=== PATIENT | female | born 1980 | race African-American/Black ===

== ENCOUNTER 2016-12-04 15:10 | Outpatient (CLI) | payer BC ==
[2016-12-04 15:55] LABS: ABSOLUTE BASOPHILS # (AUTO) 0.1 10^3/uL (0.0-0.2); ABSOLUTE LYMPHOCYTES (AUTO) 1.9 10^3/uL (0.5-4.7); ABSOLUTE MONOCYTES (AUTO) 0.8 10^3/uL (0.1-1.4); ABSOLUTE NEUT (AUTO) 5.8 10^3/uL (1.7-8.2); BASOPHILS % (AUTO) 0.7 % (0-2); EOSINOPHILS % (AUTO) 0.6 % (0-6); HEMATOCRIT 34.7 % (36.0-47.0); HEMOGLOBIN 10.9 g/dL (12.0-15.5); LYMPHOCYTES % (AUTO) 22.1 % (13-45); MEAN CORPUSCULAR HGB CONC 31.5 g/dL (32.0-36.0); MEAN CORPUSCULAR VOLUME 70 fl (80-97); MONOCYTES % (AUTO) 9.3 % (3-13); RED BLOOD COUNT 4.98 10^6/uL (3.72-5.28); SEGMENTED NEUTROPHILS % (AUTO) 67.3 % (42-78); WHITE BLOOD COUNT 8.7 10^3/uL (4.0-10.5)
--- NOTE | 2016-12-04 16:01 | L&D Flow Sheet ---
LD Flowsheet Datetime Report Generated by CPN: 12/04/2016 16:00 Datetime: 12/04/2016 15:57 Vital Signs NBP Sys/Karley/Mean (mmHg): 133 (QS system process) : 72 (QS system process) : 96 (QS system process) Pulse: 77 (QS system process) Datetime: 12/04/2016 15:55 Pain Pain Scale: 0 (Amelia Vitrano, RN) Pain Presence: None/Denies (Amelia Vitrano, RN) Pain Type: N/A (Amelia Vitrano, RN) Vaginal Exam Membrane Status: Intact (Amelia Vitrano, RN) Vaginal Bleeding: None (Amelia Vitrano, RN) Maternal Assessment Level of Consciousness: Fully Conscious (Amelia Vitrano, RN) DTR's/Clonus: DTRs 2+; 1 Beat Clonus (Amelia Vitrano, RN) Headache: Denies (Amelia Vitrano, RN) Datetime: 12/04/2016 15:51 Patient Care Patient Position/Activity: Left Lateral; Semi-Fowlers (Amelia Vitrano, RN) I/O Interventions: Clear Liquids Given (Amelia Vitrano, RN) Teaching Instructional Method: Verbal; Patient Instructed; Verbalized Understanding (Amelia Morales RN) Plan of Care: Plan of Care Discussed (Amelia Morales RN) Unit Routine: [place] to Room; Call French; Bed; Unit Personnel; Monitoring; Safety/Fall Risk Prevention; Bathroom Privileges (Amelia Morales, RN) Datetime: 12/04/2016 15:40 Patient Care Comments: Labs drawn, urine collected (Amelia Morales RN) Datetime: 12/04/2016 15:35 Patient Care Comments: Pt making call to workplace, changing (Amelia Morales RN)
[2016-12-04 16:10] LABS: APPEARANCE,URINE SLIGHTLY-CLOUDY; BILIRUBIN,URINE NEGATIVE (NEGATIVE); GLUCOSE, URINE NEGATIVE (NEGATIVE); KETONES,URINE 80 mg/dL (NEGATIVE); LEUKOCYTE ESTERASE,URINE NEGATIVE (NEGATIVE); NITRITE,URINE NEGATIVE (NEGATIVE); PROTEIN,URINE 100 mg/dL (NEGATIVE); URINE SPECIFIC GRAVITY 1.018; UROBILINOGEN,URINE NEGATIVE mg/dL (<2.0)
[2016-12-04 16:21] LABS: URINE BARBITURATES SCREEN NEGATIVE; URINE METHADONE SCREEN NEGATIVE; URINE PHENCYCLIDINE SCREEN NEGATIVE
[2016-12-04 16:22] LABS: ALANINE AMINOTRANSFERASE 45 U/L (9-52); ALBUMIN 3.2 g/dL (3.5-5.0); ALKALINE PHOSPHATASE 113 U/L (38-126); ANION GAP 9 (5-19); ASPARTATE AMINO TRANSFERASE 35 U/L (14-36); BILIRUBIN,TOTAL 0.3 mg/dL (0.2-1.3); BLOOD UREA NITROGEN 7 mg/dL (7-20); CALCIUM 9.2 mg/dL (8.4-10.2); CARBON DIOXIDE 25 mmol/L (22-30); CHLORIDE 103 mmol/L (98-107); CREATININE RESULT 0.72 mg/dL (0.52-1.25); GLUCOSE 65 mg/dL (75-110); LDH 646 U/L (313-618); POTASSIUM 4.2 mmol/L (3.6-5.0); SODIUM 136.7 mmol/L (137-145); TOTAL PROTEIN 6.3 g/dL (6.3-8.2); URIC ACID 5.4 mg/dL (2.5-7.0)
--- NOTE | 2016-12-04 16:54 | Non Stress Test Report ---
Non Stress Test Datetime Report Generated by CPN: 12/04/2016 16:54 DEMOGRAPHIC Test Number: 1 EGA NST: 35.0 INDICATION Indication for Study: Chronic Hypertension; Ordered by Provider MONITORING Monitor Explained: Monitor Explained; Test Explained; Patient Verbalized Understanding Time on Monitor: 12/04/2016 16:26 Time off Monitor: 12/04/2016 16:46 NST Duration: 20 NST INTERVENTIONS Physician Notified NST: H. Cullen, CNM BABY A: [id number] BABY A Movement : Present Contraction Frequency : None FHR Baseline : 130 Accelerations : 15X15 Decelerations : None Variability : Moderate 6-25bpm NST Review: Meets Criteria for Reactive NST NST Review and Verified By : Massimo Gregory RN NST Results: Reactive NST REPORT Report Trigger: Send Report
--- NOTE | 2016-12-06 12:10 | Antepartum Discharge Summary ---
Antepartum DC Datetime Report Generated by CPN: 12/06/2016 12:10 Diet: Regular (12/04/2016 17:13:Amelia Morales RN) Activity: Normal Activity (12/04/2016 17:13:Amelia Morales RN) Instructions Given To: Patient (12/04/2016 17:13:Amelia Morales RN) Instructions Understood: Patient Verbalized Understanding (12/04/2016 17:13:Amelia Morales RN) Referrals: None (12/04/2016 17:13:Amelia Morales RN) Educational Materials- Other: Kick Counts, Pre-E Care Notes (12/04/2016 17:13:Amelia Morales RN) Discharged AMA: No (12/04/2016 17:13:Amelia Morales RN) Discharge Date/Time: 12/04/2016 17:17 (12/04/2016 17:13:Amelia Morales RN) Discharged To: Home (12/04/2016 17:13:Amelia Morales RN) Discharge Provider Name: Jose Berman CNM (12/04/2016 17:13:Amelia Morales RN) Discharge Method: Ambulatory (12/04/2016 17:13:Amelia Morales RN) Condition: Stable (12/04/2016 17:13:Amelia Morales RN) Follow Up With: [facility] (12/04/2016 17:13:Amelia Morales RN) Follow Up On: 1-2 Days (12/04/2016 17:13:Amelia Morales RN) [facility] (12/04/2016 17:13:Amelia Morales RN)
--- NOTE | 2016-12-06 12:11 | L&D Flow Sheet ---
LD Flowsheet Datetime Report Generated by CPN: 12/06/2016 12:11 Datetime: 12/04/2016 17:17 Patient Care Comments: Pt ambulating off unit in stable condition (Amelia Morales, RN) Datetime: 12/04/2016 17:05 Instructional Method: Verbal; Written; Patient Instructed; Verbalized Understanding (Amelia Morales RN) Teaching Comments: Reviewed provider orders. Reviewed and signed Pre-E care notes and kick counts. Reviewed collection of 24 hour urine and provided supplies. Pt encouraged to return for f/u at [facility] and take prescriptions. Encouraged to return for pre-e signs/symptoms, leaking of fluid, decreased FM, regular contractions, bleeding like a period. Pt verbalized understanding and denies needs. (Amelia Morales RN) Datetime: 12/04/2016 17:03 Communication Comments: Jose Berman CNM on unit. Reviewed VS. Orders remain to d/c pt home, pt to collect 24 hour urine and take new prescription for Labetalol as prescribed, f/u in office . (Amelia Morales RN) Datetime: 12/04/2016 17:01 NBP Sys/Karley/Mean (mmHg): 161 (QS system process) : 74 (QS system process) : 107 (QS system process) Pulse: 72 (QS system process) Respirations: 16 (Amelia Morales RN) LaborFlag: Antepartum (QS system process) Datetime: 12/04/2016 17:00 NBP Sys/Karley/Mean (mmHg): 173 (QS system process) : 91 (QS system process) : 125 (QS system process) Pulse: 74 (QS system process) Respirations: 16 (Amelia Andrew, RN) LaborFlag: Antepartum (QS system process) Datetime: 12/04/2016 16:56 Communication Comments: HChapis Berman CNM on unit. Report given to include EGA 35.0, , pt to unit from [facility], reviewed records and history, nursing assessment, NST, VS and lab results. Orders to d/c pt home, no pre-e, pt to f/u in office as scheduled. (Amelia Liviaano, RN) Datetime: 12/04/2016 16:54 NBP Sys/Karley/Mean (mmHg): 159 (QS system process) : 98 (QS system process) : 120 (QS system process) Pulse: 74 (QS system process) Respirations: 16 (Amelia Vitrano, RN) LaborFlag: Antepartum (QS system process) Datetime: 12/04/2016 16:47 Communication Comments: Jose Berman CNM on unit, reviewed strip. May d/c monitors, reactive NST. (Amelia Vitrano, RN) Datetime: 12/04/2016 16:45 Monitor Mode: External; Palpation (Amelia Vitrano, RN) Frequency (min): None (Amelia Vitrano, RN) Resting Tone (Palpate): Relaxed (Amelia Vitrano, RN) Monitor Mode: External US (Amelia Vitrano, RN) FHR Baseline Rate : 130 (Amelia Vitrano, RN) Variability: Moderate 6-25 bpm (Amelia Vitrano, RN) Accelerations: 15X15 (Amelia Vitrano, RN) Decelerations: None (Amelia Vitrano, RN) Datetime: 12/04/2016 16:41 Monitor Interventions for FHR: Ultrasound Adjusted (Amelia Vitrano, RN) Datetime: 12/04/2016 16:39 NBP Sys/Karley/Mean (mmHg): 156 (QS system process) : 87 (QS system process) : 115 (QS system process) Pulse: 77 (QS system process) Respirations: 16 (Amelia Vitrano, RN) LaborFlag: Antepartum (QS system process) Datetime: 12/04/2016 16:26 Monitor Interventions for FHR: Ultrasound Adjusted (Amelia Vitrano, RN) Datetime: 12/04/2016 16:25 Monitor Interventions for FHR: Ultrasound Adjusted (Amelia Vitrano, RN) Datetime: 12/04/2016 16:24 NBP Sys/Karley/Mean (mmHg): 151 (QS system process) : 81 (QS system process) : 108 (QS system process) Pulse: 75 (QS system process) Respirations: 16 (Amelia Vitrano, RN) LaborFlag: Antepartum (QS system process) Datetime: 12/04/2016 16:18 Monitor Interventions for FHR: Ultrasound Adjusted (Amelia Vitrano, RN) Datetime: 12/04/2016 16:17 I/O Interventions: Popsicle (Amelia Vitrano, RN) Datetime: 12/04/2016 16:16 Monitor Interventions for FHR: Ultrasound Adjusted (Amelia Vitrano, RN) Datetime: 12/04/2016 16:15 Monitor Mode: External; Palpation (Amelia Vitrano, RN) Frequency (min): None (Amelia Vitrano, RN) Resting Tone (Palpate): Relaxed (Amelia Vitrano, RN) Monitor Mode: External US (Amelia Vitrano, RN) FHR Baseline Rate : 130 (Amelia Vitrano, RN) Variability: Moderate 6-25 bpm (Amelia Vitrano, RN) Accelerations: 15X15 (Amelia Vitrano, RN) Decelerations: None (Amelia Vitrano, RN) Datetime: 12/04/2016 16:12 Monitor Interventions for FHR: Ultrasound Adjusted (Amelia Vitrano, RN) Datetime: 12/04/2016 16:10 NBP Sys/Karley/Mean (mmHg): 153 (QS system process) : 76 (QS system process) : 107 (QS system process) Pulse: 76 (QS system process) Respirations: 16 (Amelia Vitrano, RN) LaborFlag: Antepartum (QS system process) Datetime: 12/04/2016 16:05 Monitor Interventions for FHR: Ultrasound Adjusted (Amelia Vitrano, RN) Patient Position/Activity: Right Lateral (Amelia Vitrano, RN) Datetime: 12/04/2016 16:04 Comments: Palpable movement, RN at bedside adjusting US (Amelia Vitrano, RN) Datetime: 12/04/2016 15:57 NBP Sys/Karley/Mean (mmHg): 133 (QS system process) : 72 (QS system process) : 96 (QS system process) Pulse: 77 (QS system process) Respirations: 16 (Amelia Vitrano, RN) LaborFlag: Antepartum (QS system process) Datetime: 12/04/2016 15:55 Stage of : Antepartum (Amelia Vitrano, RN) Pain Scale: 0 (Amelia Vitrano, RN) Pain Presence: None/Denies (Amelia Vitrano, RN) Pain Type: N/A (Amelia Vitrano, RN) Membrane Status: Intact (Amelia Vitrano, RN) Vaginal Bleeding: None (Amelia Vitrano, RN) Level of Consciousness: Fully Conscious (Amelia Vitrano, RN) DTR's/Clonus: DTRs 2+; 1 Beat Clonus (Amelia Vitrano, RN) Headache: Denies (Amelia Vitrano, RN) Breath Sounds, Left: Clear and Equal (Amelia Vitrano, RN) Breath Sounds, Right: Clear and Equal (Amelia Vitrano, RN) Nausea/Vomiting: Denies (Amelia Vitrano, RN) RUQ Epigastric Pain: Denies (Amelia Vitrano, RN) LaborFlag: Antepartum (QS system process) Datetime: 12/04/2016 15:51 Patient Position/Activity: Left Lateral; Semi-Fowlers (Amelia Morales RN) I/O Interventions: Clear Liquids Given (Amelia Morales RN) Instructional Method: Verbal; Patient Instructed; Verbalized Understanding (Amelia Morales RN) Plan of Care: Plan of Care Discussed (Amelia Morales RN) Unit Routine: [place] to Room; Call French; Bed; Unit Personnel; Monitoring; Safety/Fall Risk Prevention; Bathroom Privileges (Amelia Morales RN) Datetime: 12/04/2016 15:40 Patient Care Comments: Labs drawn, urine collected (Amelia Moraels RN) Datetime: 12/04/2016 15:35 Patient Care Comments: Pt making call to workplace, changing (Amelia Morales RN)
--- NOTE | 2016-12-06 12:11 | L&D General Admission ---
General Admit Datetime Report Generated by CPN: 12/06/2016 12:11 INFORMATION Patient Age: 36 (10/30/2016 09:21:QS system process) EDC: 01/08/2017 00:00 (12/04/2016 15:37:Amelia Morales RN) : 7 (12/04/2016 15:37:Amelia Morales RN) Para: 2 (12/04/2016 15:37:Amelia Morales RN) Term: 2 (12/04/2016 15:37:Amelia Morales RN) : 0 (12/04/2016 15:37:Amelia Morales RN) Spontaneous Abortions: 1 (12/04/2016 15:37:Amelia Morales RN) Induced Abortions: 3 (12/04/2016 15:37:Amelia Morales RN) Livin (12/04/2016 15:37:Amelia Morales RN) Cesareans: 0 (12/04/2016 15:37:Amelia Morales RN) VBACs: 0 (12/04/2016 15:37:Amelia Morales RN) Ectopic: 0 (12/04/2016 15:37:Ameliaraymundo Morales RN) Multiple Births: 0 (12/04/2016 15:37:Amelia Morales RN) Baby, Number in Womb: 1 (12/04/2016 15:37:Amelia Morales RN) CARE Primary Director Sales Training: [facility] (12/04/2016 15:37:Amelia Morales RN) Month of 1st Visit: 06/16 (12/04/2016 15:37:Amelia Morales RN) Adequate Care: Yes (12/04/2016 15:37:Amelia Morales RN) Prepregnancy Weight (lb): 272 (12/04/2016 15:37:Amelia Morales RN) Prepregnancy Weight (kg): 123.6 (12/04/2016 15:37:QS system process) Height (in): 61 (12/04/2016 16:00:QS system process) Height (in): 61 (12/04/2016 15:25:QS system process) ALLERGIES Medication Allergy: No (12/04/2016 15:37:Ameliaraymundo Morales RN) Medication Allergies: No Known Allergies (07/09/2013) (10/30/2016 09:21:QS system process) Latex Allergy: No Latex Allergies (12/04/2016 15:37:Amelia Vitrano, RN) Food Allergies: N/A (12/04/2016 15:37:Amelia Vitrano, RN) Environmental Allergies: N/A (12/04/2016 15:37:Amelia Vitrano, RN) COMMUNICATION Primary Language: Mongolian (12/04/2016 15:37:Amelia Morales RN) Medical Tx Preferred Language: Mongolian (12/04/2016 15:37:Amelia Andrew RN) Communication Barrier(s): None (12/04/2016 15:37:Amelia Vitrano, RN) DEMOGRAPHICS Address: [address] [place] [phone] (10/30/2016 09:21:QS system process) Zipcode: [id number] (10/30/2016 09:21:QS system process) Home (10/30/2016 09:21:QS system process) SSN: [id number] (10/30/2016 09:21:QS system process) Next of Kin Name: ISABEL WARNER II (10/30/2016 09:21:QS system process) Next of Kin (10/30/2016 09:21:QS system process) Next of Kin Relationship: SPO (10/30/2016 09:21:QS system process) Date of : 1980 (10/30/2016 09:21:QS system process) Marital Status: (10/30/2016 09:21:QS system process) Sex: Female (10/30/2016 09:21:QS system process) Race: (10/30/2016 09:21:QS system process) Ethnicity: Non- or (10/30/2016 09:21:QS system process) Shinto: Anabaptist (10/30/2016 09:21:QS system process) DRUG AND ALCOHOL USE Alcohol: No (12/04/2016 15:37:Amelia Morales RN) Cigarettes: Never Smoker. [id number] (12/04/2016 15:37:Amelia Morales RN) Marijuana: No (12/04/2016 15:37:Amelia Morales RN) Cocaine: No (12/04/2016 15:37:Amelia Morales RN) Other Illicit Drugs: No (12/04/2016 15:37:Amelia Morales RN) VACCINE HISTORY Influenza Vaccine: Yes (12/04/2016 15:37:Amelia Morales RN) Pneumococcal Vaccine: No (12/04/2016 15:37:Amelia Morales RN) Tetanus Vaccine: Yes (12/04/2016 15:37:Amelia Morales RN) Tdap Vaccine: Yes (12/04/2016 15:37:Amelia Morales RN) Hepatitis B Vaccine: Yes (12/04/2016 15:37:Amelia Morales RN) Benefit of Breast Feed Discussed: Yes (12/04/2016 15:37:Amelia Morales RN) Circumcision: Yes (12/04/2016 15:37:Amelia Morales RN) Classes Attended: Yes (12/04/2016 15:37:Amelia Morales RN) Tubal Ligation: Yes (12/04/2016 15:37:Amelia Morales RN) Tubal Authorization Signed: N/A (12/04/2016 15:37:Amelia Morales RN) Consent: N/A (12/04/2016 15:37:Amelia Morales RN) Consent Signed: N/A (12/04/2016 15:37:Amelia Morales RN) Pain Management Plans: Natural (12/04/2016 15:37:Amelia Morales RN) Plans for Labor and Delivery: None (12/04/2016 15:37:Amelia Morales RN) Support Person: Marco Warner II (12/04/2016 15:37:Amelia Morales RN) Support Person Relationship: (12/04/2016 15:37:Amelia Morales RN) Cultural/Spritual Practice: No (12/04/2016 15:37:Amelia Morales RN) Spir/Cult Dietary Needs: No (12/04/2016 15:37:Amelia Morales RN) LIVING SITUATION/DISCHARGE PLAN Living Arrangements: House (12/04/2016 15:37:Amelia Morales RN) Adequate Access to:: Electric; Heat; Refrigeration; Plumbing/Running water; Phone; Transportation (12/04/2016 15:37:Amelia Morales RN) WIC Program: No (12/04/2016 15:37:Amelia Morales RN) Discharge Primary Care Pediatrician Person: (12/04/2016 15:37:Amelia Morales RN) Person to Help after Discharge: (12/04/2016 15:37:Amelia Morales RN) Currently Using Commun Resources: No (12/04/2016 15:37:Amelia Morales RN) Outside Agency/Dredge Engineer: No (12/04/2016 15:37:Amelia Morales RN) Car Seat for Discharge: Yes (12/04/2016 15:37:Amelia Morales RN) Adoption Requested: No (12/04/2016 15:37:Amelia Morales RN) Pt Contact w/ Post : N/A (12/04/2016 15:37:Amelia Morales RN) LABS Hemoglobin: 10.9 L (12/04/2016 15:41:QS system process) Hematocrit: 34.7 L (12/04/2016 15:41:QS system process) MCV: 70 L (12/04/2016 15:41:QS system process) OB/PREVIOUS HISTORY History of Previous : No (12/04/2016 15:37:Amelia Morales RN) History of Gestational Diabetes: No (12/04/2016 15:37:Amelia Morales RN) History of PIH: No (12/04/2016 15:37:Amelia Morales RN) History of Incompetent Cervix: No (12/04/2016 15:37:Amelia Morales RN) History of Placenta Previa/Abrup: No (12/04/2016 15:37:Amelia Morales RN) History of Macrosomia: No (12/04/2016 15:37:Amelia Morales RN) History of IUGR: No (12/04/2016 15:37:Amelia Morales RN) History of Hemorrhage: No (12/04/2016 15:37:Amelia Morales RN) History of Loss/Stillborn: No (12/04/2016 15:37:Amelia Morales RN) History of : No (12/04/2016 15:37:Amelia Morales RN) History of D (Rh) Sensitization: No (12/04/2016 15:37:Amelia Morales RN) History Recurrent Loss/Stillborn: No (12/04/2016 15:37:Amelia Morales RN) History Depression/PP Depression: No (12/04/2016 15:37:Amelia Morales RN) History of Uterine Anomaly/YAZMIN: No (12/04/2016 15:37:Amelia Morales RN) History of Infertility: No (12/04/2016 15:37:Amelia Morales RN) History of ART Treatment: No (12/04/2016 15:37:Amelia Morales RN) History of YAZMIN: No (12/04/2016 15:37:Amelia Morales RN) Comments Obstetrical History: G1: 2000 EAB G2: 2001 baby boy, 37-39 weeks, 24+ hours labor, 7 lb, IOL oligo G3: 2001 EAB G4: 2003 baby girl, 37-39 weeks G5: 2007 EAB G6: 2013 SAB, 13 weeks G7: Current (12/04/2016 15:37:Amelia Morales RN) MEDICAL HISTORY Med Hx Diabetes: No (12/04/2016 15:37:Amelia Morales RN) Med Hx Hypertension: Yes (12/04/2016 15:37:Amelia Morales RN) Med Hx Heart Disease: No (12/04/2016 15:37:Amelia Morales RN) Med Hx Autoimmune Disorder: No (12/04/2016 15:37:Amelia Morales RN) Med Hx Kidney Disease/UTI: No (12/04/2016 15:37:Amelia Morales RN) Med Hx Neurologic/Epilepsy: No (12/04/2016 15:37:Amelia Morales RN) Med Hx Psychiatric Disorders: No (12/04/2016 15:37:Amelia Morales RN) Med Hx Hepatitis/Liver Disease: No (12/04/2016 15:37:Amelia Morales RN) Med Hx Varicosities/Phlebitis: No (12/04/2016 15:37:Amelia Morales RN) Med Hx Thyroid Dysfunction: No (12/04/2016 15:37:Amelia Morales RN) Med Hx Trauma/Violence: No (12/04/2016 15:37:Amelia Morales RN) Med Hx Blood Transfusion: No (12/04/2016 15:37:Amelia Morales RN) Med Hx Pulmonary (Asthma,TB): Yes (12/04/2016 15:37:Amelia Morales RN) Med Hx Breast: No (12/04/2016 15:37:Amelia Morales RN) Med Hx ORACLE SOA ARCHITECT Surgery: No (12/04/2016 15:37:Amelia Morales RN) Med Hx Hospitalization/Surgery: Yes (12/04/2016 15:37:Amelia Morales RN) Med Hx Anesthetic Complications: No (12/04/2016 15:37:Amelia Morales RN) Med Hx Abnormal Pap Smear: Yes (12/04/2016 15:37:Amelia Morales RN) Other Medical Diseases: Yes (12/04/2016 15:37:Amelia Morales RN) Med Hx Significant Family Hx: No (12/04/2016 15:37:Amelia Morales RN) Details of Med/Surg Hx: HTN: Chronic HTN, Labetalol 100 mg BID Pulmonary: Bronchitis 11/30/16 Surgery: Colonoscopy 2012, polyps noted Abnormal Pap: Hx ASCUS Pap, negative HPV Other: Morbid obesity (12/04/2016 15:37:Amelia Morales RN) INFECTIOUS HISTORY Inf Hx Gonorrhea: No (12/04/2016 15:37:Amelia Morales RN) Inf Hx Chlamydia: Yes (12/04/2016 15:37:Amelia Morales RN) Inf Hx Syphilis: No (12/04/2016 15:37:Amelia Morales RN) Inf Hx HIV/AIDS: No (12/04/2016 15:37:Amelia Morales RN) Inf Hx Human Papilloma Virus: No (12/04/2016 15:37:Amelia Morales RN) Inf Hx Pt/Partner Genital Herpes: No (12/04/2016 15:37:Amelia Morales RN) Inf Hx Tuberculosis/Exposure: No (12/04/2016 15:37:Amelia Morales RN) Inf Hx Hepatitis B,C: No (12/04/2016 15:37:Amelia Morales RN) Inf Hx Rash or Viral Illness: No (12/04/2016 15:37:Amelia Morales RN) Details of Infectious Hx: Chlamydia (12/04/2016 15:37:Amelia Morales RN) GENETIC HISTORY Gen Hx Age >=35 at XANDER: No (12/04/2016 15:37:Amelia Morales RN) Gen Hx Thalassemia: No (12/04/2016 15:37:Amelia Morales RN) Gen Hx Congenital Heart Defect: No (12/04/2016 15:37:Amelia Morales RN) Gen Hx Neural Tube Defect: No (12/04/2016 15:37:Amelia Morales RN) Gen Hx Down's Syndrome: No (12/04/2016 15:37:Amelia Morales RN) Gen Hx Ken-Sachs: No (12/04/2016 15:37:Amelia Morales RN) Gen Hx Alexia: No (12/04/2016 15:37:Amelia Morales RN) Gen Hx Familial Dysautonomia: No (12/04/2016 15:37:Amelia Morales RN) Gen Hx Sickle Cell Disease/Trait: No (12/04/2016 15:37:Amelia Morales RN) Gen Hx Hemophilia/Blood Disorder: No (12/04/2016 15:37:Amelia Morales RN) Gen Hx Muscular Dystrophy: No (12/04/2016 15:37:Amelia Morales RN) Gen Hx Cystic Fibrosis: No (12/04/2016 15:37:Amelia Morales RN) Gen Hx Huntingtons Chorea: No (12/04/2016 15:37:Amelia Morales RN) Gen Hx Mental Retardation/Autism: No (12/04/2016 15:37:Amelia Morales RN) Gen Hx Tested for Fragile X: No (12/04/2016 15:37:Amelia Morales RN) Gen Hx Other Inher/Chromosomal: No (12/04/2016 15:37:Amelia Morales RN) Gen Hx Maternal Metabolic DO: No (12/04/2016 15:37:Amelia Morales RN) Gen Hx Pt Father or FOB Defect: No (12/04/2016 15:37:Amelia Morales RN) Gen Hx Other Genetic History: No (12/04/2016 15:37:Amelia Morales RN) Gen Hx Drugs/Meds since LMP: No (12/04/2016 15:37:Amelia Morales RN)
--- NOTE | 2016-12-06 12:11 | L&D Current Admission ---
Current Admit Datetime Report Generated by [facility]: 12/06/2016 12:10 Chief Complaint: Other (Annotations: Denies complaints) (12/04/2016 15:55:Amelia Morales RN)
--- NOTE | 2016-12-06 12:12 | L&D Discharge Summary ---
OB Discharge Summary Datetime Report Generated by CPN: 12/06/2016 12:12 DISCHARGE DIAGNOSIS Diagnosis/Symptoms: Other Diagnoses/Symptoms Other: No pre-e Reviewed provider orders. Reviewed and signed Pre-E care notes and kick counts. Reviewed collection of 24 hour urine and provided supplies. Pt encouraged to return for f/u Thursday at [facility] and take prescriptions. Encouraged to return for pre-e signs/symptoms, leaking of fluid, decreased FM, regular contractions, bleeding like a period. Pt verbalized understanding and denies needs. Gestation: 35.0 Number of Babies in Womb: 1 Parity: 2 DIET/ACTIVITY/RESTRICTIONS Diet: Regular Activity: Normal Activity TEACHING/INSTRUCTIONS/REFERRALS Instructions Given To: Patient Instructions Understood: Patient Verbalized Understanding Referrals: None Educational Materials- Other: Kick Counts, Pre-E Care Notes DISCHARGE INFORMATION Discharged AMA: No Discharge Date/Time: 12/04/2016 17:17 Discharged To: Home Discharge Provider Name: H. Cullen, CNM Discharge Method: Ambulatory Condition: Stable FOLLOW UP INFORMATION Follow Up With: [facility] Follow Up On: 1-2 Days Follow Up Phone Number: [facility] -
== END 2016-12-04 17:17 | disposition home or self-care (01) ==
LOC: LC 15:10
PROVIDERS: ATTEND Obstetrics & Gynecology
PROC: 4A1HXCZ Monitoring of Products of Conception, Cardiac Rate, External Approach (ICD-10-PCS; principal; 2016-12-04)
DX: O10.913 Unspecified pre-existing hypertension complicating pregnancy, third trimester (principal); Z3A.35 35 weeks gestation of pregnancy
CPT/HCPCS: 59025; 36415; 83615; 84550; 85025; 80053; 81001; G0479; 80307

== ENCOUNTER 2016-12-10 15:59 | Outpatient (CLI) | payer BC ==
--- NOTE | 2016-12-10 16:51 | Non Stress Test Report ---
Non Stress Test Datetime Report Generated by CPN: 12/10/2016 16:51 DEMOGRAPHIC EGA NST: 35.6 INDICATION Indication for Study: Chronic Hypertension; Other Indication for Study (NST) Other: morbid obesity VITAL SIGNS Temperature - NST: 97.9 Pulse - NST: 77 RESP - NST: 22 NBPSYS NST: 136 NBPDIA NST: 68 MONITORING Monitor Explained: Monitor Explained; Test Explained; Patient Verbalized Understanding Time on Monitor: 12/10/2016 16:21 Time off Monitor: 12/10/2016 16:50 NST Duration: 29 NST INTERVENTIONS NST Interventions: PO Hydration; Reposition Patient Physician Notified NST: Lorena Alcaraz, CNM BABY A Movement : Present Contraction Frequency : deneis FHR Baseline : 135 Accelerations : 15X15 Decelerations : None Variability : Moderate 6-25bpm NST Review: Meets Criteria for Reactive NST NST Review and Verified By : Jose Boswell RN NST Results: Reactive NST Results: Reactive NST REPORT Report Trigger: Send Report
--- NOTE | 2016-12-11 10:30 | Antepartum Discharge Summary ---
Antepartum DC Datetime Report Generated by CPN: 12/11/2016 10:30 Diet: Regular (12/10/2016 17:06:KRISTEN Salazar) Activity: Normal Activity (12/10/2016 17:06:KRISTEN Salazar) Activity Restrictions: Nothing in Vagina - [place], Tampons, [place] (12/10/2016 17:06:KRISTEN Salazar) Instructions Given To: patient (12/10/2016 17:06:KRISTEN Salazar) Instructions Understood: Patient Verbalized Understanding; Support Person Verbalized Understanding (12/10/2016 17:06:KRISTEN Salazar) Referrals: None (12/10/2016 17:06:KRISTEN Salazar) Educational Materials- Other: reviewed previous care notes for Kick Count process, interventions to promote movement, warning signs to report and when notifiy provider and seek further evaluation (12/10/2016 17:06:KRISTEN Salazar) Discharged AMA: No (12/10/2016 17:06:KRISTEN Salazar) Discharge Date/Time: 12/10/2016 17:00 (12/10/2016 17:06:KRISTEN Salazar) Discharged To: Home (12/10/2016 17:06:KRISTEN Salazar) Discharge Provider Name: Maddi Alcaraz CNM (12/10/2016 17:06:KRISTEN Salazar) Accompanied By: self (12/10/2016 17:06:KRISTEN Salazar) Discharge Method: Ambulatory (12/10/2016 17:06:KRISTEN Salazar) Condition: Stable (12/10/2016 17:06:KRISTEN Salazar) Follow Up With: [facility] (12/10/2016 17:06:KRISTEN Salazar) Follow Up On: As Scheduled (12/10/2016 17:06:KRISTEN Salazar) Follow Up Phone Number: [facility] - (12/10/2016 17:06:KRISTEN Salazar)
--- NOTE | 2016-12-11 10:31 | L&D General Admission ---
General Admit Datetime Report Generated by CPN: 12/11/2016 10:31 INFORMATION Patient Age: 36 (10/30/2016 09:21:QS system process) EDC: 01/08/2017 00:00 (12/04/2016 15:37:Amelia Morales RN) : 7 (12/04/2016 15:37:Amelia Morales RN) Para: 4 (12/10/2016 17:06:KRISTEN Salazar) Para: 2 (12/04/2016 15:37:Amelia Morales RN) Term: 2 (12/04/2016 15:37:Amelia Morales RN) : 0 (12/04/2016 15:37:Amelia Morales RN) Spontaneous Abortions: 1 (12/04/2016 15:37:Amelia Morales RN) Induced Abortions: 3 (12/04/2016 15:37:Amelia Morales RN) Livin (12/04/2016 15:37:Amelia Morales RN) Cesareans: 0 (12/04/2016 15:37:Amelia Morales RN) VBACs: 0 (12/04/2016 15:37:Amelia Morales RN) Ectopic: 0 (12/04/2016 15:37:Amelia Morales RN) Multiple Births: 0 (12/04/2016 15:37:Amelia Morales RN) Baby, Number in Womb: 1 (12/10/2016 17:06:Emily Garcia [facility]) Baby, Number in Womb: 1 (12/04/2016 15:37:Amelia Morales RN) CARE Primary General Ii Farmworker: [facility] (12/04/2016 15:37:Amelia Morales RN) Month of 1st Visit: 06/16 (12/04/2016 15:37:Amelia Morales RN) Adequate Care: Yes (12/04/2016 15:37:Amelia Morales RN) Prepregnancy Weight (lb): 272 (12/04/2016 15:37:Amelia Morales RN) Prepregnancy Weight (kg): 123.6 (12/04/2016 15:37:QS system process) Height (in): 61 (12/10/2016 16:57:QS system process) Height (in): 61 (12/10/2016 16:46:QS system process) Height (in): 61 (12/04/2016 16:00:QS system process) Height (in): 61 (12/04/2016 15:25:QS system process) ALLERGIES Medication Allergy: No (12/04/2016 15:37:Amelia Moralse RN) Medication Allergies: No Known Allergies (12/10/2016) (12/10/2016 16:43:QS system process) Medication Allergies: No Known Allergies (07/09/2013) (10/30/2016 09:21:QS system process) Latex Allergy: No Latex Allergies (12/04/2016 15:37:Ameliaraymundo Morales RN) Food Allergies: N/A (12/04/2016 15:37:Amelia Morales RN) Environmental Allergies: N/A (12/04/2016 15:37:Amelia Andrew RN) COMMUNICATION Primary Language: Kyrgyz (12/04/2016 15:37:Amelia Morales RN) Medical Tx Preferred Language: Kyrgyz (12/04/2016 15:37:Ameliaraymundo Morales RN) Communication Barrier(s): None (12/04/2016 15:37:Amelia Andrew, RN) DEMOGRAPHICS Address: [address] [place] [phone] (10/30/2016 09:21:QS system process) Zipcode: [phone] (10/30/2016 09:21:QS system process) Home (10/30/2016 09:21:QS system process) SSN: [id number] (10/30/2016 09:21:QS system process) Next of Kin Name: ISABEL WARNER II (10/30/2016 09:21:QS system process) Next of Kin (10/30/2016 09:21:QS system process) Next of Kin Relationship: SPO (10/30/2016 09:21:QS system process) Date of : 1980 (10/30/2016 09:21:QS system process) Marital Status: (10/30/2016 09:21:QS system process) Sex: Female (10/30/2016 09:21:QS system process) Race: (10/30/2016 09:21:QS system process) Ethnicity: Non- or (10/30/2016 09:21:QS system process) Zoroastrianism: Lutheran (10/30/2016 09:21:QS system process) DRUG AND ALCOHOL USE Alcohol: No (12/04/2016 15:37:Amelia Vitrano, RN) Cigarettes: Never Smoker. [id number] (12/04/2016 15:37:Amelia Vitrano, RN) Marijuana: No (12/04/2016 15:37:Amelia Vitrano, RN) Cocaine: No (12/04/2016 15:37:Amelia Vitrano, RN) Other Illicit Drugs: No (12/04/2016 15:37:Amelia Vitrano, RN) VACCINE HISTORY Influenza Vaccine: Yes (12/04/2016 15:37:Amelia Vitrano, RN) Pneumococcal Vaccine: No (12/04/2016 15:37:Amelia Vitrano, RN) Tetanus Vaccine: Yes (12/04/2016 15:37:Amelia Vitrano, RN) Tdap Vaccine: Yes (12/04/2016 15:37:Amelia Vitrano, RN) Hepatitis B Vaccine: Yes (12/04/2016 15:37:Amelia Vitrano, RN) Benefit of Breast Feed Discussed: Yes (12/04/2016 15:37:Amelia Morales RN) Circumcision: Yes (12/04/2016 15:37:Amelia Morales RN) Classes Attended: Yes (12/04/2016 15:37:Amelia Morales RN) Tubal Ligation: Yes (12/04/2016 15:37:Amelia Morales RN) Tubal Authorization Signed: N/A (12/04/2016 15:37:Amelia Morales RN) Consent: N/A (12/04/2016 15:37:Amelia Morales RN) Consent Signed: N/A (12/04/2016 15:37:Amelia Morales RN) Pain Management Plans: Natural (12/04/2016 15:37:Amelia Morales RN) Plans for Labor and Delivery: None (12/04/2016 15:37:Amelia Morales RN) Support Person: Marco Warner II (12/04/2016 15:37:Amelia Morales RN) Support Person Relationship: (12/04/2016 15:37:Amelia Moarles RN) Cultural/Spritual Practice: No (12/04/2016 15:37:Amelia Morales RN) Spir/Cult Dietary Needs: No (12/04/2016 15:37:Amelia Morales RN) LIVING SITUATION/DISCHARGE PLAN Living Arrangements: House (12/04/2016 15:37:Amelia Morales RN) Adequate Access to:: Electric; Heat; Refrigeration; Plumbing/Running water; Phone; Transportation (12/04/2016 15:37:Amelia Morales RN) WIC Program: No (12/04/2016 15:37:Amelia Morales RN) Discharge Healthcare Analyst Person: (12/04/2016 15:37:Amelia Morales RN) Person to Help after Discharge: (12/04/2016 15:37:Amelia Morales RN) Currently Using Commun Resources: No (12/04/2016 15:37:Amelia Morales RN) Outside Agency/Fuel Efficient Aircraft Designer: No (12/04/2016 15:37:Amelia Morales RN) Car Seat for Discharge: Yes (12/04/2016 15:37:Amelia Morales RN) Adoption Requested: No (12/04/2016 15:37:Amelia Morales RN) Pt Contact w/infant Post : N/A (12/04/2016 15:37:Amelia Morales RN) LABS Hemoglobin: 10.9 L (12/04/2016 15:41:QS system process) Hematocrit: 34.7 L (12/04/2016 15:41:QS system process) MCV: 70 L (12/04/2016 15:41:QS system process) OB/PREVIOUS HISTORY History of Previous : No (12/04/2016 15:37:Amelia Morales RN) History of Gestational Diabetes: No (12/04/2016 15:37:Amelia Morales RN) History of PIH: No (12/04/2016 15:37:Amelia Morales RN) History of Incompetent Cervix: No (12/04/2016 15:37:Amelia Morales RN) History of Placenta Previa/Abrup: No (12/04/2016 15:37:Amelia Morales RN) History of Macrosomia: No (12/04/2016 15:37:Amelia Morales RN) History of IUGR: No (12/04/2016 15:37:Amelia Morales RN) History of Hemorrhage: No (12/04/2016 15:37:Amelia Morales RN) History of Loss/Stillborn: No (12/04/2016 15:37:Amelia Morales RN) History of : No (12/04/2016 15:37:Amelia Morales RN) History of D (Rh) Sensitization: No (12/04/2016 15:37:Amelia Morales RN) History Recurrent Loss/Stillborn: No (12/04/2016 15:37:Amelia Morales RN) History Depression/PP Depression: No (12/04/2016 15:37:Amelia Morales RN) History of Uterine Anomaly/YAZMIN: No (12/04/2016 15:37:Amelia Morales RN) History of Infertility: No (12/04/2016 15:37:Amelia Morales RN) History of ART Treatment: No (12/04/2016 15:37:Amelia Morales RN) History of YAZMIN: No (12/04/2016 15:37:Amelia Morales RN) Comments Obstetrical History: G1: 2000 EAB G2: 2001 baby boy, 37-39 weeks, 24+ hours labor, 7 lb, IOL oligo G3: 2001 EAB G4: 2003 baby girl, 37-39 weeks G5: 2007 EAB G6: 2014 SAB, 13 weeks G7: Current (12/04/2016 15:37:Amelia Morales RN) MEDICAL HISTORY Med Hx Diabetes: No (12/04/2016 15:37:Amelia Morales RN) Med Hx Hypertension: Yes (12/04/2016 15:37:Amelia Morales RN) Med Hx Heart Disease: No (12/04/2016 15:37:Amelia Morales RN) Med Hx Autoimmune Disorder: No (12/04/2016 15:37:Amelia Morales RN) Med Hx Kidney Disease/UTI: No (12/04/2016 15:37:Amelia Morales RN) Med Hx Neurologic/Epilepsy: No (12/04/2016 15:37:Amelia Morales RN) Med Hx Psychiatric Disorders: No (12/04/2016 15:37:Amelia Morales RN) Med Hx Hepatitis/Liver Disease: No (12/04/2016 15:37:Amelia Morales RN) Med Hx Varicosities/Phlebitis: No (12/04/2016 15:37:Amelia Morales RN) Med Hx Thyroid Dysfunction: No (12/04/2016 15:37:Amelia Morales RN) Med Hx Trauma/Violence: No (12/04/2016 15:37:Amelia Morales RN) Med Hx Blood Transfusion: No (12/04/2016 15:37:Amelia Morales RN) Med Hx Pulmonary (Asthma,TB): Yes (12/04/2016 15:37:Amelia Morales RN) Med Hx Breast: No (12/04/2016 15:37:Amelia Morales RN) Med Hx PRECISION HONER Surgery: No (12/04/2016 15:37:Amelia Morales RN) Med Hx Hospitalization/Surgery: Yes (12/04/2016 15:37:Amelia Morales RN) Med Hx Anesthetic Complications: No (12/04/2016 15:37:Amelia Morales RN) Med Hx Abnormal Pap Smear: Yes (12/04/2016 15:37:Amelia Morales RN) Other Medical Diseases: Yes (12/04/2016 15:37:Amelia Morales RN) Med Hx Significant Family Hx: No (12/04/2016 15:37:Amelia Morales RN) Details of Med/Surg Hx: HTN: Chronic HTN, Labetalol 100 mg BID Pulmonary: Bronchitis 11/30/16 Surgery: Colonoscopy 2012, polyps noted Abnormal Pap: Hx ASCUS Pap, negative HPV Other: Morbid obesity (12/04/2016 15:37:Amelia Morales RN) INFECTIOUS HISTORY Inf Hx Gonorrhea: No (12/04/2016 15:37:Amelia Morales RN) Inf Hx Chlamydia: Yes (12/04/2016 15:37:Amelia Morales RN) Inf Hx Syphilis: No (12/04/2016 15:37:Amelia Morales RN) Inf Hx HIV/AIDS: No (12/04/2016 15:37:Amelia Morales RN) Inf Hx Human Papilloma Virus: No (12/04/2016 15:37:Amelia Morales RN) Inf Hx Pt/Partner Genital Herpes: No (12/04/2016 15:37:Amelia Morales RN) Inf Hx Tuberculosis/Exposure: No (12/04/2016 15:37:Amelia Morales RN) Inf Hx Hepatitis B,C: No (12/04/2016 15:37:Amelia Morales RN) Inf Hx Rash or Viral Illness: No (12/04/2016 15:37:Amelia Morales RN) Details of Infectious Hx: Chlamydia (12/04/2016 15:37:Amelia Morales RN) GENETIC HISTORY Gen Hx Age >=35 at XANDER: No (12/04/2016 15:37:Amelia Morales RN) Gen Hx Thalassemia: No (12/04/2016 15:37:Amelia Morales RN) Gen Hx Congenital Heart Defect: No (12/04/2016 15:37:Amelia Morales RN) Gen Hx Neural Tube Defect: No (12/04/2016 15:37:Amelia Morales RN) Gen Hx Down's Syndrome: No (12/04/2016 15:37:Amelia Morales RN) Gen Hx Ken-Sachs: No (12/04/2016 15:37:Amelia Morales RN) Gen Hx Alexia: No (12/04/2016 15:37:Amelia Morales RN) Gen Hx Familial Dysautonomia: No (12/04/2016 15:37:Amelia Morales RN) Gen Hx Sickle Cell Disease/Trait: No (12/04/2016 15:37:Amelia Morales RN) Gen Hx Hemophilia/Blood Disorder: No (12/04/2016 15:37:Amelia Morales RN) Gen Hx Muscular Dystrophy: No (12/04/2016 15:37:Amelia Morales RN) Gen Hx Cystic Fibrosis: No (12/04/2016 15:37:Amelia Morales RN) Gen Hx Huntingtons Chorea: No (12/04/2016 15:37:Amelia Morales RN) Gen Hx Mental Retardation/Autism: No (12/04/2016 15:37:Amelia Morales RN) Gen Hx Tested for Fragile X: No (12/04/2016 15:37:Amelia Morales RN) Gen Hx Other Inher/Chromosomal: No (12/04/2016 15:37:Amelia Morales RN) Gen Hx Maternal Metabolic DO: No (12/04/2016 15:37:Amelia Morales RN) Gen Hx Pt Father or FOB Defect: No (12/04/2016 15:37:Amelia Morales RN) Gen Hx Other Genetic History: No (12/04/2016 15:37:Amelia Morales RN) Gen Hx Drugs/Meds since LMP: No (12/04/2016 15:37:Amelia Morales RN)
--- NOTE | 2016-12-11 10:31 | L&D Discharge Summary ---
OB Discharge Summary Datetime Report Generated by CPN: 12/11/2016 10:31 DISCHARGE DIAGNOSIS Diagnosis/Symptoms: Reassuring Surveillance - Annotate Details Diagnoses/Symptoms Other: iup 35+6 CHTN maternal obesity with reactive NST Gestation: 35.6 Number of Babies in Womb: 1 Parity: 4 DIET/ACTIVITY/RESTRICTIONS Diet: Regular Activity: Normal Activity Activity Restrictions: Nothing in Vagina - Nooksack, Tampons, Douche TEACHING/INSTRUCTIONS/REFERRALS Instructions Given To: patient Instructions Understood: Patient Verbalized Understanding; Support Person Verbalized Understanding Referrals: None Educational Materials- Other: reviewed previous care notes for Kick Count process, interventions to promote movement, warning signs to report and when notifiy provider and seek further evaluation DISCHARGE INFORMATION Discharged AMA: No Discharge Date/Time: 12/10/2016 17:00 Discharged To: Home Discharge Provider Name: J Alcaraz CNM Accompanied By: self Discharge Method: Ambulatory Condition: Stable FOLLOW UP INFORMATION Follow Up With: [facility] Follow Up On: As Scheduled Follow Up Phone Number: [facility] -
--- NOTE | 2016-12-11 10:35 | L&D Flow Sheet ---
LD Flowsheet Datetime Report Generated by CPN: 12/11/2016 10:35 Datetime: 12/10/2016 16:55 Comments: active movment verbalized and palpated. EFM off for discharge to home, see discharge summary (Emily Camp, RNC) Datetime: 12/10/2016 16:39 NBP Sys/Karley/Mean (mmHg): 136 (QS system process) : 68 (QS system process) : 96 (QS system process) Pulse: 77 (QS system process) LaborFlag: Antepartum (QS system process) Datetime: 12/10/2016 16:30 Actions for Decelerations: Side to Side (KRISTEN Salazar) Comments: RN remains at bedside attempting to continuously trace fhr, audible accels with stated movement felt per pt. Continuous tracing difficult secondary to habitus and transverse position (KRISTEN Salazar)
--- NOTE | 2016-12-12 06:13 | L&D Current Admission ---
Current Admit Datetime Report Generated by CPN: 12/12/2016 06:00 ADMISSION INFORMATION Chief Complaint: Other (Annotations: Denies complaints) (12/04/2016 15:55:Amelia Andrew, ABDULKADIR)
--- NOTE | 2016-12-12 06:13 | L&D General Admission ---
General Admit Datetime Report Generated by CPN: 12/12/2016 06:00 INFORMATION Patient Age: 36 (10/30/2016 09:21:QS system process) EDC: 01/08/2017 00:00 (12/04/2016 15:37:Amelia Morales RN) : 7 (12/04/2016 15:37:Amelia Morales RN) Para: 4 (12/10/2016 17:06:KRISTEN Salazar) Term: 2 (12/04/2016 15:37:Amelia Morales RN) : 0 (12/04/2016 15:37:Amelia Morales RN) Spontaneous Abortions: 1 (12/04/2016 15:37:Amelia Morales RN) Induced Abortions: 3 (12/04/2016 15:37:Amelia Morales RN) Livin (12/04/2016 15:37:Amelia Morales RN) Cesareans: 0 (12/04/2016 15:37:Amelia Morales RN) VBACs: 0 (12/04/2016 15:37:Amelia Morales RN) Ectopic: 0 (12/04/2016 15:37:Amelia Morales RN) Multiple Births: 0 (12/04/2016 15:37:Amelia Morales RN) Baby, Number in Womb: 1 (12/10/2016 17:06:Emily Jose, [facility]) CARE Primary Model Maker Fiberglass: [facility] (12/04/2016 15:37:Amelia Morales RN) Month of 1st Visit: 06/16 (12/04/2016 15:37:Amelia Morales RN) Adequate Care: Yes (12/04/2016 15:37:Amelia Morales RN) Prepregnancy Weight (lb): 272 (12/04/2016 15:37:Amelia Morales RN) Prepregnancy Weight (kg): 123.6 (12/04/2016 15:37:QS system process) Height (in): 61 (12/10/2016 16:57:QS system process) ALLERGIES Medication Allergy: No (12/04/2016 15:37:Amelia Morales RN) Medication Allergies: No Known Allergies (12/10/2016) (12/10/2016 16:43:QS system process) Latex Allergy: No Latex Allergies (12/04/2016 15:37:Amelia Morales RN) Food Allergies: N/A (12/04/2016 15:37:Amelia Morales RN) Environmental Allergies: N/A (12/04/2016 15:37:Amelia Morales RN) COMMUNICATION Primary Language: Armenian (12/04/2016 15:37:Amelia Morales RN) Medical Tx Preferred Language: Armenian (12/04/2016 15:37:Amelia Morales RN) Communication Barrier(s): None (12/04/2016 15:37:Amelia Morales RN) DEMOGRAPHICS Address: [address] [place] [phone] (10/30/2016 09:21:QS system process) Zipcode: [phone] (10/30/2016 09:21:QS system process) Home (10/30/2016 09:21:QS system process) SSN: [id number] (10/30/2016 09:21:QS system process) Next of Kin Name: ISABEL WARNER II (10/30/2016 09:21:QS system process) Next of Kin (10/30/2016 09:21:QS system process) Next of Kin Relationship: SPO (10/30/2016 09:21:QS system process) Date of : 1980 (10/30/2016 09:21:QS system process) Marital Status: (10/30/2016 09:21:QS system process) Sex: Female (10/30/2016 09:21:QS system process) Race: (10/30/2016 09:21:QS system process) Ethnicity: Non- or (10/30/2016 09:21:QS system process) Moravian: Amish (10/30/2016 09:21:QS system process) DRUG AND ALCOHOL USE Alcohol: No (12/04/2016 15:37:Amelia Morales RN) Cigarettes: Never Smoker. [id number] (12/04/2016 15:37:Amelia Morales RN) Marijuana: No (12/04/2016 15:37:Amelia Morales RN) Cocaine: No (12/04/2016 15:37:Amelia Morales RN) Other Illicit Drugs: No (12/04/2016 15:37:Amelia Morales RN) VACCINE HISTORY Influenza Vaccine: Yes (12/04/2016 15:37:Amelia Morales RN) Pneumococcal Vaccine: No (12/04/2016 15:37:Amelia Morales RN) Tetanus Vaccine: Yes (12/04/2016 15:37:Amelia Morales RN) Tdap Vaccine: Yes (12/04/2016 15:37:Amelia Morales RN) Hepatitis B Vaccine: Yes (12/04/2016 15:37:Amelia Morales RN) Benefit of Breast Feed Discussed: Yes (12/04/2016 15:37:Amelia Morales RN) Circumcision: Yes (12/04/2016 15:37:Amelia Morales RN) Classes Attended: Yes (12/04/2016 15:37:Amelia Morales RN) Tubal Ligation: Yes (12/04/2016 15:37:Amelia Morales RN) Tubal Authorization Signed: N/A (12/04/2016 15:37:Amelia Morales RN) Consent: N/A (12/04/2016 15:37:Amelia Morales RN) Consent Signed: N/A (12/04/2016 15:37:Amelia Morales RN) Pain Management Plans: Natural (12/04/2016 15:37:Amelia Morales RN) Plans for Labor and Delivery: None (12/04/2016 15:37:Amelia Morales RN) Support Person: Marco Warner II (12/04/2016 15:37:Amelia Morales RN) Support Person Relationship: (12/04/2016 15:37:Amelia Morales RN) Cultural/Spritual Practice: No (12/04/2016 15:37:Amelia Morales RN) Spir/Cult Dietary Needs: No (12/04/2016 15:37:Amelia Morales RN) LIVING SITUATION/DISCHARGE PLAN Living Arrangements: House (12/04/2016 15:37:Amelia Morales RN) Adequate Access to:: Electric; Heat; Refrigeration; Plumbing/Running water; Phone; Transportation (12/04/2016 15:37:Amelia Morales RN) WIC Program: No (12/04/2016 15:37:Amelia Morales RN) Discharge Price Changer Person: (12/04/2016 15:37:Amelia Morales RN) Person to Help after Discharge: (12/04/2016 15:37:Amelia Morales RN) Currently Using Commun Resources: No (12/04/2016 15:37:Amelia Morales RN) Outside Agency/Monkey Keeper: No (12/04/2016 15:37:Amelia Morales RN) Car Seat for Discharge: Yes (12/04/2016 15:37:Amelia Morales RN) Adoption Requested: No (12/04/2016 15:37:Amelia Morales RN) Pt Contact w/infant Post : N/A (12/04/2016 15:37:Amelia Morales RN) LABS Hemoglobin: 10.9 L (12/04/2016 15:41:QS system process) Hematocrit: 34.7 L (12/04/2016 15:41:QS system process) MCV: 70 L (12/04/2016 15:41:QS system process) OB/PREVIOUS HISTORY History of Previous : No (12/04/2016 15:37:Amelia Morales RN) History of Gestational Diabetes: No (12/04/2016 15:37:Amelia Morales RN) History of PIH: No (12/04/2016 15:37:Amelia Morales RN) History of Incompetent Cervix: No (12/04/2016 15:37:Amelia Morales RN) History of Placenta Previa/Abrup: No (12/04/2016 15:37:Amelia Morales RN) History of Macrosomia: No (12/04/2016 15:37:Amelia Morales RN) History of IUGR: No (12/04/2016 15:37:Amelia Morales RN) History of Hemorrhage: No (12/04/2016 15:37:Amelia Morales RN) History of Loss/Stillborn: No (12/04/2016 15:37:Amelia Morales RN) History of : No (12/04/2016 15:37:Amelia Morales RN) History of D (Rh) Sensitization: No (12/04/2016 15:37:Amelia Morales RN) History Recurrent Loss/Stillborn: No (12/04/2016 15:37:Amelia Morales RN) History Depression/PP Depression: No (12/04/2016 15:37:Amelia Morales RN) History of Uterine Anomaly/YAZMIN: No (12/04/2016 15:37:Amelia Morales RN) History of Infertility: No (12/04/2016 15:37:Amelia Morales RN) History of ART Treatment: No (12/04/2016 15:37:Amelia Morales RN) History of YAZMIN: No (12/04/2016 15:37:Amelia Morales RN) Comments Obstetrical History: G1: 2000 EAB G2: 2001 baby boy, 37-39 weeks, 24+ hours labor, 7 lb, IOL oligo G3: 2001 EAB G4: 2003 baby girl, 37-39 weeks G5: 2007 EAB G6: 2013 SAB, 13 weeks G7: Current (12/04/2016 15:37:Amelia Morales RN) MEDICAL HISTORY Med Hx Diabetes: No (12/04/2016 15:37:Amelia Morales RN) Med Hx Hypertension: Yes (12/04/2016 15:37:Amelia Morales RN) Med Hx Heart Disease: No (12/04/2016 15:37:Amelia Morales RN) Med Hx Autoimmune Disorder: No (12/04/2016 15:37:Amelia Morales RN) Med Hx Kidney Disease/UTI: No (12/04/2016 15:37:Amelia Morales RN) Med Hx Neurologic/Epilepsy: No (12/04/2016 15:37:Amelia Morales RN) Med Hx Psychiatric Disorders: No (12/04/2016 15:37:Amelia Morales RN) Med Hx Hepatitis/Liver Disease: No (12/04/2016 15:37:Amelia Morales RN) Med Hx Varicosities/Phlebitis: No (12/04/2016 15:37:Amelia Morales RN) Med Hx Thyroid Dysfunction: No (12/04/2016 15:37:Amelia Morales RN) Med Hx Trauma/Violence: No (12/04/2016 15:37:Amelia Morales RN) Med Hx Blood Transfusion: No (12/04/2016 15:37:Amelia Morales RN) Med Hx Pulmonary (Asthma,TB): Yes (12/04/2016 15:37:Amelia Morales RN) Med Hx Breast: No (12/04/2016 15:37:Amelia Morales RN) Med Hx DIGITAL COMPUTER OPERATOR Surgery: No (12/04/2016 15:37:Amelia Morales RN) Med Hx Hospitalization/Surgery: Yes (12/04/2016 15:37:Amelia Morales RN) Med Hx Anesthetic Complications: No (12/04/2016 15:37:Amelia Morales RN) Med Hx Abnormal Pap Smear: Yes (12/04/2016 15:37:Amelia Morales RN) Other Medical Diseases: Yes (12/04/2016 15:37:Amelia Morales RN) Med Hx Significant Family Hx: No (12/04/2016 15:37:Amelia Morales RN) Details of Med/Surg Hx: HTN: Chronic HTN, Labetalol 100 mg BID Pulmonary: Bronchitis 11/30/16 Surgery: Colonoscopy 2012, polyps noted Abnormal Pap: Hx ASCUS Pap, negative HPV Other: Morbid obesity (12/04/2016 15:37:Amelia Morales RN) INFECTIOUS HISTORY Inf Hx Gonorrhea: No (12/04/2016 15:37:Amelia Morales RN) Inf Hx Chlamydia: Yes (12/04/2016 15:37:Amelia Morales RN) Inf Hx Syphilis: No (12/04/2016 15:37:Amelia Morales RN) Inf Hx HIV/AIDS: No (12/04/2016 15:37:Amelia Morales RN) Inf Hx Human Papilloma Virus: No (12/04/2016 15:37:Amelia Morales RN) Inf Hx Pt/Partner Genital Herpes: No (12/04/2016 15:37:Amelia Morales RN) Inf Hx Tuberculosis/Exposure: No (12/04/2016 15:37:Amelia Morales RN) Inf Hx Hepatitis B,C: No (12/04/2016 15:37:Amelia Morales RN) Inf Hx Rash or Viral Illness: No (12/04/2016 15:37:Amelia Morales RN) Details of Infectious Hx: Chlamydia (12/04/2016 15:37:Amelia Morales RN) GENETIC HISTORY Gen Hx Age >=35 at XANDER: No (12/04/2016 15:37:Amelia Morales RN) Gen Hx Thalassemia: No (12/04/2016 15:37:Amelia Morales RN) Gen Hx Congenital Heart Defect: No (12/04/2016 15:37:Amelia Morales RN) Gen Hx Neural Tube Defect: No (12/04/2016 15:37:Amelia Morales RN) Gen Hx Down's Syndrome: No (12/04/2016 15:37:Amelia Morales RN) Gen Hx Ken-Sachs: No (12/04/2016 15:37:Amelia Morales RN) Gen Hx Alexia: No (12/04/2016 15:37:Amelia Morales RN) Gen Hx Familial Dysautonomia: No (12/04/2016 15:37:Amelia Morales RN) Gen Hx Sickle Cell Disease/Trait: No (12/04/2016 15:37:Amelia Morales RN) Gen Hx Hemophilia/Blood Disorder: No (12/04/2016 15:37:Amelia Morales RN) Gen Hx Muscular Dystrophy: No (12/04/2016 15:37:Amelia Morales RN) Gen Hx Cystic Fibrosis: No (12/04/2016 15:37:Amelia Morales RN) Gen Hx Huntingtons Chorea: No (12/04/2016 15:37:Amelia Morales RN) Gen Hx Mental Retardation/Autism: No (12/04/2016 15:37:Amelia Morales RN) Gen Hx Tested for Fragile X: No (12/04/2016 15:37:Amelia Morales RN) Gen Hx Other Inher/Chromosomal: No (12/04/2016 15:37:Amelia Morales RN) Gen Hx Maternal Metabolic DO: No (12/04/2016 15:37:Amelia Morales RN) Gen Hx Pt Father or FOB Defect: No (12/04/2016 15:37:Amelia Morales RN) Gen Hx Other Genetic History: No (12/04/2016 15:37:Amelia Morales RN) Gen Hx Drugs/Meds since LMP: No (12/04/2016 15:37:Amelia Morales RN)
--- NOTE | 2016-12-13 06:13 | L&D General Admission ---
General Admit Datetime Report Generated by CPN: 12/13/2016 06:00 INFORMATION Patient Age: 36 (10/30/2016 09:21:QS system process) EDC: 01/08/2017 00:00 (12/04/2016 15:37:Amelia Morales RN) : 7 (12/04/2016 15:37:Amelia Morales RN) Para: 4 (12/10/2016 17:06:KRISTEN Salazar) Term: 2 (12/04/2016 15:37:Amelia Morales RN) : 0 (12/04/2016 15:37:Amelia Morales RN) Spontaneous Abortions: 1 (12/04/2016 15:37:Amelia Morales RN) Induced Abortions: 3 (12/04/2016 15:37:Amelia Morales RN) Livin (12/04/2016 15:37:Amelia Morales RN) Cesareans: 0 (12/04/2016 15:37:Amelia Morales RN) VBACs: 0 (12/04/2016 15:37:Amelia Morales RN) Ectopic: 0 (12/04/2016 15:37:Amelia Morales RN) Multiple Births: 0 (12/04/2016 15:37:Amelia Morales RN) Baby, Number in Womb: 1 (12/10/2016 17:06:Emily Jose, [facility]) CARE Primary Waste/Materials Exchange Specialist: [facility] (12/04/2016 15:37:Amelia Morales RN) Month of 1st Visit: 06/16 (12/04/2016 15:37:Amelia Morales RN) Adequate Care: Yes (12/04/2016 15:37:Amelia Morales RN) Prepregnancy Weight (lb): 272 (12/04/2016 15:37:Amelia Morales RN) Prepregnancy Weight (kg): 123.6 (12/04/2016 15:37:QS system process) Height (in): 61 (12/10/2016 16:57:QS system process) ALLERGIES Medication Allergy: No (12/04/2016 15:37:Amelia Morales RN) Medication Allergies: No Known Allergies (12/10/2016) (12/10/2016 16:43:QS system process) Latex Allergy: No Latex Allergies (12/04/2016 15:37:Amelia Morales RN) Food Allergies: N/A (12/04/2016 15:37:Amelia Morales RN) Environmental Allergies: N/A (12/04/2016 15:37:Amelia Morales RN) COMMUNICATION Primary Language: Jordanian (12/04/2016 15:37:Amelia Morales RN) Medical Tx Preferred Language: Jordanian (12/04/2016 15:37:Amelia Morales RN) Communication Barrier(s): None (12/04/2016 15:37:Amelia Morales RN) DEMOGRAPHICS Address: [address] [place] [phone] (10/30/2016 09:21:QS system process) Zipcode: [phone] (10/30/2016 09:21:QS system process) Home (10/30/2016 09:21:QS system process) SSN: [id number] (10/30/2016 09:21:QS system process) Next of Kin Name: ISABEL WARNER II (10/30/2016 09:21:QS system process) Next of Kin (10/30/2016 09:21:QS system process) Next of Kin Relationship: SPO (10/30/2016 09:21:QS system process) Date of : 1980 (10/30/2016 09:21:QS system process) Marital Status: (10/30/2016 09:21:QS system process) Sex: Female (10/30/2016 09:21:QS system process) Race: (10/30/2016 09:21:QS system process) Ethnicity: Non- or (10/30/2016 09:21:QS system process) Mormon: Mandaen (10/30/2016 09:21:QS system process) DRUG AND ALCOHOL USE Alcohol: No (12/04/2016 15:37:Amelia Morales RN) Cigarettes: Never Smoker. [id number] (12/04/2016 15:37:Amelia Morales RN) Marijuana: No (12/04/2016 15:37:Amelia Morales RN) Cocaine: No (12/04/2016 15:37:Amelia Morales RN) Other Illicit Drugs: No (12/04/2016 15:37:Amelia Morales RN) VACCINE HISTORY Influenza Vaccine: Yes (12/04/2016 15:37:Amelia Morales RN) Pneumococcal Vaccine: No (12/04/2016 15:37:Amelia Morales RN) Tetanus Vaccine: Yes (12/04/2016 15:37:Amelia Morales RN) Tdap Vaccine: Yes (12/04/2016 15:37:Amelia Morales RN) Hepatitis B Vaccine: Yes (12/04/2016 15:37:Amelia Morales RN) Benefit of Breast Feed Discussed: Yes (12/04/2016 15:37:Amelia Morales RN) Circumcision: Yes (12/04/2016 15:37:Amelia Morales RN) Classes Attended: Yes (12/04/2016 15:37:Amelia Morales RN) Tubal Ligation: Yes (12/04/2016 15:37:Amelia Morales RN) Tubal Authorization Signed: N/A (12/04/2016 15:37:Amelia Morales RN) Consent: N/A (12/04/2016 15:37:Amelia Morales RN) Consent Signed: N/A (12/04/2016 15:37:Amelia Morales RN) Pain Management Plans: Natural (12/04/2016 15:37:Amelia Morales RN) Plans for Labor and Delivery: None (12/04/2016 15:37:Amelia Morales RN) Support Person: Marco Warner II (12/04/2016 15:37:Amelia Morales RN) Support Person Relationship: (12/04/2016 15:37:Amelia Morales RN) Cultural/Spritual Practice: No (12/04/2016 15:37:Amelia Morales RN) Spir/Cult Dietary Needs: No (12/04/2016 15:37:Amelia Morales RN) LIVING SITUATION/DISCHARGE PLAN Living Arrangements: House (12/04/2016 15:37:Amelia Morales RN) Adequate Access to:: Electric; Heat; Refrigeration; Plumbing/Running water; Phone; Transportation (12/04/2016 15:37:Amelia Morales RN) WIC Program: No (12/04/2016 15:37:Amelia Morales RN) 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 Milling Machine Operator Person: (12/04/2016 15:37:Amelia Morales RN) Person to Help after Discharge: (12/04/2016 15:37:Amelia Morales RN) Currently Using Commun Resources: No (12/04/2016 15:37:Amelia Morales RN) Outside Agency/Rock Wool Applicator: No (12/04/2016 15:37:Amelia Morales RN) Car Seat for Discharge: Yes (12/04/2016 15:37:Amelia Morales RN) Adoption Requested: No (12/04/2016 15:37:Amelia Morales RN) Pt Contact w/infant Post : N/A (12/04/2016 15:37:Amelia Morales RN) LABS Hemoglobin: 10.9 L (12/04/2016 15:41:QS system process) Hematocrit: 34.7 L (12/04/2016 15:41:QS system process) MCV: 70 L (12/04/2016 15:41:QS system process) OB/PREVIOUS HISTORY History of Previous : No (12/04/2016 15:37:Amelia Morales RN) History of Gestational Diabetes: No (12/04/2016 15:37:Amelia Morales RN) History of PIH: No (12/04/2016 15:37:Amelia Morales RN) History of Incompetent Cervix: No (12/04/2016 15:37:Amelia Morales RN) History of Placenta Previa/Abrup: No (12/04/2016 15:37:Amelia Morales RN) History of Macrosomia: No (12/04/2016 15:37:Amelia Morales RN) History of IUGR: No (12/04/2016 15:37:Amelia Morales RN) History of Hemorrhage: No (12/04/2016 15:37:Amelia Morales RN) History of Loss/Stillborn: No (12/04/2016 15:37:Amelia Morales RN) History of : No (12/04/2016 15:37:Amelia Morales RN) History of D (Rh) Sensitization: No (12/04/2016 15:37:Amelia Morales RN) History Recurrent Loss/Stillborn: No (12/04/2016 15:37:Amelia Morales RN) History Depression/PP Depression: No (12/04/2016 15:37:Amelia Morales RN) History of Uterine Anomaly/YAZMIN: No (12/04/2016 15:37:Amelia Morales RN) History of Infertility: No (12/04/2016 15:37:Amelia Morales RN) History of ART Treatment: No (12/04/2016 15:37:Amelia Morales RN) History of YAZMIN: No (12/04/2016 15:37:Amelia Morales RN) Comments Obstetrical History: G1: 2000 EAB G2: 2001 baby boy, 37-39 weeks, 24+ hours labor, 7 lb, IOL oligo G3: 2001 EAB G4: 2003 baby girl, 37-39 weeks G5: 2007 EAB G6: 2013 SAB, 13 weeks G7: Current (12/04/2016 15:37:Amelia Morales RN) MEDICAL HISTORY Med Hx Diabetes: No (12/04/2016 15:37:Amelia Morales RN) Med Hx Hypertension: Yes (12/04/2016 15:37:Amelia Morales RN) Med Hx Heart Disease: No (12/04/2016 15:37:Amelia Morales RN) Med Hx Autoimmune Disorder: No (12/04/2016 15:37:Amelia Morales RN) Med Hx Kidney Disease/UTI: No (12/04/2016 15:37:Amelia Morales RN) Med Hx Neurologic/Epilepsy: No (12/04/2016 15:37:Amelia Morales RN) Med Hx Psychiatric Disorders: No (12/04/2016 15:37:Amelia Morales RN) Med Hx Hepatitis/Liver Disease: No (12/04/2016 15:37:Amelia Morales RN) Med Hx Varicosities/Phlebitis: No (12/04/2016 15:37:Amelia Morales RN) Med Hx Thyroid Dysfunction: No (12/04/2016 15:37:Amelia Morales RN) Med Hx Trauma/Violence: No (12/04/2016 15:37:Amelia Morales RN) Med Hx Blood Transfusion: No (12/04/2016 15:37:Amelia Morales RN) Med Hx Pulmonary (Asthma,TB): Yes (12/04/2016 15:37:Amelia Morales RN) Med Hx Breast: No (12/04/2016 15:37:Amelia Morales RN) 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: No (12/04/2016 15:37:Amelia Morales RN) Med Hx Hospitalization/Surgery: Yes (12/04/2016 15:37:Amelia Morales RN) Med Hx Anesthetic Complications: No (12/04/2016 15:37:Amelia Morales RN) Med Hx Abnormal Pap Smear: Yes (12/04/2016 15:37:Amelia Morales RN) Other Medical Diseases: Yes (12/04/2016 15:37:Amelia Morales RN) Med Hx Significant Family Hx: No (12/04/2016 15:37:Amelia Morales RN) Details of Med/Surg Hx: HTN: Chronic HTN, Labetalol 100 mg BID Pulmonary: Bronchitis 11/30/16 Surgery: Colonoscopy 2012, polyps noted Abnormal Pap: Hx ASCUS Pap, negative HPV Other: Morbid obesity (12/04/2016 15:37:Amelia Morales RN) INFECTIOUS HISTORY Inf Hx Gonorrhea: No (12/04/2016 15:37:Amelia Morales RN) Inf Hx Chlamydia: Yes (12/04/2016 15:37:Amelia Morales RN) Inf Hx Syphilis: No (12/04/2016 15:37:Amelia Morales RN) Inf Hx HIV/AIDS: No (12/04/2016 15:37:Amelia Morales RN) Inf Hx Human Papilloma Virus: No (12/04/2016 15:37:Amelia Morales RN) Inf Hx Pt/Partner Genital Herpes: No (12/04/2016 15:37:Amelia Morales RN) Inf Hx Tuberculosis/Exposure: No (12/04/2016 15:37:Amelia Morales RN) Inf Hx Hepatitis B,C: No (12/04/2016 15:37:Amelia Morales RN) Inf Hx Rash or Viral Illness: No (12/04/2016 15:37:Amelia Morales RN) Details of Infectious Hx: Chlamydia (12/04/2016 15:37:Amelia Morales RN) GENETIC HISTORY Gen Hx Age >=35 at XANDER: No (12/04/2016 15:37:Amelia Morales RN) Gen Hx Thalassemia: No (12/04/2016 15:37:Amelia Morales RN) Gen Hx Congenital Heart Defect: No (12/04/2016 15:37:Amelia Morales RN) Gen Hx Neural Tube Defect: No (12/04/2016 15:37:Amelia Morales RN) Gen Hx Down's Syndrome: No (12/04/2016 15:37:Amelia Morales RN) Gen Hx Ken-Sachs: No (12/04/2016 15:37:Amelia Morales RN) Gen Hx Alexia: No (12/04/2016 15:37:Amelia Morales RN) Gen Hx Familial Dysautonomia: No (12/04/2016 15:37:Amelia Morales RN) Gen Hx Sickle Cell Disease/Trait: No (12/04/2016 15:37:Amelia Morales RN) Gen Hx Hemophilia/Blood Disorder: No (12/04/2016 15:37:Amelia Morales RN) Gen Hx Muscular Dystrophy: No (12/04/2016 15:37:Amelia Morales RN) Gen Hx Cystic Fibrosis: No (12/04/2016 15:37:Amelia Morales RN) Gen Hx Huntingtons Chorea: No (12/04/2016 15:37:Amelia Morales RN) Gen Hx Mental Retardation/Autism: No (12/04/2016 15:37:Amelia Morales RN) Gen Hx Tested for Fragile X: No (12/04/2016 15:37:Amelia Morales RN) Gen Hx Other Inher/Chromosomal: No (12/04/2016 15:37:Amelia Morales RN) Gen Hx Maternal Metabolic DO: No (12/04/2016 15:37:Amelia Morales RN) Gen Hx Pt Father or FOB Defect: No (12/04/2016 15:37:Amelia Morales RN) Gen Hx Other Genetic History: No (12/04/2016 15:37:Amelia Morales RN) Gen Hx Drugs/Meds since LMP: No (12/04/2016 15:37:Amelia Morales RN)
--- NOTE | 2016-12-13 06:13 | L&D Current Admission ---
Current Admit Datetime Report Generated by CPN: 12/13/2016 06:00 ADMISSION INFORMATION Chief Complaint: Other (Annotations: Denies complaints) (12/04/2016 15:55:Amelia Andrew, ABDULKADIR)
--- NOTE | 2016-12-14 06:13 | L&D Current Admission ---
Current Admit Datetime Report Generated by CPN: 12/14/2016 06:00 ADMISSION INFORMATION Chief Complaint: Other (Annotations: Denies complaints) (12/04/2016 15:55:Amelia Andrew, ABDULKADIR)
--- NOTE | 2016-12-14 06:13 | L&D General Admission ---
General Admit Datetime Report Generated by CPN: 12/14/2016 06:00 INFORMATION Patient Age: 36 (10/30/2016 09:21:QS system process) EDC: 01/08/2017 00:00 (12/04/2016 15:37:Amelia Morales RN) : 7 (12/04/2016 15:37:Amelia Morales RN) Para: 4 (12/10/2016 17:06:KRISTEN Salazar) Term: 2 (12/04/2016 15:37:Amelia Morales RN) : 0 (12/04/2016 15:37:Amelia Morales RN) Spontaneous Abortions: 1 (12/04/2016 15:37:Amelia Morales RN) Induced Abortions: 3 (12/04/2016 15:37:Amelia Morales RN) Livin (12/04/2016 15:37:Amelia oMrales RN) Cesareans: 0 (12/04/2016 15:37:Amelia Morales RN) VBACs: 0 (12/04/2016 15:37:Amelia Morales RN) Ectopic: 0 (12/04/2016 15:37:Amelia Morales RN) Multiple Births: 0 (12/04/2016 15:37:Amelia Morales RN) Baby, Number in Womb: 1 (12/10/2016 17:06:Emily Jose, [facility]) CARE Primary School Office Manager: [facility] (12/04/2016 15:37:Amelia Morales RN) Month of 1st Visit: 06/16 (12/04/2016 15:37:Amelia Morales RN) Adequate Care: Yes (12/04/2016 15:37:Amelia Morales RN) Prepregnancy Weight (lb): 272 (12/04/2016 15:37:Amelia Morales RN) Prepregnancy Weight (kg): 123.6 (12/04/2016 15:37:QS system process) Height (in): 61 (12/10/2016 16:57:QS system process) ALLERGIES Medication Allergy: No (12/04/2016 15:37:Amelia Morales RN) Medication Allergies: No Known Allergies (12/10/2016) (12/10/2016 16:43:QS system process) Latex Allergy: No Latex Allergies (12/04/2016 15:37:Amelia Morales RN) Food Allergies: N/A (12/04/2016 15:37:Amelia Moarles RN) Environmental Allergies: N/A (12/04/2016 15:37:Amelia Morales RN) COMMUNICATION Primary Language: Greek (12/04/2016 15:37:Amelia Morales RN) Medical Tx Preferred Language: Greek (12/04/2016 15:37:Amelia Morales RN) Communication Barrier(s): None (12/04/2016 15:37:Amelia Morales RN) DEMOGRAPHICS Address: [address] [place] [phone] (10/30/2016 09:21:QS system process) Zipcode: [phone] (10/30/2016 09:21:QS system process) Home (10/30/2016 09:21:QS system process) SSN: [id number] (10/30/2016 09:21:QS system process) Next of Kin Name: ISABEL WARNER II (10/30/2016 09:21:QS system process) Next of Kin (10/30/2016 09:21:QS system process) Next of Kin Relationship: SPO (10/30/2016 09:21:QS system process) Date of : 1980 (10/30/2016 09:21:QS system process) Marital Status: (10/30/2016 09:21:QS system process) Sex: Female (10/30/2016 09:21:QS system process) Race: (10/30/2016 09:21:QS system process) Ethnicity: Non- or (10/30/2016 09:21:QS system process) Worship: Tenriism (10/30/2016 09:21:QS system process) DRUG AND ALCOHOL USE Alcohol: No (12/04/2016 15:37:Amelia Morales RN) Cigarettes: Never Smoker. [id number] (12/04/2016 15:37:Amelia Morales RN) Marijuana: No (12/04/2016 15:37:Amleia Morales RN) Cocaine: No (12/04/2016 15:37:Amelia Morales RN) Other Illicit Drugs: No (12/04/2016 15:37:Amelia Morales RN) VACCINE HISTORY Influenza Vaccine: Yes (12/04/2016 15:37:Amelia Morales RN) Pneumococcal Vaccine: No (12/04/2016 15:37:Amelia Morales RN) Tetanus Vaccine: Yes (12/04/2016 15:37:Amelia Morales RN) Tdap Vaccine: Yes (12/04/2016 15:37:Amelia Morales RN) Hepatitis B Vaccine: Yes (12/04/2016 15:37:Amelia Morales RN) Benefit of Breast Feed Discussed: Yes (12/04/2016 15:37:Amelia Morales RN) Circumcision: Yes (12/04/2016 15:37:Amelia Morales RN) Classes Attended: Yes (12/04/2016 15:37:Amelia Morales RN) Tubal Ligation: Yes (12/04/2016 15:37:Amelia Morales RN) Tubal Authorization Signed: N/A (12/04/2016 15:37:Amelia Morales RN) Consent: N/A (12/04/2016 15:37:Amelia Morales RN) Consent Signed: N/A (12/04/2016 15:37:Amelia Morales RN) Pain Management Plans: Natural (12/04/2016 15:37:Amelia Morales RN) Plans for Labor and Delivery: None (12/04/2016 15:37:Amelia Morales RN) Support Person: Marco Warner II (12/04/2016 15:37:Amelia Morales RN) Support Person Relationship: (12/04/2016 15:37:Amelia Morales RN) Cultural/Spritual Practice: No (12/04/2016 15:37:Amelia Morales RN) Spir/Cult Dietary Needs: No (12/04/2016 15:37:Amelia Morales RN) LIVING SITUATION/DISCHARGE PLAN Living Arrangements: House (12/04/2016 15:37:Amelia Morales RN) Adequate Access to:: Electric; Heat; Refrigeration; Plumbing/Running water; Phone; Transportation (12/04/2016 15:37:Amelia Morales RN) WIC Program: No (12/04/2016 15:37:Amelia Morales RN) Discharge Insurance Job Titles Person: (12/04/2016 15:37:Amelia Morales RN) Person to Help after Discharge: (12/04/2016 15:37:Amelia Morales RN) Currently Using Commun Resources: No (12/04/2016 15:37:Amelia Morales RN) Outside Agency/Process Controller: No (12/04/2016 15:37:Amelia Morales RN) Car Seat for Discharge: Yes (12/04/2016 15:37:Amelia Morales RN) Adoption Requested: No (12/04/2016 15:37:Amelia Morales RN) Pt Contact w/infant Post : N/A (12/04/2016 15:37:Amelia Morales RN) LABS Hemoglobin: 10.9 L (12/04/2016 15:41:QS system process) Hematocrit: 34.7 L (12/04/2016 15:41:QS system process) MCV: 70 L (12/04/2016 15:41:QS system process) OB/PREVIOUS HISTORY History of Previous : No (12/04/2016 15:37:Amelia Morales RN) History of Gestational Diabetes: No (12/04/2016 15:37:Amelia Morales RN) History of PIH: No (12/04/2016 15:37:Amelia Morales RN) History of Incompetent Cervix: No (12/04/2016 15:37:Amelia Morales RN) History of Placenta Previa/Abrup: No (12/04/2016 15:37:Amelia Morales RN) History of Macrosomia: No (12/04/2016 15:37:Amelia Morales RN) History of IUGR: No (12/04/2016 15:37:Amelia Morales RN) History of Hemorrhage: No (12/04/2016 15:37:Amelia Morales RN) History of Loss/Stillborn: No (12/04/2016 15:37:Amelia Morales RN) History of : No (12/04/2016 15:37:Amelia Morales RN) History of D (Rh) Sensitization: No (12/04/2016 15:37:Amelia Morales RN) History Recurrent Loss/Stillborn: No (12/04/2016 15:37:Amelia Morales RN) History Depression/PP Depression: No (12/04/2016 15:37:Amelia Morales RN) History of Uterine Anomaly/YAZMIN: No (12/04/2016 15:37:Amelia Morales RN) History of Infertility: No (12/04/2016 15:37:Amelia Morales RN) History of ART Treatment: No (12/04/2016 15:37:Amelia Morales RN) History of YAZMIN: No (12/04/2016 15:37:Amelia Morales RN) Comments Obstetrical History: G1: 2000 EAB G2: 2001 baby boy, 37-39 weeks, 24+ hours labor, 7 lb, IOL oligo G3: 2001 EAB G4: 2003 baby girl, 37-39 weeks G5: 2007 EAB G6: 2013 SAB, 13 weeks G7: Current (12/04/2016 15:37:Amelia Morales RN) MEDICAL HISTORY Med Hx Diabetes: No (12/04/2016 15:37:Amelia Morales RN) Med Hx Hypertension: Yes (12/04/2016 15:37:Amelia Morales RN) Med Hx Heart Disease: No (12/04/2016 15:37:Amelia Morales RN) Med Hx Autoimmune Disorder: No (12/04/2016 15:37:Amelia Morales RN) Med Hx Kidney Disease/UTI: No (12/04/2016 15:37:Ameila Morales RN) Med Hx Neurologic/Epilepsy: No (12/04/2016 15:37:Amelia Morales RN) Med Hx Psychiatric Disorders: No (12/04/2016 15:37:Amelia Morales RN) Med Hx Hepatitis/Liver Disease: No (12/04/2016 15:37:Amelia Morales RN) Med Hx Varicosities/Phlebitis: No (12/04/2016 15:37:Amelia Morales RN) Med Hx Thyroid Dysfunction: No (12/04/2016 15:37:Amelia Morales RN) Med Hx Trauma/Violence: No (12/04/2016 15:37:Amelia Morales RN) Med Hx Blood Transfusion: No (12/04/2016 15:37:Amelia Morales RN) Med Hx Pulmonary (Asthma,TB): Yes (12/04/2016 15:37:Amelia Morales RN) Med Hx Breast: No (12/04/2016 15:37:Amelia Morales RN) 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 (12/04/2016 15:37:Amelia Morales RN) Med Hx Hospitalization/Surgery: Yes (12/04/2016 15:37:Amelia Morales RN) Med Hx Anesthetic Complications: No (12/04/2016 15:37:Amelia Morales RN) Med Hx Abnormal Pap Smear: Yes (12/04/2016 15:37:Amelia Morales RN) Other Medical Diseases: Yes (12/04/2016 15:37:Amelia Morales RN) Med Hx Significant Family Hx: No (12/04/2016 15:37:Amelia Morales RN) Details of Med/Surg Hx: HTN: Chronic HTN, Labetalol 100 mg BID Pulmonary: Bronchitis 11/30/16 Surgery: Colonoscopy 2012, polyps noted Abnormal Pap: Hx ASCUS Pap, negative HPV Other: Morbid obesity (12/04/2016 15:37:Amelia Morales RN) INFECTIOUS HISTORY Inf Hx Gonorrhea: No (12/04/2016 15:37:Amelia Morales RN) Inf Hx Chlamydia: Yes (12/04/2016 15:37:Amelia Morales RN) Inf Hx Syphilis: No (12/04/2016 15:37:Amelia Morales RN) Inf Hx HIV/AIDS: No (12/04/2016 15:37:Amelia Morales RN) Inf Hx Human Papilloma Virus: No (12/04/2016 15:37:Amelia Morales RN) Inf Hx Pt/Partner Genital Herpes: No (12/04/2016 15:37:Amelia Morales RN) Inf Hx Tuberculosis/Exposure: No (12/04/2016 15:37:Amelia Morales RN) Inf Hx Hepatitis B,C: No (12/04/2016 15:37:Amelia Morales RN) Inf Hx Rash or Viral Illness: No (12/04/2016 15:37:Amelia Morales RN) Details of Infectious Hx: Chlamydia (12/04/2016 15:37:Amelia Morales RN) GENETIC HISTORY Gen Hx Age >=35 at XANDER: No (12/04/2016 15:37:Amelia Morales RN) Gen Hx Thalassemia: No (12/04/2016 15:37:Amelia Morales RN) Gen Hx Congenital Heart Defect: No (12/04/2016 15:37:Amelia Morales RN) Gen Hx Neural Tube Defect: No (12/04/2016 15:37:Amelia Morales RN) Gen Hx Down's Syndrome: No (12/04/2016 15:37:Amelia Morales RN) Gen Hx Ken-Sachs: No (12/04/2016 15:37:Amelia Morales RN) Gen Hx Alexia: No (12/04/2016 15:37:Amelia Morales RN) Gen Hx Familial Dysautonomia: No (12/04/2016 15:37:Amelia Morales RN) Gen Hx Sickle Cell Disease/Trait: No (12/04/2016 15:37:Amelia Morales RN) Gen Hx Hemophilia/Blood Disorder: No (12/04/2016 15:37:Amelia Morales RN) Gen Hx Muscular Dystrophy: No (12/04/2016 15:37:Amelia Morales RN) Gen Hx Cystic Fibrosis: No (12/04/2016 15:37:Amelia Morales RN) Gen Hx Huntingtons Chorea: No (12/04/2016 15:37:Amelia Morales RN) Gen Hx Mental Retardation/Autism: No (12/04/2016 15:37:Amelia Morales RN) Gen Hx Tested for Fragile X: No (12/04/2016 15:37:Amelia Morales RN) Gen Hx Other Inher/Chromosomal: No (12/04/2016 15:37:Amelia Morales RN) Gen Hx Maternal Metabolic DO: No (12/04/2016 15:37:Amelia Morales RN) Gen Hx Pt Father or FOB Defect: No (12/04/2016 15:37:Amelia Morales RN) Gen Hx Other Genetic History: No (12/04/2016 15:37:Amelia Morales RN) Gen Hx Drugs/Meds since LMP: No (12/04/2016 15:37:Amelia Morales RN)
--- NOTE | 2016-12-15 06:15 | L&D General Admission ---
General Admit Datetime Report Generated by CPN: 12/15/2016 06:00 INFORMATION Patient Age: 36 (10/30/2016 09:21:QS system process) EDC: 01/08/2017 00:00 (12/04/2016 15:37:Amelia Morales RN) : 7 (12/04/2016 15:37:Amelia Morales RN) Para: 4 (12/10/2016 17:06:KRISTEN Salazar) Term: 2 (12/04/2016 15:37:Amelia Morales RN) : 0 (12/04/2016 15:37:Amelia Morales RN) Spontaneous Abortions: 1 (12/04/2016 15:37:Amelia Morales RN) Induced Abortions: 3 (12/04/2016 15:37:Amelia Morales RN) Livin (12/04/2016 15:37:Amelia Morales RN) Cesareans: 0 (12/04/2016 15:37:Amelia Morales RN) VBACs: 0 (12/04/2016 15:37:Amelia Morales RN) Ectopic: 0 (12/04/2016 15:37:Amelia Morales RN) Multiple Births: 0 (12/04/2016 15:37:Amelia Morales RN) Baby, Number in Womb: 1 (12/10/2016 17:06:Emily Jose, [facility]) CARE Primary Embroiderer: [facility] (12/04/2016 15:37:Amelia Morales RN) Month of 1st Visit: 06/16 (12/04/2016 15:37:Amelia Morales RN) Adequate Care: Yes (12/04/2016 15:37:Amelia Morales RN) Prepregnancy Weight (lb): 272 (12/04/2016 15:37:Amelia Morales RN) Prepregnancy Weight (kg): 123.6 (12/04/2016 15:37:QS system process) Height (in): 61 (12/10/2016 16:57:QS system process) ALLERGIES Medication Allergy: No (12/04/2016 15:37:Amelia Morales RN) Medication Allergies: No Known Allergies (12/10/2016) (12/10/2016 16:43:QS system process) Latex Allergy: No Latex Allergies (12/04/2016 15:37:Amelia Morales RN) Food Allergies: N/A (12/04/2016 15:37:Amelia Morales RN) Environmental Allergies: N/A (12/04/2016 15:37:Amelia Morales RN) COMMUNICATION Primary Language: Cambodian (12/04/2016 15:37:Amelia Morales RN) Medical Tx Preferred Language: Cambodian (12/04/2016 15:37:Amelia Morales RN) Communication Barrier(s): None (12/04/2016 15:37:Amelia Morales RN) DEMOGRAPHICS Address: [address] [place] [phone] (10/30/2016 09:21:QS system process) Zipcode: [phone] (10/30/2016 09:21:QS system process) Home (10/30/2016 09:21:QS system process) SSN: [id number] (10/30/2016 09:21:QS system process) Next of Kin Name: ISABEL WARNER II (10/30/2016 09:21:QS system process) Next of Kin (10/30/2016 09:21:QS system process) Next of Kin Relationship: SPO (10/30/2016 09:21:QS system process) Date of : 1980 (10/30/2016 09:21:QS system process) Marital Status: (10/30/2016 09:21:QS system process) Sex: Female (10/30/2016 09:21:QS system process) Race: (10/30/2016 09:21:QS system process) Ethnicity: Non- or (10/30/2016 09:21:QS system process) Cheondoism: Tenriism (10/30/2016 09:21:QS system process) DRUG AND ALCOHOL USE Alcohol: No (12/04/2016 15:37:Amelia Morales RN) Cigarettes: Never Smoker. [id number] (12/04/2016 15:37:Amelia Morales RN) Marijuana: No (12/04/2016 15:37:Amelia Morales RN) Cocaine: No (12/04/2016 15:37:Amelia Morales RN) Other Illicit Drugs: No (12/04/2016 15:37:Amelia Morales RN) VACCINE HISTORY Influenza Vaccine: Yes (12/04/2016 15:37:Amelia Morales RN) Pneumococcal Vaccine: No (12/04/2016 15:37:Amelia Morales RN) Tetanus Vaccine: Yes (12/04/2016 15:37:Amelia Morales RN) Tdap Vaccine: Yes (12/04/2016 15:37:Amelia Morales RN) Hepatitis B Vaccine: Yes (12/04/2016 15:37:Amelia Morales RN) Benefit of Breast Feed Discussed: Yes (12/04/2016 15:37:Amelia Morales RN) Circumcision: Yes (12/04/2016 15:37:Amelia Morales RN) Classes Attended: Yes (12/04/2016 15:37:Amelia Morales RN) Tubal Ligation: Yes (12/04/2016 15:37:Amelia Morales RN) Tubal Authorization Signed: N/A (12/04/2016 15:37:Amelia Morales RN) Consent: N/A (12/04/2016 15:37:Amelia Morales RN) Consent Signed: N/A (12/04/2016 15:37:Amelia Morales RN) Pain Management Plans: Natural (12/04/2016 15:37:Amelia Morales RN) Plans for Labor and Delivery: None (12/04/2016 15:37:Amelia Morales RN) Support Person: Marco Warner II (12/04/2016 15:37:Amelia Morales RN) Support Person Relationship: (12/04/2016 15:37:Amelia Morales RN) Cultural/Spritual Practice: No (12/04/2016 15:37:Amelia Morales RN) Spir/Cult Dietary Needs: No (12/04/2016 15:37:Amelia Morales RN) LIVING SITUATION/DISCHARGE PLAN Living Arrangements: House (12/04/2016 15:37:Amelia Morales RN) Adequate Access to:: Electric; Heat; Refrigeration; Plumbing/Running water; Phone; Transportation (12/04/2016 15:37:Amelia Morales RN) WIC Program: No (12/04/2016 15:37:Amelia Morales RN) Discharge Inside Contractor Sales Person: (12/04/2016 15:37:Amelia Morales RN) Person to Help after Discharge: (12/04/2016 15:37:Amelia Morales RN) Currently Using Commun Resources: No (12/04/2016 15:37:Amelia Morales RN) Outside Agency/Network Technical Analyst: No (12/04/2016 15:37:Amelia Morales RN) Car Seat for Discharge: Yes (12/04/2016 15:37:Amelia Morales RN) Adoption Requested: No (12/04/2016 15:37:Amelia Morales RN) Pt Contact w/infant Post : N/A (12/04/2016 15:37:Amelia Morales RN) LABS Hemoglobin: 10.9 L (12/04/2016 15:41:QS system process) Hematocrit: 34.7 L (12/04/2016 15:41:QS system process) MCV: 70 L (12/04/2016 15:41:QS system process) OB/PREVIOUS HISTORY History of Previous : No (12/04/2016 15:37:Amelia Morales RN) History of Gestational Diabetes: No (12/04/2016 15:37:Amelia Morales RN) History of PIH: No (12/04/2016 15:37:Amelia Morales RN) History of Incompetent Cervix: No (12/04/2016 15:37:Amelia Morales RN) History of Placenta Previa/Abrup: No (12/04/2016 15:37:Amelia Morales RN) History of Macrosomia: No (12/04/2016 15:37:Amelia Morales RN) History of IUGR: No (12/04/2016 15:37:Amelia Morales RN) History of Hemorrhage: No (12/04/2016 15:37:Amelia Morales RN) History of Loss/Stillborn: No (12/04/2016 15:37:Amelia Morales RN) History of : No (12/04/2016 15:37:Amelia Morales RN) History of D (Rh) Sensitization: No (12/04/2016 15:37:Amelia Morales RN) History Recurrent Loss/Stillborn: No (12/04/2016 15:37:Amelia Morales RN) History Depression/PP Depression: No (12/04/2016 15:37:Amelia Morales RN) History of Uterine Anomaly/YAZMIN: No (12/04/2016 15:37:Amelia Morales RN) History of Infertility: No (12/04/2016 15:37:Amelia Morales RN) History of ART Treatment: No (12/04/2016 15:37:Amelia Morales RN) History of YAZMIN: No (12/04/2016 15:37:Amelia Morales RN) Comments Obstetrical History: G1: 2000 EAB G2: 2001 baby boy, 37-39 weeks, 24+ hours labor, 7 lb, IOL oligo G3: 2001 EAB G4: 2003 baby girl, 37-39 weeks G5: 2007 EAB G6: 2013 SAB, 13 weeks G7: Current (12/04/2016 15:37:Amelia Morales RN) MEDICAL HISTORY Med Hx Diabetes: No (12/04/2016 15:37:Amelia Morales RN) Med Hx Hypertension: Yes (12/04/2016 15:37:Amelia Morales RN) Med Hx Heart Disease: No (12/04/2016 15:37:Amelia Morales RN) Med Hx Autoimmune Disorder: No (12/04/2016 15:37:Amelia Morales RN) Med Hx Kidney Disease/UTI: No (12/04/2016 15:37:Amelia Moarles RN) Med Hx Neurologic/Epilepsy: No (12/04/2016 15:37:Amelia Morales RN) Med Hx Psychiatric Disorders: No (12/04/2016 15:37:Amelia Morales RN) Med Hx Hepatitis/Liver Disease: No (12/04/2016 15:37:Amelia Morales RN) Med Hx Varicosities/Phlebitis: No (12/04/2016 15:37:Amelia Morales RN) Med Hx Thyroid Dysfunction: No (12/04/2016 15:37:Amelia Morales RN) Med Hx Trauma/Violence: No (12/04/2016 15:37:Amelia Morales RN) Med Hx Blood Transfusion: No (12/04/2016 15:37:Amelia Morales RN) Med Hx Pulmonary (Asthma,TB): Yes (12/04/2016 15:37:Amelia Morales RN) Med Hx Breast: No (12/04/2016 15:37:Amelia Morales RN) Med Hx RESIDENT MEDICAL OFFICER Surgery: No (12/04/2016 15:37:Amelia Morales RN) Med Hx Hospitalization/Surgery: Yes (12/04/2016 15:37:Amelia Morales RN) Med Hx Anesthetic Complications: No (12/04/2016 15:37:Amelia Morales RN) Med Hx Abnormal Pap Smear: Yes (12/04/2016 15:37:Amelia Morales RN) Other Medical Diseases: Yes (12/04/2016 15:37:Amelia Morales RN) Med Hx Significant Family Hx: No (12/04/2016 15:37:Amelia Morales RN) Details of Med/Surg Hx: HTN: Chronic HTN, Labetalol 100 mg BID Pulmonary: Bronchitis 11/30/16 Surgery: Colonoscopy 2012, polyps noted Abnormal Pap: Hx ASCUS Pap, negative HPV Other: Morbid obesity (12/04/2016 15:37:Amelia Morales RN) INFECTIOUS HISTORY Inf Hx Gonorrhea: No (12/04/2016 15:37:Amelia Morales RN) Inf Hx Chlamydia: Yes (12/04/2016 15:37:Amelia Morales RN) Inf Hx Syphilis: No (12/04/2016 15:37:Amelia Morales RN) Inf Hx HIV/AIDS: No (12/04/2016 15:37:Amelia Morales RN) Inf Hx Human Papilloma Virus: No (12/04/2016 15:37:Amelia Morales RN) Inf Hx Pt/Partner Genital Herpes: No (12/04/2016 15:37:Amelia Morales RN) Inf Hx Tuberculosis/Exposure: No (12/04/2016 15:37:Amelia Morales RN) Inf Hx Hepatitis B,C: No (12/04/2016 15:37:Amelia Morales RN) Inf Hx Rash or Viral Illness: No (12/04/2016 15:37:Amelia Morales RN) Details of Infectious Hx: Chlamydia (12/04/2016 15:37:Amelia Morales RN) GENETIC HISTORY Gen Hx Age >=35 at XANDER: No (12/04/2016 15:37:Amelia Morales RN) Gen Hx Thalassemia: No (12/04/2016 15:37:Amelia Morales RN) Gen Hx Congenital Heart Defect: No (12/04/2016 15:37:Amelia Morales RN) Gen Hx Neural Tube Defect: No (12/04/2016 15:37:Amelia Moralse RN) Gen Hx Down's Syndrome: No (12/04/2016 15:37:Amelia Morales RN) Gen Hx Ken-Sachs: No (12/04/2016 15:37:Amelia Morales RN) Gen Hx Alexia: No (12/04/2016 15:37:Amelia Morales RN) Gen Hx Familial Dysautonomia: No (12/04/2016 15:37:Amelia Morales RN) Gen Hx Sickle Cell Disease/Trait: No (12/04/2016 15:37:Amelia Morales RN) Gen Hx Hemophilia/Blood Disorder: No (12/04/2016 15:37:Amelia Morales RN) Gen Hx Muscular Dystrophy: No (12/04/2016 15:37:Amelia Morales RN) Gen Hx Cystic Fibrosis: No (12/04/2016 15:37:Amelia Morales RN) Gen Hx Huntingtons Chorea: No (12/04/2016 15:37:Amelia Morales RN) Gen Hx Mental Retardation/Autism: No (12/04/2016 15:37:Amelia Morales RN) Gen Hx Tested for Fragile X: No (12/04/2016 15:37:Amelia Morales RN) Gen Hx Other Inher/Chromosomal: No (12/04/2016 15:37:Amelia Morales RN) Gen Hx Maternal Metabolic DO: No (12/04/2016 15:37:Amelia Morales RN) Gen Hx Pt Father or FOB Defect: No (12/04/2016 15:37:Amelia Morales RN) Gen Hx Other Genetic History: No (12/04/2016 15:37:Amelia Morales RN) Gen Hx Drugs/Meds since LMP: No (12/04/2016 15:37:Amelia Morales RN)
--- NOTE | 2016-12-15 06:15 | L&D Current Admission ---
Current Admit Datetime Report Generated by CPN: 12/15/2016 06:00 ADMISSION INFORMATION Chief Complaint: Other (Annotations: Denies complaints) (12/04/2016 15:55:Amelia Andrew, ABDULKADIR)
--- NOTE | 2016-12-16 06:13 | L&D General Admission ---
General Admit Datetime Report Generated by CPN: 12/16/2016 06:00 INFORMATION Patient Age: 36 (10/30/2016 09:21:QS system process) EDC: 01/08/2017 00:00 (12/04/2016 15:37:Amelia Morales RN) : 7 (12/04/2016 15:37:Amelia Morales RN) Para: 4 (12/10/2016 17:06:KRISTEN Salazar) Term: 2 (12/04/2016 15:37:Amelia Morales RN) : 0 (12/04/2016 15:37:Amelia Morales RN) Spontaneous Abortions: 1 (12/04/2016 15:37:Amelia Morales RN) Induced Abortions: 3 (12/04/2016 15:37:Amelia Morales RN) Livin (12/04/2016 15:37:Amelia Morales RN) Cesareans: 0 (12/04/2016 15:37:Amelia Morales RN) VBACs: 0 (12/04/2016 15:37:Amelia Morales RN) Ectopic: 0 (12/04/2016 15:37:Amelia Morales RN) Multiple Births: 0 (12/04/2016 15:37:Amelia Morales RN) Baby, Number in Womb: 1 (12/10/2016 17:06:Emily Jose, [facility]) CARE Primary Lumber Tailer: [facility] (12/04/2016 15:37:Amelia Morales RN) Month of 1st Visit: 06/16 (12/04/2016 15:37:Amelia Morales RN) Adequate Care: Yes (12/04/2016 15:37:Amelia Morales RN) Prepregnancy Weight (lb): 272 (12/04/2016 15:37:Amelia Morales RN) Prepregnancy Weight (kg): 123.6 (12/04/2016 15:37:QS system process) Height (in): 61 (12/10/2016 16:57:QS system process) ALLERGIES Medication Allergy: No (12/04/2016 15:37:Amelia Morales RN) Medication Allergies: No Known Allergies (12/10/2016) (12/10/2016 16:43:QS system process) Latex Allergy: No Latex Allergies (12/04/2016 15:37:Amelia Morales RN) Food Allergies: N/A (12/04/2016 15:37:Amelia Morales RN) Environmental Allergies: N/A (12/04/2016 15:37:Amelia Morales RN) COMMUNICATION Primary Language: Citizen Of [place] (12/04/2016 15:37:Amelia Morales RN) Medical Tx Preferred Language: Citizen Of [place] (12/04/2016 15:37:Amelia Morales RN) Communication Barrier(s): None (12/04/2016 15:37:Amelia Morales RN) DEMOGRAPHICS Address: [address] [place] [phone] (10/30/2016 09:21:QS system process) Zipcode: [phone] (10/30/2016 09:21:QS system process) Home (10/30/2016 09:21:QS system process) SSN: [id number] (10/30/2016 09:21:QS system process) Next of Kin Name: ISABEL WARNER II (10/30/2016 09:21:QS system process) Next of Kin (10/30/2016 09:21:QS system process) Next of Kin Relationship: SPO (10/30/2016 09:21:QS system process) Date of : 1980 (10/30/2016 09:21:QS system process) Marital Status: (10/30/2016 09:21:QS system process) Sex: Female (10/30/2016 09:21:QS system process) Race: (10/30/2016 09:21:QS system process) Ethnicity: Non- or (10/30/2016 09:21:QS system process) Zoroastrian: Latter-Day (10/30/2016 09:21:QS system process) DRUG AND ALCOHOL USE Alcohol: No (12/04/2016 15:37:Amelia Morales RN) Cigarettes: Never Smoker. [id number] (12/04/2016 15:37:Amelia Morales RN) Marijuana: No (12/04/2016 15:37:Amelia Morales RN) Cocaine: No (12/04/2016 15:37:Amelia Morales RN) Other Illicit Drugs: No (12/04/2016 15:37:Amelia Morales RN) VACCINE HISTORY Influenza Vaccine: Yes (12/04/2016 15:37:Amelia Morales RN) Pneumococcal Vaccine: No (12/04/2016 15:37:Amelia Morales RN) Tetanus Vaccine: Yes (12/04/2016 15:37:Amelia Morales RN) Tdap Vaccine: Yes (12/04/2016 15:37:Amelia Morales RN) Hepatitis B Vaccine: Yes (12/04/2016 15:37:Amelia Morales RN) Benefit of Breast Feed Discussed: Yes (12/04/2016 15:37:Amelia Morales RN) Circumcision: Yes (12/04/2016 15:37:Amelia Morales RN) Classes Attended: Yes (12/04/2016 15:37:Amelia Morales RN) Tubal Ligation: Yes (12/04/2016 15:37:Amelia Morales RN) Tubal Authorization Signed: N/A (12/04/2016 15:37:Amelia Morales RN) Consent: N/A (12/04/2016 15:37:Amelia Morales RN) Consent Signed: N/A (12/04/2016 15:37:Amelia Morales RN) Pain Management Plans: Natural (12/04/2016 15:37:Amelia Morales RN) Plans for Labor and Delivery: None (12/04/2016 15:37:Amelia Morales RN) Support Person: Marco Warner II (12/04/2016 15:37:Amelia Morales RN) Support Person Relationship: (12/04/2016 15:37:Amelia Morales RN) Cultural/Spritual Practice: No (12/04/2016 15:37:Amelia Morales RN) Spir/Cult Dietary Needs: No (12/04/2016 15:37:Amelia Morales RN) LIVING SITUATION/DISCHARGE PLAN Living Arrangements: House (12/04/2016 15:37:Amelia Morales RN) Adequate Access to:: Electric; Heat; Refrigeration; Plumbing/Running water; Phone; Transportation (12/04/2016 15:37:Amelia Morales RN) WIC Program: No (12/04/2016 15:37:Amelia Morales RN) Discharge Broom Man Person: (12/04/2016 15:37:Amelia Morales RN) Person to Help after Discharge: (12/04/2016 15:37:Amelia Morales RN) Currently Using Commun Resources: No (12/04/2016 15:37:Amelia Morales RN) Outside Agency/Study Lead: No (12/04/2016 15:37:Amelia Morales RN) Car Seat for Discharge: Yes (12/04/2016 15:37:Amelia Morales RN) Adoption Requested: No (12/04/2016 15:37:Amelia Morales RN) Pt Contact w/infant Post : N/A (12/04/2016 15:37:Amelia Morales RN) LABS Hemoglobin: 10.9 L (12/04/2016 15:41:QS system process) Hematocrit: 34.7 L (12/04/2016 15:41:QS system process) MCV: 70 L (12/04/2016 15:41:QS system process) OB/PREVIOUS HISTORY History of Previous : No (12/04/2016 15:37:Amelia Morales RN) History of Gestational Diabetes: No (12/04/2016 15:37:Amelia Morales RN) History of PIH: No (12/04/2016 15:37:Amelia Morales RN) History of Incompetent Cervix: No (12/04/2016 15:37:Amelia Morales RN) History of Placenta Previa/Abrup: No (12/04/2016 15:37:Amelia Morales RN) History of Macrosomia: No (12/04/2016 15:37:Amelia Morales RN) History of IUGR: No (12/04/2016 15:37:Amelia Morales RN) History of Hemorrhage: No (12/04/2016 15:37:Amelia Moarles RN) History of Loss/Stillborn: No (12/04/2016 15:37:Amelia Morales RN) History of : No (12/04/2016 15:37:Amelia Morales RN) History of D (Rh) Sensitization: No (12/04/2016 15:37:Amelia Morales RN) History Recurrent Loss/Stillborn: No (12/04/2016 15:37:Amelia Morales RN) History Depression/PP Depression: No (12/04/2016 15:37:Amelia Morales RN) History of Uterine Anomaly/YAZMIN: No (12/04/2016 15:37:Amelia Morales RN) History of Infertility: No (12/04/2016 15:37:Amelia Morales RN) History of ART Treatment: No (12/04/2016 15:37:Amelia Morales RN) History of YAZMIN: No (12/04/2016 15:37:Amelia Morales RN) Comments Obstetrical History: G1: 2000 EAB G2: 2001 baby boy, 37-39 weeks, 24+ hours labor, 7 lb, IOL oligo G3: 2001 EAB G4: 2003 baby girl, 37-39 weeks G5: 2007 EAB G6: 2013 SAB, 13 weeks G7: Current (12/04/2016 15:37:Amelia Morales RN) MEDICAL HISTORY Med Hx Diabetes: No (12/04/2016 15:37:Amelia Morales RN) Med Hx Hypertension: Yes (12/04/2016 15:37:Amelia Morales RN) Med Hx Heart Disease: No (12/04/2016 15:37:Amelia Morales RN) Med Hx Autoimmune Disorder: No (12/04/2016 15:37:Amelia Morales RN) Med Hx Kidney Disease/UTI: No (12/04/2016 15:37:Amelia Morales RN) Med Hx Neurologic/Epilepsy: No (12/04/2016 15:37:Amelia Morales RN) Med Hx Psychiatric Disorders: No (12/04/2016 15:37:Amelia Morales RN) Med Hx Hepatitis/Liver Disease: No (12/04/2016 15:37:Amelia Morales RN) Med Hx Varicosities/Phlebitis: No (12/04/2016 15:37:Amelia Morales RN) Med Hx Thyroid Dysfunction: No (12/04/2016 15:37:Amelia Morales RN) Med Hx Trauma/Violence: No (12/04/2016 15:37:Amelia Morales RN) Med Hx Blood Transfusion: No (12/04/2016 15:37:Amelia Morales RN) Med Hx Pulmonary (Asthma,TB): Yes (12/04/2016 15:37:Amelia Morales RN) Med Hx Breast: No (12/04/2016 15:37:Amelia Morales RN) Med Hx ACUTE CARE CLINICAL NURSE SPECIALIST Surgery: No (12/04/2016 15:37:Amelia Morales RN) Med Hx Hospitalization/Surgery: Yes (12/04/2016 15:37:Amelia Morales RN) Med Hx Anesthetic Complications: No (12/04/2016 15:37:Amelia Morales RN) Med Hx Abnormal Pap Smear: Yes (12/04/2016 15:37:Amelia Morales RN) Other Medical Diseases: Yes (12/04/2016 15:37:Amelia Morales RN) Med Hx Significant Family Hx: No (12/04/2016 15:37:Amelia Morales RN) Details of Med/Surg Hx: HTN: Chronic HTN, Labetalol 100 mg BID Pulmonary: Bronchitis 11/30/16 Surgery: Colonoscopy 2012, polyps noted Abnormal Pap: Hx ASCUS Pap, negative HPV Other: Morbid obesity (12/04/2016 15:37:Amelia Morales RN) INFECTIOUS HISTORY Inf Hx Gonorrhea: No (12/04/2016 15:37:Amelia Morales RN) Inf Hx Chlamydia: Yes (12/04/2016 15:37:Amelia Morales RN) Inf Hx Syphilis: No (12/04/2016 15:37:Amelia Morales RN) Inf Hx HIV/AIDS: No (12/04/2016 15:37:Amelia Morales RN) Inf Hx Human Papilloma Virus: No (12/04/2016 15:37:Amelia Morales RN) Inf Hx Pt/Partner Genital Herpes: No (12/04/2016 15:37:Amelia Morales RN) Inf Hx Tuberculosis/Exposure: No (12/04/2016 15:37:Amelia Morales RN) Inf Hx Hepatitis B,C: No (12/04/2016 15:37:Amelia Morales RN) Inf Hx Rash or Viral Illness: No (12/04/2016 15:37:Amelia Morales RN) Details of Infectious Hx: Chlamydia (12/04/2016 15:37:Amelia Morales RN) GENETIC HISTORY Gen Hx Age >=35 at XANDER: No (12/04/2016 15:37:Amelia Morales RN) Gen Hx Thalassemia: No (12/04/2016 15:37:Amelia Morales RN) Gen Hx Congenital Heart Defect: No (12/04/2016 15:37:Amelia Morales RN) Gen Hx Neural Tube Defect: No (12/04/2016 15:37:Ameila Morales RN) Gen Hx Down's Syndrome: No (12/04/2016 15:37:Amelia Morales RN) Gen Hx Ken-Sachs: No (12/04/2016 15:37:Amelia Morales RN) Gen Hx Alexia: No (12/04/2016 15:37:Amelia Morales RN) Gen Hx Familial Dysautonomia: No (12/04/2016 15:37:Amelia Morales RN) Gen Hx Sickle Cell Disease/Trait: No (12/04/2016 15:37:Amelia Morales RN) Gen Hx Hemophilia/Blood Disorder: No (12/04/2016 15:37:Amelia Morales RN) Gen Hx Muscular Dystrophy: No (12/04/2016 15:37:Amelia Morales RN) Gen Hx Cystic Fibrosis: No (12/04/2016 15:37:Amelia Morales RN) Gen Hx Huntingtons Chorea: No (12/04/2016 15:37:Amelia Morales RN) Gen Hx Mental Retardation/Autism: No (12/04/2016 15:37:Amelia Morales RN) Gen Hx Tested for Fragile X: No (12/04/2016 15:37:Amelia Morales RN) Gen Hx Other Inher/Chromosomal: No (12/04/2016 15:37:Amelia Morales RN) Gen Hx Maternal Metabolic DO: No (12/04/2016 15:37:Amelia Morales RN) Gen Hx Pt Father or FOB Defect: No (12/04/2016 15:37:Amelia Morales RN) Gen Hx Other Genetic History: No (12/04/2016 15:37:Amelia Morales RN) Gen Hx Drugs/Meds since LMP: No (12/04/2016 15:37:Amelia Morales RN)
--- NOTE | 2016-12-16 06:13 | L&D Current Admission ---
Current Admit Datetime Report Generated by CPN: 12/16/2016 06:00 ADMISSION INFORMATION Chief Complaint: Other (Annotations: Denies complaints) (12/04/2016 15:55:Amelia Andrew, ABDULKADIR)
--- NOTE | 2016-12-17 06:13 | L&D Current Admission ---
Current Admit Datetime Report Generated by CPN: 12/17/2016 06:00 ADMISSION INFORMATION Chief Complaint: Other (Annotations: Denies complaints) (12/04/2016 15:55:Amelia Andrew, ABDULKADIR)
--- NOTE | 2016-12-17 06:13 | L&D General Admission ---
General Admit Datetime Report Generated by CPN: 12/17/2016 06:00 INFORMATION Patient Age: 36 (10/30/2016 09:21:QS system process) EDC: 01/08/2017 00:00 (12/04/2016 15:37:Amelia Morales RN) : 7 (12/04/2016 15:37:Amelia Morales RN) Para: 4 (12/10/2016 17:06:KRISTEN Salazar) Term: 2 (12/04/2016 15:37:Amelia Morales RN) : 0 (12/04/2016 15:37:Amelia Morales RN) Spontaneous Abortions: 1 (12/04/2016 15:37:Amelia Morales RN) Induced Abortions: 3 (12/04/2016 15:37:Amelia Morales RN) Livin (12/04/2016 15:37:Amelia Morales RN) Cesareans: 0 (12/04/2016 15:37:Amelia Morales RN) VBACs: 0 (12/04/2016 15:37:Amelia Morales RN) Ectopic: 0 (12/04/2016 15:37:Amelia Morales RN) Multiple Births: 0 (12/04/2016 15:37:Amelia Morales RN) Baby, Number in Womb: 1 (12/10/2016 17:06:Emily Jose, [facility]) CARE Primary Safety Specialist: [facility] (12/04/2016 15:37:Amelia Morales RN) Month of 1st Visit: 06/16 (12/04/2016 15:37:Amelia Morales RN) Adequate Care: Yes (12/04/2016 15:37:Amelia Morales RN) Prepregnancy Weight (lb): 272 (12/04/2016 15:37:Amelia Morales RN) Prepregnancy Weight (kg): 123.6 (12/04/2016 15:37:QS system process) Height (in): 61 (12/10/2016 16:57:QS system process) ALLERGIES Medication Allergy: No (12/04/2016 15:37:Amelia Morales RN) Medication Allergies: No Known Allergies (12/10/2016) (12/10/2016 16:43:QS system process) Latex Allergy: No Latex Allergies (12/04/2016 15:37:Amelia Morales RN) Food Allergies: N/A (12/04/2016 15:37:Amelia Morales RN) Environmental Allergies: N/A (12/04/2016 15:37:Amelia Morales RN) COMMUNICATION Primary Language: [place] (12/04/2016 15:37:Amelia Morales RN) Medical Tx Preferred Language: [place] (12/04/2016 15:37:Amelia Morales RN) Communication Barrier(s): None (12/04/2016 15:37:Amelia Morales RN) DEMOGRAPHICS Address: [address] [place] [id number] (10/30/2016 09:21:QS system process) Zipcode: [phone] (10/30/2016 09:21:QS system process) Home (10/30/2016 09:21:QS system process) SSN: [id number] (10/30/2016 09:21:QS system process) Next of Kin Name: ISABEL WARNER II (10/30/2016 09:21:QS system process) Next of Kin (10/30/2016 09:21:QS system process) Next of Kin Relationship: SPO (10/30/2016 09:21:QS system process) Date of : 1980 (10/30/2016 09:21:QS system process) Marital Status: (10/30/2016 09:21:QS system process) Sex: Female (10/30/2016 09:21:QS system process) Race: (10/30/2016 09:21:QS system process) Ethnicity: Non- or (10/30/2016 09:21:QS system process) 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 [id number] (12/04/2016 15:37:Amelia Morales RN) Marijuana: No (12/04/2016 15:37:Amelia Morales RN) Cocaine: No (12/04/2016 15:37:Amelia Morales RN) Other Illicit Drugs: No (12/04/2016 15:37:Amelia Morales RN) VACCINE HISTORY Influenza Vaccine: Yes (12/04/2016 15:37:Amelia Morales RN) Pneumococcal Vaccine: No (12/04/2016 15:37:Amelia Morales RN) Tetanus Vaccine: Yes (12/04/2016 15:37:Amelia Morales RN) Tdap Vaccine: Yes (12/04/2016 15:37:Amelia Morales RN) Hepatitis B Vaccine: Yes (12/04/2016 15:37:Amelia Morales RN) Benefit of Breast Feed Discussed: Yes (12/04/2016 15:37:Amelia Morales RN) Circumcision: Yes (12/04/2016 15:37:Amelia Morales RN) Classes Attended: Yes (12/04/2016 15:37:Amelia Morales RN) Tubal Ligation: Yes (12/04/2016 15:37:Amelia Morales RN) Tubal Authorization Signed: N/A (12/04/2016 15:37:Amelia Morales RN) Consent: N/A (12/04/2016 15:37:Amelia Morales RN) Consent Signed: N/A (12/04/2016 15:37:Amelia Morales RN) Pain Management Plans: Natural (12/04/2016 15:37:Amelia Morales RN) Plans for Labor and Delivery: None (12/04/2016 15:37:Amelia Morales RN) Support Person: Marco Warner II (12/04/2016 15:37:Amelia Morales RN) Support Person Relationship: (12/04/2016 15:37:Amelia Morales RN) Cultural/Spritual Practice: No (12/04/2016 15:37:Amelia Morales RN) Spir/Cult Dietary Needs: No (12/04/2016 15:37:Amelia Morales RN) LIVING SITUATION/DISCHARGE PLAN Living Arrangements: House (12/04/2016 15:37:Amelia Morales RN) Adequate Access to:: Electric; Heat; Refrigeration; Plumbing/Running water; Phone; Transportation (12/04/2016 15:37:Amelia Morales RN) WIC Program: No (12/04/2016 15:37:Amelia Morales RN) Discharge Cutlet Maker Pork Person: (12/04/2016 15:37:Amelia Morales RN) Person to Help after Discharge: (12/04/2016 15:37:Amelia Morales RN) Currently Using Commun Resources: No (12/04/2016 15:37:Amelia Morales RN) Outside Agency/[employer] Floorperson: No (12/04/2016 15:37:Amelia Morales RN) Car Seat for Discharge: Yes (12/04/2016 15:37:Amelia Morales RN) Adoption Requested: No (12/04/2016 15:37:Amelia Morales RN) Pt Contact w/infant Post : N/A (12/04/2016 15:37:Amelia Morales RN) LABS Hemoglobin: 10.9 L (12/04/2016 15:41:QS system process) Hematocrit: 34.7 L (12/04/2016 15:41:QS system process) MCV: 70 L (12/04/2016 15:41:QS system process) OB/PREVIOUS HISTORY History of Previous : No (12/04/2016 15:37:Amelia Morales RN) History of Gestational Diabetes: No (12/04/2016 15:37:Amelia Morlaes RN) History of PIH: No (12/04/2016 15:37:Amelia Morales RN) History of Incompetent Cervix: No (12/04/2016 15:37:Amelia Morales RN) History of Placenta Previa/Abrup: No (12/04/2016 15:37:Amelia Morales RN) History of Macrosomia: No (12/04/2016 15:37:Amelia Morales RN) History of IUGR: No (12/04/2016 15:37:Amelia Morales RN) History of Hemorrhage: No (12/04/2016 15:37:Amelia Morales RN) History of Loss/Stillborn: No (12/04/2016 15:37:Amelia Morales RN) History of : No (12/04/2016 15:37:Amelia Morales RN) History of D (Rh) Sensitization: No (12/04/2016 15:37:Amelia Morales RN) History Recurrent Loss/Stillborn: No (12/04/2016 15:37:Amelia Morales RN) History Depression/PP Depression: No (12/04/2016 15:37:Amelia Morales RN) History of Uterine Anomaly/YAZMIN: No (12/04/2016 15:37:Amelia Morales RN) History of Infertility: No (12/04/2016 15:37:Amelia Morales RN) History of ART Treatment: No (12/04/2016 15:37:Amelia Morales RN) History of YAZMIN: No (12/04/2016 15:37:Amelia Morales RN) Comments Obstetrical History: G1: 2000 EAB G2: 2001 baby boy, 37-39 weeks, 24+ hours labor, 7 lb, IOL oligo G3: 2001 EAB G4: 2003 baby girl, 37-39 weeks G5: 2007 EAB G6: 2013 SAB, 13 weeks G7: Current (12/04/2016 15:37:Amelia Morales RN) MEDICAL HISTORY Med Hx Diabetes: No (12/04/2016 15:37:Amelia Morales RN) Med Hx Hypertension: Yes (12/04/2016 15:37:Amelia Morales RN) Med Hx Heart Disease: No (12/04/2016 15:37:Amelia Morales RN) Med Hx Autoimmune Disorder: No (12/04/2016 15:37:Amelia Morales RN) Med Hx Kidney Disease/UTI: No (12/04/2016 15:37:Amelia Morales RN) Med Hx Neurologic/Epilepsy: No (12/04/2016 15:37:Amelia Morales RN) Med Hx Psychiatric Disorders: No (12/04/2016 15:37:Amelia Morales RN) Med Hx Hepatitis/Liver Disease: No (12/04/2016 15:37:Amelia Morales RN) Med Hx Varicosities/Phlebitis: No (12/04/2016 15:37:Amelia Morales RN) Med Hx Thyroid Dysfunction: No (12/04/2016 15:37:Amelia Morales RN) Med Hx Trauma/Violence: No (12/04/2016 15:37:Amelia Morales RN) Med Hx Blood Transfusion: No (12/04/2016 15:37:Amelia Morales RN) Med Hx Pulmonary (Asthma,TB): Yes (12/04/2016 15:37:Amelia Morales RN) Med Hx Breast: No (12/04/2016 15:37:Amelia Morales RN) Med Hx BUTCHER MEAT Surgery: No (12/04/2016 15:37:Amelia Morales RN) Med Hx Hospitalization/Surgery: Yes (12/04/2016 15:37:Amelia Morales RN) Med Hx Anesthetic Complications: No (12/04/2016 15:37:Amelia Morales RN) Med Hx Abnormal Pap Smear: Yes (12/04/2016 15:37:Amelia Morales RN) Other Medical Diseases: Yes (12/04/2016 15:37:Amelia Morales RN) Med Hx Significant Family Hx: No (12/04/2016 15:37:Amelia Morales RN) Details of Med/Surg Hx: HTN: Chronic HTN, Labetalol 100 mg BID Pulmonary: Bronchitis 11/30/16 Surgery: Colonoscopy 2012, polyps noted Abnormal Pap: Hx ASCUS Pap, negative HPV Other: Morbid obesity (12/04/2016 15:37:Amelia Morales RN) INFECTIOUS HISTORY Inf Hx Gonorrhea: No (12/04/2016 15:37:Amelia Morales RN) Inf Hx Chlamydia: Yes (12/04/2016 15:37:Amelia Morales RN) Inf Hx Syphilis: No (12/04/2016 15:37:Amelia Morales RN) Inf Hx HIV/AIDS: No (12/04/2016 15:37:Amelia Morales RN) Inf Hx Human Papilloma Virus: No (12/04/2016 15:37:Amelia Morales RN) Inf Hx Pt/Partner Genital Herpes: No (12/04/2016 15:37:Amelia Morales RN) Inf Hx Tuberculosis/Exposure: No (12/04/2016 15:37:Amelia Morales RN) Inf Hx Hepatitis B,C: No (12/04/2016 15:37:Amelia Morales RN) Inf Hx Rash or Viral Illness: No (12/04/2016 15:37:Amelia Morales RN) Details of Infectious Hx: Chlamydia (12/04/2016 15:37:Amelia Morales RN) GENETIC HISTORY Gen Hx Age >=35 at XANDER: No (12/04/2016 15:37:Amelia Morales RN) Gen Hx Thalassemia: No (12/04/2016 15:37:Amelia Morales RN) Gen Hx Congenital Heart Defect: No (12/04/2016 15:37:Amelia Morales RN) Gen Hx Neural Tube Defect: No (12/04/2016 15:37:Amelia Morales RN) Gen Hx Down's Syndrome: No (12/04/2016 15:37:Amelia Morales RN) Gen Hx Ken-Sachs: No (12/04/2016 15:37:Amelia Morales RN) Gen Hx Alexia: No (12/04/2016 15:37:Amelia Morales RN) Gen Hx Familial Dysautonomia: No (12/04/2016 15:37:Amelia Morales RN) Gen Hx Sickle Cell Disease/Trait: No (12/04/2016 15:37:Amelia Morales RN) Gen Hx Hemophilia/Blood Disorder: No (12/04/2016 15:37:Amelia Morales RN) Gen Hx Muscular Dystrophy: No (12/04/2016 15:37:Amelia Morales RN) Gen Hx Cystic Fibrosis: No (12/04/2016 15:37:Amelia Morales RN) Gen Hx Huntingtons Chorea: No (12/04/2016 15:37:Amelia Morales RN) Gen Hx Mental Retardation/Autism: No (12/04/2016 15:37:Amelia Morales RN) Gen Hx Tested for Fragile X: No (12/04/2016 15:37:Amelia Morales RN) Gen Hx Other Inher/Chromosomal: No (12/04/2016 15:37:Amelia Morales RN) Gen Hx Maternal Metabolic DO: No (12/04/2016 15:37:Amelia Morales RN) Gen Hx Pt Father or FOB Defect: No (12/04/2016 15:37:Amelia Morales RN) Gen Hx Other Genetic History: No (12/04/2016 15:37:Amelia Morales RN) Gen Hx Drugs/Meds since LMP: No (12/04/2016 15:37:Amelia Morales RN)
--- NOTE | 2016-12-18 06:14 | L&D General Admission ---
General Admit Datetime Report Generated by CPN: 12/18/2016 06:00 INFORMATION Patient Age: 36 (10/30/2016 09:21:QS system process) EDC: 01/08/2017 00:00 (12/04/2016 15:37:Amelia Morales RN) : 7 (12/04/2016 15:37:Amelia Morales RN) Para: 4 (12/10/2016 17:06:KRISTEN Salazar) Term: 2 (12/04/2016 15:37:Amelia Morales RN) : 0 (12/04/2016 15:37:Amelia Morales RN) Spontaneous Abortions: 1 (12/04/2016 15:37:Amelia Morales RN) Induced Abortions: 3 (12/04/2016 15:37:Amelia Morales RN) Livin (12/04/2016 15:37:Amelia Morales RN) Cesareans: 0 (12/04/2016 15:37:Amelia Morales RN) VBACs: 0 (12/04/2016 15:37:Amelia Morales RN) Ectopic: 0 (12/04/2016 15:37:Amelia Morales RN) Multiple Births: 0 (12/04/2016 15:37:Amelia Morales RN) Baby, Number in Womb: 1 (12/10/2016 17:06:Emily Jose, [facility]) CARE Primary Power Sweeper Operator: [facility] (12/04/2016 15:37:Amelia Morales RN) Month of 1st Visit: 06/16 (12/04/2016 15:37:Amelia Morales RN) Adequate Care: Yes (12/04/2016 15:37:Amelia Morales RN) Prepregnancy Weight (lb): 272 (12/04/2016 15:37:Amelia Morales RN) Prepregnancy Weight (kg): 123.6 (12/04/2016 15:37:QS system process) Height (in): 61 (12/10/2016 16:57:QS system process) ALLERGIES Medication Allergy: No (12/04/2016 15:37:Amelia Morales RN) Medication Allergies: No Known Allergies (12/10/2016) (12/10/2016 16:43:QS system process) Latex Allergy: No Latex Allergies (12/04/2016 15:37:Amelia Morales RN) Food Allergies: N/A (12/04/2016 15:37:Amelia Morales RN) Environmental Allergies: N/A (12/04/2016 15:37:Amelia Morales RN) COMMUNICATION Primary Language: Indonesian (12/04/2016 15:37:Amelia Morales RN) Medical Tx Preferred Language: Indonesian (12/04/2016 15:37:Amelia Morales RN) Communication Barrier(s): None (12/04/2016 15:37:Amelia Morales RN) DEMOGRAPHICS Address: [address] [place] [phone] (10/30/2016 09:21:QS system process) Zipcode: [phone] (10/30/2016 09:21:QS system process) Home (10/30/2016 09:21:QS system process) SSN: [id number] (10/30/2016 09:21:QS system process) Next of Kin Name: ISABEL WARNER II (10/30/2016 09:21:QS system process) Next of Kin (10/30/2016 09:21:QS system process) Next of Kin Relationship: SPO (10/30/2016 09:21:QS system process) Date of : 1980 (10/30/2016 09:21:QS system process) Marital Status: (10/30/2016 09:21:QS system process) Sex: Female (10/30/2016 09:21:QS system process) Race: (10/30/2016 09:21:QS system process) Ethnicity: Non- or (10/30/2016 09:21:QS system process) Roman Catholic: Mandaen (10/30/2016 09:21:QS system process) DRUG AND ALCOHOL USE Alcohol: No (12/04/2016 15:37:Amelia Morales RN) Cigarettes: Never Smoker. [id number] (12/04/2016 15:37:Amelia Morales RN) Marijuana: No (12/04/2016 15:37:Amelia Morales RN) Cocaine: No (12/04/2016 15:37:Amelia Morales RN) Other Illicit Drugs: No (12/04/2016 15:37:Amelia Morales RN) VACCINE HISTORY Influenza Vaccine: Yes (12/04/2016 15:37:Amelia Morales RN) Pneumococcal Vaccine: No (12/04/2016 15:37:Amelia Morales RN) Tetanus Vaccine: Yes (12/04/2016 15:37:Amelia Morales RN) Tdap Vaccine: Yes (12/04/2016 15:37:Amelia Morales RN) Hepatitis B Vaccine: Yes (12/04/2016 15:37:Amelia Morales RN) Benefit of Breast Feed Discussed: Yes (12/04/2016 15:37:Amelia Morales RN) Circumcision: Yes (12/04/2016 15:37:Amelia Morales RN) Classes Attended: Yes (12/04/2016 15:37:Amelia Morales RN) Tubal Ligation: Yes (12/04/2016 15:37:Amelia Morales RN) Tubal Authorization Signed: N/A (12/04/2016 15:37:Amelia Morales RN) Consent: N/A (12/04/2016 15:37:Amelia Morales RN) Consent Signed: N/A (12/04/2016 15:37:Amelia Morales RN) Pain Management Plans: Natural (12/04/2016 15:37:Amelia Morales RN) Plans for Labor and Delivery: None (12/04/2016 15:37:Amelia Morales RN) Support Person: Marco Warner II (12/04/2016 15:37:Amelia Morales RN) Support Person Relationship: (12/04/2016 15:37:Amelia Morales RN) Cultural/Spritual Practice: No (12/04/2016 15:37:Amelia Morales RN) Spir/Cult Dietary Needs: No (12/04/2016 15:37:Amelia Morales RN) LIVING SITUATION/DISCHARGE PLAN Living Arrangements: House (12/04/2016 15:37:Amelia Morales RN) Adequate Access to:: Electric; Heat; Refrigeration; Plumbing/Running water; Phone; Transportation (12/04/2016 15:37:Amelia Morales RN) WIC Program: No (12/04/2016 15:37:Amelia Morales RN) Discharge Latex Ribbon Machine Operator Person: (12/04/2016 15:37:Amelia Morales RN) Person to Help after Discharge: (12/04/2016 15:37:Amelia Morales RN) Currently Using Commun Resources: No (12/04/2016 15:37:Amelia Morales RN) Outside Agency/Certified Residential Medication Aide: No (12/04/2016 15:37:Amelia Morales RN) Car Seat for Discharge: Yes (12/04/2016 15:37:Amelia Morales RN) Adoption Requested: No (12/04/2016 15:37:Amelia Morales RN) Pt Contact w/infant Post : N/A (12/04/2016 15:37:Amelia Morales RN) LABS Hemoglobin: 10.9 L (12/04/2016 15:41:QS system process) Hematocrit: 34.7 L (12/04/2016 15:41:QS system process) MCV: 70 L (12/04/2016 15:41:QS system process) OB/PREVIOUS HISTORY History of Previous : No (12/04/2016 15:37:Amelia Morales RN) History of Gestational Diabetes: No (12/04/2016 15:37:Amelia Morales RN) History of PIH: No (12/04/2016 15:37:Amelia Morales RN) History of Incompetent Cervix: No (12/04/2016 15:37:Amelia Morales RN) History of Placenta Previa/Abrup: No (12/04/2016 15:37:Amelia Morales RN) History of Macrosomia: No (12/04/2016 15:37:Amelia Morales RN) History of IUGR: No (12/04/2016 15:37:Amelia Morales RN) History of Hemorrhage: No (12/04/2016 15:37:Amelia Morales RN) History of Loss/Stillborn: No (12/04/2016 15:37:Amelia Morales RN) History of : No (12/04/2016 15:37:Amelia Morales RN) History of D (Rh) Sensitization: No (12/04/2016 15:37:Amelia Morales RN) History Recurrent Loss/Stillborn: No (12/04/2016 15:37:Amelia Morales RN) History Depression/PP Depression: No (12/04/2016 15:37:Amelia Morales RN) History of Uterine Anomaly/YAZMIN: No (12/04/2016 15:37:Amelia Morales RN) History of Infertility: No (12/04/2016 15:37:Amelia Morales RN) History of ART Treatment: No (12/04/2016 15:37:Amelia Morales RN) History of YAZMIN: No (12/04/2016 15:37:Amelia Morales RN) Comments Obstetrical History: G1: 2000 EAB G2: 2001 baby boy, 37-39 weeks, 24+ hours labor, 7 lb, IOL oligo G3: 2001 EAB G4: 2003 baby girl, 37-39 weeks G5: 2007 EAB G6: 2013 SAB, 13 weeks G7: Current (12/04/2016 15:37:Amelia Morales RN) MEDICAL HISTORY Med Hx Diabetes: No (12/04/2016 15:37:Amelia Morales RN) Med Hx Hypertension: Yes (12/04/2016 15:37:Amelia Morales RN) Med Hx Heart Disease: No (12/04/2016 15:37:Amelia Morales RN) Med Hx Autoimmune Disorder: No (12/04/2016 15:37:Amelia Morales RN) Med Hx Kidney Disease/UTI: No (12/04/2016 15:37:Amelia Morales RN) Med Hx Neurologic/Epilepsy: No (12/04/2016 15:37:Amelia Morales RN) Med Hx Psychiatric Disorders: No (12/04/2016 15:37:Amelia Morales RN) Med Hx Hepatitis/Liver Disease: No (12/04/2016 15:37:Amelia Morales RN) Med Hx Varicosities/Phlebitis: No (12/04/2016 15:37:Amelia Morales RN) Med Hx Thyroid Dysfunction: No (12/04/2016 15:37:Amelia Morales RN) Med Hx Trauma/Violence: No (12/04/2016 15:37:Amelia Morales RN) Med Hx Blood Transfusion: No (12/04/2016 15:37:Amelia Morales RN) Med Hx Pulmonary (Asthma,TB): Yes (12/04/2016 15:37:Amelia Morales RN) Med Hx Breast: No (12/04/2016 15:37:Amelia Morales RN) Med Hx UNDER TRIMMER Surgery: No (12/04/2016 15:37:Amelia Morales RN) Med Hx Hospitalization/Surgery: Yes (12/04/2016 15:37:Amelia Morales RN) Med Hx Anesthetic Complications: No (12/04/2016 15:37:Amelia Morales RN) Med Hx Abnormal Pap Smear: Yes (12/04/2016 15:37:Amelia Morales RN) Other Medical Diseases: Yes (12/04/2016 15:37:Amelia Morales RN) Med Hx Significant Family Hx: No (12/04/2016 15:37:Amelia Morales RN) Details of Med/Surg Hx: HTN: Chronic HTN, Labetalol 100 mg BID Pulmonary: Bronchitis 11/30/16 Surgery: Colonoscopy 2012, polyps noted Abnormal Pap: Hx ASCUS Pap, negative HPV Other: Morbid obesity (12/04/2016 15:37:Amelia Morales RN) INFECTIOUS HISTORY Inf Hx Gonorrhea: No (12/04/2016 15:37:Amelia Morales RN) Inf Hx Chlamydia: Yes (12/04/2016 15:37:Amelia Morales RN) Inf Hx Syphilis: No (12/04/2016 15:37:Amelia Morales RN) Inf Hx HIV/AIDS: No (12/04/2016 15:37:Amelia Morales RN) Inf Hx Human Papilloma Virus: No (12/04/2016 15:37:Amelia Morales RN) Inf Hx Pt/Partner Genital Herpes: No (12/04/2016 15:37:Amelia Morales RN) Inf Hx Tuberculosis/Exposure: No (12/04/2016 15:37:Amelia Morales RN) Inf Hx Hepatitis B,C: No (12/04/2016 15:37:Amelia Morales RN) Inf Hx Rash or Viral Illness: No (12/04/2016 15:37:Amelia Morales RN) Details of Infectious Hx: Chlamydia (12/04/2016 15:37:Amelia Morales RN) GENETIC HISTORY Gen Hx Age >=35 at XANDER: No (12/04/2016 15:37:Amelia Morales RN) Gen Hx Thalassemia: No (12/04/2016 15:37:Amelia Morales RN) Gen Hx Congenital Heart Defect: No (12/04/2016 15:37:Amelia Morales RN) Gen Hx Neural Tube Defect: No (12/04/2016 15:37:Amelia Morales RN) Gen Hx Down's Syndrome: No (12/04/2016 15:37:Amelia Morales RN) Gen Hx Ken-Sachs: No (12/04/2016 15:37:Amelia Morales RN) Gen Hx Alexia: No (12/04/2016 15:37:Amelia Morales RN) Gen Hx Familial Dysautonomia: No (12/04/2016 15:37:Amelia Morales RN) Gen Hx Sickle Cell Disease/Trait: No (12/04/2016 15:37:Amelia Morales RN) Gen Hx Hemophilia/Blood Disorder: No (12/04/2016 15:37:Amelia Morales RN) Gen Hx Muscular Dystrophy: No (12/04/2016 15:37:Amelia Morales RN) Gen Hx Cystic Fibrosis: No (12/04/2016 15:37:Amelia Morales RN) Gen Hx Huntingtons Chorea: No (12/04/2016 15:37:Amelia Morales RN) Gen Hx Mental Retardation/Autism: No (12/04/2016 15:37:Amelia Morales RN) Gen Hx Tested for Fragile X: No (12/04/2016 15:37:Amelai Morales RN) Gen Hx Other Inher/Chromosomal: No (12/04/2016 15:37:Amelia Morales RN) Gen Hx Maternal Metabolic DO: No (12/04/2016 15:37:Amelia Morales RN) Gen Hx Pt Father or FOB Defect: No (12/04/2016 15:37:Amelia Morales RN) Gen Hx Other Genetic History: No (12/04/2016 15:37:Amelia Morales RN) Gen Hx Drugs/Meds since LMP: No (12/04/2016 15:37:Amelia Morales RN)
--- NOTE | 2016-12-18 06:14 | L&D Current Admission ---
Current Admit Datetime Report Generated by CPN: 12/18/2016 06:00 ADMISSION INFORMATION Chief Complaint: Other (Annotations: Denies complaints) (12/04/2016 15:55:Amelia Andrew, ABDULKADIR)
== END 2016-12-10 17:00 | disposition home or self-care (01) ==
LOC: LC 15:59
PROVIDERS: ATTEND Obstetrics & Gynecology
PROC: 4A1HXCZ Monitoring of Products of Conception, Cardiac Rate, External Approach (ICD-10-PCS; principal; 2016-12-10)
DX: O10.913 Unspecified pre-existing hypertension complicating pregnancy, third trimester (principal); O99.213 Obesity complicating pregnancy, third trimester; O09.523 Supervision of elderly multigravida, third trimester; Z3A.35 35 weeks gestation of pregnancy
CPT/HCPCS: 59025

== ENCOUNTER 2016-12-18 17:49 | Outpatient (CLI) | payer BC ==
[2016-12-18 18:45] LABS: APPEARANCE,URINE CLOUDY; BILIRUBIN,URINE NEGATIVE (NEGATIVE); GLUCOSE, URINE NEGATIVE (NEGATIVE); KETONES,URINE 20 mg/dL (NEGATIVE); LEUKOCYTE ESTERASE,URINE NEGATIVE (NEGATIVE); NITRITE,URINE NEGATIVE (NEGATIVE); PROTEIN,URINE 100 mg/dL (NEGATIVE); URINE SPECIFIC GRAVITY 1.026; UROBILINOGEN,URINE NEGATIVE mg/dL (<2.0)
[2016-12-18 18:55] LABS: ABSOLUTE BASOPHILS # (AUTO) 0.1 10^3/uL (0.0-0.2); ABSOLUTE EOSINOPHILS # (AUTO) 0.1 10^3/uL (0.0-0.6); ABSOLUTE LYMPHOCYTES (AUTO) 2.3 10^3/uL (0.5-4.7); ABSOLUTE MONOCYTES (AUTO) 0.8 10^3/uL (0.1-1.4); ABSOLUTE NEUT (AUTO) 6.3 10^3/uL (1.7-8.2); BASOPHILS % (AUTO) 0.6 % (0-2); HEMATOCRIT 34.2 % (36.0-47.0); HEMOGLOBIN 10.2 g/dL (12.0-15.5); HGB HCT DIFFERENCE -3.6; LYMPHOCYTES % (AUTO) 23.7 % (13-45); MEAN CORPUSCULAR HEMOGLOBIN 21.6 pg (27.0-33.4); MEAN CORPUSCULAR HGB CONC 29.9 g/dL (32.0-36.0); MEAN CORPUSCULAR VOLUME 72 fl (80-97); MONOCYTES % (AUTO) 8.4 % (3-13); RED BLOOD COUNT 4.72 10^6/uL (3.72-5.28); RED CELL DISTRIBUTION WIDTH 17.1 % (11.5-14.0); SEGMENTED NEUTROPHILS % (AUTO) 66.3 % (42-78); WHITE BLOOD COUNT 9.5 10^3/uL (4.0-10.5)
[2016-12-18 19:17] LABS: ALANINE AMINOTRANSFERASE 35 U/L (9-52); ALBUMIN 3.2 g/dL (3.5-5.0); ALKALINE PHOSPHATASE 114 U/L (38-126); ANION GAP 8 (5-19); ASPARTATE AMINO TRANSFERASE 32 U/L (14-36); BILIRUBIN,TOTAL 0.2 mg/dL (0.2-1.3); BLOOD UREA NITROGEN 10 mg/dL (7-20); CALCIUM 9.3 mg/dL (8.4-10.2); CARBON DIOXIDE 26 mmol/L (22-30); CHLORIDE 103 mmol/L (98-107); CREATININE RESULT 0.79 mg/dL (0.52-1.25); GLUCOSE 73 mg/dL (75-110); LDH 645 U/L (313-618); POTASSIUM 3.9 mmol/L (3.6-5.0); SODIUM 136.7 mmol/L (137-145); TOTAL PROTEIN 6.2 g/dL (6.3-8.2); URIC ACID 5.1 mg/dL (2.5-7.0)
--- NOTE | 2016-12-18 20:00 | L&D Flow Sheet ---
LD Flowsheet Datetime Report Generated by CPN: 12/18/2016 20:00 Datetime: 12/18/2016 19:57 NBP Sys/Karley/Mean (mmHg): 154 (QS system process) : 85 (QS system process) : 112 (QS system process) Pulse: 83 (QS system process) LaborFlag: Antepartum (QS system process) Datetime: 12/18/2016 19:27 NBP Sys/Karley/Mean (mmHg): 149 (QS system process) : 90 (QS system process) : 112 (QS system process) Pulse: 82 (QS system process) LaborFlag: Antepartum (QS system process) Datetime: 12/18/2016 19:26 Monitor Mode: External US (Crystal Matt, RN) Monitor Interventions for FHR: Ultrasound Adjusted (Crystal Matt, RN) FHR Baseline Rate : 130 (Crystal [place], RN) Datetime: 12/18/2016 19:17 Level of Consciousness: Fully Conscious (Crystal Matt, RN) DTR's/Clonus: DTRs 1+; No Clonus (Crystal Matt, RN) Headache: Denies (Crystal Matt, RN) Breath Sounds, Left: Clear and Equal (Crystal [place], RN) Nausea/Vomiting: Denies (Crystal Matt, RN) RUQ Epigastric Pain: Denies (Crystal [place], RN) Datetime: 12/18/2016 19:15 Monitor Mode: External; Palpation (Quirino Matamoros RN) Frequency (min): none (Quirino Matamoros RN) Resting Tone (Palpate): Relaxed (Quirino Matamoros RN) Monitor Mode: External US (Quirino Matamoros RN) FHR Baseline Rate : 155 (Quirino Matamoros RN) Variability: Moderate 6-25 bpm (Quirino Matamoros RN) Accelerations: 15X15 (Quirino Matamoros RN) Decelerations: None (Quirino Matamoros RN) Comments: Broken tracing, RN adjusting continuously, difficult d/t maternal habitus. (Quriino Matamoros RN) Communication: RN at Bedside; RN Reviewed Strip (Quirino Matamoros RN) Communication Comments: Report to Lakeisha Gutierrez RN (Quirino Matamoros RN) Datetime: 12/18/2016 19:12 NBP Sys/Karley/Mean (mmHg): 147 (QS system process) : 81 (QS system process) : 107 (QS system process) Pulse: 82 (QS system process) LaborFlag: Antepartum (QS system process) Datetime: 12/18/2016 18:57 NBP Sys/Karley/Mean (mmHg): 155 (QS system process) : 76 (QS system process) : 109 (QS system process) Pulse: 75 (QS system process) LaborFlag: Antepartum (QS system process) Datetime: 12/18/2016 18:45 Monitor Mode: External; Palpation (Quirino Matamoros RN) Frequency (min): none (Quirino Matamoros RN) Resting Tone (Palpate): Relaxed (Quirino Matamoros RN) Monitor Mode: External US (Quirino Matamoros RN) FHR Baseline Changes: Unable to Determine (Quirino Matamoros RN) Variability: Moderate 6-25 bpm (Quirino Matamoros RN) Accelerations: 15X15 (Quirino Matamoros RN) Decelerations: None (Quirino Matamoros RN) Comments: Broken tracing, RN continuously attempting to obtain fht, difficult d/t maternal habitus. (Quirino Matamoros RN) Communication: RN at Bedside; RN Reviewed Strip (Quirino Shiloh, RN) Datetime: 12/18/2016 18:42 NBP Sys/Karley/Mean (mmHg): 168 (QS system process) : 89 (QS system process) : 121 (QS system process) Pulse: 75 (QS system process) IV/Blood Work: Labs Drawn (Quirino Matamoros RN) LaborFlag: Antepartum (QS system process) Datetime: 12/18/2016 18:30 Pain Scale: 0 (Quirino Matamoros RN) Pain Presence: None/Denies (Quirino Matamoros, RN) Vaginal Bleeding: None (Quirino Matamoros RN) Level of Consciousness: Fully Conscious (Quirino Matamoros RN) DTR's/Clonus: DTRs 1+; No Clonus (Quirino Matamoros RN) Headache: Denies (Quirino Matamoros RN) Breath Sounds, Left: Clear and Equal (Quirino Matamoros RN) Breath Sounds, Right: Clear and Equal (Quirino Matamoros RN) Nausea/Vomiting: Denies (Quirino Matamoros RN) RUQ Epigastric Pain: Denies (Quirino Matamoros RN) Patient Position/Activity: Right Lateral (Quirino Matamoros RN) Comfort Measures: Breathing/Relaxation (Quirino Matamoros RN) I/O Interventions: Clear Liquids Given; Up to BR (Quirino Matamoros RN) Instructional Method: Demo; Verbal; Patient Instructed; Family/Support Person Instructed; Verbalized Understanding (Quirino Matamoros RN) Plan of Care: Plan of Care Discussed; Gestational Hypertension/Preeclampsia/Eclampsia (Quirino Matamoros RN) Unit Routine: [place] to Room; Call French; Bed; Visiting Policy; Waiting Areas; Phone/Cell Phone Use; Unit Personnel; Handwashing; Flu/Illness Precautions; Monitoring; Safety/Fall Risk Prevention; Bathroom Privileges (Quirino Matamoros RN) Pain Management: Pain Scale/Goals; Comfort Measures (Quirino Matamoros RN) Related: Common Discomforts of ; Maternal Physical Changes; Maternal Emotional Changes; Nutrition; Hydration; Activity and Rest (Quirino Matamoros RN) LaborFlag: Antepartum (QS system process) Datetime: 12/18/2016 18:26 NBP Sys/Karley/Mean (mmHg): 130 (QS system process) : 74 (QS system process) : 95 (QS system process) Pulse: 88 (QS system process) LaborFlag: Antepartum (QS system process) Datetime: 12/18/2016 18:23 Monitor Interventions for UA: [place] Adjusted (Quirino Matamoros, RN) Datetime: 12/18/2016 18:13 Monitor Interventions for FHR: Ultrasound Adjusted (Quirino Matamoros RN) Communication: RN at Bedside (Quirino Matamoros RN)
--- NOTE | 2016-12-19 04:48 | L&D Flow Sheet ---
LD Flowsheet Datetime Report Generated by CPN: 12/19/2016 04:45 Datetime: 12/18/2016 20:30 Stage of : OB Triage (Nolvia Crain RN) Communication Comments: Pt left unit ambulatory, pt care relinquished. (Nolvia Tomlinsonergrass, RN) Datetime: 12/18/2016 20:16 Stage of : OB Triage (Nolvia Crain RN) Provider Reviewed Strip: Yes (Nolvia Crain RN) Strip Reviewed by: Jose crain RN (Nolvia Crain RN) Communication: RN Reviewed Strip; Provider Orders Received (Nolvia Crain RN) Provider Notified (Name): Danilo (Nolvia Crain RN) Notification Reason: Status Update; Status; Labor Status; Membrane Status; Uterine Activity; Maternal Vital Sign Change; Lab/Diagnostic Study; Patient Request (Nolvia Crain RN) Communication Comments: Received orders to DC pt after reactive NST and have pt return saturday evening for scheduled induction. Pt instructed to call before coming in for induction. Instructions and labs explained, pt verbalized understanding. (Nolvia Crain RN) Datetime: 12/18/2016 20:12 NBP Sys/Karley/Mean (mmHg): 148 (QS system process) : 83 (QS system process) : 109 (QS system process) Pulse: 82 (QS system process) LaborFlag: Antepartum (QS system process) Datetime: 12/18/2016 19:59 Monitor Mode: External; Palpation (Nolvia Crain RN) Frequency (min): 0 (Crystal Matt, RN) Resting Tone (Palpate): Relaxed (Crystal Matt, RN) Monitor Mode: External US (Crystal Matt, RN) Monitor Interventions for FHR: Ultrasound Adjusted (Crystal Marlin, RN) FHR Baseline Rate : 130 (Crystal Marlin, RN) Variability: Moderate 6-25 bpm (Crystal Matt, RN) Accelerations: 15X15 (Crystal Marlin, RN) Decelerations: None (Crystal Marlin, RN) Patient Position/Activity: Left Extreme (Crystal Matt, RN) Datetime: 12/18/2016 19:57 NBP Sys/Karley/Mean (mmHg): 154 (QS system process) : 85 (QS system process) : 112 (QS system process) Pulse: 83 (QS system process) LaborFlag: Antepartum (QS system process) Datetime: 12/18/2016 19:27 NBP Sys/Karley/Mean (mmHg): 149 (QS system process) : 90 (QS system process) : 112 (QS system process) Pulse: 82 (QS system process) LaborFlag: Antepartum (QS system process) Datetime: 12/18/2016 19:26 Monitor Mode: External US (Crystal Matt, RN) Monitor Interventions for FHR: Ultrasound Adjusted (Crystal Matt, RN) FHR Baseline Rate : 130 (Crystal Matt, RN) Datetime: 12/18/2016 19:17 Level of Consciousness: Fully Conscious (Crystal Matt, RN) DTR's/Clonus: DTRs 1+; No Clonus (Crystal Matt, RN) Headache: Denies (Crystal Matt, RN) Breath Sounds, Left: Clear and Equal (Crystal Marlin, RN) Nausea/Vomiting: Denies (Crystal Matt, RN) RUQ Epigastric Pain: Denies (Crystal Matt, RN) Datetime: 12/18/2016 19:15 Monitor Mode: External; Palpation (Quirino Matamoros RN) Frequency (min): none (Quirino Matamoros RN) Resting Tone (Palpate): Relaxed (Quirino Matamoros RN) Monitor Mode: External US (Quirino Matamoros RN) FHR Baseline Rate : 155 (Quirino Matamoros RN) Variability: Moderate 6-25 bpm (Quirino Matamoros RN) Accelerations: 15X15 (Quirino Matamoros RN) Decelerations: None (Quirino Matamoros RN) Comments: Broken tracing, RN adjusting continuously, difficult d/t maternal habitus. (Quirino Matamoros RN) Communication: RN at Bedside; RN Reviewed Strip (Quirino Matamoros RN) Communication Comments: Report to Lakeisha Crain RN (Quirino Matamoros RN) Datetime: 12/18/2016 19:12 NBP Sys/Karley/Mean (mmHg): 147 (QS system process) : 81 (QS system process) : 107 (QS system process) Pulse: 82 (QS system process) LaborFlag: Antepartum (QS system process) Datetime: 12/18/2016 18:57 NBP Sys/Karley/Mean (mmHg): 155 (QS system process) : 76 (QS system process) : 109 (QS system process) Pulse: 75 (QS system process) LaborFlag: Antepartum (QS system process) Datetime: 12/18/2016 18:45 Monitor Mode: External; Palpation (Quirino Matamoros RN) Frequency (min): none (Quirino Matamoros RN) Resting Tone (Palpate): Relaxed (Quirino Matamoros RN) Monitor Mode: External US (Quirino Matamoros RN) FHR Baseline Changes: Unable to Determine (Quirino Matamoros RN) Variability: Moderate 6-25 bpm (Quirino Matamoros RN) Accelerations: 15X15 (Quirino Matamoros RN) Decelerations: None (Quirino Matamoros RN) Comments: Broken tracing, RN continuously attempting to obtain fht, difficult d/t maternal habitus. (Quirino Matamoros RN) Communication: RN at Bedside; RN Reviewed Strip (Quirino Matamoros RN) Datetime: 12/18/2016 18:42 NBP Sys/Karley/Mean (mmHg): 168 (QS system process) : 89 (QS system process) : 121 (QS system process) Pulse: 75 (QS system process) IV/Blood Work: Labs Drawn (Quirino Matamoros RN) LaborFlag: Antepartum (QS system process) Datetime: 12/18/2016 18:30 Pain Scale: 0 (Quirino Matamoros RN) Pain Presence: None/Denies (Quirino Matamoros RN) Vaginal Bleeding: None (Quirino Matamoros RN) Level of Consciousness: Fully Conscious (Quirino Matamoros RN) DTR's/Clonus: DTRs 1+; No Clonus (Quirino Matamoros RN) Headache: Denies (Quirino Matamoros RN) Breath Sounds, Left: Clear and Equal (Quirino Matamoros RN) Breath Sounds, Right: Clear and Equal (Quirino Matamoros RN) Nausea/Vomiting: Denies (Quirino Matamoros RN) RUQ Epigastric Pain: Denies (Quirino Matamoros RN) Patient Position/Activity: Right Lateral (Quirino Matamoros RN) Comfort Measures: Breathing/Relaxation (Quirino Matamoros RN) I/O Interventions: Clear Liquids Given; Up to BR (Quirino Matamoros RN) Instructional Method: Demo; Verbal; Patient Instructed; Family/Support Person Instructed; Verbalized Understanding (Quirino Matamoros RN) Plan of Care: Plan of Care Discussed; Gestational Hypertension/Preeclampsia/Eclampsia (Quirino Matamoros RN) Unit Routine: [place] to Room; Call French; Bed; Visiting Policy; Waiting Areas; Phone/Cell Phone Use; Unit Personnel; Handwashing; Flu/Illness Precautions; Monitoring; Safety/Fall Risk Prevention; Bathroom Privileges (Quirino Matamoros RN) Pain Management: Pain Scale/Goals; Comfort Measures (Quirino Matamoros RN) Related: Common Discomforts of ; Maternal Physical Changes; Maternal Emotional Changes; Nutrition; Hydration; Activity and Rest (Quirino Matamoros RN) LaborFlag: Antepartum (QS system process) Datetime: 12/18/2016 18:26 NBP Sys/Karley/Mean (mmHg): 130 (QS system process) : 74 (QS system process) : 95 (QS system process) Pulse: 88 (QS system process) LaborFlag: Antepartum (QS system process) Datetime: 12/18/2016 18:23 Monitor Interventions for UA: [place] Adjusted (Quirino Matamoros, RN) Datetime: 12/18/2016 18:13 Monitor Interventions for FHR: Ultrasound Adjusted (Quirino Matamoros RN) Communication: RN at Bedside (Quriino Matamoros RN)
--- NOTE | 2016-12-19 04:48 | L&D Current Admission ---
Current Admit Datetime Report Generated by CPN: 12/19/2016 04:45 ADMISSION INFORMATION Chief Complaint: Other (Annotations: Denies complaints) (12/04/2016 15:55:Amelia Andrew, ABDULKADIR)
--- NOTE | 2016-12-19 04:48 | L&D General Admission ---
General Admit Datetime Report Generated by CPN: 12/19/2016 04:45 INFORMATION Patient Age: 36 (10/30/2016 09:21:QS system process) EDC: 01/08/2017 00:00 (12/04/2016 15:37:Amelia Morales RN) : 7 (12/04/2016 15:37:Amelia Morales RN) Para: 2 (12/18/2016 20:27:Nolvia Gutierrez RN) Para: 4 (12/10/2016 17:06:KRISTEN Salazar) Para: 2 (12/04/2016 15:37:Amelia Morales RN) Term: 2 (12/04/2016 15:37:Amelia Morales RN) : 0 (12/04/2016 15:37:Amelia Morales RN) Spontaneous Abortions: 1 (12/04/2016 15:37:Amelia Morales RN) Induced Abortions: 3 (12/04/2016 15:37:Amelia Morales RN) Livin (12/04/2016 15:37:Amelia Morales RN) Cesareans: 0 (12/04/2016 15:37:Amelia Morales RN) VBACs: 0 (12/04/2016 15:37:Amelia Morales RN) Ectopic: 0 (12/04/2016 15:37:Amelia Morales RN) Multiple Births: 0 (12/04/2016 15:37:Amelia Morales RN) Baby, Number in Womb: 1 (12/18/2016 20:27:Nolvia Gutierrez RN) Baby, Number in Womb: 1 (12/10/2016 17:06:KRISTEN Salazar) Baby, Number in Womb: 1 (12/04/2016 15:37:Amelia Morales RN) CARE Primary Passenger Brakeman: [facility] (12/04/2016 15:37:Amelia Morales RN) Month of 1st Visit: 06/16 (12/04/2016 15:37:Amelia Morales RN) Adequate Care: Yes (12/04/2016 15:37:Amelia Morales RN) Prepregnancy Weight (lb): 272 (12/04/2016 15:37:Amelia Morales RN) Prepregnancy Weight (kg): 123.6 (12/04/2016 15:37:QS system process) Height (in): 61 (12/18/2016 18:08:QS system process) Height (in): 61 (12/10/2016 16:57:QS system process) Height (in): 61 (12/10/2016 16:46:QS system process) Height (in): 61 (12/04/2016 16:00:QS system process) Height (in): 61 (12/04/2016 15:25:QS system process) ALLERGIES Medication Allergy: No (12/04/2016 15:37:Amelia Morales RN) Medication Allergies: No Known Allergies (12/18/2016) (12/18/2016 18:07:QS system process) Medication Allergies: No Known Allergies (12/10/2016) (12/10/2016 16:43:QS system process) Medication Allergies: No Known Allergies (07/09/2013) (10/30/2016 09:21:QS system process) Latex Allergy: No Latex Allergies (12/04/2016 15:37:Amelia Morales RN) Food Allergies: N/A (12/04/2016 15:37:Amelia Morales RN) Environmental Allergies: N/A (12/04/2016 15:37:Amelia Morales RN) COMMUNICATION Primary Language: Burundian (12/04/2016 15:37:Amelia Morales RN) Medical Tx Preferred Language: Burundian (12/04/2016 15:37:Amelia Morales RN) Communication Barrier(s): None (12/04/2016 15:37:Amelia Morales RN) DEMOGRAPHICS Address: [address] [place] [id number] (10/30/2016 09:21:QS system process) Zipcode: [phone] (10/30/2016 09:21:QS system process) Home (10/30/2016 09:21:QS system process) SSN: [id number] (10/30/2016 09:21:QS system process) Next of Kin Name: ISABEL WARNER II (10/30/2016 09:21:QS system process) Next of Kin (12/18/2016 17:49:QS system process) Next of Kin (10/30/2016 09:21:QS system process) Next of Kin Relationship: SPO (10/30/2016 09:21:QS system process) Date of : 1980 (10/30/2016 09:21:QS system process) Marital Status: (10/30/2016 09:21:QS system process) Sex: Female (10/30/2016 09:21:QS system process) Race: (10/30/2016 09:21:QS system process) Ethnicity: Non- or (10/30/2016 09:21:QS system process) Zoroastrianism: Confucianism (10/30/2016 09:21:QS system process) DRUG AND ALCOHOL USE Alcohol: No (12/04/2016 15:37:Amelia Vitrano, RN) Cigarettes: Never Smoker. [id number] (12/04/2016 15:37:Amelia Vitrano, RN) Marijuana: No (12/04/2016 15:37:Amelia Vitrano, RN) Cocaine: No (12/04/2016 15:37:Amelia Vitrano, RN) Other Illicit Drugs: No (12/04/2016 15:37:Amelia Vitrano, RN) VACCINE HISTORY Influenza Vaccine: Yes (12/04/2016 15:37:Amelia Vitrano, RN) Pneumococcal Vaccine: No (12/04/2016 15:37:Amelia Vitrano, RN) Tetanus Vaccine: Yes (12/04/2016 15:37:Amelia Vitrano, RN) Tdap Vaccine: Yes (12/04/2016 15:37:Amelia Vitrano, RN) Hepatitis B Vaccine: Yes (12/04/2016 15:37:Amelia Vitrano, RN) Benefit of Breast Feed Discussed: Yes (12/04/2016 15:37:Amelia Morales RN) Circumcision: Yes (12/04/2016 15:37:Amelia Morales RN) Classes Attended: Yes (12/04/2016 15:37:Amelia Morales RN) Tubal Ligation: Yes (12/04/2016 15:37:Amelia Morales RN) Tubal Authorization Signed: N/A (12/04/2016 15:37:Amelia Morales RN) Consent: N/A (12/04/2016 15:37:Amelia Morales RN) Consent Signed: N/A (12/04/2016 15:37:Amelia Morales RN) Pain Management Plans: Natural (12/04/2016 15:37:Amelia Morales RN) Plans for Labor and Delivery: None (12/04/2016 15:37:Amelia Morales RN) Support Person: Marco Warner II (12/04/2016 15:37:Amelia Morales RN) Support Person Relationship: (12/04/2016 15:37:Amelia Morales RN) Cultural/Spritual Practice: No (12/04/2016 15:37:Amelia Morales RN) Spir/Cult Dietary Needs: No (12/04/2016 15:37:Amelia Morales RN) LIVING SITUATION/DISCHARGE PLAN Living Arrangements: House (12/04/2016 15:37:Amelia Morales RN) Adequate Access to:: Electric; Heat; Refrigeration; Plumbing/Running water; Phone; Transportation (12/04/2016 15:37:Amelia Morales RN) WIC Program: No (12/04/2016 15:37:Amelia Morales RN) Discharge Regional Account Executive Person: (12/04/2016 15:37:Amelia Morales RN) Person to Help after Discharge: (12/04/2016 15:37:Amelia Morales RN) Currently Using Commun Resources: No (12/04/2016 15:37:Amelia Morales RN) Outside Agency/Thermal Intelligence Analyst: No (12/04/2016 15:37:Amelia Morales RN) Car Seat for Discharge: Yes (12/04/2016 15:37:Amelia Morales RN) Adoption Requested: No (12/04/2016 15:37:Amelia Morales RN) Pt Contact w/ Post : N/A (12/04/2016 15:37:Amelia Morales RN) LABS Blood Type: O Positive (12/04/2016 15:37:Quirino Matamoros RN) Antibody Screen: Positive (12/04/2016 15:37:Quirino Matamoros RN) Hemoglobin: 10.2 L (12/18/2016 18:44:QS system process) Hemoglobin: 10.9 L (12/04/2016 15:41:QS system process) Hematocrit: 34.2 L (12/18/2016 18:44:QS system process) Hematocrit: 34.7 L (12/04/2016 15:41:QS system process) MCV: 72 L (12/18/2016 18:44:QS system process) MCV: 70 L (12/04/2016 15:41:QS system process) Group Beta Strep: Positive (12/04/2016 15:37:Quirino Matamoros RN) Gonorrhea: Negative (12/04/2016 15:37:Quirino Matamoros RN) Chlamydia: Negative (12/04/2016 15:37:Quirino Matamoros RN) RPR/VDRL: Nonreactive (12/04/2016 15:37:Quirino Matamoros RN) HIV Exposure Test: Negative (12/04/2016 15:37:Quirino Matamoros RN) Hepatitis B: Negative (12/04/2016 15:37:Quirino Matamoros RN) Rubella: Immune (12/04/2016 15:37:Quirino Matamoros RN) OB/PREVIOUS HISTORY History of Previous : No (12/04/2016 15:37:Amelia Morales RN) History of Gestational Diabetes: No (12/04/2016 15:37:Amelia Morales RN) History of PIH: No (12/04/2016 15:37:Amelia Morales RN) History of Incompetent Cervix: No (12/04/2016 15:37:Amelia Morales RN) History of Placenta Previa/Abrup: No (12/04/2016 15:37:Amelia Morales RN) History of Macrosomia: No (12/04/2016 15:37:Amelia Morales RN) History of IUGR: No (12/04/2016 15:37:Amelia Morales RN) History of Hemorrhage: No (12/04/2016 15:37:Amelia Morales RN) History of Loss/Stillborn: No (12/04/2016 15:37:Amelia Morales RN) History of : No (12/04/2016 15:37:Amelia Morales RN) History of D (Rh) Sensitization: No (12/04/2016 15:37:Amelia Morales RN) History Recurrent Loss/Stillborn: No (12/04/2016 15:37:Amelia Morales RN) History Depression/PP Depression: No (12/04/2016 15:37:Amelia Morales RN) History of Uterine Anomaly/YAZMIN: No (12/04/2016 15:37:Amelia Morales RN) History of Infertility: No (12/04/2016 15:37:Amelia Morales RN) History of ART Treatment: No (12/04/2016 15:37:Amelia Morales RN) History of YAZMIN: No (12/04/2016 15:37:Amelia Morales RN) Comments Obstetrical History: G1: 2000 EAB G2: 2001 baby boy, 37-39 weeks, 24+ hours labor, 7 lb, IOL oligo G3: 2001 EAB G4: 2003 baby girl, 37-39 weeks G5: 2007 EAB G6: 2013 SAB, 13 weeks G7: Current (12/04/2016 15:37:Amelia Morales RN) MEDICAL HISTORY Med Hx Diabetes: No (12/04/2016 15:37:Amelia Morales RN) Med Hx Hypertension: Yes (12/04/2016 15:37:Amelia Morales RN) Med Hx Heart Disease: No (12/04/2016 15:37:Amelia Morales RN) Med Hx Autoimmune Disorder: No (12/04/2016 15:37:Amelia Morales RN) Med Hx Kidney Disease/UTI: No (12/04/2016 15:37:Amelia Morales RN) Med Hx Neurologic/Epilepsy: No (12/04/2016 15:37:Amelia Morales RN) Med Hx Psychiatric Disorders: No (12/04/2016 15:37:Amelia Morales RN) Med Hx Hepatitis/Liver Disease: No (12/04/2016 15:37:Amelia Morales RN) Med Hx Varicosities/Phlebitis: No (12/04/2016 15:37:Amelia Morales RN) Med Hx Thyroid Dysfunction: No (12/04/2016 15:37:Amelia Morales RN) Med Hx Trauma/Violence: No (12/04/2016 15:37:Amelia Morales RN) Med Hx Blood Transfusion: No (12/04/2016 15:37:Amelia Morales RN) Med Hx Pulmonary (Asthma,TB): Yes (12/04/2016 15:37:Amelia Morales RN) Med Hx Breast: No (12/04/2016 15:37:Amelia Morales RN) Med Hx BANK RECONCILIATOR Surgery: No (12/04/2016 15:37:Amelia Morales RN) Med Hx Hospitalization/Surgery: Yes (12/04/2016 15:37:Amelia Morales RN) Med Hx Anesthetic Complications: No (12/04/2016 15:37:Amelai Morales RN) Med Hx Abnormal Pap Smear: Yes (12/04/2016 15:37:Amelia Morales RN) Other Medical Diseases: Yes (12/04/2016 15:37:Amelia Morales RN) Med Hx Significant Family Hx: No (12/04/2016 15:37:Amelia Morales RN) Details of Med/Surg Hx: HTN: Chronic HTN, Labetalol 100 mg BID Pulmonary: Bronchitis 11/30/16 Surgery: Colonoscopy 2012, polyps noted Abnormal Pap: Hx ASCUS Pap, negative HPV Other: Morbid obesity (12/04/2016 15:37:Amelia Morales RN) INFECTIOUS HISTORY Inf Hx Gonorrhea: No (12/04/2016 15:37:Amelia Morales RN) Inf Hx Chlamydia: Yes (12/04/2016 15:37:Amelia Morales RN) Inf Hx Syphilis: No (12/04/2016 15:37:Amelia Morales RN) Inf Hx HIV/AIDS: No (12/04/2016 15:37:Amelia Morales RN) Inf Hx Human Papilloma Virus: No (12/04/2016 15:37:Amelia Morales RN) Inf Hx Pt/Partner Genital Herpes: No (12/04/2016 15:37:Amelia Morales RN) Inf Hx Tuberculosis/Exposure: No (12/04/2016 15:37:Amelia Morales RN) Inf Hx Hepatitis B,C: No (12/04/2016 15:37:Amelia Morales RN) Inf Hx Rash or Viral Illness: No (12/04/2016 15:37:Amelia Morales RN) Details of Infectious Hx: Chlamydia (12/04/2016 15:37:Amelia Vitrano, RN) GENETIC HISTORY Gen Hx Age >=35 at XANDER: No (12/04/2016 15:37:Amleia Morales RN) Gen Hx Thalassemia: No (12/04/2016 15:37:Amelia Morales RN) Gen Hx Congenital Heart Defect: No (12/04/2016 15:37:Amelia Morales RN) Gen Hx Neural Tube Defect: No (12/04/2016 15:37:Amelia Morales RN) Gen Hx Down's Syndrome: No (12/04/2016 15:37:Amelia Morales RN) Gen Hx Ken-Sachs: No (12/04/2016 15:37:Amelia Morales RN) Gen Hx Alexia: No (12/04/2016 15:37:Amelia Morales RN) Gen Hx Familial Dysautonomia: No (12/04/2016 15:37:Amelia Morales RN) Gen Hx Sickle Cell Disease/Trait: No (12/04/2016 15:37:Amelia Morales RN) Gen Hx Hemophilia/Blood Disorder: No (12/04/2016 15:37:Amelia Morales RN) Gen Hx Muscular Dystrophy: No (12/04/2016 15:37:Amelia Morales RN) Gen Hx Cystic Fibrosis: No (12/04/2016 15:37:Amelia Morales RN) Gen Hx Huntingtons Chorea: No (12/04/2016 15:37:Amelia Morales RN) Gen Hx Mental Retardation/Autism: No (12/04/2016 15:37:Amelia Morales RN) Gen Hx Tested for Fragile X: No (12/04/2016 15:37:Amelia Morales RN) Gen Hx Other Inher/Chromosomal: No (12/04/2016 15:37:Amelia Morales RN) Gen Hx Maternal Metabolic DO: No (12/04/2016 15:37:Amelia Morales RN) Gen Hx Pt Father or FOB Defect: No (12/04/2016 15:37:Amelia Morales RN) Gen Hx Other Genetic History: No (12/04/2016 15:37:Amelia Morales RN) Gen Hx Drugs/Meds since LMP: No (12/04/2016 15:37:Amelia Morales RN)
--- NOTE | 2016-12-19 04:48 | L&D Discharge Summary ---
OB Discharge Summary Datetime Report Generated by CPN: 12/19/2016 04:45 DISCHARGE DIAGNOSIS Diagnosis/Symptoms: Pre-Eclampsia; Chronic Hypertension Diagnoses/Symptoms Other: Received orders to DC pt after reactive NST and have pt return wed evening for scheduled induction. Pt instructed to call before coming in for induction. Instructions and labs explained, pt verbalized understanding. Gestation: 37.0 Number of Babies in Womb: 1 Parity: 2 DIET/ACTIVITY/RESTRICTIONS Diet: Regular Activity: Normal Activity Activity Restrictions: Nothing in Vagina - [place], Tampons, [place]che TEACHING/INSTRUCTIONS/REFERRALS Instructions Given To: PT and family Instructions Understood: Patient Verbalized Understanding; Support Person Verbalized Understanding Referrals: None Educational Materials- Other: NST, Pre E, Induction DISCHARGE INFORMATION Discharged AMA: No Discharge Date/Time: 12/18/2016 20:27 Discharged To: Home Discharge Provider Name: Carrasco Accompanied By: Family Discharge Method: Ambulatory Condition: Stable FOLLOW UP INFORMATION Follow Up With: [facility] Follow Up On: Tomorrow Follow Up Phone Number: [facility] -
--- NOTE | 2016-12-19 04:48 | Antepartum Discharge Summary ---
Antepartum DC Datetime Report Generated by CPN: 12/19/2016 04:45 Diet: Regular (12/18/2016 20:27:Nolvia Gutierrez RN) Activity: Normal Activity (12/18/2016 20:27:Nolvia Gutierrez RN) Instructions Given To: PT and family (12/18/2016 20:27:Nolvai Gutierrez RN) Instructions Understood: Patient Verbalized Understanding; Support Person Verbalized Understanding (12/18/2016 20:27:Nolvia Gutierrez RN) Referrals: None (12/18/2016 20:27:Nolvia Gutierrez RN) Educational Materials- Other: NST, Pre E, Induction (12/18/2016 20:27:Nolvia Gutierrez RN) Discharged AMA: No (12/18/2016 20:27:Nolvia Gutierrez RN) Discharge Date/Time: 12/18/2016 20:27 (12/18/2016 20:27:Nolvia Gutierrez RN) Discharged To: Home (12/18/2016 20:27:Nolvia Gutierrez RN) Discharge Provider Name: Carrasco (12/18/2016 20:27:Nolvia Gutierrez RN) Accompanied By: Family (12/18/2016 20:27:Nolvia Gutierrez RN) Discharge Method: Ambulatory (12/18/2016 20:27:Nolvia Gutierrez RN) Follow Up With: [facility] (12/18/2016 20:27:Nolvia Gutierrez RN) Follow Up On: Tomorrow (12/18/2016 20:27:Nolvia Gutierrez RN) [facility] (12/18/2016 20:27:Nolvia Gutierrez RN)
--- NOTE | 2016-12-19 04:48 | L&D Admission Assessment ---
LD ADM ASMT Datetime Report Generated by CPN: 12/19/2016 04:45 Assessment Type: Triage (12/18/2016 19:17:Nolvia Gutierrez RN) Assessment Type: Admission Assessment (12/18/2016 18:30:Quirino Matamoros RN) Weight (lb): 288 (12/18/2016 18:08:QS system process) Weight (kg): 130.9 (12/18/2016 18:08:QS system process) Total Wt Gain (lb): 16 (12/18/2016 18:08:QS system process) Wt Gain (kg): 7.4 (12/18/2016 18:08:QS system process) BMI: 54.4 (12/18/2016 18:08:QS system process) Pain Scale: 0 (12/18/2016 18:30:Quirino Matamoros RN) Pain Presence: None/Denies (12/18/2016 18:30:Quirino Matamoros RN) Frequency (min): 0 (12/18/2016 19:59:Nolvia Gutierrez RN) Frequency (min): none (12/18/2016 19:15:Quirino Matamoros RN) Frequency (min): none (12/18/2016 18:45:Quirino Matamoros RN) Resting Tone [place]: Relaxed (12/18/2016 19:59:Nolvia Gutierrez RN) Resting Tone [place]: Relaxed (12/18/2016 19:15:Quirino Matamoros RN) Resting Tone [place]: Relaxed (12/18/2016 18:45:Quirino Matamoros RN) Level of Consciousness: Fully Conscious (12/18/2016 19:17:Nolvia Gutierrez RN) Level of Consciousness: Fully Conscious (12/18/2016 18:30:Quirino Matamoros RN) DTR's/Clonus: DTRs 1+; No Clonus (12/18/2016 19:17:Nolvia Gutierrez RN) DTR's/Clonus: DTRs 1+; No Clonus (12/18/2016 18:30:Quirino Matamoros RN) Headache: Denies (12/18/2016 19:17:Nolvia Gutierrez RN) Headache: Denies (12/18/2016 18:30:Quirino Matamoros RN) Dizziness: No (12/18/2016 19:17:Nolvia Gutierrez RN) Dizziness: No (12/18/2016 18:30:Quirino Matamoros RN) Blurred Vision: No (12/18/2016 19:17:Nolvia Gutierrez RN) Blurred Vision: No (12/18/2016 18:30:Quirino Matamoros RN) Extremity Numbness/Tingling : None (12/18/2016 18:30:Quirino Matamoros RN) Extremity Movement: Full Range of Motion (12/18/2016 19:17:Nolvia Gutierrez RN) Extremity Movement: Full Range of Motion (12/18/2016 18:30:Quirino Matamoros RN) Heart Rhythm: Regular (12/18/2016 19:17:Nolvia Gutierrez RN) Heart Rhythm: Regular (12/18/2016 18:30:Quirino Matamoros RN) Nailbeds: [place] (12/18/2016 19:17:Nolvia Gutierrez RN) Nailbeds: [place] (12/18/2016 18:30:Quirino Matamoros RN) Capillary Refill: Less than 3 Seconds (12/18/2016 19:17:Nolvia Gutierrez RN) Capillary Refill: Less than 3 Seconds (12/18/2016 18:30:Quirino Matamoros RN) Lower Extremities Edema: None (12/18/2016 19:17:Nolvia Gutierrez RN) Lower Extremities Edema: None (12/18/2016 18:30:Quirino Matamoros RN) Lower Extremities Edema Degree: None (12/18/2016 19:17:Nolvia Gutierrez RN) Lower Extremities Edema Degree: None (12/18/2016 18:30:Quirino Matamoros RN) Upper Extremities Edema: None (12/18/2016 19:17:Nolvia Gutierrez RN) Upper Extremities Edema: None (12/18/2016 18:30:Quirino Matamoros RN) Upper Extremities Edema Degree: None (12/18/2016 19:17:Nolvia Gutierrez RN) Upper Extremities Edema Degree: None (12/18/2016 18:30:Quirino Matamoros RN) Facial Edema: None (12/18/2016 19:17:Nolvia Gutierrez RN) Facial Edema: None (12/18/2016 18:30:Quirino Matamoros RN) Kena's Sign Left Leg: Negative (12/18/2016 19:17:Nolvia Gutierrez RN) Kena's Sign Left Leg: Negative (12/18/2016 18:30:Quirino Matamoros RN) Kena's Sign Right Leg: Negative (12/18/2016 19:17:Nolvia Gutierrez RN) Kena's Sign Right Leg: Negative (12/18/2016 18:30:Quirino Matamoros RN) DVT Risk Age: Age less than 41 years (12/18/2016 19:17:Nolvia Gutierrez RN) DVT Risk Age: Age less than 41 years (12/18/2016 18:30:Quirino Matamoros RN) DVT Risk BMI: BMI >50 (Venous Stasis Syndrome) (12/18/2016 19:17:Nolvia Gutierrez RN) DVT Risk BMI: BMI >50 (Venous Stasis Syndrome) (12/18/2016 18:30:Quirino Matamoros RN) DVT Risk Surgery: None Applicable (12/18/2016 19:17:Nolvia Gutierrez RN) DVT Risk Surgery: None Applicable (12/18/2016 18:30:Quirino Matamoros RN) DVT Risk Other: None Applicable (12/18/2016 19:17:Nolvia Gutierrez RN) DVT Risk Other: Women Only- or (<1 month) (12/18/2016 18:30:Quirino Matamoros RN) DVT Risk Total: 3 (12/18/2016 19:17:QS system process) DVT Risk Total: 4 (12/18/2016 18:30:QS system process) DVT Risk Text: High Risk (20-40%)- Consider stockings, compresssion device, pharmacological therapy per hospital policy (12/18/2016 19:17:QS system process) DVT Risk Text: High Risk (20-40%)- Consider stockings, compresssion device, pharmacological therapy per hospital policy (12/18/2016 18:30:QS system process) Respiratory Effort: Unlabored; Regular Rhythm; Equal Expansion (12/18/2016 19:17:Nolvia Gutierrez RN) Respiratory Effort: Unlabored; Regular Rhythm; Equal Expansion (12/18/2016 18:30:Quirino Matamoros RN) Breath Sounds, Left: Clear and Equal (12/18/2016 19:17:Nolvia Gutierrez RN) Breath Sounds, Left: Clear and Equal (12/18/2016 18:30:Quirino Matamoros RN) Breath Sounds, Right: Clear and Equal (12/18/2016 18:30:Quirino Matamoros RN) Cough Productivity: None (12/18/2016 19:17:Nolvia Gutierrez RN) Cough Productivity: None (12/18/2016 18:30:Quirino Matamoros RN) Nausea/Vomiting: Denies (12/18/2016 19:17:Nolvia Gutierrez RN) Nausea/Vomiting: Denies (12/18/2016 18:30:Quirino Matamoros RN) Bowel Sounds: Normoactive (12/18/2016 18:30:Quirino Matamoros RN) RUQ Epigastric Pain: Denies (12/18/2016 19:17:Nolvia Gutierrez RN) RUQ Epigastric Pain: Denies (12/18/2016 18:30:Quirino Matamoros RN) Response to Antacids: Pain Relieved (12/18/2016 19:17:Nolvia Gutierrez RN) Bowel Patterns: Soft, Formed Stool (12/18/2016 19:17:Nolvia Gutierrez RN) Bowel Patterns: Soft, Formed Stool (12/18/2016 18:30:Quirino Matamoros RN) Hemorrhoids: Present (12/18/2016 19:17:Nolvia Gutierrez RN) Hemorrhoids: None (12/18/2016 18:30:Quirino Matamoros RN) Diet Type: Regular diet (12/18/2016 19:17:Nolvia Gutierrez RN) Diet Type: Regular diet (12/18/2016 18:30:Quirino Matamoros RN) Bladder: Nondistended (12/18/2016 19:17:Nolvia Gutierrez RN) Bladder: Nondistended (12/18/2016 18:30:Quirino Matamoros RN) Frequency of Urination: No (12/18/2016 19:17:Nolvia Gutierrez RN) Frequency of Urination: No (12/18/2016 18:30:Quirino Matamoros RN) Urination Burning: No (12/18/2016 19:17:Nolvia Gutierrez RN) Urination Burning: No (12/18/2016 18:30:Quirino Matamoros RN) CVA Tenderness: No (12/18/2016 19:17:Nolvia Gutierrez RN) CVA Tenderness: No (12/18/2016 18:30:Quirino Matamoros RN) Vaginal Bleeding: None (12/18/2016 18:30:Quirino Matamoros RN) Vaginal Discharge Amount: None (12/18/2016 19:17:Nolvia Gutierrez RN) Vaginal Discharge Amount: None (12/18/2016 18:30:Quirino Matamoros RN) Vaginal Discharge Color: N/A (12/18/2016 19:17:Nolvia Gutierrez RN) Vaginal Discharge Color: N/A (12/18/2016 18:30:Quirino Matamoros RN) Vaginal Discharge Odor: Non-Odorous (12/18/2016 18:30:Quirino Matamoros RN) Vaginal Discharge Character: None (12/18/2016 19:17:Nolvia Gutierrez RN) Vaginal Discharge Character: None (12/18/2016 18:30:Quirino Matamoros RN) Skin Color: Normal for Race (12/18/2016 19:17:Nolvia Gutierrez RN) Skin Color: Normal for Race (12/18/2016 18:30:Quirino Matamoros RN) Skin Temperature: Warm (12/18/2016 19:17:Nolvia Gutierrez RN) Skin Temperature: Warm (12/18/2016 18:30:Quirino Matamoros RN) Skin Moisture: Dry (12/18/2016 19:17:Nolvia Gutierrez RN) Skin Moisture: Dry (12/18/2016 18:30:Quirino Matamoros RN) Body Piercings/Tattoos: Tattoos 3 (12/18/2016 19:17:Nolvia Gutierrez RN) Misael Scale Sensory Perception: No Impairment- Responds to verbal commands. Has no sensory deficit which would limit ability to feel or voice pain or discomfort (12/18/2016 19:17:Nolvia uGtierrez RN) Misael Scale Sensory Perception: No Impairment- Responds to verbal commands. Has no sensory deficit which would limit ability to feel or voice pain or discomfort (12/18/2016 18:30:Quirino Matamoros RN) Misael Scale Moisture: Rarely Moist- Skin is usually dry. Linen only requires changing at routine intervals (12/18/2016 19:17:Nolvia Gutierrez RN) Misael Scale Moisture: Rarely Moist- Skin is usually dry. Linen only requires changing at routine intervals (12/18/2016 18:30:Quirino Matamoros RN) Misael Scale Activity: Walks Frequently- Walks outside the room at least twice a day and inside room at least every 2 hours during the day. (12/18/2016 19:17:Nolvia Gutierrez RN) Misael Scale Activity: Walks Frequently- Walks outside the room at least twice a day and inside room at least every 2 hours during the day. (12/18/2016 18:30:Quirino Matamoros RN) Misael Scale Mobility: No Limitations- Makes major and frequent changes in position without assistance (12/18/2016 19:17:Nolvia Gutierrez RN) Misael Scale Mobility: No Limitations- Makes major and frequent changes in position without assistance (12/18/2016 18:30:Quirino Matamoros RN) Misael Scale Nutrition: Excellent- Eats most of every meal. Never refuses a meal. Usually eats a total of 4 or more servings of meat and dairy products. Occasionally eats between meals. Does not require supplementation (12/18/2016 19:17:Nolvia Gutierrez RN) Misael Scale Nutrition: Excellent- Eats most of every meal. Never refuses a meal. Usually eats a total of 4 or more servings of meat and dairy products. Occasionally eats between meals. Does not require supplementation (12/18/2016 18:30:Quirino Matamoros RN) Misael Scale Friction and Shear: No Apparent Problem- Moves in bed and in chair independently and has sufficient muscle strength to lift up completely during move. Maintains good position in bed or chair at all times (12/18/2016 19:17:Nolvia Gutierrez RN) Misael Scale Friction and Shear: No Apparent Problem- Moves in bed and in chair independently and has sufficient muscle strength to lift up completely during move. Maintains good position in bed or chair at all times (12/18/2016 18:30:Quirino Matamoros RN) Misael Scale Total: 23 (12/18/2016 19:17:QS system process) Misael Scale Total: 23 (12/18/2016 18:30:QS system process) Misael Scale Risk: No Risk of Pressure Ulcer Noted at this Time (12/18/2016 19:17:QS system process) Misael Scale Risk: No Risk of Pressure Ulcer Noted at this Time (12/18/2016 18:30:QS system process) Family Support: Significant Other supportive, at bedside frequently; Family supportive; Child(amy) visited (12/18/2016 19:17:Nolvia Gutierrez RN) Family Support: Significant Other supportive, at bedside frequently; Family supportive (12/18/2016 18:30:Quirino Matamoros RN) Emotional State: Calm/Relaxed (12/18/2016 19:17:Nolvia Gutierrez RN) Emotional State: Calm/Relaxed (12/18/2016 18:30:Quirino Matamoros RN) Call French Within Reach: Yes (12/18/2016 18:30:Quirino Matamoros RN) Side Rails Up: Yes (12/18/2016 18:30:Quirino Matamoros RN) Bed Wheels Locked: Yes (12/18/2016 18:30:Quirino Matamoros RN) Arm Bands Present: Yes (12/18/2016 18:30:Quirino Matamoros RN) Isolation: [place] (12/18/2016 18:30:Quirino Matamoros RN) Fall Risk History of Falling: (0) No (12/18/2016 19:17:Nolvia Gutierrez RN) Fall Risk History of Falling: (0) No (12/18/2016 18:30:Quirino Matamoros RN) Fall Risk Secondary Diagnosis: (0) No (12/18/2016 19:17:Nolvia Gutierrez RN) Fall Risk Secondary Diagnosis: (0) No (12/18/2016 18:30:Quirino Matamoros RN) Fall Risk Ambulatory Aid: (0) None/Bedrest/Wheelchair/Nurse Assist (12/18/2016 19:17:Nolvia Gutierrez RN) Fall Risk Ambulatory Aid: (0) None/Bedrest/Wheelchair/Nurse Assist (12/18/2016 18:30:Quirino Matamoros RN) Fall Risk IV Therapy: (0) No (12/18/2016 19:17:Nolvia Gutierrez RN) Fall Risk IV Therapy: (0) No (12/18/2016 18:30:Quirino Matamoros RN) Fall Risk Gait: (0) Normal/Bedrest/Immobile (12/18/2016 19:17:Nolvia Gutierrez RN) Fall Risk Gait: (0) Normal/Bedrest/Immobile (12/18/2016 18:30:Quirino Matamoros RN) Fall Risk Mental Status: (0) Oriented to Own Ability (12/18/2016 19:17:Nolvia Gutierrez RN) Fall Risk Mental Status: (0) Oriented to Own Ability (12/18/2016 18:30:Quirino Matamoros RN) Fall Risk Score: 0 (12/18/2016 19:17:QS system process) Fall Risk Score: 0 (12/18/2016 18:30:QS system process) Fall Risk Score Definition: No Risk: No action required (12/18/2016 19:17:QS system process) Fall Risk Score Definition: No Risk: No action required (12/18/2016 18:30:QS system process) Recent Exp Communicable Disease: No (12/18/2016 19:17:Nolvia Gutierrez RN) Recent Exp Communicable Disease: No (12/18/2016 18:30:Quirino Matamoros RN) Cough or Fever: No (12/18/2016 19:17:Nolvia Gutierrez RN) Cough or Fever: No (12/18/2016 18:30:Quirino Matamoros RN) Foreign Travel Past 10 Days: No (12/18/2016 19:17:Nolvia Gutierrez RN) Foreign Travel Past 10 Days: No (12/18/2016 18:30:Quirino Matamoros RN) Open Wounds or Sores: No (12/18/2016 19:17:Nolvia Gutierrez RN) Open Wounds or Sores: No (12/18/2016 18:30:Quirino Matamoros RN) Prior Antibiotic Resistance Tx: No (12/18/2016 19:17:Nolvia Gutierrez RN) Prior Antibiotic Resistance Tx: No (12/18/2016 18:30:Quirino Matamoros RN) Cultures Obtained: Not Applicable (12/18/2016 19:17:Nolvia Gutierrez RN) Cultures Obtained: Not Applicable (12/18/2016 18:30:Quirino Matamoros RN) Isolation Initiated: No (12/18/2016 19:17:Nolvia Gutierrez RN) Isolation Initiated: No (12/18/2016 18:30:Quirino Matamoros RN) Pt/Family Education: Not Applicable (12/18/2016 19:17:Nolvia Gutierrez RN) Pt/Family Education: Not Applicable (12/18/2016 18:30:Quirino Matamoros RN) FHR Baseline Rate (bpm) Baby A: 130 (12/18/2016 19:59:Nolvia Gutierrez RN) FHR Baseline Rate (bpm) Baby A: 130 (12/18/2016 19:26:Nolvia Gutierrez RN) FHR Baseline Rate (bpm) Baby A: 155 (12/18/2016 19:15:Quirino Matamoros RN) Variability Baby A: Moderate 6-25 bpm (12/18/2016 19:59:Nolvia Gutierrez RN) Variability Baby A: Moderate 6-25 bpm (12/18/2016 19:15:Quirino Matamoros RN) Variability Baby A: Moderate 6-25 bpm (12/18/2016 18:45:Quirino Matamoros RN) Accelerations Baby A: 15X15 (12/18/2016 19:59:Nolvia Gutierrez RN) Accelerations Baby A: 15X15 (12/18/2016 19:15:Quirino Matamoros RN) Accelerations Baby A: 15X15 (12/18/2016 18:45:Quirino Matamoros RN) Decelerations Baby A: None (12/18/2016 19:59:Nolvia Gutierrez RN) Decelerations Baby A: None (12/18/2016 19:15:Quirino Matamoros RN) Decelerations Baby A: None (12/18/2016 18:45:Quirino Matamoros RN) Assessment Flag: Admission Assessment (12/18/2016 18:30:QS system process)
== END 2016-12-18 20:30 | disposition home or self-care (01) ==
LOC: LC 17:49
PROVIDERS: ATTEND Obstetrics & Gynecology
PROC: 4A1HXCZ Monitoring of Products of Conception, Cardiac Rate, External Approach (ICD-10-PCS; principal; 2016-12-18)
DX: O11.3 Pre-existing hypertension with pre-eclampsia, third trimester (principal); Z3A.37 37 weeks gestation of pregnancy
CPT/HCPCS: 36415; 59025; 80053; 81001; 83615; 84550; 85025

== ENCOUNTER 2016-12-19 20:02 | Inpatient (IN) | payer BC, OTHER ==
[2016-12-19 20:50] LABS: ABSOLUTE BASOPHILS # (AUTO) 0.1 10^3/uL (0.0-0.2); ABSOLUTE EOSINOPHILS # (AUTO) 0.1 10^3/uL (0.0-0.6); ABSOLUTE LYMPHOCYTES (AUTO) 2.2 10^3/uL (0.5-4.7); ABSOLUTE NEUT (AUTO) 7.7 10^3/uL (1.7-8.2); BASOPHILS % (AUTO) 1.1 % (0-2); EOSINOPHILS % (AUTO) 0.9 % (0-6); HEMATOCRIT 34.2 % (36.0-47.0); HEMOGLOBIN 10.5 g/dL (12.0-15.5); HGB HCT DIFFERENCE -2.7; LYMPHOCYTES % (AUTO) 19.5 % (13-45); MEAN CORPUSCULAR HEMOGLOBIN 21.8 pg (27.0-33.4); MEAN CORPUSCULAR HGB CONC 30.7 g/dL (32.0-36.0); MEAN CORPUSCULAR VOLUME 71 fl (80-97); MONOCYTES % (AUTO) 9.3 % (3-13); RED BLOOD COUNT 4.81 10^6/uL (3.72-5.28); RED CELL DISTRIBUTION WIDTH 16.6 % (11.5-14.0); SEGMENTED NEUTROPHILS % (AUTO) 69.2 % (42-78); WHITE BLOOD COUNT 11.1 10^3/uL (4.0-10.5)
[2016-12-19 20:52] LABS: APPEARANCE,URINE SLIGHTLY-CLOUDY; BILIRUBIN,URINE NEGATIVE (NEGATIVE); GLUCOSE, URINE NEGATIVE (NEGATIVE); KETONES,URINE TRACE mg/dL (NEGATIVE); LEUKOCYTE ESTERASE,URINE NEGATIVE (NEGATIVE); NITRITE,URINE NEGATIVE (NEGATIVE); PROTEIN,URINE 100 mg/dL (NEGATIVE); URINE SPECIFIC GRAVITY 1.031; UROBILINOGEN,URINE NEGATIVE mg/dL (<2.0)
[2016-12-19] MEDS ORDERED: DINOPROSTONE 10 MG VAGINAL INSERT.SR PV PRN (20:53)
[2016-12-19] MEDS ORDERED: RINGERS SOLUTION,LACTATED 300 ML IV ONE (20:53)
[2016-12-19] MEDS ORDERED: MAG HYDROX/AL HYDROX/SIMETH SUSP 30 ML UDCUP PO PRN (20:54)
[2016-12-19] MEDS ORDERED: ACETAMINOPHEN 325 MG TABLET PO PRN (20:54)
[2016-12-19 21:04] LABS: ALANINE AMINOTRANSFERASE 38 U/L (9-52); ALBUMIN 3.2 g/dL (3.5-5.0); ALKALINE PHOSPHATASE 118 U/L (38-126); ANION GAP 9 (5-19); ASPARTATE AMINO TRANSFERASE 38 U/L (14-36); BILIRUBIN,TOTAL 0.3 mg/dL (0.2-1.3); BLOOD UREA NITROGEN 10 mg/dL (7-20); CALCIUM 9.3 mg/dL (8.4-10.2); CARBON DIOXIDE 23 mmol/L (22-30); CHLORIDE 106 mmol/L (98-107); CREATININE RESULT 0.75 mg/dL (0.52-1.25); GLUCOSE 77 mg/dL (75-110); LDH 722 U/L (313-618); POTASSIUM 4.1 mmol/L (3.6-5.0); SODIUM 137.5 mmol/L (137-145); TOTAL PROTEIN 6.4 g/dL (6.3-8.2); URIC ACID 5.4 mg/dL (2.5-7.0)
[2016-12-19 21:19] LABS: URINE BARBITURATES SCREEN NEGATIVE; URINE METHADONE SCREEN NEGATIVE; URINE PHENCYCLIDINE SCREEN NEGATIVE
[2016-12-19] MEDS ORDERED: DINOPROSTONE 10 MG VAGINAL INSERT.SR ONE (21:30)
--- NOTE | 2016-12-20 04:46 | L&D General Admission ---
General Admit Datetime Report Generated by CPN: 12/20/2016 04:45 CARE Height (in): 61 (12/19/2016 20:26:QS system process) Height (in): 61 (12/19/2016 20:18:QS system process) ALLERGIES Medication Allergies: No Known Allergies (12/19/2016) (12/19/2016 20:26:QS system process) DEMOGRAPHICS Next of Kin Name: NATALI MONTE (12/19/2016 20:04:QS system process) Next of Kin (12/19/2016 20:04:QS system process) Next of Kin Relationship: MO (12/19/2016 20:04:QS system process) LABS Hemoglobin: 10.5 L (12/19/2016 20:34:QS system process) Hematocrit: 34.2 L (12/19/2016 20:34:QS system process) MCV: 71 L (12/19/2016 20:34:QS system process)
--- NOTE | 2016-12-20 04:46 | L&D Admission Assessment ---
LD ADM ASMT Datetime Report Generated by CPN: 12/20/2016 04:45 PATIENT ASSESSMENT Assessment Type: Admission Assessment (12/19/2016 21:00:Shaneka Albarranmasood, RN) WEIGHT Weight (lb): 286 (12/19/2016 20:26:QS system process) Weight (lb): 286 (12/19/2016 20:18:QS system process) Weight (kg): 130.0 (12/19/2016 20:26:QS system process) Weight (kg): 130.0 (12/19/2016 20:18:QS system process) Total Wt Gain (lb): 14 (12/19/2016 20:26:QS system process) Total Wt Gain (lb): 14 (12/19/2016 20:18:QS system process) Wt Gain (kg): 6.4 (12/19/2016 20:26:QS system process) Wt Gain (kg): 6.4 (12/19/2016 20:18:QS system process) BMI: 54.0 (12/19/2016 20:26:QS system process) BMI: 54.0 (12/19/2016 20:18:QS system process) PAIN Pain Scale: 0 (12/19/2016 21:00:Shaneka Ochoa RN) Pain Presence: None/Denies (12/20/2016 00:30:Shaneka Ochoa RN) Pain Presence: None/Denies (12/20/2016 00:00:Shaneka Ochoa RN) Pain Presence: None/Denies (12/19/2016 23:30:Shaneka Ochoa RN) Pain Presence: None/Denies (12/19/2016 23:00:Shaneka Ochoa RN) Pain Presence: None/Denies (12/19/2016 22:30:Shaneka Ochoa RN) Pain Presence: None/Denies (12/19/2016 21:59:Shaneka Ochoa RN) Pain Presence: None/Denies (12/19/2016 21:45:Shaneka Ochoa RN) Pain Presence: None/Denies (12/19/2016 21:15:Shaneka Ochoa RN) Pain Presence: None/Denies (12/19/2016 21:00:Shaneka Ochoa RN) Pain Type: N/A (12/19/2016 21:00:Shaneka Ochoa RN) CONTRACTIONS Frequency (min): 2-5 (12/20/2016 04:00:Shaneka Ochoa RN) Frequency (min): n/a (12/20/2016 03:30:Shaneka Ochoa RN) Frequency (min): n/a (12/20/2016 02:30:Shaneka Ochoa RN) Frequency (min): n/a (12/20/2016 02:00:Shaneka Ochoa RN) Frequency (min): n/a (12/20/2016 01:30:Shaneka Ochoa RN) Frequency (min): n/a (12/20/2016 01:00:Shaneka cOhoa RN) Frequency (min): 0 (12/20/2016 00:30:Shaneka Ochoa RN) Frequency (min): 0 (12/20/2016 00:00:Shaneka Ochoa RN) Frequency (min): 0 (12/19/2016 23:30:Shaneka Ochoa RN) Frequency (min): 0 (12/19/2016 23:00:Shaneka Ochoa RN) Frequency (min): 0 (12/19/2016 22:30:Shaneka Ochoa RN) Frequency (min): 0 (12/19/2016 21:59:Shaneka Ochoa RN) Frequency (min): 0 (12/19/2016 21:45:Shaneka Ochoa RN) Frequency (min): 0 (12/19/2016 21:15:Shaneka Ochoa RN) Duration (sec): 60-80 (12/20/2016 04:00:Shaneka Ochoa RN) Quality: Mild (12/20/2016 04:00:Shaneka Ochoa RN) Quality: Mild (12/20/2016 03:00:Shaneka Ochoa RN) Quality: Mild (12/20/2016 02:00:Shaneka Ochoa RN) Quality: Mild (12/20/2016 00:00:Shaneka Ochoa RN) Quality: Mild (12/19/2016 23:00:Shaneka Ochoa RN) Quality: Mild (12/19/2016 22:30:Shaneka Ochoa RN) Quality: Mild (12/19/2016 21:45:Shaneka Ochoa RN) Resting Tone [place]: Relaxed (12/20/2016 04:00:Shaneka Ochoa RN) Resting Tone [place]: Relaxed (12/20/2016 03:30:Shaneka Ochoa RN) Resting Tone [place]: Relaxed (12/20/2016 03:00:Shaneka Ochoa RN) Resting Tone [place]: Relaxed (12/20/2016 02:30:Shaneka Ochoa RN) Resting Tone [place]: Relaxed (12/20/2016 02:00:Shaneka Ochoa RN) Resting Tone [place]: Relaxed (12/20/2016 01:30:Shaneka Ochoa RN) Resting Tone [place]: Relaxed (12/20/2016 00:30:Shaneka Ochoa RN) Resting Tone [place]: Relaxed (12/20/2016 00:00:Shaneka Ochoa RN) Resting Tone [place]: Relaxed (12/19/2016 23:30:Shaneka Ochoa RN) Resting Tone [place]: Relaxed (12/19/2016 23:00:Shaneka Ochoa RN) Resting Tone [place]: Relaxed (12/19/2016 22:30:Shaneka Ochoa RN) Resting Tone [place]: Relaxed (12/19/2016 21:59:Shaneka Ochoa RN) Resting Tone [place]: Relaxed (12/19/2016 21:45:Shaneka Ochoa RN) Resting Tone [place]: Relaxed (12/19/2016 21:15:Shaneka Ochoa RN) Contraction Comments: pt adjusting in bed (12/20/2016 01:10:Shaneka Ochoa RN) Contraction Comments: TOCO placed and explained to pt (12/19/2016 20:59:Shaneka Ochoa RN) NEURO Level of Consciousness: Fully Conscious (12/19/2016 21:15:Shaneka Ochoa RN) Level of Consciousness: Fully Conscious (12/19/2016 21:00:Shaneka Ochoa RN) DTR's/Clonus: DTRs 2+; No Clonus (12/19/2016 21:15:Shaneka Ochoa RN) DTR's/Clonus: DTRs 2+; No Clonus (12/19/2016 21:00:Shaneka Ochoa RN) Headache: Denies (12/19/2016 21:15:Shaneka Ochoa RN) Headache: Denies (12/19/2016 21:00:Shaneka Ochoa RN) Dizziness: No (12/19/2016 21:00:Shaneka Ochoa RN) Blurred Vision: No (12/19/2016 21:00:Shaneka Ochoa RN) Extremity Numbness/Tingling : None (12/19/2016 21:00:Shaneka Ochoa RN) Extremity Movement: Full Range of Motion (12/19/2016 21:00:Shaneka Ochoa RN) CARDIOVASCULAR Nailbeds: [place] (12/19/2016 21:00:Shaneka Ochoa RN) Capillary Refill: Less than 3 Seconds (12/19/2016 21:00:Shaneka Ochoa RN) Facial Edema: None (12/19/2016 21:00:Shaneka Ochoa RN) Kena's Sign Left Leg: Negative (12/19/2016 21:00:Shaneka Ochoa RN) Kena's Sign Right Leg: Negative (12/19/2016 21:00:Shaneka Ochoa RN) RESPIRATORY Respiratory Effort: Unlabored; Regular Rhythm; Equal Expansion (12/19/2016 21:00:Shaneka Ochoa RN) Breath Sounds, Left: Clear and Equal (12/19/2016 21:15:Shaneka Ochoa RN) Breath Sounds, Left: Clear and Equal (12/19/2016 21:00:Shaneka Ochoa RN) Breath Sounds, Right: Clear and Equal (12/19/2016 21:15:Shaneka Ochoa RN) Breath Sounds, Right: Clear and Equal (12/19/2016 21:00:Shaneka Ochoa RN) Cough Productivity: None (12/19/2016 21:00:Shaneka Ochoa RN) GASTROINTESTINAL Nausea/Vomiting: Denies (12/19/2016 21:15:Shaneka Ochoa RN) Nausea/Vomiting: Denies (12/19/2016 21:00:Shaneka Ochoa RN) Bowel Sounds: Normoactive; All Quadrants (12/19/2016 21:00:Shaneka Ochoa RN) RUQ Epigastric Pain: Denies (12/19/2016 21:00:Shaneka Ochoa RN) GENITOURINARY Bladder: Nondistended (12/19/2016 21:00:Shaneka Ochoa RN) Frequency of Urination: No (12/19/2016 21:00:Shaneka Ocoha RN) Urination Burning: No (12/19/2016 21:00:Shaneka Ochoa RN) CVA Tenderness: No (12/19/2016 21:00:Shaneka Ochoa RN) Vaginal Bleeding: None (12/19/2016 21:00:Shaneka Ochoa RN) Vaginal Discharge Color: N/A (12/19/2016 21:00:Shaneka Ochoa RN) INTEGUMENTARY Skin Color: Normal for Race (12/19/2016 21:00:Shaneka Ochoa RN) Skin Temperature: Warm (12/19/2016 21:00:Shaneka Ochoa RN) Skin Moisture: Dry (12/19/2016 21:00:Shaneka Ochoa RN) NERISSA SKIN ASSESSMENT Nerissa Scale Sensory Perception: No Impairment- Responds to verbal commands. Has no sensory deficit which would limit ability to feel or voice pain or discomfort (12/19/2016 21:00:Shaneka Ochoa RN) Nerissa Scale Moisture: Rarely Moist- Skin is usually dry. Linen only requires changing at routine intervals (12/19/2016 21:00:Shaneka Ochoa RN) Nerissa Scale Activity: Walks Frequently- Walks outside the room at least twice a day and inside room at least every 2 hours during the day. (12/19/2016 21:00:Shaneka Ochoa RN) Nerissa Scale Mobility: No Limitations- Makes major and frequent changes in position without assistance (12/19/2016 21:00:Shaneka Ochoa RN) Nerissa Scale Nutrition: Excellent- Eats most of every meal. Never refuses a meal. Usually eats a total of 4 or more servings of meat and dairy products. Occasionally eats between meals. Does not require supplementation (12/19/2016 21:00:Shaneka Ochoa RN) Nerissa Scale Friction and Shear: No Apparent Problem- Moves in bed and in chair independently and has sufficient muscle strength to lift up completely during move. Maintains good position in bed or chair at all times (12/19/2016 21:00:Shaneka Ochoa RN) Nerissa Scale Total: 23 (12/19/2016 21:00:QS system process) Nerissa Scale Risk: No Risk of Pressure Ulcer Noted at this Time (12/19/2016 21:00:QS system process) SAFETY Call French Within Reach: Yes (12/19/2016 21:00:Shaneka Ochoa RN) Side Rails Up: Yes (12/19/2016 21:00:Shaneka Ochoa RN) Bed Wheels Locked: Yes (12/19/2016 21:00:Shaneka Ochoa RN) Arm Bands Present: Yes (12/19/2016 21:00:Shaneka Ochoa RN) FALL SCREEN Fall Risk History of Falling: (0) No (12/19/2016 21:00:Shaneka Ochoa RN) Fall Risk Secondary Diagnosis: (0) No (12/19/2016 21:00:Shaneka Ochoa RN) Fall Risk Ambulatory Aid: (0) None/Bedrest/Wheelchair/Nurse Assist (12/19/2016 21:00:Shaneka Ochoa RN) Fall Risk IV Therapy: (0) No (12/19/2016 21:00:Shaneka Ochoa RN) Fall Risk Gait: (0) Normal/Bedrest/Immobile (12/19/2016 21:00:Shaneka Ochoa RN) Fall Risk Mental Status: (0) Oriented to Own Ability (12/19/2016 21:00:Shaneka Ochoa RN) Fall Risk Score: 0 (12/19/2016 21:00:QS system process) Fall Risk Score Definition: No Risk: No action required (12/19/2016 21:00:QS system process) BABY A FHR Baseline Rate (bpm) Baby A: 140 (12/20/2016 00:30:Shaneka Ochoa RN) FHR Baseline Rate (bpm) Baby A: 140 (12/20/2016 00:00:Shaneka Ochoa RN) FHR Baseline Rate (bpm) Baby A: 150 (12/19/2016 23:30:Shaneka Ochoa RN) FHR Baseline Rate (bpm) Baby A: 150 (12/19/2016 23:00:Shaneka Ochoa RN) FHR Baseline Rate (bpm) Baby A: 155 (12/19/2016 22:30:Shaneka Ochoa RN) FHR Baseline Rate (bpm) Baby A: 135 (12/19/2016 21:59:Shaneka Ochoa RN) FHR Baseline Rate (bpm) Baby A: 130 (12/19/2016 21:45:Shaneka Ochoa RN) FHR Baseline Rate (bpm) Baby A: 145 (12/19/2016 21:15:Shaneka Ochoa RN) Variability Baby A: Moderate 6-25 bpm (12/20/2016 00:30:Shaneka Ochoa RN) Variability Baby A: Moderate 6-25 bpm (12/20/2016 00:00:Shaneka Ochoa RN) Variability Baby A: Moderate 6-25 bpm (12/19/2016 23:30:Shaneka Ochoa RN) Variability Baby A: Moderate 6-25 bpm (12/19/2016 23:00:Shaneka Ochoa RN) Variability Baby A: Moderate 6-25 bpm (12/19/2016 22:30:hSaneka Ochoa RN) Variability Baby A: Moderate 6-25 bpm (12/19/2016 21:59:Shaneka Ochoa RN) Variability Baby A: Moderate 6-25 bpm (12/19/2016 21:45:Shaneka Ochoa RN) Variability Baby A: Moderate 6-25 bpm (12/19/2016 21:15:Shaneka Ochoa RN) Accelerations Baby A: 15X15 (12/20/2016 00:30:Shaneka Ochoa RN) Accelerations Baby A: 15X15 (12/20/2016 00:00:Shaneka Ochoa RN) Accelerations Baby A: 15X15 (12/19/2016 23:30:Shaneka Ochoa RN) Accelerations Baby A: 15X15 (12/19/2016 23:00:Shaneka Ochoa RN) Accelerations Baby A: 15X15 (12/19/2016 22:30:Shaneka Ochoa RN) Accelerations Baby A: 15X15 (12/19/2016 21:59:Shaneka Ochoa RN) Accelerations Baby A: 15X15 (12/19/2016 21:45:Shaneka Ochoa RN) Accelerations Baby A: 15X15 (12/19/2016 21:15:Shaneka Ochoa RN) Decelerations Baby A: None (12/20/2016 00:00:Shaneka Ochoa RN) Decelerations Baby A: None (12/19/2016 23:30:Shaneka Ochoa RN) Decelerations Baby A: None (12/19/2016 23:00:Shaneka Ochoa RN) Decelerations Baby A: None (12/19/2016 22:30:Shaneka Ochoa RN) Decelerations Baby A: None (12/19/2016 21:59:Shaneka Ochoa RN) Decelerations Baby A: None (12/19/2016 21:45:Shaneka Ochoa RN) Decelerations Baby A: None (12/19/2016 21:15:Shaneka Ochoa RN) ADDITIONAL COMMENTS Assessment Flag: Admission Assessment (12/19/2016 21:00:QS system process)
--- NOTE | 2016-12-20 04:46 | L&D Current Admission ---
Current Admit Datetime Report Generated by CPN: 12/20/2016 04:45 ADMISSION INFORMATION Current Admit Date/Time: 12/19/2016 20:30 (12/19/2016 20:30:Nina Rodriguez RN) Reason for Admission: Induction of Labor (12/19/2016 20:30:Nina Rodriguez RN) Chief Complaint: Scheduled Induction of Labor (12/19/2016 21:00:Shaneka Ochoa RN) Chief Complaint: Scheduled Induction of Labor (12/19/2016 20:30:Nina Rodriguez RN) EGA per Dates: 37.1 (12/19/2016 20:30:QS system process) Method of Arrival: Ambulatory (12/19/2016 20:30:Nina Rodriguez RN) Admitted From: Home (12/19/2016 20:30:Nina Rodriguez RN) Reason for Induction: Chronic Hypertension (12/19/2016 20:30:Nina Rodriguez RN) Records Available: Yes (12/19/2016 20:30:Nina Rodriguez RN) General Admission Information: Reviewed; Updated; Confirmed (12/19/2016 20:30:Nina Rodriguez RN) General Admission Reviewed By: Lakeisha Ryder RN (12/19/2016 20:30:Nina Rodriguez RN) BELONGINGS/ADVANCED DIRECTIVES Valuables/Personal Effects: Contact Lenses (12/19/2016 20:30:Shaneka Ochoa RN) Other Belongings: See [facility] belongings form (12/19/2016 20:30:Nina Rodriguez RN) Disposition of Belongings: Kept with Patient (12/19/2016 20:30:Shaneka Ochoa RN) Advance Direct for Healthcare: No, and Wants No Information (12/19/2016 20:30:Shaneka Ochoa RN) Durable Power of Homebound Teacher: No (12/19/2016 20:30:Shaneka Ochoa RN) Living Will: No (12/19/2016 20:30:Shaneka Ochoa RN) Organ Donor: No (12/19/2016 20:30:Shaneka Ochoa RN) Pt Rights Information Given: Yes (12/19/2016 20:30:Shaneka Ochoa RN) Pt Understands Pt Rights: Yes (12/19/2016 20:30:Shaneka Ochoa RN) LEARNING ASSESSMENT Knowledge Level: Understands L_D Process; Understands Care Activities; Had Pre-Hospital Education; Understands Diagnosis (12/19/2016 20:30:Shaneka Ochoa RN) Barriers to Learning: None (12/19/2016 20:30:Shaneka Ochoa RN) Learning Readiness: Motivated (12/19/2016 20:30:Shaneka Ochoa RN) DOMESTIC VIOLANCE SCREENING Dom Viol Threatened/Hurt: No (12/19/2016 20:30:Shaneka Ochoa RN) Hx of Abuse/Neglect past 2yrs: No (12/19/2016 20:30:Shaneka Ochoa RN) Feel Unsafe Going Home: No (12/19/2016 20:30:Shaneka Ochoa RN) Addt'l Observ Indicating Abuse: No (12/19/2016 20:30:Shaneka Ochoa RN) Reason Unable to Complete Screen: N/A, Screen Completed (12/19/2016 20:30:Shaneka Ochoa RN) Considered Personal Harm/Suicide: No (12/19/2016 20:30:Shaneka Ochoa RN) NUTRITIONAL/FUNCTIONAL SCREENING Problem with Appetite >5 Days: No (12/19/2016 20:30:Shaneka Ochoa RN) Chew/Swallow Difficulties: No (12/19/2016 20:30:Shaneka Ochoa RN) Inappropriate Wt Gain/Loss: No (12/19/2016 20:30:Shaneka Ocoha RN) Presence Skin Breakdown/Ulcer: No (12/19/2016 20:30:Shaneka Ochoa RN) Special Diet: No (12/19/2016 20:30:Shaneka Ochoa RN) Pt Requests [employer] Manager Visit: No (12/19/2016 20:30:Shaneka Ochoa RN) Hx of Any of the Following?: N/A (12/19/2016 20:30:Shaneka Ochoa RN) New Diagnosis of: N/A (12/19/2016 20:30:Shaneka Ochoa RN) Requires Assist w/Ambulation: No (12/19/2016 20:30:Shaneka Ochoa RN) Uses Assist Device to Ambulate: No (12/19/2016 20:30:Shaneka Ochoa RN) Pt Requires Help w/ADL's: No (12/19/2016 20:30:Shaneka Ochoa RN)
--- NOTE | 2016-12-20 04:46 | L&D Flow Sheet ---
LD Flowsheet Datetime Report Generated by CPN: 12/20/2016 04:45 Datetime: 12/20/2016 04:39 NBP Sys/Karley/Mean (mmHg): 147 (QS system process) : 69 (QS system process) : 99 (QS system process) Pulse: 75 (QS system process) LaborFlag: Antepartum (QS system process) Datetime: 12/20/2016 04:37 NBP Sys/Karley/Mean (mmHg): 217 (QS system process) : 103 (QS system process) : 147 (QS system process) Pulse: 78 (QS system process) LaborFlag: Antepartum (QS system process) Datetime: 12/20/2016 04:29 NBP Sys/Karley/Mean (mmHg): 170 (QS system process) : 87 (QS system process) : 122 (QS system process) Pulse: 78 (QS system process) I/O Interventions: Up to BR (Shaneka Ochoa RN) LaborFlag: Antepartum (QS system process) Datetime: 12/20/2016 04:26 NBP Sys/Karley/Mean (mmHg): 185 (QS system process) : 96 (QS system process) : 132 (QS system process) Pulse: 77 (QS system process) LaborFlag: Antepartum (QS system process) Datetime: 12/20/2016 04:00 Stage of : Antepartum (Shaneka Ochoa RN) Monitor Mode: External (Shaneka Ochoa RN) Monitor Interventions for UA: [place] Adjusted (Shaneka Ochoa RN) Frequency (min): 2-5 (Shaneka Ochoa RN) Quality: Mild (Shaneka Ochoa RN) Duration (sec): 60-80 (Shaneka Ochoa RN) Resting Tone (Palpate): Relaxed (Shaneka Ochoa RN) Pain Coping: Sleeping (Shaneka Ochoa RN) Patient Position/Activity: Left Tilt; Semi-Fowlers (Shaneka Ochoa RN) Communication: RN Reviewed Strip (Shaneka Ochoa RN) Datetime: 12/20/2016 03:56 NBP Sys/Karley/Mean (mmHg): 164 (QS system process) : 89 (QS system process) : 121 (QS system process) Pulse: 72 (QS system process) LaborFlag: Antepartum (QS system process) Datetime: 12/20/2016 03:30 Stage of : Antepartum (Shaneka Ochoa RN) Monitor Mode: External (Shaneka Ochoa RN) Monitor Interventions for UA: [place] Adjusted (Shaneka Ochoa RN) Frequency (min): n/a (Shaneka Ochoa RN) Resting Tone (Palpate): Relaxed (Shaneka Ochoa RN) Pain Coping: Sleeping (Shaneka Ochoa RN) Communication: RN at Bedside; RN Reviewed Strip (Shaneka Ochoa RN) Datetime: 12/20/2016 03:29 NBP Sys/Karley/Mean (mmHg): 157 (QS system process) : 84 (QS system process) : 114 (QS system process) Pulse: 72 (QS system process) LaborFlag: Antepartum (QS system process) Datetime: 12/20/2016 03:28 NBP Sys/Karley/Mean (mmHg): 163 (QS system process) : 83 (QS system process) : 116 (QS system process) Pulse: 78 (QS system process) LaborFlag: Antepartum (QS system process) Datetime: 12/20/2016 03:26 NBP Sys/Karley/Mean (mmHg): 168 (QS system process) : 85 (QS system process) : 119 (QS system process) Pulse: 84 (QS system process) LaborFlag: Antepartum (QS system process) Datetime: 12/20/2016 03:00 Stage of : Antepartum (Shaneka Ochoa RN) Monitor Mode: External (Shaneka Ochoa RN) Monitor Interventions for UA: [place] Adjusted (Shaneka Ochoa RN) Quality: Mild (Shaneka Ochoa RN) Resting Tone (Palpate): Relaxed (Shaneka Ochoa RN) Pain Coping: Sleeping (Shaneka Ochoa RN) Communication: RN Reviewed Strip (Shaneka Ochoa RN) Datetime: 12/20/2016 02:55 NBP Sys/Karley/Mean (mmHg): 140 (QS system process) : 75 (QS system process) : 102 (QS system process) Pulse: 79 (QS system process) LaborFlag: Antepartum (QS system process) Datetime: 12/20/2016 02:30 Stage of : Antepartum (Shaneka Ochoa RN) Monitor Mode: External (Shaneka Ochoa RN) Frequency (min): n/a (Shaneka Ochoa RN) Resting Tone (Palpate): Relaxed (Shaneka Ochoa RN) Pain Coping: Sleeping (Shaneka Ochoa RN) Communication: RN Reviewed Strip (Shaneka Ochoa RN) Datetime: 12/20/2016 02:00 Stage of : Antepartum (Shaneka Ochoa RN) Monitor Mode: External (Shaneka Ochoa RN) Monitor Interventions for UA: [place] Adjusted (Shaneka Ochoa RN) Frequency (min): n/a (Shaneka Ochoa RN) Quality: Mild (Shaneka Ochoa RN) Resting Tone (Palpate): Relaxed (Shaneka Ochoa RN) Pain Coping: Sleeping (Shaneka Ochoa RN) Patient Position/Activity: Left Tilt; Semi-Fowlers (Shaneka Ochoa RN) Communication: RN Reviewed Strip (Shaneka Ochoa RN) Datetime: 12/20/2016 01:40 NBP Sys/Karley/Mean (mmHg): 130 (QS system process) : 60 (QS system process) : 86 (QS system process) Pulse: 81 (QS system process) LaborFlag: Antepartum (QS system process) Datetime: 12/20/2016 01:30 Stage of : Antepartum (Shaneka Ochoa RN) Monitor Mode: External (Shaneka Ochoa RN) Monitor Interventions for UA: [place] Adjusted (Shaneka Ochoa RN) Frequency (min): n/a (Shaneka Ochoa RN) Resting Tone (Palpate): Relaxed (Shaneka Ochoa RN) Pain Coping: Sleeping (Shaneka Ochoa RN) Patient Position/Activity: Left Tilt; Semi-Fowlers (Shaneka Ochoa RN) Communication: RN at Bedside; RN Reviewed Strip (Shaneka Ochoa RN) Datetime: 12/20/2016 01:12 NBP Sys/Karley/Mean (mmHg): 159 (QS system process) : 80 (QS system process) : 110 (QS system process) Pulse: 85 (QS system process) LaborFlag: Antepartum (QS system process) Datetime: 12/20/2016 01:10 Contraction Comments: pt adjusting in bed (Shaneka Ochoa RN) Datetime: 12/20/2016 01:09 NBP Sys/Karley/Mean (mmHg): 179 (QS system process) : 84 (QS system process) : 120 (QS system process) Pulse: 82 (QS system process) LaborFlag: Antepartum (QS system process) Datetime: 12/20/2016 01:00 Stage of : Antepartum (Shaneka Ochoa RN) Frequency (min): n/a (Shaneka Ochoa RN) Pain Coping: Sleeping (Shaneka Ochoa RN) Patient Position/Activity: Left Tilt (Shaneka Ochoa RN) Communication: RN Reviewed Strip (Shaneka Ochoa RN) Datetime: 12/20/2016 00:39 NBP Sys/Karley/Mean (mmHg): 156 (QS system process) : 89 (QS system process) : 117 (QS system process) Pulse: 79 (QS system process) LaborFlag: Antepartum (QS system process) Datetime: 12/20/2016 00:30 Stage of : Antepartum (Shaneka Ochoa RN) Monitor Mode: External (Shaneka Ochoa RN) Frequency (min): 0 (Shaneka Ochoa RN) Resting Tone (Palpate): Relaxed (Shaneka Ochoa RN) Monitor Mode: External US (Shaneka Ochoa RN) FHR Baseline Rate : 140 (Shaneka Ochoa RN) FHR Baseline Changes: No Baseline Change (Shaneka Ochoa RN) Variability: Moderate 6-25 bpm (Shaneka Ochoa RN) Accelerations: 15X15 (Shaneka Ochoa RN) Pain Presence: None/Denies (Shaneka Ochoa RN) Patient Position/Activity: Right Tilt; Semi-Fowlers (Shaneka Ochoa RN) Communication: Call/Page Placed to Provider (Shaneka Ochoa RN) Communication: RN at Bedside; RN Reviewed Strip (Shaneka Ochoa RN) Communication Comments: Call placed to Dr Ba regarding difficulty with EFM. Orders received for 20 minute of FHM q4 hours. Orders carried out. (Shaneka Ochoa RN) LaborFlag: Antepartum (QS system process) Datetime: 12/20/2016 00:10 Comments: RN at b/s adjusting US (Shaneka Ochoa RN) Datetime: 12/20/2016 00:09 NBP Sys/Karley/Mean (mmHg): 159 (QS system process) : 79 (QS system process) : 112 (QS system process) Pulse: 78 (QS system process) LaborFlag: Antepartum (QS system process) Datetime: 12/20/2016 00:00 Stage of : Antepartum (Shaneka Ochoa RN) Monitor Mode: External (Shaneka Ochoa RN) Monitor Interventions for UA: [place] Adjusted (Shaneka Ochoa RN) Frequency (min): 0 (Shaneka Ochoa RN) Quality: Mild (Shaneka Ochoa RN) Resting Tone (Palpate): Relaxed (Shaneka Ochoa, ABDULKADIR) Monitor Mode: External US (Shaneka Ochoa RN) Monitor Interventions for FHR: Ultrasound Adjusted (Shaneka Ochoa RN) FHR Baseline Rate : 140 (Shaneka Ochoa RN) FHR Baseline Changes: No Baseline Change (Shaneka Ochoa RN) Variability: Moderate 6-25 bpm (Shaneka Ochoa RN) Accelerations: 15X15 (Shaneka Ochoa, RN) Decelerations: None (Shaneka Ochoa RN) Pain Presence: None/Denies (Shaneka Ochoa, ABDULKADIR) Patient Position/Activity: Left Tilt; Semi-Fowlers (Shaneka Ochoa, ABDULKADIR) Communication: RN at Bedside; RN Reviewed Strip (Shaneka Ochoa RN) LaborFlag: Antepartum (QS system process) Datetime: 12/19/2016 23:40 NBP Sys/Karley/Mean (mmHg): 158 (QS system process) : 87 (QS system process) : 116 (QS system process) Pulse: 76 (QS system process) LaborFlag: Antepartum (QS system process) Datetime: 12/19/2016 23:30 Stage of : Antepartum (Shaneka Ochoa RN) Monitor Mode: External (Shaneka Ochoa RN) Monitor Interventions for UA: [place] Adjusted (Shaneka Ochoa RN) Frequency (min): 0 (Shaneka Ochoa RN) Resting Tone (Palpate): Relaxed (Shaneka Ochoa RN) Monitor Mode: External US (Shaneka Ochoa RN) Monitor Interventions for FHR: Ultrasound Adjusted (Shaneka Ochoa RN) FHR Baseline Rate : 150 (Shaneka Ochoa RN) FHR Baseline Changes: No Baseline Change (Shaneka Ochoa RN) Variability: Moderate 6-25 bpm (Shaneka Ochoa RN) Accelerations: 15X15 (Shaneka Ochoa RN) Decelerations: None (Shaneka Ochoa RN) Pain Presence: None/Denies (Shaneka Ochoa RN) Patient Position/Activity: Left Tilt; Semi-Fowlers (Shaneka Ochoa RN) Communication: RN at Bedside; RN Reviewed Strip (Shaneka Ochoa RN) LaborFlag: Antepartum (QS system process) Datetime: 12/19/2016 23:19 Comments: RN at b/s adjusting US (Shaneka Ochoa RN) Datetime: 12/19/2016 23:09 NBP Sys/Karley/Mean (mmHg): 145 (QS system process) : 86 (QS system process) : 111 (QS system process) Pulse: 80 (QS system process) LaborFlag: Antepartum (QS system process) Datetime: 12/19/2016 23:00 Stage of : Antepartum (Shaneka cOhoa RN) Monitor Mode: External (Shaneka Ochoa RN) Frequency (min): 0 (Shaneka Ochoa RN) Quality: Mild (Shaneka Ochoa RN) Resting Tone (Palpate): Relaxed (Shaneka Ochoa RN) Monitor Mode: External US (Shaneka Ochoa RN) FHR Baseline Rate : 150 (Shaneka Ochoa RN) FHR Baseline Changes: No Baseline Change (Shaneka Ochoa RN) Variability: Moderate 6-25 bpm (Shaneka Ochoa RN) Accelerations: 15X15 (Shaneka Ochoa RN) Decelerations: None (Shaneka Ochoa RN) Pain Presence: None/Denies (Shaneka Ochoa RN) Communication: RN at Bedside; RN Reviewed Strip (Shaneka Ochoa RN) LaborFlag: Antepartum (QS system process) Datetime: 12/19/2016 22:39 NBP Sys/Karley/Mean (mmHg): 140 (QS system process) : 89 (QS system process) : 110 (QS system process) Pulse: 78 (QS system process) LaborFlag: Antepartum (QS system process) Datetime: 12/19/2016 22:30 Stage of : Antepartum (Shaneka Ochoa RN) Monitor Mode: External (Shaneka Ochoa RN) Frequency (min): 0 (Shaneka Ochoa RN) Quality: Mild (Shaneka Ochoa RN) Resting Tone (Palpate): Relaxed (Shaneka Ochoa RN) Monitor Mode: External US (Shaneka Ochoa RN) FHR Baseline Rate : 155 (Shaneka Ochoa RN) FHR Baseline Changes: No Baseline Change (Shaneka Ochoa RN) Variability: Moderate 6-25 bpm (Shaneka Ochoa RN) Accelerations: 15X15 (Shaneka Ochoa RN) Decelerations: None (Shaneka Ochoa RN) Pain Presence: None/Denies (Shaneka Ochoa RN) Patient Position/Activity: Left Tilt; Semi-Fowlers (Shaneka Ochoa RN) Communication: RN at Bedside; RN Reviewed Strip (Shaneka Ochoa RN) LaborFlag: Antepartum (QS system process) Datetime: 12/19/2016 21:59 Stage of : Antepartum (Shaneka Ochoa RN) NBP Sys/Karley/Mean (mmHg): 133 (QS system process) : 67 (QS system process) : 94 (QS system process) Pulse: 80 (QS system process) Monitor Mode: External (Shaneka Ochoa RN) Frequency (min): 0 (Shaneka Ochoa RN) Resting Tone (Palpate): Relaxed (Shaneka Ochoa RN) Monitor Mode: External US (Shaneka Ochoa RN) FHR Baseline Rate : 135 (Shaneka Ochoa RN) FHR Baseline Changes: No Baseline Change (Shaneka Ochoa RN) Variability: Moderate 6-25 bpm (Shaneka Ochoa RN) Accelerations: 15X15 (Shaneka Ochoa RN) Decelerations: None (Shaneka Ochoa RN) Pain Presence: None/Denies (Shaneka Ochoa RN) Patient Position/Activity: Left Tilt; Semi-Fowlers (Shaneka Ochoa RN) Communication: RN at Bedside; RN Reviewed Strip (Shaneka Ochoa RN) LaborFlag: Antepartum (QS system process) Datetime: 12/19/2016 21:45 Stage of : Antepartum (Shaneka Ochoa RN) Monitor Mode: External (Shaneka Ochoa RN) Frequency (min): 0 (Shaneka Ochoa RN) Quality: Mild (Shaneka Ochoa RN) Resting Tone (Palpate): Relaxed (Shaneka Ochoa RN) Monitor Mode: External US (Shaneka Ochoa RN) FHR Baseline Rate : 130 (Shaneka Ochoa RN) FHR Baseline Changes: No Baseline Change (Shaneka Ochoa RN) Variability: Moderate 6-25 bpm (Shaneka Ochoa RN) Accelerations: 15X15 (Shaneka Ochoa RN) Decelerations: None (Shaneka Ochoa RN) Pain Presence: None/Denies (Shaneka Ochoa RN) Patient Position/Activity: Left Tilt; Semi-Fowlers (Shaneka Ochoa RN) Communication: RN at Bedside; RN Reviewed Strip (Shaneka Errichiello, RN) LaborFlag: Antepartum (QS system process) Datetime: 12/19/2016 21:40 Cervical Ripening Agents: Cervidil (Shaneka Deionichiello, RN) Medication Comments: cervidil placed per protocol (Shaneka Errichiello, RN) Datetime: 12/19/2016 21:31 I/O Interventions: Up to BR (Shaneka Errichiello, RN) Datetime: 12/19/2016 21:20 Comments: RN at b/s finding FHR (Shaneka Errichiello, RN) Datetime: 12/19/2016 21:15 Stage of : Antepartum (Shaneka Ochoa RN) Monitor Mode: External; Palpation (Shaneka Ochoa RN) Monitor Interventions for UA: [place] Adjusted (Shaneka Ochoa RN) Frequency (min): 0 (Shaneka Ochoa RN) Resting Tone (Palpate): Relaxed (Shaneka Ochoa RN) Monitor Mode: External US (Shaneka Ochoa RN) Monitor Interventions for FHR: Ultrasound Adjusted (Shaneka Ochoa RN) FHR Baseline Rate : 145 (Shaneka Ochoa RN) FHR Baseline Changes: No Baseline Change (Shaneka Ochoa RN) Variability: Moderate 6-25 bpm (Shaneka Ochoa RN) Accelerations: 15X15 (Shaneka Ochoa RN) Decelerations: None (Shaneka Ochoa RN) Pain Presence: None/Denies (Shaneka Ochoa RN) Level of Consciousness: Fully Conscious (Shaneka Ochoa RN) DTR's/Clonus: DTRs 2+; No Clonus (Shaneka Ochoa RN) Headache: Denies (Shaneka Ochoa RN) Breath Sounds, Left: Clear and Equal (Shaneka Ochoa RN) Breath Sounds, Right: Clear and Equal (Shaneka Ochoa RN) Nausea/Vomiting: Denies (Shaneka Ochoa RN) Patient Position/Activity: Left Tilt; Semi-Fowlers (Shaneka Ochoa RN) Communication: RN at Bedside; RN Reviewed Strip (Shaneka Deionichiello, RN) LaborFlag: Antepartum (QS system process) Datetime: 12/19/2016 21:14 IV/Blood Work: IV Started; IV Bolus Started; IV Infusing per Order (Shaneka Deionichiello, RN) Datetime: 12/19/2016 21:09 NBP Sys/Karley/Mean (mmHg): 141 (QS system process) : 77 (QS system process) : 104 (QS system process) Pulse: 82 (QS system process) LaborFlag: OB Triage (QS system process) Datetime: 12/19/2016 21:00 Pain Scale: 0 (Shaneka Ochoa RN) Pain Presence: None/Denies (Shaneka Ochoa RN) Pain Type: N/A (Shaneka Ochoa RN) Level of Consciousness: Fully Conscious (Shaneka Ochoa RN) DTR's/Clonus: DTRs 2+; No Clonus (Shaneka Ochoa RN) Headache: Denies (Shaneka Ochoa RN) Breath Sounds, Left: Clear and Equal (Shaneka Ochoa RN) Breath Sounds, Right: Clear and Equal (Shaneka Ochoa RN) Nausea/Vomiting: Denies (Shaneka Ochoa RN) RUQ Epigastric Pain: Denies (Shaneka Ochoa RN) Procedures: Consents Signed (Shaneka Ochoa RN) LaborFlag: OB Triage (QS system process) Datetime: 12/19/2016 20:59 Contraction Comments: TOCO placed and explained to pt (Shaneka Ochoa RN) Comments: US placed and explained to pt (Shaneka Ochoa, RN) Datetime: 12/19/2016 20:48 Exam by: dr ba (Shaneka Ochoa, ABDULKADIR) Vaginal Exam Comments: ft/thick/hi (Shaneka Ochoa RN)
--- NOTE | 2016-12-20 04:46 | L&D Discharge Summary ---
OB Discharge Summary Datetime Report Generated by CPN: 12/20/2016 04:45 DISCHARGE DIAGNOSIS Diagnosis/Symptoms: Pre-Eclampsia; Chronic Hypertension Diagnoses/Symptoms Other: Received orders to DC pt after reactive NST and have pt return wed evening for scheduled induction. Pt instructed to call before coming in for induction. Instructions and labs explained, pt verbalized understanding. Gestation: 37.1 Number of Babies in Womb: 1 Parity: 2 DIET/ACTIVITY/RESTRICTIONS Diet: Regular Activity: Normal Activity Activity Restrictions: Nothing in Vagina - [place], Tampons, Douche TEACHING/INSTRUCTIONS/REFERRALS Instructions Given To: PT and family Instructions Understood: Patient Verbalized Understanding; Support Person Verbalized Understanding Referrals: None Educational Materials- Other: NST, Pre E, Induction DISCHARGE INFORMATION Discharged AMA: No Discharge Date/Time: 12/18/2016 20:27 Discharged To: Home Discharge Provider Name: Carrasco Accompanied By: Family Discharge Method: Ambulatory Condition: Stable FOLLOW UP INFORMATION Follow Up With: [facility] Follow Up On: Tomorrow Follow Up Phone Number: [facility] -
--- NOTE | 2016-12-20 06:28 | L&D Current Admission ---
Current Admit Datetime Report Generated by CPN: 12/20/2016 06:00 ADMISSION INFORMATION Current Admit Date/Time: 12/19/2016 20:30 (12/19/2016 20:30:Nina Rodriguez RN) Reason for Admission: Induction of Labor (12/19/2016 20:30:Nina Rodriguez RN) Chief Complaint: Scheduled Induction of Labor (12/19/2016 21:00:Shaneka Ochoa RN) EGA per Dates: 37.1 (12/19/2016 20:30:QS system process) Method of Arrival: Ambulatory (12/19/2016 20:30:Nina Rodriguez RN) Admitted From: Home (12/19/2016 20:30:Nina Rodriguez RN) Reason for Induction: Chronic Hypertension (12/19/2016 20:30:Nina Rodriguez RN) Records Available: Yes (12/19/2016 20:30:Nina Rodriguez RN) General Admission Information: Reviewed; Updated; Confirmed (12/19/2016 20:30:Nina Rodriguez RN) General Admission Reviewed By: Lakeisha Ryder RN (12/19/2016 20:30:Nina Rodriguez RN) BELONGINGS/ADVANCED DIRECTIVES Valuables/Personal Effects: Contact Lenses (12/19/2016 20:30:Shaneka Ochoa RN) Other Belongings: See [facility] belongings form (12/19/2016 20:30:Nina Rodriguez RN) Disposition of Belongings: Kept with Patient (12/19/2016 20:30:Shaneka Ochoa RN) Advance Direct for Healthcare: No, and Wants No Information (12/19/2016 20:30:Shaneka Ochoa RN) Durable Power of Preschool Teacher Aide: No (12/19/2016 20:30:Shaneka Ochoa RN) Living Will: No (12/19/2016 20:30:Shaneka Ochoa RN) Organ Donor: No (12/19/2016 20:30:Shaneka Ochoa RN) Pt Rights Information Given: Yes (12/19/2016 20:30:Shaneka Ochoa RN) Pt Understands Pt Rights: Yes (12/19/2016 20:30:Shaneka Ochoa RN) LEARNING ASSESSMENT Knowledge Level: Understands L_D Process; Understands Care Activities; Had Pre-Hospital Education; Understands Diagnosis (12/19/2016 20:30:Shaneka Ochoa RN) Barriers to Learning: None (12/19/2016 20:30:Shaneka Ochoa RN) Learning Readiness: Motivated (12/19/2016 20:30:Shaneka Ochoa RN) DOMESTIC VIOLANCE SCREENING Dom Viol Threatened/Hurt: No (12/19/2016 20:30:Shaneka Ochoa RN) Hx of Abuse/Neglect past 2yrs: No (12/19/2016 20:30:Shaneka Ochoa RN) Feel Unsafe Going Home: No (12/19/2016 20:30:Shaneka Ochoa RN) Addt'l Observ Indicating Abuse: No (12/19/2016 20:30:Shaneka Ochoa RN) Reason Unable to Complete Screen: N/A, Screen Completed (12/19/2016 20:30:Shaneka Ochoa RN) Considered Personal Harm/Suicide: No (12/19/2016 20:30:Shaneka Ochoa RN) NUTRITIONAL/FUNCTIONAL SCREENING Problem with Appetite >5 Days: No (12/19/2016 20:30:Shaneka Ochoa RN) Chew/Swallow Difficulties: No (12/19/2016 20:30:Shaneka Ochoa RN) Inappropriate Wt Gain/Loss: No (12/19/2016 20:30:Shaneka Ochoa RN) Presence Skin Breakdown/Ulcer: No (12/19/2016 20:30:Shaneka Ochoa RN) Special Diet: No (12/19/2016 20:30:Shaneka Ochoa RN) Pt Requests Manufacturer'S Service Representative Visit: No (12/19/2016 20:30:Shaneka Ochoa RN) Hx of Any of the Following?: N/A (12/19/2016 20:30:Shaneka Ochoa RN) New Diagnosis of: N/A (12/19/2016 20:30:Shaneka Ochoa RN) Requires Assist w/Ambulation: No (12/19/2016 20:30:Shaneka Ochoa RN) Uses Assist Device to Ambulate: No (12/19/2016 20:30:Shaneka Ochoa RN) Pt Requires Help w/ADL's: No (12/19/2016 20:30:Shaneka Ochoa RN)
--- NOTE | 2016-12-20 06:28 | L&D General Admission ---
General Admit Datetime Report Generated by CPN: 12/20/2016 06:00 INFORMATION Patient Age: 36 (10/30/2016 09:21:QS system process) EDC: 01/08/2017 00:00 (12/04/2016 15:37:Amelia Morales RN) : 7 (12/04/2016 15:37:Amelia Morales RN) Para: 2 (12/18/2016 20:27:Nolvia Gutierrez RN) Term: 2 (12/04/2016 15:37:Amelia Morales RN) : 0 (12/04/2016 15:37:Amelia Morales RN) Spontaneous Abortions: 1 (12/04/2016 15:37:Amelia Morales RN) Induced Abortions: 3 (12/04/2016 15:37:Amelia Morales RN) Livin (12/04/2016 15:37:Amelia Morales RN) Cesareans: 0 (12/04/2016 15:37:Amelia Morales RN) VBACs: 0 (12/04/2016 15:37:Amelia Morales RN) Ectopic: 0 (12/04/2016 15:37:Amelia Morales RN) Multiple Births: 0 (12/04/2016 15:37:Amelia Morales RN) Baby, Number in Womb: 1 (12/18/2016 20:27:Crystal Matt, RN) CARE Primary Kiln Puller: [facility] (12/04/2016 15:37:Amelia Morales RN) Month of 1st Visit: 06/16 (12/04/2016 15:37:Amelia Morales RN) Adequate Care: Yes (12/04/2016 15:37:Amelia Morales RN) Prepregnancy Weight (lb): 272 (12/04/2016 15:37:Amelia Morales RN) Prepregnancy Weight (kg): 123.6 (12/04/2016 15:37:QS system process) Height (in): 61 (12/19/2016 20:26:QS system process) ALLERGIES Medication Allergy: No (12/04/2016 15:37:Amelia Morales RN) Medication Allergies: No Known Allergies (12/19/2016) (12/19/2016 20:26:QS system process) Latex Allergy: No Latex Allergies (12/04/2016 15:37:Amelia Morales RN) Food Allergies: N/A (12/04/2016 15:37:Amelia Morales RN) Environmental Allergies: N/A (12/04/2016 15:37:Amelia Morales RN) COMMUNICATION Primary Language: Brazilian (12/04/2016 15:37:Amelia Morales RN) Medical Tx Preferred Language: Brazilian (12/04/2016 15:37:Amelia Morales RN) Communication Barrier(s): None (12/04/2016 15:37:Amelia Morales RN) DEMOGRAPHICS Address: [address] [place] [id number] (10/30/2016 09:21:QS system process) Zipcode: [id number] (10/30/2016 09:21:QS system process) Home (10/30/2016 09:21:QS system process) SSN: [id number] (10/30/2016 09:21:QS system process) Next of Kin Name: NATALI MONTE (12/19/2016 20:04:QS system process) Next of Kin (12/19/2016 20:04:QS system process) Next of Kin Relationship: MO (12/19/2016 20:04:QS system process) Date of : 1980 (10/30/2016 09:21:QS system process) Marital Status: (10/30/2016 09:21:QS system process) Sex: Female (10/30/2016 09:21:QS system process) Race: (10/30/2016 09:21:QS system process) Ethnicity: Non- or (10/30/2016 09:21:QS system process) Restorationist: Christianity (10/30/2016 09:21:QS system process) DRUG AND ALCOHOL USE Alcohol: No (12/04/2016 15:37:Amelia Morales RN) Cigarettes: Never Smoker. 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: [facility] (12/04/2016 15:37:Natali Ochoa RN) Feeding Preference: Breast (12/04/2016 15:37:Natali Ochoa RN) Benefit of Breast Feed Discussed: Yes (12/04/2016 15:37:Amelia Morales RN) Circumcision: Yes (12/04/2016 15:37:Amelia Morales RN) Classes Attended: Yes (12/04/2016 15:37:Amelia Morales RN) Tubal Ligation: Yes (12/04/2016 15:37:Amelia Morales RN) Tubal Authorization Signed: N/A (12/04/2016 15:37:Amelia Morales RN) Consent: N/A (12/04/2016 15:37:Amelia Morales RN) Consent Signed: N/A (12/04/2016 15:37:Amelia Morales RN) Pain Management Plans: Natural (12/04/2016 15:37:Amelia Morales RN) Plans for Labor and Delivery: None (12/04/2016 15:37:Amelia Morales RN) Support Person: Marco Warner II (12/04/2016 15:37:Amelia Morales RN) Support Person Relationship: (12/04/2016 15:37:Amelia Morales RN) Cultural/Spritual Practice: No (12/04/2016 15:37:Amelia Morales RN) Spir/Cult Dietary Needs: No (12/04/2016 15:37:Amelia Morales RN) LIVING SITUATION/DISCHARGE PLAN Living Arrangements: House (12/04/2016 15:37:Amelia Moarles RN) Adequate Access to:: Electric; Heat; Refrigeration; Plumbing/Running water; Phone; Transportation (12/04/2016 15:37:Amelia Morales RN) WIC Program: No (12/04/2016 15:37:Amelia Morales RN) Discharge Driver Medic Person: (12/04/2016 15:37:Amelia Morales RN) Person to Help after Discharge: (12/04/2016 15:37:Amelia Morales RN) Currently Using Commun Resources: No (12/04/2016 15:37:Amelia Morales RN) Outside Agency/Buffing Line Set Up Worker: No (12/04/2016 15:37:Amelia Morales RN) Car Seat for Discharge: Yes (12/04/2016 15:37:Amelia Morales RN) Adoption Requested: No (12/04/2016 15:37:Amelia Morales RN) Pt Contact w/ Post : N/A (12/04/2016 15:37:Amelia Morales RN) LABS Blood Type: O Positive (12/04/2016 15:37:Quirino Matamoros RN) Antibody Screen: Negative (12/04/2016 15:37:Cecilia Garrison RN) Rho(G) this : Not Applicable (12/04/2016 15:37:Cecilia Garrison RN) Hemoglobin: 10.5 L (12/19/2016 20:34:QS system process) Hematocrit: 34.2 L (12/19/2016 20:34:QS system process) MCV: 71 L (12/19/2016 20:34:QS system process) Group Beta Strep: Positive (12/04/2016 15:37:Quirino Matamoros RN) Gonorrhea: Negative (12/04/2016 15:37:Quirino Matamoros RN) Chlamydia: Negative (12/04/2016 15:37:Quirino Matamoros RN) RPR/VDRL: Nonreactive (12/04/2016 15:37:Quirino Matamoros RN) HIV Exposure Test: Negative (12/04/2016 15:37:Quirino Matamoros RN) Hepatitis B: Negative (12/04/2016 15:37:Quirino Matamoros RN) Rubella: Immune (12/04/2016 15:37:Quirino Matamoros RN) OB/PREVIOUS HISTORY Previous Procedures: Ultrasound; NST (12/04/2016 15:37:Natali Ochoa RN) Current Procedures: Ultrasound; NST (12/04/2016 15:37:Natali Ochoa RN) History of Previous : No (12/04/2016 15:37:Amelia Morales RN) History of Gestational Diabetes: No (12/04/2016 15:37:Amelia Morales RN) History of PIH: No (12/04/2016 15:37:Amelia Morales RN) History of Incompetent Cervix: No (12/04/2016 15:37:Amelia Morales RN) History of Placenta Previa/Abrup: No (12/04/2016 15:37:Amelia Morales RN) History of Macrosomia: No (12/04/2016 15:37:Amelia Morales RN) History of IUGR: No (12/04/2016 15:37:Amelia Morales RN) History of Hemorrhage: No (12/04/2016 15:37:Amelia Morales RN) History of Loss/Stillborn: No (12/04/2016 15:37:Amelia Morales RN) History of : No (12/04/2016 15:37:Amelia Morales RN) History of D (Rh) Sensitization: No (12/04/2016 15:37:Amelia Morales RN) History Recurrent Loss/Stillborn: No (12/04/2016 15:37:Amelia Morales RN) History Depression/PP Depression: No (12/04/2016 15:37:Amelia Morales RN) History of Uterine Anomaly/YAZMIN: No (12/04/2016 15:37:Amelia Morales RN) History of Infertility: No (12/04/2016 15:37:Amelia Morales RN) History of ART Treatment: No (12/04/2016 15:37:Amelia Morales RN) History of YAZMIN: No (12/04/2016 15:37:Amelia Morales RN) Comments Obstetrical History: G1: 2000 EAB G2: 2001 baby boy, 37-39 weeks, 24+ hours labor, 7 lb, IOL oligo G3: 2001 EAB G4: 2003 baby girl, 37-39 weeks G5: 2007 EAB G6: 2013 SAB, 13 weeks G7: Current (12/04/2016 15:37:Amelia Morales RN) MEDICAL HISTORY Med Hx Diabetes: No (12/04/2016 15:37:Amelia Morales RN) Med Hx Hypertension: Yes (12/04/2016 15:37:Amelia Morales RN) Med Hx Heart Disease: No (12/04/2016 15:37:Amelia Morales RN) Med Hx Autoimmune Disorder: No (12/04/2016 15:37:Amelia Morales RN) Med Hx Kidney Disease/UTI: No (12/04/2016 15:37:Amelia Morales RN) Med Hx Neurologic/Epilepsy: No (12/04/2016 15:37:Amelia Morales RN) Med Hx Psychiatric Disorders: No (12/04/2016 15:37:Amelia Morales RN) Med Hx Hepatitis/Liver Disease: No (12/04/2016 15:37:Amelia Morales RN) Med Hx Varicosities/Phlebitis: No (12/04/2016 15:37:Amelia Morales RN) Med Hx Thyroid Dysfunction: No (12/04/2016 15:37:Amelia Morales RN) Med Hx Trauma/Violence: No (12/04/2016 15:37:Amelia Morales RN) Med Hx Blood Transfusion: No (12/04/2016 15:37:Amelia Morales RN) Med Hx Pulmonary (Asthma,TB): Yes (12/04/2016 15:37:Amelia Morales RN) Med Hx Breast: No (12/04/2016 15:37:Amelia Morales RN) Med Hx HEAD OF DIGITAL Surgery: No (12/04/2016 15:37:Amelia Morales RN) Med Hx Hospitalization/Surgery: Yes (12/04/2016 15:37:Amelia Morales RN) Med Hx Anesthetic Complications: No (12/04/2016 15:37:Amelia Morales RN) Med Hx Abnormal Pap Smear: Yes (12/04/2016 15:37:Amelia Morales RN) Other Medical Diseases: Yes (12/04/2016 15:37:Amelia Morales RN) Med Hx Significant Family Hx: No (12/04/2016 15:37:Amelia Morales RN) Details of Med/Surg Hx: HTN: Chronic HTN, Labetalol 100 mg BID Pulmonary: Bronchitis 11/30/16 Surgery: Colonoscopy 2012, polyps noted Abnormal Pap: Hx ASCUS Pap, negative HPV Other: Morbid obesity (12/04/2016 15:37:Amelia Morales RN) INFECTIOUS HISTORY Inf Hx Gonorrhea: No (12/04/2016 15:37:Amelia Morales RN) Inf Hx Chlamydia: Yes (12/04/2016 15:37:Amelia Morales RN) Inf Hx Syphilis: No (12/04/2016 15:37:Amelia Morales RN) Inf Hx HIV/AIDS: No (12/04/2016 15:37:Amelia Morales RN) Inf Hx Human Papilloma Virus: No (12/04/2016 15:37:Amelia Morales RN) Inf Hx Pt/Partner Genital Herpes: No (12/04/2016 15:37:Amelia Morales RN) Inf Hx Tuberculosis/Exposure: No (12/04/2016 15:37:Amelia Morales RN) Inf Hx Hepatitis B,C: No (12/04/2016 15:37:Amelia Morales RN) Inf Hx Rash or Viral Illness: No (12/04/2016 15:37:Amelia Morales RN) Details of Infectious Hx: Chlamydia (12/04/2016 15:37:Amelia Morales RN) GENETIC HISTORY Gen Hx Age >=35 at XANDER: No (12/04/2016 15:37:Amelia Morales RN) Gen Hx Thalassemia: No (12/04/2016 15:37:Amelia Morales RN) Gen Hx Congenital Heart Defect: No (12/04/2016 15:37:Amelia Morales RN) Gen Hx Neural Tube Defect: No (12/04/2016 15:37:Amelia Morales RN) Gen Hx Down's Syndrome: No (12/04/2016 15:37:Amelia Morales RN) Gen Hx Ken-Sachs: No (12/04/2016 15:37:Amelia Morales RN) Gen Hx Alexia: No (12/04/2016 15:37:Amelia Morales RN) Gen Hx Familial Dysautonomia: No (12/04/2016 15:37:Amelia Morales RN) Gen Hx Sickle Cell Disease/Trait: No (12/04/2016 15:37:Amelia Morales RN) Gen Hx Hemophilia/Blood Disorder: No (12/04/2016 15:37:Amelia Morales RN) Gen Hx Muscular Dystrophy: No (12/04/2016 15:37:Amelia Morales RN) Gen Hx Cystic Fibrosis: No (12/04/2016 15:37:Amelia Morales RN) Gen Hx Huntingtons Chorea: No (12/04/2016 15:37:Amelia Morales RN) Gen Hx Mental Retardation/Autism: No (12/04/2016 15:37:Amelia Morales RN) Gen Hx Tested for Fragile X: No (12/04/2016 15:37:Amelia Morales RN) Gen Hx Other Inher/Chromosomal: No (12/04/2016 15:37:Amelia Morales RN) Gen Hx Maternal Metabolic DO: No (12/04/2016 15:37:Amelia Morales RN) Gen Hx Pt Father or FOB Defect: No (12/04/2016 15:37:Amelia Morales RN) Gen Hx Other Genetic History: No (12/04/2016 15:37:Amelia Morales RN) Gen Hx Drugs/Meds since LMP: No (12/04/2016 15:37:Amelia Morales RN)
--- NOTE | 2016-12-20 08:01 | L&D Flow Sheet ---
LD Flowsheet Datetime Report Generated by CPN: 12/20/2016 08:00 Datetime: 12/20/2016 07:41 NBP Sys/Karley/Mean (mmHg): 157 (QS system process) : 80 (QS system process) : 110 (QS system process) Pulse: 75 (QS system process) LaborFlag: Antepartum (QS system process) Datetime: 12/20/2016 07:37 Monitor Mode: External (Yas Bellavance, RNC) Monitor Interventions for UA: [place] Adjusted (Yas Bellavance, RNC) Frequency (min): irreg (Yas Bellavance, RNC) Quality: Mild (Yas Bellavance, RNC) Duration (sec): 50 (Yas Bellavance, RNC) Duration Criteria: Less than Two 120 Second Contractions (Yas Gillianavance, RNC) Pattern: Normal: <= 5 Contractions in 10 Minutes (Yas Bellavance, RNC) Resting Tone (Palpate): Relaxed (Yas Joence, RNC) Monitor Mode: External US (Yas Joence, RNC) Monitor Interventions for FHR: Ultrasound Adjusted (Yas Gillianavance, RN) FHR Baseline Rate : 130 (Yas Gillianavance, RNC) Variability: Moderate 6-25 bpm (Yas Bellavance, RNC) Accelerations: 15X15 (Yas Bellavance, RNC) Decelerations: None (Yas Gillianavance, RNC) Pain Scale: 2 (Yas Gillianavance, RNC) Pain Presence: Intermittent (Yas Gillianavance, RNC) Pain Type: Cramping (Yas Gillianavance, RNC) Pain Location: Abdomen (Yas Gillianavance, RNC) Pain Goal: 2 (Yas Bellavance, RNC) Pain Relief Measures: Comfort Measures (Yas Joence, RNC) Pain Coping: Talking Through Contractions (Yas Gillianavance, RNC) Level of Consciousness: Fully Conscious (Yas Gillianavance, RNC) DTR's/Clonus: DTRs 2+ (Yas Gillianavance, RNC) Headache: Denies (Yas Gillianavance, RNC) Breath Sounds, Left: Clear and Equal (Yas Bellavance, RNC) Breath Sounds, Right: Clear and Equal (Yas Bellavance, RNC) Nausea/Vomiting: Denies (Yas Gillianavance, RNC) RUQ Epigastric Pain: Denies (Yas Gillianavance, RNC) IV/Blood Work: IV Infusing per Order (Yas Easleye, RNC) Patient Position/Activity: Left Tilt (Yas Bellavance, RNC) Comfort Measures: Breathing/Relaxation (Yas Bellavance, RNC) LaborFlag: Antepartum (QS system process) Datetime: 12/20/2016 07:18 Level of Consciousness: Fully Conscious (Yas Bellavance, RNC) DTR's/Clonus: DTRs 2+; No Clonus (Yas Bellavance, RNC) Headache: Denies (Yas Bellavance, RNC) Breath Sounds, Left: Clear and Equal (Yas Bellavance, RNC) Breath Sounds, Right: Clear and Equal (Yas Bellavance, RNC) Nausea/Vomiting: Denies (Yas Bellavance, RNC) RUQ Epigastric Pain: Denies (Yas Bellavance, RNC) Datetime: 12/20/2016 07:11 NBP Sys/Karley/Mean (mmHg): 108 (QS system process) : 53 (QS system process) : 76 (QS system process) Pulse: 79 (QS system process) Respirations: 16 (Yas Bellavance, RNC) Monitor Mode: External (Yas Bellavance, RNC) Monitor Interventions for UA: [place] Adjusted (Yas Gillianavance, RNC) Frequency (min): irreg (Yas Bellavance, RNC) Quality: Mild (Yas Bellavance, RNC) Duration (sec): 50 (Yas Bellavance, RNC) Duration Criteria: Less than Two 120 Second Contractions (Yas Joence, RNC) Pattern: Normal: <= 5 Contractions in 10 Minutes (Yas Gillianavance, RNC) Resting Tone (Palpate): Relaxed (Yas Gillianavance, RNC) Monitor Mode: External US (Yas Gillianavance, RNC) Monitor Interventions for FHR: Ultrasound Adjusted (Yas Joence, RNC) FHR Baseline Rate : 130 (Yas Gillianavance, RNC) Variability: Moderate 6-25 bpm (Yas Bellavance, RNC) Accelerations: 15X15 (Yas Bellavance, RNC) Decelerations: None (Yas Bellavance, RNC) Pain Scale: 2 (Yas Bellavance, RNC) Pain Presence: Intermittent (Yas Bellavance, RNC) Pain Type: Cramping (Yas Gillianavance, RNC) Pain Location: Abdomen (Yas Joence, RNC) Pain Goal: 2 (Yas Bellavance, RNC) Pain Relief Measures: Comfort Measures (Yas Gillianavance, RNC) Pain Coping: Talking Through Contractions (Yas Traceee, RNC) Level of Consciousness: Fully Conscious (Yas Gillianavance, RNC) DTR's/Clonus: DTRs 2+ (Yas Gillianavance, RNC) Headache: Denies (Yasshan Diaznce, RNC) Breath Sounds, Left: Clear and Equal (Yas Gillianavance, RNC) Breath Sounds, Right: Clear and Equal (Yas Bellavance, RNC) Nausea/Vomiting: Denies (Yas Joence, RNC) RUQ Epigastric Pain: Denies (Yasshan Diaznce, RNC) IV/Blood Work: IV Infusing per Order (KRISTEN Hernandez) Patient Position/Activity: Left Tilt (KRISTEN Hernandez) Comfort Measures: Breathing/Relaxation (KRISTEN Hernandez) LaborFlag: Antepartum (QS system process) Datetime: 12/20/2016 07:09 Communication Comments: Report given to Parmjit Vitale. Care relinquished at this time. (Shaneka Ochoa RN) Datetime: 12/20/2016 07:00 Stage of : Antepartum (Shaneka Ochoa RN) Monitor Mode: External (Shaneka Ochoa RN) Monitor Interventions for UA: [place] Adjusted (Shaneka Ochoa RN) Frequency (min): x3 (Shaneka Ochoa RN) Quality: Mild (Shaneka Ochoa RN) Duration (sec): 50-90 (Shaneka Ochoa RN) Resting Tone (Palpate): Relaxed (Shaneka Ochoa RN) Pain Coping: Sleeping (Shaneka Ochoa RN) Communication: RN Reviewed Strip (Shaneka Ochoa RN) Datetime: 12/20/2016 06:30 Stage of : Antepartum (Shaneka Ochoa RN) Monitor Mode: External (Shaneka Ochoa RN) Frequency (min): x1 (Shaneka Ochoa RN) Quality: Mild (Shaneka Ochoa RN) Duration (sec): 50 (Shaneka Ochoa RN) Resting Tone (Palpate): Relaxed (Shaneka Ochoa RN) Pain Coping: Sleeping (Shaneka Ochoa RN) Communication: RN at Bedside; RN Reviewed Strip (Shaneka Ochoa RN) Datetime: 12/20/2016 06:25 NBP Sys/Karley/Mean (mmHg): 149 (QS system process) : 71 (QS system process) : 102 (QS system process) Pulse: 69 (QS system process) LaborFlag: Antepartum (QS system process) Datetime: 12/20/2016 06:10 NBP Sys/Karley/Mean (mmHg): 107 (QS system process) : 54 (QS system process) : 77 (QS system process) Pulse: 69 (QS system process) LaborFlag: Antepartum (QS system process) Datetime: 12/20/2016 06:00 Stage of : Antepartum (Shaneka Ochoa RN) Frequency (min): n/a (Shaneka Ochoa RN) Pain Coping: Sleeping (Shaneka Ochoa RN) Patient Position/Activity: Left Tilt; Semi-Fowlers (Shaneka Ochoa RN) Communication: RN Reviewed Strip (Shaneka Ochoa RN) Datetime: 12/20/2016 05:55 NBP Sys/Karley/Mean (mmHg): 139 (QS system process) : 71 (QS system process) : 99 (QS system process) Pulse: 71 (QS system process) LaborFlag: Antepartum (QS system process) Datetime: 12/20/2016 05:40 NBP Sys/Karley/Mean (mmHg): 137 (QS system process) : 65 (QS system process) : 94 (QS system process) Pulse: 69 (QS system process) LaborFlag: Antepartum (QS system process) Datetime: 12/20/2016 05:30 Stage of : Antepartum (Shaneka Ochoa RN) Frequency (min): n/a (Shaneka Ochoa RN) Pain Coping: Sleeping (Shaneka Ochoa RN) Patient Position/Activity: Left Tilt; Semi-Fowlers (Shaneka Ochoa RN) Communication: RN Reviewed Strip (Shaneka Ochoa RN) Datetime: 12/20/2016 05:25 NBP Sys/Karley/Mean (mmHg): 144 (QS system process) : 70 (QS system process) : 101 (QS system process) Pulse: 75 (QS system process) LaborFlag: Antepartum (QS system process) Datetime: 12/20/2016 05:10 NBP Sys/Karley/Mean (mmHg): 141 (QS system process) : 79 (QS system process) : 105 (QS system process) Pulse: 78 (QS system process) LaborFlag: Antepartum (QS system process) Datetime: 12/20/2016 05:00 Stage of : Antepartum (Shaneka Ochoa RN) Frequency (min): 0 (Shaneka Ochoa RN) Monitor Mode: External US (Shaneka Ochoa RN) Monitor Interventions for FHR: Ultrasound Adjusted (Shaneka Ochoa RN) FHR Baseline Rate : 130 (Shaneka Ochoa RN) FHR Baseline Changes: No Baseline Change (Shaneka Ochoa RN) Variability: Moderate 6-25 bpm (Shaneka Ochoa RN) Accelerations: 15X15 (Shaneka Ochoa RN) Decelerations: None (Shaneka Ochoa RN) Pain Presence: None/Denies (Shaneka Ochoa RN) Patient Position/Activity: Left Tilt; Semi-Fowlers (Shaneka Ochoa RN) Communication: RN at Bedside; RN Reviewed Strip (Shaneka Ochoa RN) LaborFlag: Antepartum (QS system process) Datetime: 12/20/2016 04:56 NBP Sys/Karley/Mean (mmHg): 143 (QS system process) : 74 (QS system process) : 101 (QS system process) Pulse: 74 (QS system process) LaborFlag: Antepartum (QS system process) Datetime: 12/20/2016 04:39 NBP Sys/Karley/Mean (mmHg): 147 (QS system process) : 69 (QS system process) : 99 (QS system process) Pulse: 75 (QS system process) LaborFlag: Antepartum (QS system process) Datetime: 12/20/2016 04:37 NBP Sys/Karley/Mean (mmHg): 217 (QS system process) : 103 (QS system process) : 147 (QS system process) Pulse: 78 (QS system process) LaborFlag: Antepartum (QS system process) Datetime: 12/20/2016 04:30 Stage of : Antepartum (Shaneka Ochoa RN) Monitor Mode: External (Shaneka Ochoa RN) Monitor Interventions for UA: [place] Adjusted (Shaneka Ochoa RN) Frequency (min): 2-5 (Shaneka Ochoa RN) Quality: Mild (Shaneka Ochoa RN) Duration (sec): 50-90 (Shaneka Ochoa RN) Resting Tone (Palpate): Relaxed (Shaneka Ochoa RN) Pain Presence: None/Denies (Shaneka Ochoa RN) Patient Position/Activity: Left Tilt; Semi-Fowlers (Shaneka Ochoa RN) Communication: RN at Bedside; RN Reviewed Strip (Shaneka Ochoa RN) LaborFlag: Antepartum (QS system process) Datetime: 12/20/2016 04:29 NBP Sys/Karley/Mean (mmHg): 170 (QS system process) : 87 (QS system process) : 122 (QS system process) Pulse: 78 (QS system process) I/O Interventions: Up to BR (Shaneka Ochoa RN) LaborFlag: Antepartum (QS system process) Datetime: 12/20/2016 04:26 NBP Sys/Karley/Mean (mmHg): 185 (QS system process) : 96 (QS system process) : 132 (QS system process) Pulse: 77 (QS system process) LaborFlag: Antepartum (QS system process) Datetime: 12/20/2016 04:00 Stage of : Antepartum (Shaneka Ochoa RN) Monitor Mode: External (Shaneka Ochoa RN) Monitor Interventions for UA: [place] Adjusted (Shaneka Ochoa RN) Frequency (min): 2-5 (Shaneka Ochoa RN) Quality: Mild (Shaneka Ochoa RN) Duration (sec): 60-80 (Shaneka Ochoa RN) Resting Tone (Palpate): Relaxed (Shaneka Ochoa RN) Pain Coping: Sleeping (Shaneka Ohcoa RN) Patient Position/Activity: Left Tilt; Semi-Fowlers (Shaneka Ochoa RN) Communication: RN Reviewed Strip (Shaneka Ochoa RN) Datetime: 12/20/2016 03:56 NBP Sys/Karley/Mean (mmHg): 164 (QS system process) : 89 (QS system process) : 121 (QS system process) Pulse: 72 (QS system process) LaborFlag: Antepartum (QS system process) Datetime: 12/20/2016 03:30 Stage of : Antepartum (Shaneka Ochoa RN) Monitor Mode: External (Shaneka Ochoa RN) Monitor Interventions for UA: [place] Adjusted (Shaneka Ochoa RN) Frequency (min): n/a (Shaneka Ochoa RN) Resting Tone (Palpate): Relaxed (Shaneka Ochoa RN) Pain Coping: Sleeping (Shaneka Ochoa RN) Communication: RN at Bedside; RN Reviewed Strip (Shaneka Ochoa RN) Datetime: 12/20/2016 03:29 NBP Sys/Karley/Mean (mmHg): 157 (QS system process) : 84 (QS system process) : 114 (QS system process) Pulse: 72 (QS system process) LaborFlag: Antepartum (QS system process) Datetime: 12/20/2016 03:28 NBP Sys/Karley/Mean (mmHg): 163 (QS system process) : 83 (QS system process) : 116 (QS system process) Pulse: 78 (QS system process) LaborFlag: Antepartum (QS system process) Datetime: 12/20/2016 03:26 NBP Sys/Karley/Mean (mmHg): 168 (QS system process) : 85 (QS system process) : 119 (QS system process) Pulse: 84 (QS system process) LaborFlag: Antepartum (QS system process) Datetime: 12/20/2016 03:00 Stage of : Antepartum (Shaneka Ochoa RN) Monitor Mode: External (Shaneka Ochoa RN) Monitor Interventions for UA: [place] Adjusted (Shaneka Ochoa RN) Quality: Mild (Shaneka Ochoa RN) Resting Tone (Palpate): Relaxed (Shaneka Ochoa RN) Pain Coping: Sleeping (Shaneka Ochoa RN) Communication: RN Reviewed Strip (Shaneka Ochoa RN) Datetime: 12/20/2016 02:55 NBP Sys/Karley/Mean (mmHg): 140 (QS system process) : 75 (QS system process) : 102 (QS system process) Pulse: 79 (QS system process) LaborFlag: Antepartum (QS system process) Datetime: 12/20/2016 02:30 Stage of : Antepartum (Shaneka Ochoa RN) Monitor Mode: External (Shaneka Ochoa RN) Frequency (min): n/a (Shaneka Ochoa RN) Resting Tone (Palpate): Relaxed (Shaneka Ochoa RN) Pain Coping: Sleeping (Shaneka Ochoa RN) Communication: RN Reviewed Strip (Shaneka Ochoa RN) Datetime: 12/20/2016 02:00 Stage of : Antepartum (Shaneka Ochoa RN) Monitor Mode: External (Shankea Ochoa RN) Monitor Interventions for UA: [place] Adjusted (Shaneka Ochoa RN) Frequency (min): n/a (Shaneka Ochoa RN) Quality: Mild (Shaneka Ochoa RN) Resting Tone (Palpate): Relaxed (Shaneka Ochoa RN) Pain Coping: Sleeping (Shaneka Ochoa RN) Patient Position/Activity: Left Tilt; Semi-Fowlers (Shaneka Ochoa RN) Communication: RN Reviewed Strip (Shaneka Ochoa RN) Datetime: 12/20/2016 01:40 NBP Sys/Karley/Mean (mmHg): 130 (QS system process) : 60 (QS system process) : 86 (QS system process) Pulse: 81 (QS system process) LaborFlag: Antepartum (QS system process) Datetime: 12/20/2016 01:30 Stage of : Antepartum (Shaneka Ochoa RN) Monitor Mode: External (Shaneka Ochoa RN) Monitor Interventions for UA: [place] Adjusted (Shaneka Ochoa RN) Frequency (min): n/a (Shaneka Ochoa RN) Resting Tone (Palpate): Relaxed (Shaneka Ochoa RN) Pain Coping: Sleeping (Shaneka Ochoa RN) Patient Position/Activity: Left Tilt; Semi-Fowlers (Shaneka Ochoa RN) Communication: RN at Bedside; RN Reviewed Strip (Shaneka Ochoa RN) Datetime: 12/20/2016 01:12 NBP Sys/Karley/Mean (mmHg): 159 (QS system process) : 80 (QS system process) : 110 (QS system process) Pulse: 85 (QS system process) LaborFlag: Antepartum (QS system process) Datetime: 12/20/2016 01:10 Contraction Comments: pt adjusting in bed (Shaneka Errichiello, RN) Datetime: 12/20/2016 01:09 NBP Sys/Karley/Mean (mmHg): 179 (QS system process) : 84 (QS system process) : 120 (QS system process) Pulse: 82 (QS system process) LaborFlag: Antepartum (QS system process) Datetime: 12/20/2016 01:00 Stage of : Antepartum (Shaneka Errichiello, RN) Frequency (min): n/a (Shaneka Ochoa RN) Pain Coping: Sleeping (Shaneka Ochoa RN) Patient Position/Activity: Left Tilt (Shaneka Ochoa RN) Communication: RN Reviewed Strip (Shaneka Ochoa RN) Datetime: 12/20/2016 00:39 NBP Sys/Karley/Mean (mmHg): 156 (QS system process) : 89 (QS system process) : 117 (QS system process) Pulse: 79 (QS system process) LaborFlag: Antepartum (QS system process) Datetime: 12/20/2016 00:30 Stage of : Antepartum (Shaneka Ochoa RN) Monitor Mode: External (Shaneka Ochoa RN) Frequency (min): 0 (Shaneka Ochoa RN) Resting Tone (Palpate): Relaxed (Shaneka Ochoa RN) Monitor Mode: External US (Shaneka Ochoa RN) FHR Baseline Rate : 140 (Shaneka Ochoa RN) FHR Baseline Changes: No Baseline Change (Shaneka Ochoa RN) Variability: Moderate 6-25 bpm (Shaneka Ochoa RN) Accelerations: 15X15 (Shaneka Ochoa RN) Pain Presence: None/Denies (Shaneka Ochoa RN) Patient Position/Activity: Right Tilt; Semi-Fowlers (Shaneka Ochoa RN) Communication: Call/Page Placed to Provider (Shaneka Ochoa RN) Communication: RN at Bedside; RN Reviewed Strip (Shaneka Ochoa RN) Communication Comments: Call placed to Dr Ba regarding difficulty with EFM. Orders received for 20 minute of FHM q4 hours. Orders carried out. (Shaneka Ochoa RN) LaborFlag: Antepartum (QS system process) Datetime: 12/20/2016 00:10 Comments: RN at b/s adjusting (Shaneka Ochoa RN) Datetime: 12/20/2016 00:09 NBP Sys/Karley/Mean (mmHg): 159 (QS system process) : 79 (QS system process) : 112 (QS system process) Pulse: 78 (QS system process) LaborFlag: Antepartum (QS system process) Datetime: 12/20/2016 00:00 Stage of : Antepartum (Shaneka Ochoa RN) Monitor Mode: External (Shaneka Ochoa RN) Monitor Interventions for UA: [place] Adjusted (Shaneka Ochoa RN) Frequency (min): 0 (Shaneka Ochoa RN) Quality: Mild (Shaneka Ochoa RN) Resting Tone (Palpate): Relaxed (Shaneka Ochoa RN) Monitor Mode: External US (Shaneka Ochoa RN) Monitor Interventions for FHR: Ultrasound Adjusted (Shaneka Ochoa RN) FHR Baseline Rate : 140 (Shaneka Ochoa RN) FHR Baseline Changes: No Baseline Change (Shaneka Ochoa RN) Variability: Moderate 6-25 bpm (Shaneka Ochoa RN) Accelerations: 15X15 (Shaneka Ochoa RN) Decelerations: None (Shaneka Ochoa RN) Pain Presence: None/Denies (Shaneka Ochoa RN) Patient Position/Activity: Left Tilt; Semi-Fowlers (Shaneka Ochoa RN) Communication: RN at Bedside; RN Reviewed Strip (Shaneka Ochoa RN) LaborFlag: Antepartum (QS system process) Datetime: 12/19/2016 23:40 NBP Sys/Karley/Mean (mmHg): 158 (QS system process) : 87 (QS system process) : 116 (QS system process) Pulse: 76 (QS system process) LaborFlag: Antepartum (QS system process) Datetime: 12/19/2016 23:30 Stage of : Antepartum (Shaneka Ochoa RN) Monitor Mode: External (Shaneka Ochoa RN) Monitor Interventions for UA: [place] Adjusted (Shaneka Ochoa RN) Frequency (min): 0 (Shaneka Ochoa RN) Resting Tone (Palpate): Relaxed (Shaneka Ochoa RN) Monitor Mode: External US (Shaneka Ochoa RN) Monitor Interventions for FHR: Ultrasound Adjusted (Shaneka Ochoa RN) FHR Baseline Rate : 150 (Shaneka Ochoa RN) FHR Baseline Changes: No Baseline Change (Shaneka Ochoa RN) Variability: Moderate 6-25 bpm (Shaneka Ochoa RN) Accelerations: 15X15 (Shaneka Ochoa RN) Decelerations: None (Shaneka Ochoa RN) Pain Presence: None/Denies (Shaneka Ochoa RN) Patient Position/Activity: Left Tilt; Semi-Fowlers (Shaneka Ochoa RN) Communication: RN at Bedside; RN Reviewed Strip (Shaneka Ochoa RN) LaborFlag: Antepartum (QS system process) Datetime: 12/19/2016 23:19 Comments: RN at b/s adjusting US (Shaneka Ochoa, RN) Datetime: 12/19/2016 23:09 NBP Sys/Karley/Mean (mmHg): 145 (QS system process) : 86 (QS system process) : 111 (QS system process) Pulse: 80 (QS system process) LaborFlag: Antepartum (QS system process) Datetime: 12/19/2016 23:00 Stage of : Antepartum (Shaneka Ochoa RN) Monitor Mode: External (Shaneka Ochoa RN) Frequency (min): 0 (Shaneka Ochoa RN) Quality: Mild (Shaneka Ochoa RN) Resting Tone (Palpate): Relaxed (Shaneka Ochoa RN) Monitor Mode: External US (Shaneka Ochoa RN) FHR Baseline Rate : 150 (Shaneka Ochoa RN) FHR Baseline Changes: No Baseline Change (Shaneka Ochoa RN) Variability: Moderate 6-25 bpm (Shaneka Ochoa RN) Accelerations: 15X15 (Shaneka Ochoa RN) Decelerations: None (Shaneka Ochoa RN) Pain Presence: None/Denies (Shaneka Ochoa RN) Communication: RN at Bedside; RN Reviewed Strip (Shaneka Ochoa RN) LaborFlag: Antepartum (QS system process) Datetime: 12/19/2016 22:39 NBP Sys/Karley/Mean (mmHg): 140 (QS system process) : 89 (QS system process) : 110 (QS system process) Pulse: 78 (QS system process) LaborFlag: Antepartum (QS system process) Datetime: 12/19/2016 22:30 Stage of : Antepartum (Shaneka Ochoa RN) Monitor Mode: External (Shaneka Ochoa RN) Frequency (min): 0 (Shaneka Ochoa RN) Quality: Mild (Shaneka Ochoa RN) Resting Tone (Palpate): Relaxed (Shaneka Ochoa RN) Monitor Mode: External US (Shaneka Ochoa RN) FHR Baseline Rate : 155 (Shaneka Ochoa RN) FHR Baseline Changes: No Baseline Change (Shaneka Ochoa RN) Variability: Moderate 6-25 bpm (Shaneka Ochoa RN) Accelerations: 15X15 (Shaneka Ochoa RN) Decelerations: None (Shaneka Ochoa RN) Pain Presence: None/Denies (Shaneka Ochoa RN) Patient Position/Activity: Left Tilt; Semi-Fowlers (Shaneka Ochoa RN) Communication: RN at Bedside; RN Reviewed Strip (Shaneka Ochoa RN) LaborFlag: Antepartum (QS system process) Datetime: 12/19/2016 21:59 Stage of : Antepartum (Shaneka Ochoa RN) NBP Sys/Karley/Mean (mmHg): 133 (QS system process) : 67 (QS system process) : 94 (QS system process) Pulse: 80 (QS system process) Monitor Mode: External (Shaneka Ochoa RN) Frequency (min): 0 (Shaneka Ochoa RN) Resting Tone (Palpate): Relaxed (Shaneka Ochoa RN) Monitor Mode: External US (Shaneka Ochoa RN) FHR Baseline Rate : 135 (Shaneka Ochoa RN) FHR Baseline Changes: No Baseline Change (Shaneka Ochoa RN) Variability: Moderate 6-25 bpm (Shaneka Ochoa RN) Accelerations: 15X15 (Shaneka Ochoa RN) Decelerations: None (Shaneka Ochoa RN) Pain Presence: None/Denies (Sahneka Ochoa RN) Patient Position/Activity: Left Tilt; Semi-Fowlers (Shaneka Ochoa RN) Communication: RN at Bedside; RN Reviewed Strip (Shaneka Ochoa RN) LaborFlag: Antepartum (QS system process) Datetime: 12/19/2016 21:45 Stage of : Antepartum (Shaneka Ochoa RN) Monitor Mode: External (Shaneka Ochoa RN) Frequency (min): 0 (Shaneka Ochoa RN) Quality: Mild (Shaneka Ochoa RN) Resting Tone (Palpate): Relaxed (Shaneka Ochoa RN) Monitor Mode: External US (Shaneka Ochoa RN) FHR Baseline Rate : 130 (Shaneka Ochoa RN) FHR Baseline Changes: No Baseline Change (Shaneka Ochoa RN) Variability: Moderate 6-25 bpm (Shaneka Ochoa RN) Accelerations: 15X15 (Shaneka Ochoa RN) Decelerations: None (Shaneka Ochoa RN) Pain Presence: None/Denies (Shaneka Ochoa RN) Patient Position/Activity: Left Tilt; Semi-Fowlers (Shaneka Ochoa RN) Communication: RN at Bedside; RN Reviewed Strip (Shaneka Ochoa RN) LaborFlag: Antepartum (QS system process) Datetime: 12/19/2016 21:40 Cervical Ripening Agents: Cervidil (Shaneka Ochoa RN) Medication Comments: cervidil placed per protocol (Shaneka Ochoa RN) Datetime: 12/19/2016 21:31 I/O Interventions: Up to BR (Shaneka Ochoa RN) Datetime: 12/19/2016 21:20 Comments: RN at b/s finding FHR (Shaneka Ochoa RN) Datetime: 12/19/2016 21:15 Stage of : Antepartum (Shaneka Ochoa RN) Monitor Mode: External; Palpation (Shaneka Ochoa RN) Monitor Interventions for UA: [place] Adjusted (Shaneka Ochoa RN) Frequency (min): 0 (Shaneka Ochoa RN) Resting Tone (Palpate): Relaxed (Shaneka Ochoa RN) Monitor Mode: External US (Shaneka Ochoa RN) Monitor Interventions for FHR: Ultrasound Adjusted (Shaneka Ochoa RN) FHR Baseline Rate : 145 (Shaneka Ochoa RN) FHR Baseline Changes: No Baseline Change (Shaneka Ochoa RN) Variability: Moderate 6-25 bpm (Shaneka Ochoa RN) Accelerations: 15X15 (Shaneka Ochoa RN) Decelerations: None (Shaneka Ochoa RN) Pain Presence: None/Denies (Shaneka Ochoa RN) Level of Consciousness: Fully Conscious (Shaneka Ochoa RN) DTR's/Clonus: DTRs 2+; No Clonus (Shaneka Ochoa RN) Headache: Denies (Shaneka Ochoa RN) Breath Sounds, Left: Clear and Equal (Shaneka Ochoa RN) Breath Sounds, Right: Clear and Equal (Shaneka Ochoa RN) Nausea/Vomiting: Denies (Shaneka Ochoa RN) Patient Position/Activity: Left Tilt; Semi-Fowlers (Shaneka Ochoa RN) Communication: RN at Bedside; RN Reviewed Strip (Shaneka Ochoa RN) LaborFlag: Antepartum (QS system process) Datetime: 12/19/2016 21:14 IV/Blood Work: IV Started; IV Bolus Started; IV Infusing per Order (Shaneka Ohcoa RN) Datetime: 12/19/2016 21:09 NBP Sys/Karley/Mean (mmHg): 141 (QS system process) : 77 (QS system process) : 104 (QS system process) Pulse: 82 (QS system process) LaborFlag: OB Triage (QS system process) Datetime: 12/19/2016 21:00 Pain Scale: 0 (Shaneka Ochoa RN) Pain Presence: None/Denies (Shaneka Ochoa RN) Pain Type: N/A (Shaneka Ochoa RN) Level of Consciousness: Fully Conscious (Shaneka Ochoa RN) DTR's/Clonus: DTRs 2+; No Clonus (Shaneka Ochoa RN) Headache: Denies (Shaneka Ochoa RN) Breath Sounds, Left: Clear and Equal (Shaneka Ochoa RN) Breath Sounds, Right: Clear and Equal (Shaneka Ochoa RN) Nausea/Vomiting: Denies (Shaneka Ochoa RN) RUQ Epigastric Pain: Denies (Shaneka Ochoa RN) Procedures: Consents Signed (Shaneka Ochoa RN) LaborFlag: OB Triage (QS system process) Datetime: 12/19/2016 20:59 Contraction Comments: TOCO placed and explained to pt (Shaneka Ochoa RN) Comments: US placed and explained to pt (Shaneka Ochoa RN) Datetime: 12/19/2016 20:48 Exam by: dr ba (Shaneka Ochoa RN) Vaginal Exam Comments: ft/thick/hi (Shaneka Ochoa RN)
--- NOTE | 2016-12-20 08:50 | L&D Progress Notes ---
PROGRESS NOTES Datetime Report Generated by CPN: 12/20/2016 08:50 PROGRESS NOTE Plan: Continue Present Management; Cervical Ripening Vital Signs : Reviewed; Within Normal Limits Comment: Resting in bed, cramping, no uc's, OOB to BR, discussed POC, cervidil remains in, + GBS VAGINAL EXAM Dilatation: 0 Effacement: 0 Station: -3 MEMBRANES Pooling: Negative Membranes: Intact FETUS A FHR - Baseline: 130 Variability: Moderate 6-25bpm : 37.2 Estimated Weight (gm): 3400 Presentation: Vertex SIGNATURE SIGNATURE: [id number] SIGNATURE: [id number] SIGNATURE: [id number] Assignment: Jojo Carrasco MD Signature: with User ID: [email or web address] : with User ID: [email or web address]
[2016-12-20] MEDS ORDERED: MISOPROSTOL 0.1 MG TABLET ONE ×2 (11:09→15:45)
[2016-12-20] MEDS ORDERED: OXYTOCIN/NORMAL SALINE 1,000 ML IV PRN (11:11)
[2016-12-20] MEDS: RINGERS SOLUTION,LACTATED 1,000 ML IV PRN (11:14)
[2016-12-20] MEDS ORDERED: MISOPROSTOL 0.1 MG TABLET PV ONE (11:45)
--- NOTE | 2016-12-20 12:00 | L&D Flow Sheet ---
LD Flowsheet Datetime Report Generated by CPN: 12/20/2016 12:00 Datetime: 12/20/2016 11:32 NBP Sys/Karley/Mean (mmHg): 166 (QS system process) : 90 (QS system process) : 120 (QS system process) Pulse: 77 (QS system process) LaborFlag: Antepartum (QS system process) Datetime: 12/20/2016 09:49 Communication Comments: monitor off and patient to pull cervidil and order breakfast (Yas Bellavance, RNC) Datetime: 12/20/2016 09:10 NBP Sys/Karley/Mean (mmHg): 161 (QS system process) : 89 (QS system process) : 117 (QS system process) Pulse: 74 (QS system process) Respirations: 17 (Yas Bellavance, RNC) Monitor Mode: External (Yas Bellavance, RNC) Monitor Interventions for UA: [place] Adjusted (Yas Bellavance, RNC) Frequency (min): irreg (Yas Bellavance, RNC) Quality: Mild (Yas Bellavance, RNC) Duration (sec): 50 (Yas Bellavance, RNC) Duration Criteria: Less than Two 120 Second Contractions (Yas Bellavance, RNC) Pattern: Normal: <= 5 Contractions in 10 Minutes (Yas Bellavance, RNC) Resting Tone (Palpate): Relaxed (Yas Bellavance, RNC) Pain Relief Measures: Comfort Measures (Yas Bellavance, RNC) Pain Coping: Talking Through Contractions (Yas Bellavance, RNC) Level of Consciousness: Fully Conscious (Yas Bellavance, RNC) DTR's/Clonus: DTRs 2+ (Yas Bellavance, RNC) Headache: Denies (Yas Bellavance, RNC) Nausea/Vomiting: Denies (Yas Bellavance, RNC) RUQ Epigastric Pain: Denies (Yas Bellavance, RNC) IV/Blood Work: IV Infusing per Order (Yas Belljuliance, RNC) Patient Position/Activity: Left Tilt (Yas Bellavance, RNC) Comfort Measures: Breathing/Relaxation (Yas Bellavance, RNC) LaborFlag: Antepartum (QS system process) Datetime: 12/20/2016 08:40 NBP Sys/Karley/Mean (mmHg): 167 (QS system process) : 88 (QS system process) : 118 (QS system process) Pulse: 76 (QS system process) Respirations: 16 (Yas Bellavance, RNC) Monitor Mode: External (Yas Bellavance, RNC) Monitor Interventions for UA: [place] Adjusted (Yas Bellavance, RNC) Frequency (min): irreg (Yas Bellavance, RNC) Quality: Mild (Yas Bellavance, RNC) Duration (sec): 50 (Yas Bellavance, RNC) Duration Criteria: Less than Two 120 Second Contractions (Yas Bellavance, RNC) Pattern: Normal: <= 5 Contractions in 10 Minutes (Yas Bellavance, RNC) Resting Tone (Palpate): Relaxed (Yas Bellavance, RNC) Pain Relief Measures: Comfort Measures (Yas Bellavance, RNC) Pain Coping: Talking Through Contractions (Yas Bellavance, RNC) Level of Consciousness: Fully Conscious (Yas Bellavance, RNC) DTR's/Clonus: DTRs 2+ (Yas Bellavance, RNC) Headache: Denies (Yas Bellavance, RNC) Nausea/Vomiting: Denies (Yas Bellavance, RNC) RUQ Epigastric Pain: Denies (Yas Bellavance, RNC) IV/Blood Work: IV Infusing per Order (Yas Bellavance, RNC) Patient Position/Activity: Left Tilt (Yas Bellavance, RNC) Comfort Measures: Breathing/Relaxation (Yas Bellavance, RNC) LaborFlag: Antepartum (QS system process) Datetime: 12/20/2016 08:38 Hygiene: Oral Care; Perip[place] Changed (Yas Bellavance, RNC) I/O Interventions: Up to BR (Yas Bellavance, RNC) Datetime: 12/20/2016 08:10 NBP Sys/Karley/Mean (mmHg): 141 (QS system process) : 87 (QS system process) : 109 (QS system process) Pulse: 74 (QS system process) Respirations: 18 (Yas Bellavance, RNC) Monitor Mode: External (Yas Bellavance, RNC) Monitor Interventions for UA: [place] Adjusted (Yas Bellavance, RNC) Frequency (min): irreg (Yas Bellavance, RNC) Quality: Mild (Yas Bellavance, RNC) Duration (sec): 50 (Yas Vitale, RNC) Duration Criteria: Less than Two 120 Second Contractions (aYs Vitale, RNC) Pattern: Normal: <= 5 Contractions in 10 Minutes (Yas Vitale, RNC) Resting Tone (Palpate): Relaxed (Yas Vitale, RNC) Pain Relief Measures: Comfort Measures (Yas Vitale, RNC) Pain Coping: Talking Through Contractions (Yas Vitale, RNC) Level of Consciousness: Fully Conscious (Yas Vitale, RNC) DTR's/Clonus: DTRs 2+ (Yas Vitale, RNC) Headache: Denies (Yas Vitale, RNC) Nausea/Vomiting: Denies (Yas Vitale, RNC) RUQ Epigastric Pain: Denies (Yas Vitale, RNC) IV/Blood Work: IV Infusing per Order (Yas Vitale, RNC) Patient Position/Activity: Left Tilt (Yas Vitale, RNC) Comfort Measures: Breathing/Relaxation (Yas Vitale, RNC) LaborFlag: Antepartum (QS system process)
--- NOTE | 2016-12-20 12:35 | L&D Progress Notes ---
PROGRESS NOTES Datetime Report Generated by CPN: 12/20/2016 12:34 PROGRESS NOTE Impression: Reassuring Heart Rate Plan: Cervical Ripening Vital Signs : Reviewed Vital Signs Comments: BP labile Comment: Cat 1 strip, difficult to keep baby on monitor due to pt habitus BP elevated, Parmjit Vitale called Dr. Delaney and informed her of elevated BP, orders for repeat Pre-E labs, monitor BP Pt took her labetelol at 1130 No UC's seen on monitor, feels cramping Will monitor closely FETUS A FHR - Baseline: 130 Monitoring: External US Decelerations: None FETUS C SIGNATURE: [id number] Assignment: Jojo Carrasco MD Signature: with User ID: [email or web address] : with User ID: [email or web address]
[2016-12-20 13:39] LABS: ABSOLUTE BASOPHILS # (AUTO) 0.1 10^3/uL (0.0-0.2); ABSOLUTE EOSINOPHILS # (AUTO) 0.1 10^3/uL (0.0-0.6); ABSOLUTE LYMPHOCYTES (AUTO) 1.5 10^3/uL (0.5-4.7); ABSOLUTE MONOCYTES (AUTO) 0.7 10^3/uL (0.1-1.4); ABSOLUTE NEUT (AUTO) 6.9 10^3/uL (1.7-8.2); BASOPHILS % (AUTO) 0.8 % (0-2); EOSINOPHILS % (AUTO) 0.7 % (0-6); HEMATOCRIT 36.6 % (36.0-47.0); HEMOGLOBIN 10.9 g/dL (12.0-15.5); HGB HCT DIFFERENCE -3.9; LYMPHOCYTES % (AUTO) 16.2 % (13-45); MEAN CORPUSCULAR HEMOGLOBIN 21.6 pg (27.0-33.4); MEAN CORPUSCULAR HGB CONC 29.7 g/dL (32.0-36.0); MEAN CORPUSCULAR VOLUME 73 fl (80-97); MONOCYTES % (AUTO) 7.9 % (3-13); RED BLOOD COUNT 5.03 10^6/uL (3.72-5.28); RED CELL DISTRIBUTION WIDTH 16.8 % (11.5-14.0); SEGMENTED NEUTROPHILS % (AUTO) 74.4 % (42-78); WHITE BLOOD COUNT 9.3 10^3/uL (4.0-10.5)
[2016-12-20 13:53] LABS: ALANINE AMINOTRANSFERASE 35 U/L (9-52); ALBUMIN 3.7 g/dL (3.5-5.0); ALKALINE PHOSPHATASE 124 U/L (38-126); ANION GAP 7 (5-19); ASPARTATE AMINO TRANSFERASE 33 U/L (14-36); BILIRUBIN,TOTAL 0.5 mg/dL (0.2-1.3); BLOOD UREA NITROGEN 7 mg/dL (7-20); CALCIUM 9.8 mg/dL (8.4-10.2); CARBON DIOXIDE 27 mmol/L (22-30); CHLORIDE 104 mmol/L (98-107); CREATININE RESULT 0.68 mg/dL (0.52-1.25); GLUCOSE 81 mg/dL (75-110); LDH 649 U/L (313-618); POTASSIUM 4.3 mmol/L (3.6-5.0); SODIUM 137.9 mmol/L (137-145); TOTAL PROTEIN 6.7 g/dL (6.3-8.2); URIC ACID 5.5 mg/dL (2.5-7.0)
[2016-12-20] MEDS ORDERED: MISOPROSTOL 0.1 MG TABLET PV SCH (14:00)
[2016-12-20] MEDS ORDERED: LABETALOL HCL INJ 20 MG/4 ML DISP.SYRIN IV ONE ×2 (15:36→15:38)
--- NOTE | 2016-12-20 16:01 | L&D Flow Sheet ---
LD Flowsheet Datetime Report Generated by CPN: 12/20/2016 16:00 Datetime: 12/20/2016 15:57 NBP Sys/Karley/Mean (mmHg): 142 (QS system process) : 98 (QS system process) : 111 (QS system process) Pulse: 86 (QS system process) LaborFlag: Antepartum (QS system process) Datetime: 12/20/2016 15:51 NBP Sys/Karley/Mean (mmHg): 163 (QS system process) : 99 (QS system process) : 125 (QS system process) Pulse: 78 (QS system process) LaborFlag: Antepartum (QS system process) Datetime: 12/20/2016 15:47 NBP Sys/Karley/Mean (mmHg): 160 (QS system process) : 98 (QS system process) : 124 (QS system process) Pulse: 78 (QS system process) LaborFlag: Antepartum (QS system process) Datetime: 12/20/2016 15:40 Magnesium/Antihypertensives: Labetolol IV (mg) @ 20mg iv (Emily Camp, RNC) Datetime: 12/20/2016 15:33 Provider Reviewed Strip: Yes (Emily Garcia, RNC) Communication: Provider Orders Received (Emily Garcia, RNC) Communication Comments: Dr Carrasco at nurses station reviewed strip and vital signs. Plan discussed and order received to proceed with IV labetalol x1 (Emily Jose, RNC) Datetime: 12/20/2016 15:32 NBP Sys/Karley/Mean (mmHg): 180 (QS system process) : 88 (QS system process) : 123 (QS system process) Pulse: 74 (QS system process) LaborFlag: Antepartum (QS system process) Datetime: 12/20/2016 15:30 Monitor Mode: External; Palpation (Emily Camp, RNC) Frequency (min): 6-7 (Emily Camp, RNC) Quality: Mild (Emily Camp, RNC) Duration (sec): 40-50 (Emily Camp, RNC) Resting Tone (Palpate): Relaxed (Emily Camp, RNC) Monitor Mode: External US; Auscultation (Emily Camp, RNC) FHR Baseline Rate : 130 (Emily Camp, RNC) FHR Baseline Changes: No Baseline Change (Emily Camp, RNC) Variability: Moderate 6-25 bpm (Emily Camp, RNC) Accelerations: 15X15 (Emily Camp, RNC) Decelerations: None (Emily Camp, RNC) Datetime: 12/20/2016 15:02 NBP Sys/Karley/Mean (mmHg): 173 (QS system process) : 95 (QS system process) : 127 (QS system process) Pulse: 77 (QS system process) LaborFlag: Antepartum (QS system process) Datetime: 12/20/2016 15:00 Monitor Mode: External (Emily Camp, RNC) Frequency (min): 6-7 (Emily Camp, RNC) Quality: Mild (Emily Camp, RNC) Duration (sec): 40-60 (Emily Camp, RNC) Resting Tone (Palpate): Relaxed (Emily Camp, RNC) Monitor Mode: External US; Auscultation (Emily Camp, RNC) FHR Baseline Rate : 135 (Emily Camp, RNC) FHR Baseline Changes: No Baseline Change (Emily Camp, RNC) Variability: Moderate 6-25 bpm (Emily Camp, RNC) Accelerations: 15X15 (Emily Camp, RNC) Decelerations: None (Emily Camp, RNC) Datetime: 12/20/2016 14:45 Monitor Mode: External (Yas Bellavance, RNC) Frequency (min): 6-8 (Yas Bellavance, RNC) Quality: Mild (Yas Bellavance, RNC) Duration (sec): 50-60 (Yas Bellavance, RNC) Duration Criteria: Less than Two 120 Second Contractions (Yas Bellavance, RNC) Pattern: Normal: <= 5 Contractions in 10 Minutes (Yas Bellavance, RNC) Resting Tone (Palpate): Relaxed (Yas Bellavance, RNC) Monitor Mode: External US (Yas Bellavance, RNC) Monitor Interventions for FHR: Ultrasound Adjusted (Yas Bellavance, RNC) FHR Baseline Rate : 135 (Yas Bellavance, RNC) FHR Baseline Changes: No Baseline Change (Yas Bellavance, RNC) Variability: Moderate 6-25 bpm (Yas Bellavance, RNC) Accelerations: 15X15 (Yas Bellavance, RNC) Decelerations: None (Yas Bellavance, RNC) IV/Blood Work: IV Infusing per Order (Yas Bellavance, RNC) Oxygen Method: Room Air (Yas Bellavance, RNC) Patient Position/Activity: High Fowlers (Yas Bellavance, RNC) Datetime: 12/20/2016 14:31 NBP Sys/Karley/Mean (mmHg): 173 (QS system process) : 96 (QS system process) : 127 (QS system process) Pulse: 81 (QS system process) Respirations: 17 (Yas Bellavance, RNC) LaborFlag: Antepartum (QS system process) Datetime: 12/20/2016 14:18 Monitor Mode: External (Yas Bellavance, RNC) Frequency (min): 6-8 (Yas Bellavance, RNC) Quality: Mild (Yas Bellavance, RNC) Duration (sec): 50-60 (Yas Bellavance, RNC) Duration Criteria: Less than Two 120 Second Contractions (Yas Bellavance, RNC) Pattern: Normal: <= 5 Contractions in 10 Minutes (Yas Bellavance, RNC) Resting Tone (Palpate): Relaxed (Yas Bellavance, RNC) Monitor Mode: External US (Yas Bellavance, RNC) Monitor Interventions for FHR: Ultrasound Adjusted (Yas Bellavance, RNC) FHR Baseline Rate : 135 (Yas Bellavance, RNC) FHR Baseline Changes: No Baseline Change (Yas Bellavance, RNC) Variability: Moderate 6-25 bpm (Yas Bellavance, RNC) Accelerations: 15X15 (Yas Bellavance, RNC) Decelerations: None (Yas Bellavance, RNC) IV/Blood Work: IV Infusing per Order (Yas Bellavance, RNC) Oxygen Method: Room Air (Yas Bellavance, RNC) Patient Position/Activity: High Fowlers (Yas Bellavance, RNC) Datetime: 12/20/2016 14:02 NBP Sys/Karley/Mean (mmHg): 173 (QS system process) : 97 (QS system process) : 128 (QS system process) Pulse: 78 (QS system process) Respirations: 16 (Yas Bellavance, RNC) LaborFlag: Antepartum (QS system process) Datetime: 12/20/2016 13:51 NBP Sys/Karley/Mean (mmHg): 162 (QS system process) : 86 (QS system process) : 117 (QS system process) Pulse: 77 (QS system process) Respirations: 18 (Yas Bellavance, RNC) Monitor Mode: External (Yas Bellavance, RNC) Frequency (min): 6-8 (Yas Bellavance, RNC) Quality: Mild (Yas Bellavance, RNC) Duration (sec): 50-60 (Yas Bellavance, RNC) Duration Criteria: Less than Two 120 Second Contractions (Yas Bellavance, RNC) Pattern: Normal: <= 5 Contractions in 10 Minutes (Yas Bellavance, RNC) Resting Tone (Palpate): Relaxed (Yas Bellavance, RNC) Monitor Mode: External US (Yas Bellavance, RNC) Monitor Interventions for FHR: Ultrasound Adjusted (Yas Bellavance, RNC) FHR Baseline Rate : 135 (Yas Bellavance, RNC) FHR Baseline Changes: No Baseline Change (Yas Bellavance, RNC) Variability: Moderate 6-25 bpm (Yas Bellavance, RNC) Accelerations: 15X15 (Yas Bellavance, RNC) Decelerations: None (Yas Bellavance, RNC) IV/Blood Work: IV Infusing per Order (Yas Bellavance, RNC) Oxygen Method: Room Air (Yas Bellavance, RNC) Patient Position/Activity: High Fowlers (Yas Bellavance, RNC) LaborFlag: Antepartum (QS system process) Datetime: 12/20/2016 13:37 Patient Position/Activity: High Fowlers (Yas Bellavance, RNC) Datetime: 12/20/2016 13:31 IV/Blood Work: Labs Drawn (Yas Bellavance, RNC) Datetime: 12/20/2016 13:12 I/O Interventions: Up to BR (Yas Bellavance, RNC) Datetime: 12/20/2016 12:32 NBP Sys/Karley/Mean (mmHg): 176 (QS system process) : 99 (QS system process) : 131 (QS system process) Pulse: 80 (QS system process) Respirations: 16 (Yas Bellavance, RNC) Monitor Mode: External (Yas Bellavance, RNC) Monitor Interventions for UA: [place] Adjusted (Yas Bellavance, RNC) Frequency (min): 2-7 (Yas Bellavance, RNC) Quality: Mild (Yas Bellavance, RNC) Duration (sec): 40-50 (Yas Bellavance, RNC) Duration Criteria: Less than Two 120 Second Contractions (Yas Bellavance, RNC) Pattern: Normal: <= 5 Contractions in 10 Minutes (Yas Bellavance, RNC) Resting Tone (Palpate): Relaxed (Yas Bellavance, RNC) Monitor Mode: External US (Yas Bellavance, RNC) Monitor Interventions for FHR: Ultrasound Adjusted (Yas Bellavance, RNC) FHR Baseline Rate : 130 (Yas Bellavance, RNC) FHR Baseline Changes: No Baseline Change (Yas Bellavance, RNC) Variability: Moderate 6-25 bpm (Yas Bellavance, RNC) Accelerations: 15X15 (Yas Bellavance, RNC) Decelerations: None (Yas Bellavance, RNC) Level of Consciousness: Fully Conscious (Yas Bellavance, RNC) DTR's/Clonus: DTRs 2+ (Yas Bellavance, RNC) Headache: Denies (Yas Bellavance, RNC) IV/Blood Work: IV Infusing per Order (Yas Bellavance, RNC) Patient Position/Activity: Right Tilt (Yas Bellavance, RNC) Comfort Measures: Breathing/Relaxation (Yas Bellavance, RNC) LaborFlag: Antepartum (QS system process) Datetime: 12/20/2016 12:31 Communication Comments: report to Dr Carrasco (Yas Bellavance, RNC) Datetime: 12/20/2016 12:02 NBP Sys/Karley/Mean (mmHg): 187 (QS system process) : 102 (QS system process) : 133 (QS system process) Pulse: 77 (QS system process) Respirations: 18 (Yas Bellavance, RNC) Monitor Mode: External (Yas Bellavance, RNC) Monitor Interventions for UA: [place] Adjusted (Yas Bellavance, RNC) Frequency (min): 2-7 (Yas Bellavance, RNC) Quality: Mild (Yas Bellavance, RNC) Duration (sec): 40-50 (Yas Bellavance, RNC) Duration Criteria: Less than Two 120 Second Contractions (Yas Bellavance, RNC) Pattern: Normal: <= 5 Contractions in 10 Minutes (Yas Bellavance, RNC) Resting Tone (Palpate): Relaxed (Yas Bellavance, RNC) Monitor Mode: External US (Yas Bellavance, RNC) Monitor Interventions for FHR: Ultrasound Adjusted (Yas Bellavance, RNC) FHR Baseline Rate : 130 (Yas Joence, RNC) FHR Baseline Changes: No Baseline Change (Yas Joence, RNC) Variability: Moderate 6-25 bpm (Yas Bellavance, RNC) Accelerations: 15X15 (Yas Bellavance, RNC) Decelerations: None (Yas Bellavance, RNC) Level of Consciousness: Fully Conscious (Yas Joence, RNC) DTR's/Clonus: DTRs 2+ (Yas rTaceee, RNC) Headache: Denies (Yas Traceee, RNC) IV/Blood Work: IV Infusing per Order (Yasshan Vitale, RNC) Patient Position/Activity: Right Tilt (Yas Traceee, RNC) Comfort Measures: Breathing/Relaxation (Yas Traceee, RNC) LaborFlag: Antepartum (QS system process)
--- NOTE | 2016-12-20 20:00 | L&D Flow Sheet ---
LD Flowsheet Datetime Report Generated by CPN: 12/20/2016 20:00 Datetime: 12/20/2016 19:42 Maternal Comments: monitors removed as pt allowed to ambulate around 2nd floor for one hour prior to cervidil placement (Shaneka Errichiello, RN) Datetime: 12/20/2016 19:18 I/O Interventions: Up to BR (Shaneka Errichiello, RN) Datetime: 12/20/2016 19:14 NBP Sys/Karley/Mean (mmHg): 146 (QS system process) : 73 (QS system process) : 101 (QS system process) Pulse: 85 (QS system process) Respirations: 18 (Yas Bellavance, RNC) Communication Comments: report given and care relinquished (Yas Bellavance, RNC) LaborFlag: Antepartum (QS system process) Datetime: 12/20/2016 19:00 Monitor Mode: External (Yas Bellavance, RNC) Frequency (min): 3-5 (Yas Bellavance, RNC) Quality: Mild (Yas Bellavance, RNC) Duration (sec): 40-50 (Yas Bellavance, RNC) Resting Tone (Palpate): Relaxed (Yas Bellavance, RNC) Monitor Mode: External US; Auscultation (Yas Bellavance, RNC) FHR Baseline Rate : 130 (Yas Bellavance, RNC) FHR Baseline Changes: No Baseline Change (Yas Bellavance, RNC) Variability: Moderate 6-25 bpm (Yas Bellavance, RNC) Accelerations: 15X15 (Yas Bellavance, RNC) Decelerations: None (Yas Bellavance, RNC) Datetime: 12/20/2016 18:44 NBP Sys/Karley/Mean (mmHg): 178 (QS system process) : 91 (QS system process) : 127 (QS system process) Pulse: 77 (QS system process) LaborFlag: Antepartum (QS system process) Datetime: 12/20/2016 18:29 NBP Sys/Karley/Mean (mmHg): 159 (QS system process) : 88 (QS system process) : 109 (QS system process) Pulse: 82 (QS system process) Respirations: 20 (Emily Camp, RNC) Monitor Mode: External (Emily Camp, RNC) Frequency (min): 3-5 (Emily Camp, RNC) Quality: Mild (Emily Camp, RNC) Duration (sec): 40-50 (Emily Camp, RNC) Resting Tone (Palpate): Relaxed (Emily Camp, RNC) Monitor Mode: External US; Auscultation (Emily Camp, RNC) FHR Baseline Rate : 130 (Emily Camp, RNC) FHR Baseline Changes: No Baseline Change (Emily Camp, RNC) Variability: Moderate 6-25 bpm (Emily Camp, RNC) Accelerations: 15X15 (Emily Camp, RNC) Decelerations: None (Emily Camp, RNC) LaborFlag: Antepartum (QS system process) Datetime: 12/20/2016 18:14 NBP Sys/Karley/Mean (mmHg): 165 (QS system process) : 82 (QS system process) : 114 (QS system process) Pulse: 76 (QS system process) LaborFlag: Antepartum (QS system process) Datetime: 12/20/2016 17:59 NBP Sys/Karley/Mean (mmHg): 186 (QS system process) : 88 (QS system process) : 127 (QS system process) Pulse: 74 (QS system process) Respirations: 18 (Yas Bellavance, RNC) Monitor Mode: External (Yas Bellavance, RNC) Frequency (min): 3-5 (Yas Bellavance, RNC) Quality: Mild (Yas Bellavance, RNC) Duration (sec): 40-50 (Yas Bellavance, RNC) Resting Tone (Palpate): Relaxed (Yas Bellavance, RNC) Monitor Mode: External US; Auscultation (Yas Bellavance, RNC) FHR Baseline Rate : 130 (Yas Bellavance, RNC) FHR Baseline Changes: No Baseline Change (Yas Bellavance, RNC) Variability: Moderate 6-25 bpm (Yas Bellavance, RNC) Accelerations: 15X15 (Yas Bellavance, RNC) Decelerations: None (Yas Bellavance, RNC) LaborFlag: Antepartum (QS system process) Datetime: 12/20/2016 17:44 NBP Sys/Karley/Mean (mmHg): 149 (QS system process) : 88 (QS system process) : 111 (QS system process) Pulse: 79 (QS system process) LaborFlag: Antepartum (QS system process) Datetime: 12/20/2016 17:29 NBP Sys/Karley/Mean (mmHg): 159 (QS system process) : 80 (QS system process) : 112 (QS system process) Pulse: 78 (QS system process) Respirations: 16 (Yas Bellavance, RNC) Monitor Mode: External (Yas Bellavance, RNC) Frequency (min): 3-5 (Yas Bellavance, RNC) Quality: Mild (Yas Bellavance, RNC) Duration (sec): 40-50 (Yas Bellavance, RNC) Resting Tone (Palpate): Relaxed (Yas Bellavance, RNC) Monitor Mode: External US; Auscultation (Yas Bellavance, RNC) FHR Baseline Rate : 130 (Yas Bellavance, RNC) FHR Baseline Changes: No Baseline Change (Yas Bellavance, RNC) Variability: Moderate 6-25 bpm (Yas Bellavance, RNC) Accelerations: 15X15 (Yas Bellavance, RNC) Decelerations: None (Yas Bellavance, RNC) LaborFlag: Antepartum (QS system process) Datetime: 12/20/2016 17:14 NBP Sys/Karley/Mean (mmHg): 153 (QS system process) : 77 (QS system process) : 107 (QS system process) Pulse: 75 (QS system process) LaborFlag: Antepartum (QS system process) Datetime: 12/20/2016 16:59 NBP Sys/Karley/Mean (mmHg): 160 (QS system process) : 79 (QS system process) : 111 (QS system process) Pulse: 74 (QS system process) Respirations: 18 (Yas Bellavance, RNC) Monitor Mode: External (Yas Bellavance, RNC) Frequency (min): 3-5 (Yas Bellavance, RNC) Quality: Mild (Yas Bellavance, RNC) Duration (sec): 40-50 (Yas Bellavance, RNC) Resting Tone (Palpate): Relaxed (Yas Bellavance, RNC) Monitor Mode: External US; Auscultation (Yas Bellavance, RNC) FHR Baseline Rate : 130 (Yas Bellavance, RNC) FHR Baseline Changes: No Baseline Change (Yas Bellavance, RNC) Variability: Moderate 6-25 bpm (Yas Bellavance, RNC) Accelerations: 15X15 (Yas Bellavance, RNC) Decelerations: None (Yas Bellavance, RNC) LaborFlag: Antepartum (QS system process) Datetime: 12/20/2016 16:44 NBP Sys/Karley/Mean (mmHg): 152 (QS system process) : 84 (QS system process) : 111 (QS system process) Pulse: 80 (QS system process) LaborFlag: Antepartum (QS system process) Datetime: 12/20/2016 16:30 NBP Sys/Karley/Mean (mmHg): 154 (QS system process) : 83 (QS system process) : 112 (QS system process) Pulse: 73 (QS system process) Monitor Mode: External (Emily Camp, RNC) Frequency (min): 3-5 (Emily Camp, RNC) Quality: Mild (Emily Camp, RNC) Duration (sec): 40-50 (Emily Camp, RNC) Resting Tone (Palpate): Relaxed (Emily Camp, RNC) Monitor Mode: External US; Auscultation (Emily Camp, RNC) FHR Baseline Rate : 130 (Emily Camp, RNC) FHR Baseline Changes: No Baseline Change (Emily Camp, RNC) Variability: Moderate 6-25 bpm (Emily Camp, RNC) Accelerations: 15X15 (Emily Camp, RNC) Decelerations: None (Emily Camp, RNC) LaborFlag: Antepartum (QS system process) Datetime: 12/20/2016 16:15 Monitor Mode: External; Palpation (Emily Camp, RNC) Frequency (min): 2-6 (Emily Camp, RNC) Quality: Mild (Emily Camp, RNC) Duration (sec): 40-50 (Emily Camp, RNC) Resting Tone (Palpate): Relaxed (Emily Camp, RNC) Monitor Mode: External US; Auscultation (Emily Camp, RNC) FHR Baseline Rate : 130 (Emily Camp, RNC) FHR Baseline Changes: No Baseline Change (Emily Camp, RNC) Variability: Moderate 6-25 bpm (Emily Camp, RNC) Accelerations: 15X15 (Emily Camp, RNC) Decelerations: None (Emily Camp, RNC) Datetime: 12/20/2016 16:14 NBP Sys/Karley/Mean (mmHg): 142 (QS system process) : 82 (QS system process) : 105 (QS system process) Pulse: 75 (QS system process) LaborFlag: Antepartum (QS system process) Datetime: 12/20/2016 16:12 NBP Sys/Karley/Mean (mmHg): 161 (QS system process) : 79 (QS system process) : 111 (QS system process) Pulse: 71 (QS system process) LaborFlag: Antepartum (QS system process) Datetime: 12/20/2016 16:06 NBP Sys/Karley/Mean (mmHg): 160 (QS system process) : 89 (QS system process) : 118 (QS system process) Pulse: 74 (QS system process) LaborFlag: Antepartum (QS system process) Datetime: 12/20/2016 16:04 Monitor Interventions for UA: [place] Adjusted (Emily Camp, RNC) Comments: RN at bedside attempting to locate and trace fhr (Emily Camp, RNC) Patient Position/Activity: HOB Lowered; Left Tilt (Emily Camp, RNC) Datetime: 12/20/2016 16:02 NBP Sys/Karley/Mean (mmHg): 159 (QS system process) : 86 (QS system process) : 114 (QS system process) Pulse: 73 (QS system process) Respirations: 16 (Emily Camp, RNC) LaborFlag: Antepartum (QS system process) Datetime: 12/20/2016 16:00 Monitor Mode: External; Palpation (Emily Camp, RNC) Frequency (min): 4-7 (Emily Camp, RNC) Quality: Mild (Emily Camp, RNC) Duration (sec): 40-50 (Emily Camp, RNC) Resting Tone (Palpate): Relaxed (Emily Camp, RNC) FHR Baseline Changes: Unable to Determine (Emily Camp, RNC) Comments: RN at bedside (Emily Jose, RNC)
[2016-12-20] MEDS ORDERED: DINOPROSTONE 10 MG VAGINAL INSERT.SR ONE (20:49)
[2016-12-20] MEDS ORDERED: ZOLPIDEM TARTRATE 5 MG TABLET ONE (22:19)
[2016-12-20] MEDS: ZOLPIDEM TARTRATE 5 MG TABLET PO SCH (22:24)
[2016-12-21] MEDS: RINGERS SOLUTION,LACTATED 1,000 ML IV PRN (01:45)
[2016-12-21] MEDS ORDERED: LABETALOL HCL INJ 20 MG/4 ML DISP.SYRIN IV ONE ×2 (05:18→05:21)
--- NOTE | 2016-12-21 06:23 | L&D General Admission ---
General Admit Datetime Report Generated by CPN: 12/21/2016 06:00 INFORMATION Patient Age: 36 (10/30/2016 09:21:QS system process) EDC: 01/08/2017 00:00 (12/04/2016 15:37:Amelia Morales RN) : 7 (12/04/2016 15:37:Amelia Morales RN) Para: 2 (12/18/2016 20:27:Nolvia Gutierrez RN) Term: 2 (12/04/2016 15:37:Amelia Morales RN) : 0 (12/04/2016 15:37:Amelia Morales RN) Spontaneous Abortions: 1 (12/04/2016 15:37:Amelia Morales RN) Induced Abortions: 3 (12/04/2016 15:37:Amelia Morales RN) Livin (12/04/2016 15:37:Amelia Morales RN) Cesareans: 0 (12/04/2016 15:37:Amelia Morales RN) VBACs: 0 (12/04/2016 15:37:Amelia Morales RN) Ectopic: 0 (12/04/2016 15:37:Amelia Morales RN) Multiple Births: 0 (12/04/2016 15:37:Amelia Morales RN) Baby, Number in Womb: 1 (12/18/2016 20:27:Crystal Matt, RN) CARE Primary Site Reliability Engineer: [facility] (12/04/2016 15:37:Amelia Morales RN) Month of 1st Visit: 06/16 (12/04/2016 15:37:Amelia Morales RN) Adequate Care: Yes (12/04/2016 15:37:Amelia Morales RN) Prepregnancy Weight (lb): 272 (12/04/2016 15:37:Amelia Morales RN) Prepregnancy Weight (kg): 123.6 (12/04/2016 15:37:QS system process) Height (in): 61 (12/19/2016 20:26:QS system process) ALLERGIES Medication Allergy: No (12/04/2016 15:37:Amelia Morales RN) Medication Allergies: No Known Allergies (12/19/2016) (12/19/2016 20:26:QS system process) Latex Allergy: No Latex Allergies (12/04/2016 15:37:Amelia Morales RN) Food Allergies: N/A (12/04/2016 15:37:Amelia Morales RN) Environmental Allergies: N/A (12/04/2016 15:37:Amelai Morales RN) COMMUNICATION Primary Language: Andorran (12/04/2016 15:37:Amelia Morales RN) Medical Tx Preferred Language: Andorran (12/04/2016 15:37:Amelia Morales RN) Communication Barrier(s): None (12/04/2016 15:37:Amelia Morales RN) DEMOGRAPHICS Address: [address] [place] [id number] (10/30/2016 09:21:QS system process) Zipcode: [phone] (10/30/2016 09:21:QS system process) Home (10/30/2016 09:21:QS system process) SSN: [id number] (10/30/2016 09:21:QS system process) Next of Kin Name: NATALI MONTE (12/19/2016 20:04:QS system process) Next of Kin (12/19/2016 20:04:QS system process) Next of Kin Relationship: MO (12/19/2016 20:04:QS system process) Date of : 1980 (10/30/2016 09:21:QS system process) Marital Status: (10/30/2016 09:21:QS system process) Sex: Female (10/30/2016 09:21:QS system process) Race: (10/30/2016 09:21:QS system process) Ethnicity: Non- or (10/30/2016 09:21:QS system process) Gnosticism: Quaker (10/30/2016 09:21:QS system process) DRUG AND ALCOHOL USE Alcohol: No (12/04/2016 15:37:Amelia Morales RN) Cigarettes: Never Smoker. [id number] (12/04/2016 15:37:Amelia Morales RN) Marijuana: No (12/04/2016 15:37:Amelia Morales RN) Cocaine: No (12/04/2016 15:37:Amelia Morales RN) Other Illicit Drugs: No (12/04/2016 15:37:Amelia Morales RN) VACCINE HISTORY Influenza Vaccine: Yes (12/04/2016 15:37:Amelia Morales RN) Pneumococcal Vaccine: No (12/04/2016 15:37:Amelia Morales RN) Tetanus Vaccine: Yes (12/04/2016 15:37:Amelia Morales RN) Tdap Vaccine: Yes (12/04/2016 15:37:Amelia Morales RN) Hepatitis B Vaccine: Yes (12/04/2016 15:37:Amelia Morales RN) Delivery Lead: [facility] (12/04/2016 15:37:Natali Ochoa RN) Feeding Preference: Breast (12/04/2016 15:37:Natali Ochoa RN) Benefit of Breast Feed Discussed: Yes (12/04/2016 15:37:Amelia Morales RN) Circumcision: Yes (12/04/2016 15:37:Amelia Morales RN) Classes Attended: Yes (12/04/2016 15:37:Amelia Morales RN) Tubal Ligation: Yes (12/04/2016 15:37:Amelia Morales RN) Tubal Authorization Signed: N/A (12/04/2016 15:37:Amelia Morales RN) Consent: N/A (12/04/2016 15:37:Amelia Morales RN) Consent Signed: N/A (12/04/2016 15:37:Amelia Morales RN) Pain Management Plans: Natural (12/04/2016 15:37:Amelia Morales RN) Plans for Labor and Delivery: None (12/04/2016 15:37:Amelia Morales RN) Support Person: Marco Warner II (12/04/2016 15:37:Amelia Morales RN) Support Person Relationship: (12/04/2016 15:37:Amelia Morales RN) Cultural/Spritual Practice: No (12/04/2016 15:37:Amelia Morales RN) Spir/Cult Dietary Needs: No (12/04/2016 15:37:Amelia Morales RN) LIVING SITUATION/DISCHARGE PLAN Living Arrangements: House (12/04/2016 15:37:Amelia Morales RN) Adequate Access to:: Electric; Heat; Refrigeration; Plumbing/Running water; Phone; Transportation (12/04/2016 15:37:Amelia Morales RN) WIC Program: No (12/04/2016 15:37:Amelia Morales RN) Discharge Network Development Coordinator Person: (12/04/2016 15:37:Amelia Morales RN) Person to Help after Discharge: (12/04/2016 15:37:Amelia Morales RN) Currently Using Commun Resources: No (12/04/2016 15:37:Amelia Morales RN) Outside Agency/Assistant Professor Of Communication: No (12/04/2016 15:37:Amelia Morales RN) Car Seat for Discharge: Yes (12/04/2016 15:37:Amelia Morales RN) Adoption Requested: No (12/04/2016 15:37:Amelia Morales RN) Pt Contact w/ Post : N/A (12/04/2016 15:37:Amelia Morales RN) LABS Blood Type: O Positive (12/04/2016 15:37:Quirino Matamoros RN) Antibody Screen: Negative (12/04/2016 15:37:Cecilia Garrison RN) Rho(G) this : Not Applicable (12/04/2016 15:37:Cecilia Garrison RN) Hemoglobin: 10.9 L (12/20/2016 13:27:QS system process) Hematocrit: 36.6 (12/20/2016 13:27:QS system process) MCV: 73 L (12/20/2016 13:27:QS system process) Group Beta Strep: Positive (12/04/2016 15:37:Quirino Matamoros RN) Gonorrhea: Negative (12/04/2016 15:37:Quirino Matamoros RN) Chlamydia: Negative (12/04/2016 15:37:Quirino Matamoros RN) RPR/VDRL: Nonreactive (12/04/2016 15:37:Quirino Matamoros RN) HIV Exposure Test: Negative (12/04/2016 15:37:Quirino Matamoros RN) Hepatitis B: Negative (12/04/2016 15:37:Quirino Matamoros RN) Rubella: Immune (12/04/2016 15:37:Quirino Matamoros RN) OB/PREVIOUS HISTORY Previous Procedures: Ultrasound; NST (12/04/2016 15:37:Natali Ochoa RN) Current Procedures: Ultrasound; NST (12/04/2016 15:37:Natali Ochoa RN) History of Previous : No (12/04/2016 15:37:Amelia Morales RN) History of Gestational Diabetes: No (12/04/2016 15:37:Amelia Morales RN) History of PIH: No (12/04/2016 15:37:Amelia Morales RN) History of Incompetent Cervix: No (12/04/2016 15:37:Amelia Morales RN) History of Placenta Previa/Abrup: No (12/04/2016 15:37:Amelia Morales RN) History of Macrosomia: No (12/04/2016 15:37:Amelia Morales RN) History of IUGR: No (12/04/2016 15:37:Amelia Morales RN) History of Hemorrhage: No (12/04/2016 15:37:Amelia Morales RN) History of Loss/Stillborn: No (12/04/2016 15:37:Amelia Morales RN) History of : No (12/04/2016 15:37:Amelia Morales RN) History of D (Rh) Sensitization: No (12/04/2016 15:37:Amelia Morales RN) History Recurrent Loss/Stillborn: No (12/04/2016 15:37:Amelia Morales RN) History Depression/PP Depression: No (12/04/2016 15:37:Amelia Morales RN) History of Uterine Anomaly/YAZMIN: No (12/04/2016 15:37:Amelia Morales RN) History of Infertility: No (12/04/2016 15:37:Amelia Morales RN) History of ART Treatment: No (12/04/2016 15:37:Amelia Morales RN) History of YAZMIN: No (12/04/2016 15:37:Amelia Morales RN) Comments Obstetrical History: G1: 2000 EAB G2: 2001 baby boy, 37-39 weeks, 24+ hours labor, 7 lb, IOL oligo G3: 2001 EAB G4: 2003 baby girl, 37-39 weeks G5: 2007 EAB G6: 2013 SAB, 13 weeks G7: Current (12/04/2016 15:37:Amelia Morales RN) MEDICAL HISTORY Med Hx Diabetes: No (12/04/2016 15:37:Amelia Morales RN) Med Hx Hypertension: Yes (12/04/2016 15:37:Amelia Morales RN) Med Hx Heart Disease: No (12/04/2016 15:37:Amelia Morales RN) Med Hx Autoimmune Disorder: No (12/04/2016 15:37:Amelia Morales RN) Med Hx Kidney Disease/UTI: No (12/04/2016 15:37:Amelia Morales RN) Med Hx Neurologic/Epilepsy: No (12/04/2016 15:37:Amelia Morales RN) Med Hx Psychiatric Disorders: No (12/04/2016 15:37:Amelia Morales RN) Med Hx Hepatitis/Liver Disease: No (12/04/2016 15:37:Amelia Morales RN) Med Hx Varicosities/Phlebitis: No (12/04/2016 15:37:Amelia Morales RN) Med Hx Thyroid Dysfunction: No (12/04/2016 15:37:Amelia Morales RN) Med Hx Trauma/Violence: No (12/04/2016 15:37:Amelia Morales RN) Med Hx Blood Transfusion: No (12/04/2016 15:37:Amelia Morales RN) Med Hx Pulmonary (Asthma,TB): Yes (12/04/2016 15:37:Amelia Morales RN) Med Hx Breast: No (12/04/2016 15:37:Amelia Morales RN) Med Hx BEHAVIOR SPECIALIST Surgery: No (12/04/2016 15:37:Amelia Morales RN) Med Hx Hospitalization/Surgery: Yes (12/04/2016 15:37:Amelia Morales RN) Med Hx Anesthetic Complications: No (12/04/2016 15:37:Amelia Morales RN) Med Hx Abnormal Pap Smear: Yes (12/04/2016 15:37:Amelia Morales RN) Other Medical Diseases: Yes (12/04/2016 15:37:Amelia Morales RN) Med Hx Significant Family Hx: No (12/04/2016 15:37:Amelia Morales RN) Details of Med/Surg Hx: HTN: Chronic HTN, Labetalol 100 mg BID Pulmonary: Bronchitis 11/30/16 Surgery: Colonoscopy 2012, polyps noted Abnormal Pap: Hx ASCUS Pap, negative HPV Other: Morbid obesity (12/04/2016 15:37:Amelia Morales RN) INFECTIOUS HISTORY Inf Hx Gonorrhea: No (12/04/2016 15:37:Amelia Morales RN) Inf Hx Chlamydia: Yes (12/04/2016 15:37:Amelia Morales RN) Inf Hx Syphilis: No (12/04/2016 15:37:Amelia Morales RN) Inf Hx HIV/AIDS: No (12/04/2016 15:37:Amelia Morales RN) Inf Hx Human Papilloma Virus: No (12/04/2016 15:37:Amelia Morales RN) Inf Hx Pt/Partner Genital Herpes: No (12/04/2016 15:37:Amelia Morales RN) Inf Hx Tuberculosis/Exposure: No (12/04/2016 15:37:Amelia Morales RN) Inf Hx Hepatitis B,C: No (12/04/2016 15:37:Amelia Morales RN) Inf Hx Rash or Viral Illness: No (12/04/2016 15:37:Amelia Morales RN) Details of Infectious Hx: Chlamydia (12/04/2016 15:37:Amelia Morales RN) GENETIC HISTORY Gen Hx Age >=35 at XANDER: No (12/04/2016 15:37:Amelia Morales RN) Gen Hx Thalassemia: No (12/04/2016 15:37:Amelia Morales RN) Gen Hx Congenital Heart Defect: No (12/04/2016 15:37:Amelia Morales RN) Gen Hx Neural Tube Defect: No (12/04/2016 15:37:Amelia Morales RN) Gen Hx Down's Syndrome: No (12/04/2016 15:37:Amelia Morales RN) Gen Hx Ken-Sachs: No (12/04/2016 15:37:Amelia Morales RN) Gen Hx Alexia: No (12/04/2016 15:37:Amelia Morales RN) Gen Hx Familial Dysautonomia: No (12/04/2016 15:37:Amelia Morales RN) Gen Hx Sickle Cell Disease/Trait: No (12/04/2016 15:37:Amelia Morales RN) Gen Hx Hemophilia/Blood Disorder: No (12/04/2016 15:37:Amelia Morales RN) Gen Hx Muscular Dystrophy: No (12/04/2016 15:37:Amelia Morales RN) Gen Hx Cystic Fibrosis: No (12/04/2016 15:37:Amelia Morales RN) Gen Hx Huntingtons Chorea: No (12/04/2016 15:37:Amelia Morales RN) Gen Hx Mental Retardation/Autism: No (12/04/2016 15:37:Amelia Morales RN) Gen Hx Tested for Fragile X: No (12/04/2016 15:37:Amelia Morales RN) Gen Hx Other Inher/Chromosomal: No (12/04/2016 15:37:Amelia Morales RN) Gen Hx Maternal Metabolic DO: No (12/04/2016 15:37:Amelia Morales RN) Gen Hx Pt Father or FOB Defect: No (12/04/2016 15:37:Amelia Morales RN) Gen Hx Other Genetic History: No (12/04/2016 15:37:Amelia Morales RN) Gen Hx Drugs/Meds since LMP: No (12/04/2016 15:37:Amelia Morales RN)
--- NOTE | 2016-12-21 06:23 | L&D Current Admission ---
Current Admit Datetime Report Generated by CPN: 12/21/2016 06:00 ADMISSION INFORMATION Current Admit Date/Time: 12/19/2016 20:30 (12/19/2016 20:30:Nina Rodriguez RN) Reason for Admission: Induction of Labor (12/19/2016 20:30:Nina Rodriguez RN) Chief Complaint: Scheduled Induction of Labor (12/19/2016 21:00:Shaneka Ochoa RN) EGA per Dates: 37.1 (12/19/2016 20:30:QS system process) Method of Arrival: Ambulatory (12/19/2016 20:30:Nina Rodriguez RN) Admitted From: Home (12/19/2016 20:30:Nina Rodriguez RN) Reason for Induction: Chronic Hypertension (12/19/2016 20:30:Nina Rodriguez RN) Records Available: Yes (12/19/2016 20:30:Nina Rodriguez RN) General Admission Information: Reviewed; Updated; Confirmed (12/19/2016 20:30:Nina Rodriguez RN) General Admission Reviewed By: Lakeisha Ryder RN (12/19/2016 20:30:Nina Rodriguez RN) BELONGINGS/ADVANCED DIRECTIVES Valuables/Personal Effects: Contact Lenses (12/19/2016 20:30:Shaneka Ochoa RN) Other Belongings: See [facility] belongings form (12/19/2016 20:30:Nina Rodriguez RN) Disposition of Belongings: Kept with Patient (12/19/2016 20:30:Shaneka Ochoa RN) Advance Direct for Healthcare: No, and Wants No Information (12/19/2016 20:30:Shaneka Ochoa RN) Durable Power of Fun House Attendant: No (12/19/2016 20:30:Shaneka Ochoa RN) Living Will: No (12/19/2016 20:30:Shaneka Ochoa RN) Organ Donor: No (12/19/2016 20:30:Shaneka Ochoa RN) Pt Rights Information Given: Yes (12/19/2016 20:30:Shaneka Ochoa RN) Pt Understands Pt Rights: Yes (12/19/2016 20:30:Shaneka Ochoa RN) LEARNING ASSESSMENT Knowledge Level: Understands L_D Process; Understands Care Activities; Had Pre-Hospital Education; Understands Diagnosis (12/19/2016 20:30:Shaneka Ochoa RN) Barriers to Learning: None (12/19/2016 20:30:Shaneka Ochoa RN) Learning Readiness: Motivated (12/19/2016 20:30:Shaneka Ochoa RN) DOMESTIC VIOLANCE SCREENING Dom Viol Threatened/Hurt: No (12/19/2016 20:30:Shaneka Ochoa RN) Hx of Abuse/Neglect past 2yrs: No (12/19/2016 20:30:Shaneka Ochoa RN) Feel Unsafe Going Home: No (12/19/2016 20:30:Shaneka Ochoa RN) Addt'l Observ Indicating Abuse: No (12/19/2016 20:30:Shaneka Ochoa RN) Reason Unable to Complete Screen: N/A, Screen Completed (12/19/2016 20:30:Shaneka Ochoa RN) Considered Personal Harm/Suicide: No (12/19/2016 20:30:Shaneka Ochoa RN) NUTRITIONAL/FUNCTIONAL SCREENING Problem with Appetite >5 Days: No (12/19/2016 20:30:Shaneka Ochao RN) Chew/Swallow Difficulties: No (12/19/2016 20:30:Shaneka Ochoa RN) Inappropriate Wt Gain/Loss: No (12/19/2016 20:30:Shaneka Ochoa RN) Presence Skin Breakdown/Ulcer: No (12/19/2016 20:30:Shaneka Ochoa RN) Special Diet: No (12/19/2016 20:30:Shaneka Ochoa RN) Pt Requests Feeder Loader Visit: No (12/19/2016 20:30:Shaneka Ochoa RN) Hx of Any of the Following?: N/A (12/19/2016 20:30:Shaneka Ochoa RN) New Diagnosis of: N/A (12/19/2016 20:30:Shaneka Ochoa RN) Requires Assist w/Ambulation: No (12/19/2016 20:30:Shaneka Ochoa RN) Uses Assist Device to Ambulate: No (12/19/2016 20:30:Shaneka Ochoa RN) Pt Requires Help w/ADL's: No (12/19/2016 20:30:Shaneka Ochoa RN)
--- NOTE | 2016-12-21 08:01 | L&D Flow Sheet ---
LD Flowsheet Datetime Report Generated by CPN: 12/21/2016 08:00 Datetime: 12/21/2016 07:49 Patient Care Comments: LARISSA hose applied to pt bilaterally (Quirino Shiloh, RN) Datetime: 12/21/2016 07:48 Communication Comments: Dr Shafer reviewed strip, updated on pt, notified of BPs and medications given. (Quirino Shiloh, RN) Datetime: 12/21/2016 07:46 NBP Sys/Karley/Mean (mmHg): 163 (QS system process) : 88 (QS system process) : 119 (QS system process) Pulse: 77 (QS system process) LaborFlag: Antepartum (QS system process) Datetime: 12/21/2016 07:35 Level of Consciousness: Fully Conscious (Quirino Shiloh, RN) DTR's/Clonus: DTRs 1+; No Clonus (Quirino Shiloh, RN) Headache: Denies (Quirino Shiloh, RN) Breath Sounds, Left: Clear and Equal (Quirino Shiloh, RN) Breath Sounds, Right: Clear and Equal (Quirino Shiloh, RN) Nausea/Vomiting: Denies (Quirino Shiloh, RN) RUQ Epigastric Pain: Denies (Quirino Shiloh, RN) Datetime: 12/21/2016 07:32 NBP Sys/Karley/Mean (mmHg): 162 (QS system process) : 86 (QS system process) : 115 (QS system process) Pulse: 73 (QS system process) LaborFlag: Antepartum (QS system process) Datetime: 12/21/2016 07:30 Monitor Mode: External; Palpation (Quirino Matamoros RN) Quality: Mild (Quirino Matamoros RN) Resting Tone (Palpate): Relaxed (Quirino Matamoros RN) Contraction Comments: UTD; pt off monitors (Quirino Matamoros RN) Monitor Mode: External US (Quirino Matamoros RN) FHR Baseline Rate : 130 (Quirino Matamoros RN) Variability: Moderate 6-25 bpm (Quirino Matamoros RN) Accelerations: 15X15 (Quirino Matamoros RN) Decelerations: None (Quirino Matamoros RN) Communication: RN at Bedside; RN Reviewed Strip (Quirino Matamoros RN) Datetime: 12/21/2016 07:22 Patient Position/Activity: Left Lateral (Quirino Shiloh, RN) Datetime: 12/21/2016 07:21 Temperature (F): 98.2 (Quirino Shiloh, RN) Temperature (C): 36.8 (QS system process) LaborFlag: Antepartum (QS system process) Datetime: 12/21/2016 07:13 I/O Interventions: Up to BR (Shaneka Errichiello, RN) Datetime: 12/21/2016 07:12 Communication Comments: Report given to Cristobal Matamoros RN. Care relinquished at this time. (Shaneka Ochoa RN) Datetime: 12/21/2016 07:01 NBP Sys/Karley/Mean (mmHg): 157 (QS system process) : 92 (QS system process) : 118 (QS system process) Pulse: 75 (QS system process) LaborFlag: Antepartum (QS system process) Datetime: 12/21/2016 07:00 Stage of : Antepartum (Shaneka Ochoa RN) Monitor Mode: External (Shaneka Ochoa RN) Monitor Interventions for UA: [place] Adjusted (Shaneka Ochoa RN) Frequency (min): irregular (Shaneka Ochoa RN) Quality: Mild (Shaneka Ochoa RN) Resting Tone (Palpate): Relaxed (Shaneka Ochoa RN) Monitor Mode: External US (Shaneka Ochoa RN) FHR Baseline Rate : 130 (Shaneka Ochoa RN) FHR Baseline Changes: No Baseline Change (Shaneka Ochoa RN) Variability: Moderate 6-25 bpm (Shaneka Ochoa RN) Accelerations: 15X15 (Shaneka Ochoa RN) Decelerations: None (Shaneka Ochoa RN) Pain Presence: None/Denies (Shaneka Ochoa RN) Pain Coping: Sleeping (Shaneka Ochoa RN) Patient Position/Activity: Left Tilt; Semi-Fowlers (Shaneka Ochoa RN) Communication: RN at Bedside; RN Reviewed Strip (Shaneka Ochoa RN) LaborFlag: Antepartum (QS system process) Datetime: 12/21/2016 06:57 NBP Sys/Karley/Mean (mmHg): 157 (QS system process) : 86 (QS system process) : 115 (QS system process) Pulse: 75 (QS system process) LaborFlag: Antepartum (QS system process) Datetime: 12/21/2016 06:55 Medication Comments: Labetalol 200mg PO (Shaneka Ochoa RN) Datetime: 12/21/2016 06:46 NBP Sys/Karley/Mean (mmHg): 173 (QS system process) : 94 (QS system process) : 127 (QS system process) Pulse: 85 (QS system process) Communication Comments: Dr Carrasco on unit and made aware of BP, orders received for pt to receive AM dose of 200mg PO Labetalol NOW. Will continue to monitor closely. Orders carried out. (Shaneka Ochoa RN) LaborFlag: Antepartum (QS system process) Datetime: 12/21/2016 06:32 NBP Sys/Karley/Mean (mmHg): 161 (QS system process) : 90 (QS system process) : 120 (QS system process) Pulse: 73 (QS system process) LaborFlag: Antepartum (QS system process) Datetime: 12/21/2016 06:30 Stage of : Antepartum (Shaneka Ochoa RN) Monitor Mode: External (Shaneka Ochoa RN) Frequency (min): 2-6 (Shaneka Ochoa RN) Quality: Mild (Shaneka Ochoa RN) Duration (sec): 60-90 (Shaneka Ochoa RN) Resting Tone (Palpate): Relaxed (Shaneka Ochoa RN) Monitor Mode: External US (Shaneka Ochoa RN) FHR Baseline Rate : 140 (Shaneka Ochoa RN) FHR Baseline Changes: No Baseline Change (Shaneka Ochoa RN) Variability: Moderate 6-25 bpm (Shaneka Ochoa RN) Accelerations: 15X15 (Shaneka Ochoa RN) Decelerations: None (Shaneka Ochoa RN) Pain Coping: Sleeping (Shaneka Ochoa RN) Patient Position/Activity: Left Tilt; Semi-Fowlers (Shaneka Ochoa RN) Communication: RN at Bedside; RN Reviewed Strip (Shaneka Ochoa RN) Datetime: 12/21/2016 06:12 NBP Sys/Karley/Mean (mmHg): 155 (QS system process) : 88 (QS system process) : 114 (QS system process) Pulse: 78 (QS system process) LaborFlag: Antepartum (QS system process) Datetime: 12/21/2016 06:07 NBP Sys/Karley/Mean (mmHg): 156 (QS system process) : 86 (QS system process) : 115 (QS system process) Pulse: 75 (QS system process) LaborFlag: Antepartum (QS system process) Datetime: 12/21/2016 06:02 NBP Sys/Karley/Mean (mmHg): 174 (QS system process) : 98 (QS system process) : 129 (QS system process) Pulse: 72 (QS system process) LaborFlag: Antepartum (QS system process) Datetime: 12/21/2016 06:00 Stage of : Antepartum (Shaneka Ochoa RN) Monitor Mode: External (Shaneka Ochoa RN) Frequency (min): 2-6 (Shaneka Ochoa RN) Quality: Mild (Shaneka Ochoa RN) Resting Tone (Palpate): Relaxed (Shaneka Ochoa RN) Monitor Mode: External US (Shaneka Ochoa RN) FHR Baseline Rate : 135 (Shaneka Ochoa RN) FHR Baseline Changes: No Baseline Change (Shaneka Ochoa RN) Variability: Moderate 6-25 bpm (Shaneka Ochoa RN) Accelerations: 15X15 (Shaneka Ochoa RN) Decelerations: None (Shaneka Ochoa RN) Pain Coping: Sleeping (Shaneka Ochoa RN) Patient Position/Activity: Left Tilt; Semi-Fowlers (Shaneka Ochoa RN) Communication: RN Reviewed Strip (Shaneka Ochoa RN) Datetime: 12/21/2016 05:58 NBP Sys/Karley/Mean (mmHg): 173 (QS system process) : 93 (QS system process) : 126 (QS system process) Pulse: 76 (QS system process) LaborFlag: Antepartum (QS system process) Datetime: 12/21/2016 05:52 NBP Sys/Karley/Mean (mmHg): 160 (QS system process) : 87 (QS system process) : 118 (QS system process) Pulse: 81 (QS system process) LaborFlag: Antepartum (QS system process) Datetime: 12/21/2016 05:47 NBP Sys/Karley/Mean (mmHg): 158 (QS system process) : 84 (QS system process) : 113 (QS system process) Pulse: 71 (QS system process) LaborFlag: Antepartum (QS system process) Datetime: 12/21/2016 05:42 NBP Sys/Karley/Mean (mmHg): 167 (QS system process) : 91 (QS system process) : 120 (QS system process) Pulse: 72 (QS system process) LaborFlag: Antepartum (QS system process) Datetime: 12/21/2016 05:38 NBP Sys/Karley/Mean (mmHg): 174 (QS system process) : 87 (QS system process) : 123 (QS system process) Pulse: 71 (QS system process) LaborFlag: Antepartum (QS system process) Datetime: 12/21/2016 05:32 NBP Sys/Karley/Mean (mmHg): 167 (QS system process) : 89 (QS system process) : 120 (QS system process) Pulse: 72 (QS system process) LaborFlag: Antepartum (QS system process) Datetime: 12/21/2016 05:30 Stage of : Antepartum (Shaneka Ochoa RN) Monitor Mode: External (Shaneka Ochoa RN) Frequency (min): 1-7 (Shaneka Ochoa RN) Quality: Mild (Shaneka Ochoa RN) Duration (sec): 50-80 (Shaneka Ochoa RN) Resting Tone (Palpate): Relaxed (Shaneka Ochoa RN) Monitor Mode: External US (Shaneka Ochoa RN) Monitor Interventions for FHR: Ultrasound Adjusted (Shaneka Ochoa RN) FHR Baseline Rate : 135 (Shaneka Ochoa RN) FHR Baseline Changes: No Baseline Change (Shaneka Ochoa RN) Variability: Moderate 6-25 bpm (Shaneka Ochoa RN) Accelerations: 15X15 (Shaneka Ochoa RN) Decelerations: None (Shaneka Ochoa RN) Pain Coping: Sleeping (Shaneka Ochoa RN) Patient Position/Activity: Left Tilt; Semi-Fowlers (Shaneka Ochoa RN) Communication: RN Reviewed Strip (Shaneka Ochoa RN) Datetime: 12/21/2016 05:27 NBP Sys/Karley/Mean (mmHg): 171 (QS system process) : 88 (QS system process) : 121 (QS system process) Pulse: 75 (QS system process) LaborFlag: Antepartum (QS system process) Datetime: 12/21/2016 05:25 Medication Comments: Labetalol 20mg IVP (Shaneka Ochoa RN) Datetime: 12/21/2016 05:15 Communication Comments: Call placed to Dr Carrasco r/t pt blood pressures. Orders received for Labetelol 20mg IVP NOW, [facility] labs at 0800. Pt to continue PO dose of Labetelol 200mg PO at 0900 unless contraindicated. Will continue to monitor closely. Orders carried out. (Shaneka Ochoa RN) Datetime: 12/21/2016 05:12 NBP Sys/Karley/Mean (mmHg): 167 (QS system process) : 91 (QS system process) : 121 (QS system process) Pulse: 71 (QS system process) LaborFlag: Antepartum (QS system process) Datetime: 12/21/2016 05:10 NBP Sys/Karley/Mean (mmHg): 171 (QS system process) : 94 (QS system process) : 125 (QS system process) Pulse: 74 (QS system process) LaborFlag: Antepartum (QS system process) Datetime: 12/21/2016 05:08 NBP Sys/Karley/Mean (mmHg): 164 (QS system process) : 88 (QS system process) : 120 (QS system process) Pulse: 88 (QS system process) LaborFlag: Antepartum (QS system process) Datetime: 12/21/2016 05:06 NBP Sys/Karley/Mean (mmHg): 171 (QS system process) : 92 (QS system process) : 124 (QS system process) Pulse: 78 (QS system process) LaborFlag: Antepartum (QS system process) Datetime: 12/21/2016 05:00 Stage of : Antepartum (Shaneka Ochoa RN) Monitor Mode: External (Shaneka Ochoa RN) Monitor Interventions for UA: [place] Adjusted (Shaneka Ochoa RN) Frequency (min): 3-5 (Shaneka Ochoa RN) Quality: Mild (Shaneka Ochoa RN) Duration (sec): 40-80 (Shaneka Ochoa RN) Resting Tone (Palpate): Relaxed (Shaneka Ochoa RN) Monitor Mode: External US (Shaneka Ochoa RN) Monitor Interventions for FHR: Ultrasound Adjusted (Shaneka Ochoa RN) FHR Baseline Rate : 135 (Shaneka Ochoa RN) FHR Baseline Changes: No Baseline Change (Shaneka Ochoa RN) Variability: Moderate 6-25 bpm (Shaneka Ochoa RN) Accelerations: 15X15 (Shaneka Ochoa RN) Decelerations: None (Shaneka Ochoa RN) Pain Presence: None/Denies (Shaneka Ochoa RN) Pain Coping: Sleeping (Shaneka Ochoa RN) Communication: RN at Bedside; RN Reviewed Strip (Shaneka Ochoa RN) LaborFlag: Antepartum (QS system process) Datetime: 12/21/2016 04:35 NBP Sys/Karley/Mean (mmHg): 177 (QS system process) : 81 (QS system process) : 117 (QS system process) Pulse: 74 (QS system process) LaborFlag: Antepartum (QS system process) Datetime: 12/21/2016 04:30 Stage of : Antepartum (Shaneka Ochoa RN) Monitor Mode: External (Shaneka Ochoa RN) Monitor Interventions for UA: [place] Adjusted (Shaneka Ochoa RN) Frequency (min): 2-4 (Shaneka Ochoa RN) Quality: Mild (Shaneka Ochoa RN) Resting Tone (Palpate): Relaxed (Shaneka Ochoa RN) Monitor Mode: External US (Shaneka Ochoa RN) Monitor Interventions for FHR: Ultrasound Adjusted (Shaneka Ochoa RN) FHR Baseline Rate : 135 (Shaneka Ochoa RN) FHR Baseline Changes: No Baseline Change (Shaneka Ochoa RN) Variability: Moderate 6-25 bpm (Shaneka Ochoa RN) Accelerations: 15X15 (Shaneka Ochoa RN) Decelerations: None (Shaneka Ochoa RN) Pain Presence: None/Denies (Shaneka Ochoa RN) Pain Coping: Sleeping (Shaneka Ochoa RN) Patient Position/Activity: Left Tilt; Semi-Fowlers (Shaneka Ochoa RN) Communication: RN Reviewed Strip (Shaneka Ochoa RN) LaborFlag: Antepartum (QS system process) Datetime: 12/21/2016 04:06 NBP Sys/Karley/Mean (mmHg): 168 (QS system process) : 83 (QS system process) : 117 (QS system process) Pulse: 85 (QS system process) LaborFlag: Antepartum (QS system process) Datetime: 12/21/2016 04:00 Stage of : Antepartum (Shaneka Ochoa RN) Monitor Mode: External (Shaneka Ochoa RN) Monitor Interventions for UA: [place] Adjusted (Shaneka Ochoa RN) Frequency (min): 3-6 (Shaneka Ochoa RN) Quality: Mild (Shaneka Ochoa RN) Duration (sec): 40-80 (Shaneka Ochoa RN) Resting Tone (Palpate): Relaxed (Shaneka Ochoa RN) Monitor Mode: External US (Shaneka Ochoa RN) Monitor Interventions for FHR: Ultrasound Adjusted (Shaneka Ochoa RN) FHR Baseline Rate : 135 (Shaneka Ochoa RN) FHR Baseline Changes: No Baseline Change (Shaneka Ochoa RN) Variability: Moderate 6-25 bpm (Shaneka Ochoa RN) Accelerations: 15X15 (Shaneka Ochoa RN) Decelerations: None (Shaneka Ochoa RN) Pain Presence: None/Denies (Shaneka Ochoa RN) Pain Coping: Sleeping (Shaneka Ochoa RN) Patient Position/Activity: Left Tilt; Semi-Fowlers (Shaneka Ochoa RN) Communication: RN at Bedside; RN Reviewed Strip (Shaneka Ochoa RN) LaborFlag: Antepartum (QS system process) Datetime: 12/21/2016 03:35 NBP Sys/Karley/Mean (mmHg): 128 (QS system process) : 65 (QS system process) : 90 (QS system process) Pulse: 80 (QS system process) LaborFlag: Antepartum (QS system process) Datetime: 12/21/2016 03:30 Stage of : Antepartum (Shaneka Ochoa RN) Monitor Mode: External (Shaneka Ochoa RN) Monitor Interventions for UA: [place] Adjusted (Shaneka Ochoa RN) Frequency (min): 1.5-7 (Shnaeka Ochoa RN) Quality: Mild (Shaneka Ochoa RN) Duration (sec): 50-80 (Shaneka Ochoa RN) Resting Tone (Palpate): Relaxed (Shaneka Ochoa RN) Monitor Mode: External US (Shaneka Ochoa RN) FHR Baseline Rate : 135 (Shaneka Ochoa RN) FHR Baseline Changes: No Baseline Change (Shaneka Ochoa RN) Variability: Moderate 6-25 bpm (Shaneka Ochoa RN) Accelerations: 15X15 (Shaneka Ochoa RN) Decelerations: None (Shaneka Ochoa RN) Pain Presence: None/Denies (Shaneka Ochoa RN) Pain Coping: Sleeping (Shaneka Ochoa RN) Patient Position/Activity: Left Tilt; Semi-Fowlers (Shaneka Ochoa RN) Communication: RN Reviewed Strip (Shaneka Ochoa RN) LaborFlag: Antepartum (QS system process) Datetime: 12/21/2016 03:05 NBP Sys/Karley/Mean (mmHg): 141 (QS system process) : 73 (QS system process) : 100 (QS system process) Pulse: 81 (QS system process) LaborFlag: Antepartum (QS system process) Datetime: 12/21/2016 03:00 Stage of : Antepartum (Shaneka Ochoa RN) NBP Sys/Karley/Mean (mmHg): 140 (QS system process) : 73 (QS system process) : 100 (QS system process) Pulse: 76 (QS system process) Monitor Mode: External (Shaneka Ochoa RN) Monitor Interventions for UA: [place] Adjusted (Shaneka Ochoa RN) Frequency (min): x2 (Shaneka Ochoa RN) Quality: Mild (Shaneka Ochoa RN) Duration (sec): 50-60 (Shaneka Ochoa RN) Resting Tone (Palpate): Relaxed (Shaneka Ochoa RN) Monitor Mode: External US (Shaneka Ochoa RN) Monitor Interventions for FHR: Ultrasound Adjusted (Shaneka Ochoa RN) FHR Baseline Rate : 140 (Shaneka Ochoa RN) FHR Baseline Changes: No Baseline Change (Shaneka Ochoa RN) Variability: Moderate 6-25 bpm (Sahneka Ochoa RN) Decelerations: None (Shaneka Ochoa RN) Pain Presence: None/Denies (Shaneka Ochoa RN) Patient Position/Activity: Left Tilt; Low Fowlers (Shaneka Ochoa RN) Communication: RN at Bedside; RN Reviewed Strip (Shaneka Ochoa RN) LaborFlag: Antepartum (QS system process) Datetime: 12/21/2016 02:41 I/O Interventions: Up to BR (Shaneka Ochoa RN) Datetime: 12/21/2016 02:35 NBP Sys/Karley/Mean (mmHg): 179 (QS system process) : 98 (QS system process) : 131 (QS system process) Pulse: 78 (QS system process) LaborFlag: Antepartum (QS system process) Datetime: 12/21/2016 02:30 Stage of : Antepartum (Shaneka Ochoa RN) Frequency (min): occasional (Shaneka Ochoa RN) Duration (sec): 50-60 (Shaneka Ochoa RN) FHR Baseline Changes: No Baseline Change (Shaneka Ochoa RN) Comments: RN at b/s continuously attemping to find FHR (Shaneka Ochoa RN) Pain Presence: None/Denies (Shaneka Ochoa RN) Communication: RN at Bedside; RN Reviewed Strip (Shaneka Ochoa RN) LaborFlag: Antepartum (QS system process) Datetime: 12/21/2016 02:15 Comments: RN at b/s continuously attempting to get FHR (Shaneka Ochoa RN) Datetime: 12/21/2016 02:05 NBP Sys/Karley/Mean (mmHg): 179 (QS system process) : 91 (QS system process) : 127 (QS system process) Pulse: 75 (QS system process) LaborFlag: Antepartum (QS system process) Datetime: 12/21/2016 02:00 Stage of : Antepartum (Shaneka Ochoa RN) Monitor Mode: External (Shaneka Ochoa RN) Monitor Interventions for UA: [place] Adjusted (Shaneka Ochoa RN) Frequency (min): occasional (Shaneka Ochoa RN) Quality: Mild (Shaneka Ochoa RN) Duration (sec): 50-70 (Shaneka Ochoa RN) Resting Tone (Palpate): Relaxed (Shaneka Ochoa RN) Monitor Mode: External US (Shaneka Ochoa RN) FHR Baseline Rate : 140 (Shaneka Ochoa RN) FHR Baseline Changes: No Baseline Change (Shaneka Ochoa RN) Variability: Moderate 6-25 bpm (Shaneka Ochoa RN) Decelerations: None (Shaneka Ochoa RN) Pain Presence: None/Denies (Shaneka Ochoa RN) Patient Position/Activity: Left Tilt; Semi-Fowlers (Shaneka Ochoa RN) Communication: RN at Bedside; RN Reviewed Strip (Shaneka Ochoa RN) LaborFlag: Antepartum (QS system process) Datetime: 12/21/2016 01:45 IV/Blood Work: New IV Bag Hung (Shaneka Ochoa RN) Datetime: 12/21/2016 01:37 NBP Sys/Karley/Mean (mmHg): 169 (QS system process) : 96 (QS system process) : 124 (QS system process) Pulse: 80 (QS system process) LaborFlag: Antepartum (QS system process) Datetime: 12/21/2016 01:30 Stage of : Antepartum (Shaneka Ochoa RN) Monitor Mode: External (Shaneka Ochoa RN) Frequency (min): 1.5-3 (Shaneka Ochoa RN) Quality: Mild (Shaneka Ochoa RN) Duration (sec): 60-90 (Shaneka Ochoa RN) Resting Tone (Palpate): Relaxed (Shaneka Ochoa RN) Monitor Mode: External US (Shaneka Ochoa RN) FHR Baseline Rate : 135 (Shaneka Ochoa RN) FHR Baseline Changes: No Baseline Change (Shaneka Ochoa RN) Variability: Moderate 6-25 bpm (Shaneka Ochoa RN) Decelerations: None (Shaneka Ochoa RN) Pain Presence: None/Denies (Shaneka Ochoa RN) Patient Position/Activity: Left Tilt; Semi-Fowlers (Shaneka Ochoa RN) Communication: RN at Bedside; RN Reviewed Strip (Shaneka Ochoa RN) LaborFlag: Antepartum (QS system process) Datetime: 12/21/2016 01:08 Comments: RN at b/s attemping to find FHR (Shaneka Ochoa RN) Datetime: 12/21/2016 01:06 NBP Sys/Karley/Mean (mmHg): 150 (QS system process) : 75 (QS system process) : 106 (QS system process) Pulse: 82 (QS system process) LaborFlag: Antepartum (QS system process) Datetime: 12/21/2016 01:00 Stage of : Antepartum (Shaneka Ochoa RN) Monitor Mode: External (Shaneka Ochoa RN) Monitor Interventions for UA: [place] Adjusted (Shaneka Ochoa RN) Frequency (min): 3-4 (Shaneka Ochoa RN) Quality: Mild (Shaneka Ochoa RN) Duration (sec): 50-90 (Shaneka Ochoa RN) Resting Tone (Palpate): Relaxed (Shaneka Ochoa RN) Monitor Mode: External US (Shaneka Ochoa RN) Monitor Interventions for FHR: Ultrasound Adjusted (Shaneka Ochoa RN) FHR Baseline Rate : 135 (Shaneka Ochoa RN) FHR Baseline Changes: No Baseline Change (Shaneka Ochoa RN) Variability: Moderate 6-25 bpm (Shaneka Ochoa RN) Accelerations: 15X15 (Shaneka Ochoa RN) Decelerations: None (Shaneka Ochoa RN) Pain Coping: Sleeping (Shaneka Ochoa RN) Patient Position/Activity: Left Tilt; Semi-Fowlers (Shaneka Ochoa RN) Communication: RN at Bedside; RN Reviewed Strip (Shaneka Ochoa RN) Datetime: 12/21/2016 00:35 NBP Sys/Karley/Mean (mmHg): 134 (QS system process) : 73 (QS system process) : 99 (QS system process) Pulse: 75 (QS system process) LaborFlag: Antepartum (QS system process) Datetime: 12/21/2016 00:30 Stage of : Antepartum (Shaneka Ochoa RN) Monitor Mode: External (Shaneka Ochoa RN) Monitor Interventions for UA: [place] Adjusted (Shaneka Ochoa RN) Frequency (min): 1.5-6 (Shaneka Ochoa RN) Quality: Mild (Shaneka Ochoa RN) Resting Tone (Palpate): Relaxed (Shaneka Ochoa RN) Monitor Mode: External US (Shaneka Ochoa RN) FHR Baseline Rate : 135 (Shaneka Ochoa RN) FHR Baseline Changes: No Baseline Change (Shaneka Ochoa RN) Variability: Moderate 6-25 bpm (Shaneka Ochoa RN) Accelerations: 15X15 (Shaneka Ochoa RN) Decelerations: None (Shaneka Ochoa RN) Pain Presence: None/Denies (Shaneka Ochoa RN) Patient Position/Activity: Left Tilt; Semi-Fowlers (Shaneka Ochoa RN) Communication: RN at Bedside; RN Reviewed Strip (Shaneka Ochoa RN) LaborFlag: Antepartum (QS system process) Datetime: 12/21/2016 00:05 NBP Sys/Karley/Mean (mmHg): 142 (QS system process) : 73 (QS system process) : 102 (QS system process) Pulse: 73 (QS system process) LaborFlag: Antepartum (QS system process) Datetime: 12/21/2016 00:00 Stage of : Antepartum (Shaneka Ochoa RN) Monitor Mode: External (Shaneka Ochoa RN) Frequency (min): 1.5-5 (Shaneka Ochoa RN) Quality: Mild (Shaneka Ochoa RN) Duration (sec): 50-80 (Shaneka Ochoa RN) Resting Tone (Palpate): Relaxed (Shaneka Ochoa RN) Monitor Mode: External US (Shaneka Ochoa RN) FHR Baseline Rate : 135 (Shaneka Ochoa RN) FHR Baseline Changes: No Baseline Change (Shaneka Ochoa RN) Variability: Moderate 6-25 bpm (Shaneka Ochoa RN) Accelerations: 15X15 (Shaneka Ochoa RN) Decelerations: None (Shaneka Ochoa RN) Pain Presence: None/Denies (Shaneka Ochoa RN) Patient Position/Activity: Left Tilt; Semi-Fowlers (Shaneka Ochoa RN) Communication: RN at Bedside; RN Reviewed Strip (Shaneka Ochoa RN) LaborFlag: Antepartum (QS system process) Datetime: 12/20/2016 23:35 NBP Sys/Karley/Mean (mmHg): 142 (QS system process) : 87 (QS system process) : 109 (QS system process) Pulse: 82 (QS system process) LaborFlag: Antepartum (QS system process) Datetime: 12/20/2016 23:30 Stage of : Antepartum (Shaneka Ochoa RN) Monitor Mode: External (Shaneka Ochoa RN) Monitor Interventions for UA: [place] Adjusted (Shaneka Ochoa RN) Frequency (min): 2.5-3 (Shaneka Ochoa RN) Quality: Mild (Shaneka Ochoa RN) Duration (sec): 60-80 (Shaneka Ochoa RN) Resting Tone (Palpate): Relaxed (Shaneka Ochoa RN) Monitor Mode: External US (Shaneka Ochoa RN) Monitor Interventions for FHR: Ultrasound Adjusted (Shaneka Ochoa RN) FHR Baseline Changes: No Baseline Change (Shaneka Ochoa RN) Variability: Moderate 6-25 bpm (Shaneka Ochoa RN) Decelerations: None (Shaneka Ochoa RN) Comments: RN at b/s attemping to find FHR (Shaneka Ochoa RN) Pain Presence: None/Denies (Shaneka Ochoa RN) Patient Position/Activity: Left Extreme; Semi-Fowlers (Shaneka Ochoa, RN) Communication: RN at Bedside; RN Reviewed Strip (Shaneka Ochoa RN) LaborFlag: Antepartum (QS system process) Datetime: 12/20/2016 23:04 I/O Interventions: Up to BR (Shaneka Ochoa RN) Datetime: 12/20/2016 23:00 Stage of : Antepartum (Shaneka Ochoa RN) Monitor Mode: External (Shaneka Ochoa RN) Frequency (min): n/a (Shaneka Ochoa RN) Quality: Mild (Shaneka Ochoa RN) Resting Tone (Palpate): Relaxed (Shaneka Ochoa RN) Monitor Mode: External US (Shaneka Ochoa RN) FHR Baseline Rate : 155 (Shaneka Ochoa RN) FHR Baseline Changes: No Baseline Change (Shaneka Ochoa RN) Variability: Moderate 6-25 bpm (Shnaeka Ochoa RN) Accelerations: 15X15 (Shaneka Ochoa RN) Decelerations: None (Shaneka Ochoa RN) Pain Presence: None/Denies (Shaneka Ochoa RN) Patient Position/Activity: Left Tilt; Semi-Fowlers (Shaneka Ochoa RN) Communication: RN at Bedside; RN Reviewed Strip (Shaneka Ochoa RN) LaborFlag: Antepartum (QS system process) Datetime: 12/20/2016 22:50 NBP Sys/Karley/Mean (mmHg): 158 (QS system process) : 75 (QS system process) : 108 (QS system process) Pulse: 73 (QS system process) LaborFlag: Antepartum (QS system process) Datetime: 12/20/2016 22:35 NBP Sys/Karley/Mean (mmHg): 142 (QS system process) : 77 (QS system process) : 102 (QS system process) Pulse: 80 (QS system process) LaborFlag: Antepartum (QS system process) Datetime: 12/20/2016 22:33 Comments: RN at b/s attemping to find FHR (Shaneka Ochoa RN) Datetime: 12/20/2016 22:30 Stage of : Antepartum (Shaneka Ochoa RN) Monitor Mode: External (Shaneka Ochoa RN) Monitor Interventions for UA: [place] Adjusted (Shaneka Ochoa RN) Frequency (min): n/a (Shaneka Ochoa RN) Quality: Mild (Shaneka Ochoa RN) Resting Tone (Palpate): Relaxed (Shaneka Ochoa RN) Monitor Mode: External US (Shaneka Ochoa RN) Monitor Interventions for FHR: Ultrasound Adjusted (Shaneka Ochoa RN) FHR Baseline Rate : 155 (Shaneka Ochoa RN) FHR Baseline Changes: No Baseline Change (Shaneka Ochoa RN) Variability: Moderate 6-25 bpm (Shaneka Ochoa RN) Accelerations: 15X15 (Shaneka Ochoa RN) Decelerations: None (Shaneka Ochoa RN) Pain Presence: None/Denies (Shaneka Ochoa RN) Patient Position/Activity: Left Tilt; Semi-Fowlers (Shaneka Ochoa RN) Communication: RN at Bedside; RN Reviewed Strip (Shaneka Ochoa RN) LaborFlag: Antepartum (QS system process) Datetime: 12/20/2016 22:24 Analgesics/Sedatives: Ambien (mg) @ 10mg PO (Shaneka Errichiello, RN) Datetime: 12/20/2016 22:20 NBP Sys/Karley/Mean (mmHg): 132 (QS system process) : 66 (QS system process) : 93 (QS system process) Pulse: 77 (QS system process) LaborFlag: Antepartum (QS system process) Datetime: 12/20/2016 22:13 NBP Sys/Karley/Mean (mmHg): 140 (QS system process) : 72 (QS system process) : 99 (QS system process) Pulse: 80 (QS system process) LaborFlag: Antepartum (QS system process) Datetime: 12/20/2016 22:11 NBP Sys/Karley/Mean (mmHg): 168 (QS system process) : 90 (QS system process) : 122 (QS system process) Pulse: 78 (QS system process) LaborFlag: Antepartum (QS system process) Datetime: 12/20/2016 22:05 NBP Sys/Karley/Mean (mmHg): 169 (QS system process) : 91 (QS system process) : 123 (QS system process) Pulse: 75 (QS system process) LaborFlag: Antepartum (QS system process) Datetime: 12/20/2016 22:00 Stage of : Antepartum (Shaneka Ochoa RN) Monitor Mode: External (Shaneka Ochoa RN) Monitor Interventions for UA: [place] Adjusted (Shaneka Ochoa RN) Frequency (min): occasional (Shaneka Ochoa RN) Quality: Mild (Shaneka Ochoa RN) Duration (sec): 40-80 (Shaneka Ochoa RN) Resting Tone (Palpate): Relaxed (Shaneka Ochoa RN) Monitor Mode: External US (Shaneka Ochoa RN) Monitor Interventions for FHR: Ultrasound Adjusted (Shaneka Ochoa RN) FHR Baseline Rate : 150 (Shaneka Ochoa RN) FHR Baseline Changes: No Baseline Change (Shaneka Ochoa RN) Variability: Moderate 6-25 bpm (Shaneka Ochoa RN) Accelerations: 15X15 (Shaneka Ochoa RN) Decelerations: None (Shaneka Ochoa RN) Pain Presence: None/Denies (Shaneka Ochoa RN) Patient Position/Activity: Left Tilt; Semi-Fowlers (Shaneka Ochoa RN) Communication: RN at Bedside; RN Reviewed Strip (Shaneka Ochoa RN) LaborFlag: Antepartum (QS system process) Datetime: 12/20/2016 21:59 Comments: RN at b/s attemping to find FHR (Shaneka Ochoa RN) Datetime: 12/20/2016 21:50 NBP Sys/Karley/Mean (mmHg): 155 (QS system process) : 80 (QS system process) : 111 (QS system process) Pulse: 73 (QS system process) LaborFlag: Antepartum (QS system process) Datetime: 12/20/2016 21:34 NBP Sys/Karley/Mean (mmHg): 161 (QS system process) : 84 (QS system process) : 116 (QS system process) Pulse: 77 (QS system process) LaborFlag: Antepartum (QS system process) Datetime: 12/20/2016 21:33 NBP Sys/Karley/Mean (mmHg): 162 (QS system process) : 85 (QS system process) : 116 (QS system process) Pulse: 75 (QS system process) LaborFlag: Antepartum (QS system process) Datetime: 12/20/2016 21:32 NBP Sys/Karley/Mean (mmHg): 171 (QS system process) : 84 (QS system process) : 120 (QS system process) Pulse: 74 (QS system process) LaborFlag: Antepartum (QS system process) Datetime: 12/20/2016 21:30 Stage of : Antepartum (Shaneka Ochoa RN) Monitor Mode: External (Shaneka Ochoa RN) Monitor Interventions for UA: [place] Adjusted (Shaneka Ochoa RN) Frequency (min): 1.5-4 (Shaneka Ochoa RN) Quality: Mild/Moderate (Shaneka Ochoa RN) Duration (sec): 50-70 (Shaneka Ochoa RN) Resting Tone (Palpate): Relaxed (Shaneka Ochoa RN) Monitor Mode: External US (Shaneka Ochoa RN) Monitor Interventions for FHR: Ultrasound Adjusted (Shaneka Ochoa RN) FHR Baseline Rate : 145 (Shaneka Ochoa RN) FHR Baseline Changes: No Baseline Change (Shaneka Ochoa RN) Variability: Moderate 6-25 bpm (Shaneka Ochoa RN) Accelerations: 15X15 (Shaneka Ochoa RN) Decelerations: None (Shaneka Ochoa RN) Pain Presence: None/Denies (Shaneka Ochoa RN) Patient Position/Activity: Left Tilt; Semi-Fowlers (Shaneka Ochoa RN) Communication: RN at Bedside; RN Reviewed Strip (Shaneka Ochoa RN) LaborFlag: Antepartum (QS system process) Datetime: 12/20/2016 21:06 Medication Comments: Labetelol 200mg PO, PNV (Shaneka Ochoa RN) Datetime: 12/20/2016 21:03 Dilatation (cm): 1.0 (Shaneka Ochoa RN) Effacement (%): 50 (Shaneka Ochoa RN) Station: -3 (Shaneka Ochoa RN) Exam by: Lakeisha Ryder RN (Shaneka Ochoa RN) Cervix, Consistency: Soft (Shaneka Ochoa RN) Cervix, Position: Posterior (Shaneka Ochoa RN) Cervical Ripening Agents: Cervidil (Shaneka Ochoa RN) Medication Comments: Cervidil placed per protocol (Shaneka Ochoa RN) Datetime: 12/20/2016 21:00 Stage of : Antepartum (Shaneka Ochoa RN) Monitor Mode: External; Palpation (Shaneka Ochoa RN) Monitor Interventions for UA: [place] Adjusted (Shaneka Ochoa RN) Quality: Mild (Shaneka Ochoa RN) Resting Tone (Palpate): Relaxed (Shaneka Ochoa RN) Contraction Comments: Pt states contractions becoming more intense, contraction palpated mild/mod (Shaneka Ochoa RN) Monitor Mode: External US (Shaneka Ochoa RN) Monitor Interventions for FHR: Ultrasound Adjusted (Shaneka Ochoa RN) FHR Baseline Rate : 135 (Shaneka Ochoa RN) FHR Baseline Changes: No Baseline Change (Shaneka Ochoa RN) Variability: Moderate 6-25 bpm (Shaneka Ochoa RN) Accelerations: 15X15 (Shaneka Ocoha RN) Decelerations: None (Shaneka Ochoa RN) Pain Scale: 2 (Shaneka Ochoa RN) Pain Presence: Intermittent (Shaneka Ochoa RN) Pain Type: Contraction (Shaneka Ochoa RN) Pain Location: Abdomen (Shaneka Ochoa RN) Pain Goal: 1 (Shaneka Ochoa RN) Pain Relief Measures: Comfort Measures (Shaneka Ochoa RN) Pain Coping: Talking Through Contractions (Shaneka Ochoa RN) Pain Assessment Comments: with UC's (Shaneka Ochoa RN) Patient Position/Activity: Left Tilt; Semi-Fowlers (Shaneka Ochoa RN) Comfort Measures: Breathing/Relaxation; Coaching; Family Support (Shaneka Ochoa RN) Communication: RN at Bedside; RN Reviewed Strip (Shaneka Ochoa RN) LaborFlag: Antepartum (QS system process)
[2016-12-21 09:09] LABS: ABSOLUTE BASOPHILS # (AUTO) 0.1 10^3/uL (0.0-0.2); ABSOLUTE EOSINOPHILS # (AUTO) 0.1 10^3/uL (0.0-0.6); ABSOLUTE LYMPHOCYTES (AUTO) 1.4 10^3/uL (0.5-4.7); ABSOLUTE MONOCYTES (AUTO) 0.9 10^3/uL (0.1-1.4); ABSOLUTE NEUT (AUTO) 7.9 10^3/uL (1.7-8.2); BASOPHILS % (AUTO) 0.6 % (0-2); EOSINOPHILS % (AUTO) 0.7 % (0-6); HEMATOCRIT 35.4 % (36.0-47.0); HEMOGLOBIN 10.7 g/dL (12.0-15.5); HGB HCT DIFFERENCE -3.3; LYMPHOCYTES % (AUTO) 13.7 % (13-45); MEAN CORPUSCULAR HGB CONC 30.3 g/dL (32.0-36.0); MEAN CORPUSCULAR VOLUME 73 fl (80-97); MONOCYTES % (AUTO) 9.1 % (3-13); RED BLOOD COUNT 4.88 10^6/uL (3.72-5.28); RED CELL DISTRIBUTION WIDTH 17.1 % (11.5-14.0); SEGMENTED NEUTROPHILS % (AUTO) 75.9 % (42-78); WHITE BLOOD COUNT 10.4 10^3/uL (4.0-10.5)
[2016-12-21 09:35] LABS: ALANINE AMINOTRANSFERASE 27 U/L (9-52); ALBUMIN 3.3 g/dL (3.5-5.0); ALKALINE PHOSPHATASE 125 U/L (38-126); ANION GAP 10 (5-19); ASPARTATE AMINO TRANSFERASE 30 U/L (14-36); BILIRUBIN,TOTAL 0.5 mg/dL (0.2-1.3); BLOOD UREA NITROGEN 6 mg/dL (7-20); CALCIUM 9.5 mg/dL (8.4-10.2); CARBON DIOXIDE 23 mmol/L (22-30); CHLORIDE 105 mmol/L (98-107); CREATININE RESULT 0.66 mg/dL (0.52-1.25); GLUCOSE 74 mg/dL (75-110); LDH 587 U/L (313-618); POTASSIUM 4.2 mmol/L (3.6-5.0); SODIUM 137.9 mmol/L (137-145); TOTAL PROTEIN 6.1 g/dL (6.3-8.2); URIC ACID 5.4 mg/dL (2.5-7.0)
[2016-12-21] MEDS ORDERED: MISOPROSTOL 0.1 MG TABLET ONE ×3 (10:27→19:37)
--- NOTE | 2016-12-21 10:40 | L&D Progress Notes ---
PROGRESS NOTES Datetime Report Generated by CPN: 12/21/2016 10:40 PROGRESS NOTE Impression: Gest. HTN/PreEclampsia/Eclampsia Impression Other: IOL-stable Procedures- Other: morning rounds Plan: Continue Present Management Informed Consent Obtained: Vaginal Delivery; Induction of Labor Vital Signs : Reviewed Vital Signs Comments: Severe range BPs Dr. Shafer in room and aware of vital signs Comment: Morning team in room and accepting care of this patient Pt. reports cramping with contractions, Denies s/s of pre-e VSS as stated above (labetalol increased to TID next dose at 1400) Plan is to remove cervidil at 0900 and allowed to eat breakfast and shower Reassess for dilation at that time Pt. asked questions and verbalized understanding. VAGINAL EXAM Contractions: irregular MEMBRANES Membranes: Intact FETUS A FHR - Baseline: 130 Monitoring: External US Variability: Moderate 6-25bpm Accelerations: 15X15 Decelerations: None FHR Category: Category I FETUS C SIGNATURE: [id number] Assignment: Christopher Shafer, DO Signature: with User ID: Ludivina : with User ID: Ludivina
[2016-12-21] MEDS ORDERED: MISOPROSTOL 0.1 MG TABLET PO ONE ×2 (11:15→15:24)
--- NOTE | 2016-12-21 12:01 | L&D Flow Sheet ---
LD Flowsheet Datetime Report Generated by CPN: 12/21/2016 12:00 Datetime: 12/21/2016 11:54 NBP Sys/Karley/Mean (mmHg): 139 (QS system process) : 74 (QS system process) : 101 (QS system process) Pulse: 71 (QS system process) Monitor Interventions for FHR: Ultrasound Adjusted (Quirino Matamoros RN) LaborFlag: Antepartum (QS system process) Datetime: 12/21/2016 11:49 Patient Position/Activity: Right Lateral (Quirino Shiloh, RN) Datetime: 12/21/2016 11:45 Monitor Mode: External; Palpation (Quirino Padillat, RN) Frequency (min): irregular (Quirino Shiloh, RN) Quality: Mild (Quirino Shiloh, RN) Duration Criteria: Less than Two 120 Second Contractions (Quirino Kennedyfleet, RN) Pattern: Normal: <= 5 Contractions in 10 Minutes (Quirino Shiloh, RN) Resting Tone (Palpate): Relaxed (Quirino Shiloh, RN) Monitor Mode: External US (Quirino Baugheet, RN) FHR Baseline Rate : 135 (Quirino Shiloh, RN) Variability: Moderate 6-25 bpm (Quirino Shiloh, RN) Accelerations: 15X15 (Quirino Shiloh, RN) Decelerations: None (Quirino Shiloh, RN) Communication: RN at Bedside; RN Reviewed Strip (Quirino Baugheet, RN) Datetime: 12/21/2016 11:43 Monitor Interventions for FHR: Ultrasound Adjusted (Quirino Padillat, RN) I/O Interventions: Up to BR (Quirino Padillat, RN) Datetime: 12/21/2016 11:41 Anesthesia Comments: Dr Salvador at bedside to evaluate patient for epidural. States he will come to place epidural when desired. (Quirino Padillat, RN) Datetime: 12/21/2016 11:25 Monitor Interventions for FHR: Ultrasound Adjusted (Quirino Baugheet, RN) Datetime: 12/21/2016 11:20 Monitor Interventions for UA: [place] Adjusted (Quirino Baugheet, RN) Monitor Interventions for FHR: Ultrasound Adjusted (Quirino Baugheet, RN) Datetime: 12/21/2016 11:16 NBP Sys/Karley/Mean (mmHg): 141 (QS system process) : 74 (QS system process) : 102 (QS system process) Pulse: 76 (QS system process) LaborFlag: Antepartum (QS system process) Datetime: 12/21/2016 11:15 Monitor Mode: External; Palpation (Quirino Matamoros, RN) Frequency (min): irregular (Quirino Baugheet, RN) Quality: Mild (Quirino Baugheet, RN) Resting Tone (Palpate): Relaxed (Quirino Matamoros, RN) Monitor Mode: External US (Quirino Matamoros, RN) FHR Baseline Rate : 130 (Quirino Baugheet, RN) Variability: Moderate 6-25 bpm (Quirino Baugheet, RN) Accelerations: 15X15 (Quirino Baugheet, RN) Decelerations: None (Quirino Kennedyfleet, RN) Comments: Broken tracing, RN adjusting. (Quirino Kennedyfleet, RN) Communication: RN at Bedside; RN Reviewed Strip (Quirino Baugheet, RN) Datetime: 12/21/2016 11:11 Monitor Interventions for FHR: Ultrasound Adjusted (Quirino Kennedyfleet, RN) Comments: difficult to maintain continuous fht d/t maternal habitus (Quirino Kennedyfleet, RN) Datetime: 12/21/2016 11:01 Patient Care Comments: LARISSA hose reapplied (Quirino Shiloh, RN) Datetime: 12/21/2016 10:48 Monitor Interventions for FHR: Ultrasound Adjusted (Quirino Shiloh, RN) Datetime: 12/21/2016 10:46 NBP Sys/Karley/Mean (mmHg): 136 (QS system process) : 76 (QS system process) : 100 (QS system process) Pulse: 75 (QS system process) LaborFlag: Antepartum (QS system process) Datetime: 12/21/2016 10:45 Monitor Mode: External; Palpation (Quirino Matamoros, RN) Frequency (min): irregular (Quirino Baugheet, RN) Quality: Mild (Quirino Baugheet, RN) Duration Criteria: Less than Two 120 Second Contractions (Quirino Baugheet, RN) Pattern: Normal: <= 5 Contractions in 10 Minutes (Qiurino Baugheet, RN) Resting Tone (Palpate): Relaxed (Quirino Matamoros, RN) Monitor Mode: External US (Quirino Matamoros RN) FHR Baseline Rate : 130 (Quirino Matamoros RN) Variability: Moderate 6-25 bpm (Quirino Matamoros RN) Accelerations: 15X15 (Quirino Matamoros RN) Decelerations: None (Quirino Matamoros RN) Comments: Broken tracing/ RN adjusting (Quirino Matamoros RN) Pain Scale: 1 (Quirino Matamoros RN) Pain Presence: Intermittent (Quirino Matamoros RN) Pain Type: Contraction (Quirino Matamoros RN) Pain Location: Abdomen (Quirino Matamoros RN) Pain Relief Measures: Comfort Measures (Quirino Matamoros RN) Pain Coping: Talking Through Contractions; Declines Medication or Epidural (Quirino Matamoros RN) Comfort Measures: Breathing/Relaxation (Quirino Matamoros RN) Patient Care Comments: No distress noted, FOB at bedside, watching tv. (Quirino Matamoros RN) Communication: RN at Bedside; RN Reviewed Strip (Quirino Matamoros RN) LaborFlag: Antepartum (QS system process) Datetime: 12/21/2016 10:41 Monitor Interventions for FHR: Ultrasound Adjusted (Quirino Matamoros RN) Datetime: 12/21/2016 10:30 Level of Consciousness: Fully Conscious (Quirino Matamoros RN) Headache: Denies (Quirino Matamoros RN) Nausea/Vomiting: Denies (Quirino Matamoros RN) RUQ Epigastric Pain: Denies (Quirino Matamoros RN) Cervical Ripening Agents: Cytotec @ 50mcg PO (Quirino Matamoros RN) Communication Comments: Lakeisha Bell CNM notifed and reviewed updated laboratory reports. (Quirino Matamoros RN) Datetime: 12/21/2016 10:14 Dilatation (cm): 1.0 (Quirino Matamoros RN) Effacement (%): 30 (Quirino Matamoros RN) Station: -3 (Quirino Matamoros RN) Exam by: Lakeisha Bell CNM (Quirino Matamoros RN) Vaginal Bleeding: None (Quirino Matamoros RN) Cervix, Consistency: Soft (Quirino Matamoros RN) Cervix, Position: Posterior (Quirino Matamoros RN) Vaginal Exam Comments: thick (Quirino Matamoros RN) Dilatation (cm): 1-2 cm (Quirino Matamoros RN) Effacement: 0-30_ effaced (Quirino Matamoros RN) Station: minus 3 (Quirino Matamoros RN) Consistency: Soft (Quirino Matamoros RN) Position: Posterior (Quirino Matamoros RN) Total Campo's Score: 3 (QS system process) : 0-4 = Unfavorable cervix (QS system process) Medication Comments: LR 125ml/hr (Quirino Matamoros RN) Instructional Method: Verbal; Patient Instructed; Verbalized Understanding (Quirino Matamoros RN) Plan of Care: Plan of Care Discussed; Induction (Quirino Matamoros RN) Unit Routine: Medications (Quirino Matamoros RN) Labor/Induction: Induction (Quirino Matamoros RN) Medications: Cervical Ripening (Quirino Matamoros RN) Communication Comments: C Bell orders obtained for cytotec 50mcg PO now. States to hold off on starting penicillin protocol. (Quirino Matamoros RN) Datetime: 12/21/2016 08:59 Respirations: 20 (Quirino Matamorso RN) Monitor Mode: External; Palpation (Quirino Matamoros RN) Frequency (min): irregular (Quirino Matamoros RN) Quality: Mild (Quirino Matamoros RN) Duration Criteria: Less than Two 120 Second Contractions (Quirino Matamoros RN) Pattern: Normal: <= 5 Contractions in 10 Minutes (Quirino Matamoros RN) Resting Tone (Palpate): Relaxed (Quirino Matamoros RN) Monitor Mode: External US (Quirino Matamoros RN) FHR Baseline Rate : 130 (Quirino Matamoros RN) Variability: Moderate 6-25 bpm (Quirino Matamoros RN) Accelerations: 15X15 (Quirino Matamoros RN) Decelerations: None (Quirino Matamoros RN) Comments: Pt removed from monitors for shower and to eat breakfast. (Quirino Matamoros RN) Pain Scale: 2 (Quirino Matamoros RN) Pain Presence: Intermittent (Quirino Matamoros RN) Pain Type: Contraction (Quirino Matamoros RN) Pain Location: Abdomen (Quirino Matamoros RN) Pain Relief Measures: Comfort Measures (Quirino Matamoros RN) Pain Coping: Talking Through Contractions; Declines Medication or Epidural (Quirino Matamoros RN) Level of Consciousness: Fully Conscious (Quirino Matamoros RN) Headache: Denies (Quirino Matamoros RN) Nausea/Vomiting: Denies (Quirino Matamoros RN) RUQ Epigastric Pain: Denies (Quirino Matamoros RN) Medication Comments: Cervidil Removed (Quirino Matamoros RN) IV/Blood Work: IV Saline Locked (Quirino Matamoros RN) Comfort Measures: Breathing/Relaxation (Quirino Matamoros RN) Hygiene: Oral Care; Tasha Care; Shower; Underpad Changed; Peripad Changed; Gown Changed; Linens Changed (Quirino Matamoros RN) I/O Interventions: Clear Liquids Given; Up to BR (Quirino Matamoros RN) Patient Care Comments: IV covered for shower; mother at bedside to assist pt; Pt eating breakfast. (Quirino Matamoros RN) Communication: RN at Bedside; RN Reviewed Strip (Quirino Matamoros RN) LaborFlag: Antepartum (QS system process) Datetime: 12/21/2016 08:50 IV/Blood Work: Labs Drawn (Quirino Shiloh, RN) Datetime: 12/21/2016 08:47 NBP Sys/Karley/Mean (mmHg): 164 (QS system process) : 87 (QS system process) : 118 (QS system process) Pulse: 75 (QS system process) LaborFlag: Antepartum (QS system process) Datetime: 12/21/2016 08:42 Communication Comments: Lab called to come draw 0800 labs. (Quirino Shiloh, RN) Datetime: 12/21/2016 08:30 Monitor Mode: External; Palpation (Quirino Matamoros RN) Frequency (min): irregular (Quirino Matamoros RN) Quality: Mild (Quirino Matamoros RN) Duration Criteria: Less than Two 120 Second Contractions (Quirino Matamoros RN) Pattern: Normal: <= 5 Contractions in 10 Minutes (Quirino Matamoros RN) Resting Tone (Palpate): Relaxed (Quirino Matamoros RN) Monitor Mode: External US (Quirino Matamoros RN) FHR Baseline Rate : 130 (Quirino Matamoros RN) Variability: Moderate 6-25 bpm (Quirino Matamoros RN) Accelerations: 15X15 (Quirino Matamoros RN) Decelerations: None (Quirino Matamoros RN) Pain Scale: 1 (Quirino Matamoros RN) Pain Presence: Intermittent (Quirino Matamoros RN) Pain Type: Contraction (Quirino Matamoros RN) Pain Location: Abdomen (Quirino Matamoros RN) Pain Relief Measures: Comfort Measures (Quirino Matamoros RN) Pain Coping: Talking Through Contractions; Declines Medication or Epidural (Quirino Matamoros RN) Comfort Measures: Breathing/Relaxation (Quirino Matamoros RN) Provider Reviewed Strip: Yes (Quirino Matamoros RN) Instructional Method: Demo; Verbal; Patient Instructed; Family/Support Person Instructed; Verbalized Understanding (Quirino Matamoros RN) Plan of Care: Plan of Care Discussed; Induction; Gestational Hypertension/Preeclampsia/Eclampsia (Quirino Matamoros RN) Labor/Induction: Labor Stages; Cervical Ripening; Induction (Quirino Matamoros RN) Pain Management: Epidural; PRN Medications; Pain Scale/Goals; Comfort Measures (Quirino Matamoros RN) Medications: Antibiotics (Quirino Matamoros RN) Communication: RN at Bedside; RN Reviewed Strip (Quirino Matamoros RN) Communication Comments: Dr Shafer and Lakeisha Bell CNM at bedside to assess pt and discuss plan of care. Dr Shafer states pt may eat breakfast and shower after cervidil removed. Lakeisha Bell CNM states she will check pt cervix after shower. (Quirino Matamoros RN) LaborFlag: Antepartum (QS system process) Datetime: 12/21/2016 08:17 NBP Sys/Karley/Mean (mmHg): 168 (QS system process) : 95 (QS system process) : 125 (QS system process) Pulse: 77 (QS system process) LaborFlag: Antepartum (QS system process) Datetime: 12/21/2016 08:02 NBP Sys/Karley/Mean (mmHg): 165 (QS system process) : 94 (QS system process) : 122 (QS system process) Pulse: 83 (QS system process) LaborFlag: Antepartum (QS system process) Datetime: 12/21/2016 08:01 Communication Comments: Orders obtained from Dr Shafer to give Labetalol 200mg PO Q8hrs. (Quirino Matamoros RN) Datetime: 12/21/2016 08:00 Monitor Mode: External; Palpation (Quirino Matamoros RN) Frequency (min): irregular (Quirino Matamoros RN) Quality: Mild (Quirino Matamoros RN) Resting Tone (Palpate): Relaxed (Quirino Matamoros RN) Monitor Mode: External US (Quirino Matamoros RN) FHR Baseline Rate : 130 (Quirino Matamoros RN) Variability: Moderate 6-25 bpm (Quirino Matamoros RN) Accelerations: 15X15 (Quirino Matamoros RN) Decelerations: Variable (Quirino Matamoros RN) Pain Scale: 1 (Quirino Matamoros RN) Pain Presence: Intermittent (Quirino Matamoros RN) Pain Type: Contraction (Quirino Matamoros RN) Pain Location: Abdomen (Quirino Matamoros RN) Pain Relief Measures: Comfort Measures (Quirino Matamoros RN) Pain Coping: Talking Through Contractions; Declines Medication or Epidural (Quirino Matamoros RN) Comfort Measures: Breathing/Relaxation; Family Support (Quirino Matamoros RN) Communication: RN at Bedside; RN Reviewed Strip (Quirino Matamoros RN) LaborFlag: Antepartum (QS system process)
[2016-12-21] MEDS ORDERED: LABETALOL HCL 200 MG TABLET ONE ×2 (14:00→21:40)
[2016-12-21] MEDS ORDERED: LABETALOL HCL 200 MG TABLET PO SCH (14:00)
--- NOTE | 2016-12-21 16:00 | L&D Flow Sheet ---
LD Flowsheet Datetime Report Generated by CPN: 12/21/2016 16:00 Datetime: 12/21/2016 15:37 Cervical Ripening Agents: Cytotec @ 50mcg PO (Quirino Shiloh, RN) Datetime: 12/21/2016 15:28 Monitor Interventions for UA: [place] Adjusted (Quirino Shiloh, RN) Monitor Interventions for FHR: Ultrasound Adjusted (Quirino Shiloh, RN) Datetime: 12/21/2016 14:30 Level of Consciousness: Fully Conscious (Quirino Shiloh, RN) Headache: Denies (Quirino Shiloh, RN) Breath Sounds, Left: Clear and Equal (Quirino Shiloh, RN) Breath Sounds, Right: Clear and Equal (Quirino Shiloh, RN) Nausea/Vomiting: Denies (Quirino Shiloh, RN) RUQ Epigastric Pain: Denies (Quirino Shiloh, RN) Datetime: 12/21/2016 14:22 Temperature (F): 98.3 (Quirino Shiloh, RN) Temperature (C): 36.8 (QS system process) Monitor Mode: External; Palpation (Quirino Shiloh, RN) Frequency (min): irregular (Quirino Shiloh, RN) Quality: Mild (Quirino Shiloh, RN) Duration Criteria: Less than Two 120 Second Contractions (Quirino Shiloh, RN) Pattern: Normal: <= 5 Contractions in 10 Minutes (Quirino Shiloh, RN) Resting Tone (Palpate): Relaxed (Quirino Shiloh, RN) Monitor Mode: External US (Quirino Matamoros RN) FHR Baseline Rate : 130 (Quirino Matamoros RN) Variability: Moderate 6-25 bpm (Quirino Matamoros RN) Accelerations: 15X15 (Quirino Matamoros RN) Decelerations: None (Quirino Matamoros RN) Comments: Pt removed from monitors for ambulation; IV saline locked; at side. No distress noted, no complaints. (Quirino Matamoros RN) Pain Scale: 1 (Quirino Matamoros RN) Pain Presence: Intermittent (Quirino Matamoros RN) Pain Type: Contraction (Quirino Matamoros RN) Pain Location: Abdomen (Quirino Matamoros RN) Pain Relief Measures: Comfort Measures (Quirino Matamoros RN) Pain Coping: Talking Through Contractions; Declines Medication or Epidural (Quirino Matamoros RN) Comfort Measures: Breathing/Relaxation; Family Support (Quirino Matamoros RN) Communication: RN at Bedside; RN Reviewed Strip (Quirino Matamoros RN) LaborFlag: Antepartum (QS system process) Datetime: 12/21/2016 14:05 Medication Comments: Labetalol 200mg PO (Quirino Matamoros RN) Datetime: 12/21/2016 14:04 NBP Sys/Karley/Mean (mmHg): 146 (QS system process) : 78 (QS system process) : 106 (QS system process) Pulse: 69 (QS system process) Vital Sign Comments: Changed BP cuff (Quirino Matamoros RN) LaborFlag: Antepartum (QS system process) Datetime: 12/21/2016 14:02 NBP Sys/Karley/Mean (mmHg): 172 (QS system process) : 81 (QS system process) : 116 (QS system process) Pulse: 70 (QS system process) LaborFlag: Antepartum (QS system process) Datetime: 12/21/2016 13:54 NBP Sys/Karley/Mean (mmHg): 178 (QS system process) : 88 (QS system process) : 121 (QS system process) Pulse: 70 (QS system process) LaborFlag: Antepartum (QS system process) Datetime: 12/21/2016 13:45 Respirations: 20 (Quirino Matamoros RN) Monitor Mode: External; Palpation (Quirino Matamoros RN) Frequency (min): 7-8 (Quirino Matamoros, ABDULKADIR) Quality: Mild (Quirnio Matamoros, RN) Duration (sec): 60-80 (Quirino Matamoros RN) Resting Tone (Palpate): Relaxed (Quirino Matamoros RN) Monitor Mode: External US (Quirino Matamoros RN) FHR Baseline Rate : 125 (Quirino Matamoros, RN) Variability: Moderate 6-25 bpm (Quirino Matamoros, RN) Accelerations: 15X15 (Quirino Matamoros, RN) Decelerations: None (Quirino Matamoros, RN) Pain Coping: Sleeping (Quirino Matamoros RN) Level of Consciousness: Fully Conscious (Quirino Matamoros RN) Headache: Denies (Quirino Matamoros RN) Nausea/Vomiting: Denies (Quirino Matamoros RN) RUQ Epigastric Pain: Denies (Quirino Matamoros RN) Communication: RN at Bedside; RN Reviewed Strip (Quirino Matamoros RN) LaborFlag: Antepartum (QS system process) Datetime: 12/21/2016 13:24 NBP Sys/Karley/Mean (mmHg): 137 (QS system process) : 73 (QS system process) : 99 (QS system process) Pulse: 69 (QS system process) LaborFlag: Antepartum (QS system process) Datetime: 12/21/2016 13:15 Monitor Mode: External; Palpation (Quirino Matamoros RN) Frequency (min): irregular (Quirino Matamoros RN) Quality: Mild (Quirino Matamoros RN) Duration Criteria: Less than Two 120 Second Contractions (Quirino Matamoros RN) Pattern: Normal: <= 5 Contractions in 10 Minutes (Quirino Matamoros RN) Resting Tone (Palpate): Relaxed (Quirino Matamoros RN) Monitor Mode: External US (Quirino Matamoros RN) FHR Baseline Rate : 135 (Quirino Matamoros RN) Variability: Moderate 6-25 bpm (Quirino Matamoros RN) Accelerations: 15X15 (Quirino Matamoros RN) Decelerations: None (Quirino Matamoros RN) Pain Coping: Sleeping (Quirino Matamoros RN) Pain Assessment Comments: No distress noted. (Quirino Matamoros RN) Communication: RN at Bedside; RN Reviewed Strip (Quirino Maatmoros RN) LaborFlag: Antepartum (QS system process) Datetime: 12/21/2016 13:12 Monitor Interventions for FHR: Ultrasound Adjusted (Quirino Shiloh, RN) Datetime: 12/21/2016 13:08 Monitor Interventions for FHR: Ultrasound Adjusted (Quirino Shiloh, RN) Datetime: 12/21/2016 12:54 NBP Sys/Karley/Mean (mmHg): 151 (QS system process) : 83 (QS system process) : 112 (QS system process) Pulse: 69 (QS system process) LaborFlag: Antepartum (QS system process) Datetime: 12/21/2016 12:45 Respirations: 18 (Quirino Matamoros RN) Monitor Mode: External; Palpation (Quirino Matamoros, RN) Frequency (min): irregular (Quirino Matamoros, RN) Quality: Mild (Quirino Matamoros, RN) Duration Criteria: Less than Two 120 Second Contractions (Quirino Matamoros, RN) Pattern: Normal: <= 5 Contractions in 10 Minutes (Quirino Matamoros, RN) Resting Tone (Palpate): Relaxed (Quirino Matamoros, RN) Monitor Mode: External US (Quirino Matamoros, ABDULKADIR) FHR Baseline Rate : 130 (Quirino Matamoros, RN) Variability: Moderate 6-25 bpm (Quirino Padillat, RN) Accelerations: 15X15 (Quirino Baugheet, RN) Decelerations: None (Quirino Matamoros, RN) Level of Consciousness: Fully Conscious (Quirino Matamoros, RN) Headache: Denies (Quirino Matamoros, RN) Nausea/Vomiting: Denies (Quirino Matamoros, RN) RUQ Epigastric Pain: Denies (Quirino Matamoros, ABDULKADIR) Communication: RN at Bedside; RN Reviewed Strip (Quirino Matamoros RN) LaborFlag: Antepartum (QS system process) Datetime: 12/21/2016 12:25 Provider Reviewed Strip: Yes (Quirino Matamoros RN) Notification Reason: Status Update; Labor Status; Uterine Activity (Quirino Matamoros RN) Communication Comments: Provider states pt may ambulate x1 hr 4hr after last cytotec dose given. (Quirino Matamoros RN) Datetime: 12/21/2016 12:24 NBP Sys/Karley/Mean (mmHg): 142 (QS system process) : 79 (QS system process) : 105 (QS system process) Pulse: 67 (QS system process) LaborFlag: Antepartum (QS system process) Datetime: 12/21/2016 12:15 Monitor Mode: External; Palpation (Quirino Matamoros RN) Frequency (min): none (Quirino Matamoros RN) Resting Tone (Palpate): Relaxed (Quirino Matamoros RN) Contraction Comments: pt denies contractions, c/o cramping (Quirino Matamoros RN) Monitor Mode: External US (Quirino Matamoros RN) FHR Baseline Rate : 135 (Quirino Matamoros RN) Variability: Moderate 6-25 bpm (Quirino Matamoros RN) Accelerations: 15X15 (Quirino Matamoros RN) Decelerations: None (Quirino Matamoros RN) Comments: maternal hr; rn adjusted (Quirino Matamoros RN) Comments: broken tracing, RN adjusting, intermittently picking up maternal hr (Quirino Matamoros RN) Pain Scale: 1 (Quirino Matamoros RN) Pain Presence: Intermittent (Quirino Matamoros RN) Pain Type: Cramping (Quirino Matamoros RN) Pain Location: Abdomen (Quirino Matamoros RN) Pain Relief Measures: Comfort Measures (Quirino Matamoros RN) Pain Coping: Talking Through Contractions; Declines Medication or Epidural (Quirino Matamoros RN) Comfort Measures: Breathing/Relaxation (Quirino Matamoros RN) LaborFlag: Antepartum (QS system process) Datetime: 12/21/2016 12:03 Monitor Interventions for FHR: Ultrasound Adjusted (Quirino Matamoros RN)
--- NOTE | 2016-12-21 20:00 | L&D Flow Sheet ---
LD Flowsheet Datetime Report Generated by CPN: 12/21/2016 20:00 Datetime: 12/21/2016 19:41 Communication: Provider Orders Received (Raina Chaney RN) Communication Comments: Dr. Shafer at nurse's station. Report to include SVE, pt states having a headache with a pain of 1 out of 5. Orders received that patient may have SCDs for immobility, may eat dinner. (Raina Chaney, RN) Datetime: 12/21/2016 19:39 Dilatation (cm): 1.0 (Raina Ring, RN) Effacement (%): 50 (Raina Ring, RN) Station: -3 (Raina Ring, RN) Exam by: B. Ring RN (Raina Ring, RN) Cervix, Consistency: Soft (Raina Ring, RN) Cervix, Position: Posterior (Raina Ring, RN) Datetime: 12/21/2016 19:33 Communication Comments: Dr. Shafer on unit and new orders received to change lebatolol to 300 mg PO Q8 beginning at 2200. Also after SVE at 1930 begin cytotec 25 mcg PO q4 until adequate for pitocin. (Teri Hahn, RN) Datetime: 12/21/2016 19:23 NBP Sys/Karley/Mean (mmHg): 165 (QS system process) : 79 (QS system process) : 113 (QS system process) Pulse: 77 (QS system process) LaborFlag: Antepartum (QS system process) Datetime: 12/21/2016 19:20 Level of Consciousness: Fully Conscious (Raina Ring, RN) DTR's/Clonus: DTRs 2+; No Clonus (Raina Ring, RN) Headache: Frontal (Raina Ring, RN) Breath Sounds, Left: Clear and Equal (Raina Ring, RN) Breath Sounds, Right: Clear and Equal (Raina Ring, RN) Nausea/Vomiting: Denies (Raina Ring, RN) RUQ Epigastric Pain: Denies (Raina Ring, RN) Datetime: 12/21/2016 19:11 Communication Comments: Report to B Ring RN Care relinquished at this time. (Quirino Shiloh, RN) Datetime: 12/21/2016 19:00 Monitor Mode: External; Palpation (Quirino Matamoros RN) Frequency (min): irregular (Quirino Matamoros RN) Quality: Mild (Quirino Matamoros RN) Duration Criteria: Less than Two 120 Second Contractions (Quirino Matamoros RN) Pattern: Normal: <= 5 Contractions in 10 Minutes (Quirino Matamoros RN) Resting Tone (Palpate): Relaxed (Quirino Matamoros RN) Monitor Mode: External US (Quirino Matamoros RN) FHR Baseline Rate : 135 (Quirino Matamoros RN) Variability: Moderate 6-25 bpm (Quirino Matamoros RN) Accelerations: 15X15 (Quirino Matamoros RN) Decelerations: None (Quirino Matamoros RN) Pain Scale: 2 (Quirino Matamoros RN) Pain Presence: Intermittent (Quirino Matamoros RN) Pain Type: Contraction (Quirino Matamoros RN) Pain Location: Abdomen (Quirino Matamoros RN) Pain Relief Measures: Comfort Measures (Quirino Matamoros RN) Pain Coping: Talking Through Contractions; Declines Medication or Epidural (Quirino Matamoros RN) Comfort Measures: Breathing/Relaxation (Quirino Matamoros RN) Communication: RN at Bedside; RN Reviewed Strip (Quirino Matamoros RN) LaborFlag: Antepartum (QS system process) Datetime: 12/21/2016 18:53 NBP Sys/Karley/Mean (mmHg): 155 (QS system process) : 82 (QS system process) : 112 (QS system process) Pulse: 77 (QS system process) LaborFlag: Antepartum (QS system process) Datetime: 12/21/2016 18:46 Monitor Interventions for UA: [place] Adjusted (Quirino Kennedyfleet, RN) Datetime: 12/21/2016 18:43 Temperature (F): 98.3 (Quirino Matamoros, RN) Temperature (C): 36.8 (QS system process) LaborFlag: Antepartum (QS system process) Datetime: 12/21/2016 18:42 Patient Position/Activity: Left Extreme (Quirino Shiloh, RN) Datetime: 12/21/2016 18:30 Monitor Mode: External; Palpation (Quirino Baugheet, RN) Frequency (min): irregular (Quirino Shiloh, RN) Quality: Mild (Quirino Shiloh, RN) Duration Criteria: Less than Two 120 Second Contractions (Quirino Shiloh, RN) Pattern: Normal: <= 5 Contractions in 10 Minutes (Quirino Shiloh, RN) Resting Tone (Palpate): Relaxed (Quirino Shiloh, RN) Monitor Mode: External US (Quirino Baugheet, RN) FHR Baseline Rate : 135 (Quirino Shiloh, RN) Variability: Moderate 6-25 bpm (Quirino Shiloh, RN) Accelerations: Prolonged (Quirino Shiloh, RN) Decelerations: None (Quirino Shiloh, RN) Level of Consciousness: Fully Conscious (Quirino Shiloh, RN) Headache: Denies (Quirino Shiloh, RN) Breath Sounds, Left: Clear and Equal (Quirino Shiloh, RN) Breath Sounds, Right: Clear and Equal (Quirino Shiloh, RN) Nausea/Vomiting: Denies (Quirino Shiloh, RN) RUQ Epigastric Pain: Denies (Quirino Shiloh, RN) Communication: RN at Bedside; RN Reviewed Strip (Quirino Shiloh, RN) Datetime: 12/21/2016 18:23 NBP Sys/Karley/Mean (mmHg): 166 (QS system process) : 85 (QS system process) : 117 (QS system process) Pulse: 74 (QS system process) LaborFlag: Antepartum (QS system process) Datetime: 12/21/2016 18:00 Respirations: 18 (Quirino Matamoros, RN) Monitor Mode: External; Palpation (Quirino Matamoros, RN) Frequency (min): irregular (Quirino Matamoros, RN) Quality: Mild (Quirino Matamoros, RN) Duration Criteria: Less than Two 120 Second Contractions (Quirino Matamoros, RN) Pattern: Normal: <= 5 Contractions in 10 Minutes (Quirino Baugheet, RN) Resting Tone (Palpate): Relaxed (Quirino Matamoros, RN) Monitor Mode: External US (Quirino Matamoros RN) FHR Baseline Rate : 135 (Quirino Matamoros, RN) Variability: Moderate 6-25 bpm (Quirino Baugheet, RN) Accelerations: 15X15 (Quirino Matamoros, RN) Decelerations: None (Quirino Matamoros, RN) Pain Coping: Sleeping (Quirino Matamoros RN) Communication: RN at Bedside; RN Reviewed Strip (Quirino Matamoros RN) LaborFlag: Antepartum (QS system process) Datetime: 12/21/2016 17:53 NBP Sys/Karley/Mean (mmHg): 162 (QS system process) : 77 (QS system process) : 111 (QS system process) Pulse: 77 (QS system process) LaborFlag: Antepartum (QS system process) Datetime: 12/21/2016 17:30 Monitor Mode: External; Palpation (Quirino Matamoros RN) Frequency (min): irregular (Quirino Matamoros RN) Quality: Mild (Quirino Matamoros RN) Resting Tone (Palpate): Relaxed (Quirino Matamoros RN) Monitor Mode: External US (Quirino Matamorso RN) FHR Baseline Rate : 130 (Quirino Matamoros RN) Variability: Moderate 6-25 bpm (Quirino Matamoros RN) Accelerations: 15X15 (Quirino Matamoros RN) Decelerations: None (Quirino Matamoros RN) Pain Coping: Sleeping (Quirino Matamoros RN) Communication: RN at Bedside; RN Reviewed Strip (Quirino Matamoros RN) Datetime: 12/21/2016 17:15 NBP Sys/Karley/Mean (mmHg): 151 (QS system process) : 78 (QS system process) : 108 (QS system process) Pulse: 74 (QS system process) I/O Interventions: Up to BR (Quirino Matamoros RN) LaborFlag: Antepartum (QS system process) Datetime: 12/21/2016 17:03 NBP Sys/Karley/Mean (mmHg): 170 (QS system process) : 80 (QS system process) : 115 (QS system process) Pulse: 71 (QS system process) LaborFlag: Antepartum (QS system process) Datetime: 12/21/2016 17:00 Monitor Mode: External; Palpation (Quirino Matamoros RN) Frequency (min): irregular (Quirino Matamoros RN) Quality: Mild (Quirino Matamoros RN) Resting Tone (Palpate): Relaxed (Quirino Matamoros RN) Monitor Mode: External US (Quirino Matamoros RN) FHR Baseline Rate : 135 (Quirino Matamoros RN) Variability: Moderate 6-25 bpm (Quirino Matamoros RN) Accelerations: 15X15 (Quirino Matamoros RN) Decelerations: None (Quirino Matamoros RN) Pain Scale: 2 (Quirino Matamoros RN) Pain Presence: Intermittent (Quirino Matamoros RN) Pain Type: Contraction (Quirino Matamoros RN) Pain Location: Abdomen (Quirino Matamoros RN) Pain Relief Measures: Comfort Measures (Quirino Matamoros RN) Pain Coping: Talking Through Contractions; Declines Medication or Epidural (Quirino Matamoros RN) Comfort Measures: Breathing/Relaxation (Quirino Matamoros RN) Communication: RN at Bedside; RN Reviewed Strip (Quirino Matamoros RN) LaborFlag: Antepartum (QS system process) Datetime: 12/21/2016 16:39 NBP Sys/Karley/Mean (mmHg): 152 (QS system process) : 78 (QS system process) : 107 (QS system process) Pulse: 74 (QS system process) LaborFlag: Antepartum (QS system process) Datetime: 12/21/2016 16:33 NBP Sys/Karley/Mean (mmHg): 177 (QS system process) : 84 (QS system process) : 120 (QS system process) Pulse: 73 (QS system process) LaborFlag: Antepartum (QS system process) Datetime: 12/21/2016 16:30 Respirations: 18 (Quirino Matamoros, RN) Monitor Mode: External; Palpation (Quirino Matamoros RN) Frequency (min): irregular (Quirino Matamoros, RN) Quality: Mild (Quirino Matamoros, RN) Pattern: Normal: <= 5 Contractions in 10 Minutes (Quirino Matamoros RN) Resting Tone (Palpate): Relaxed (Quirino Matamoros RN) Monitor Mode: External US (Quirino Matamoros RN) FHR Baseline Rate : 135 (Quirino Matamoros RN) Variability: Moderate 6-25 bpm (Quirino Matamoros RN) Accelerations: 15X15 (Quirino Matamoros RN) Decelerations: None (Quirino Matamoros RN) Pain Scale: 1 (Quirino Matamoros RN) Pain Presence: Intermittent (Quirino Matamoros RN) Pain Type: Contraction (Quirino Matamoros RN) Pain Location: Abdomen (Quirino Matamoros RN) Pain Relief Measures: Comfort Measures (Quirino Matamoros RN) Pain Coping: Talking Through Contractions; Declines Medication or Epidural (Quirino Matamoros RN) Level of Consciousness: Fully Conscious (Quirino Matamoros RN) Headache: Denies (Quirino Matamoros RN) Nausea/Vomiting: Denies (Quirino Matamoros RN) RUQ Epigastric Pain: Denies (Quirino Matamoros RN) Comfort Measures: Breathing/Relaxation (Quirino Matamoros RN) Communication: RN at Bedside; RN Reviewed Strip (Quirino Matamoros RN) LaborFlag: Antepartum (QS system process) Datetime: 12/21/2016 16:03 NBP Sys/Karley/Mean (mmHg): 156 (QS system process) : 77 (QS system process) : 109 (QS system process) Pulse: 73 (QS system process) LaborFlag: Antepartum (QS system process) Datetime: 12/21/2016 16:00 Respirations: 18 (Quirino Matamoros RN) Monitor Mode: External; Palpation (Quirino Matamoros RN) Frequency (min): irregular (Quirino Matamoros RN) Quality: Mild (Quirino Matamoros RN) Resting Tone (Palpate): Relaxed (Quirino Matamoros RN) Monitor Mode: External US (Quirino Matamoros RN) FHR Baseline Rate : 135 (Quirino Matamoros RN) Variability: Moderate 6-25 bpm (Quirino Matamoros RN) Accelerations: 15X15 (Quirino Matamoros RN) Decelerations: None (Quirino Matamoros RN) Comments: Broken tracing/ RN adjusting (Quirino Matamoros RN) Pain Scale: 1 (Quirino Matamoros RN) Pain Presence: Intermittent (Quirino Matamoros RN) Pain Type: Contraction (Quirino Matamoros RN) Pain Location: Abdomen (Quirino Matamoros RN) Pain Relief Measures: Comfort Measures (Quirino Matamoros RN) Pain Coping: Talking Through Contractions; Declines Medication or Epidural (Quirino Matamoros RN) Level of Consciousness: Fully Conscious (Quirino Matamoros RN) Headache: Denies (Quirino aMtamoros RN) Nausea/Vomiting: Denies (Quirino Matamoros RN) RUQ Epigastric Pain: Denies (Quirino Matamoros RN) Comfort Measures: Breathing/Relaxation; Family Support (Quirino Matamoros RN) Patient Care Comments: Pt watching TV ; no distress noted; pt denies complaints (Quirino Matamoros RN) Communication: RN at Bedside; RN Reviewed Strip (Quirino Shiloh, RN) LaborFlag: Antepartum (QS system process)
[2016-12-21] MEDS ORDERED: HYDRALAZINE HCL INJ/PF 20 MG/1 ML SDV IV ONE (20:28)
[2016-12-21] MEDS ORDERED: HYDRALAZINE HCL INJ/PF 20 MG/1 ML SDV ONE (20:28)
[2016-12-21] MEDS: LABETALOL HCL 200 MG TABLET PO SCH (21:50)
[2016-12-21] MEDS ORDERED: LIOTHYRONINE SODIUM 25 MCG TABLET PO SCH (22:00)
[2016-12-21] MEDS ORDERED: ZOLPIDEM TARTRATE 5 MG TABLET ONE (22:02)
[2016-12-21] MEDS: ZOLPIDEM TARTRATE 5 MG TABLET PO SCH (22:43)
[2016-12-22] MEDS ORDERED: MISOPROSTOL 0.1 MG TABLET ONE ×2 (00:18→03:44)
[2016-12-22] MEDS: RINGERS SOLUTION,LACTATED 1,000 ML IV PRN (00:25)
[2016-12-22] MEDS: MISOPROSTOL 0.1 MG TABLET PO SCH ×3 (00:34→06:13)
[2016-12-22] MEDS ORDERED: LABETALOL HCL 200 MG TABLET ONE ×2 (06:02→13:58)
[2016-12-22] MEDS: LABETALOL HCL 200 MG TABLET PO SCH ×3 (06:05→21:58)
--- NOTE | 2016-12-22 06:24 | L&D Current Admission ---
Current Admit Datetime Report Generated by CPN: 12/22/2016 06:00 ADMISSION INFORMATION Current Admit Date/Time: 12/19/2016 20:30 (12/19/2016 20:30:Nina Rodriguez RN) Reason for Admission: Induction of Labor (12/19/2016 20:30:Nina Rodriguez RN) Chief Complaint: Scheduled Induction of Labor (12/19/2016 21:00:Shaneka Ochoa RN) EGA per Dates: 37.1 (12/19/2016 20:30:QS system process) Method of Arrival: Ambulatory (12/19/2016 20:30:Nina Rodriguez RN) Admitted From: Home (12/19/2016 20:30:Nina Rodriguez RN) Reason for Induction: Chronic Hypertension (12/19/2016 20:30:Nina Rodriguez RN) Records Available: Yes (12/19/2016 20:30:Nina Rodriguez RN) General Admission Information: Reviewed; Updated; Confirmed (12/19/2016 20:30:Nina Rodriguez RN) General Admission Reviewed By: Lakeisha Ryder RN (12/19/2016 20:30:Nina Rodriguez RN) BELONGINGS/ADVANCED DIRECTIVES Valuables/Personal Effects: Contact Lenses (12/19/2016 20:30:Shaneka Ochoa RN) Other Belongings: See [facility] belongings form (12/19/2016 20:30:Nina Rodriguez RN) Disposition of Belongings: Kept with Patient (12/19/2016 20:30:Shaneka Ochoa RN) Advance Direct for Healthcare: No, and Wants No Information (12/19/2016 20:30:Shaneka Ochoa RN) Durable Power of Shopping Investigator: No (12/19/2016 20:30:Shaneka Ochoa RN) Living Will: No (12/19/2016 20:30:Shaneka Ochoa RN) Organ Donor: No (12/19/2016 20:30:Shaneka Ochoa RN) Pt Rights Information Given: Yes (12/19/2016 20:30:Shaneka Ochoa RN) Pt Understands Pt Rights: Yes (12/19/2016 20:30:Shaneka Ochoa RN) LEARNING ASSESSMENT Knowledge Level: Understands L_D Process; Understands Care Activities; Had Pre-Hospital Education; Understands Diagnosis (12/19/2016 20:30:Shaneka Ochoa RN) Barriers to Learning: None (12/19/2016 20:30:Shaneka Ochoa RN) Learning Readiness: Motivated (12/19/2016 20:30:Shaneka Ochoa RN) Learns Best By: 1 to 1 Instruction; Reading; Videos (12/19/2016 20:30:Raina Chaney RN) Learning Needs: Labor and Delivery Process; Pain Management; Symptoms to Report (12/19/2016 20:30:Raina Chaney RN) DOMESTIC VIOLANCE SCREENING Dom Viol Threatened/Hurt: No (12/19/2016 20:30:Shaneka Ochoa RN) Hx of Abuse/Neglect past 2yrs: No (12/19/2016 20:30:Shaneka Ochoa RN) Feel Unsafe Going Home: No (12/19/2016 20:30:Shaneka Ochoa RN) Addt'l Observ Indicating Abuse: No (12/19/2016 20:30:Shaneka Ochoa RN) Reason Unable to Complete Screen: N/A, Screen Completed (12/19/2016 20:30:Shaneka Ochoa RN) Considered Personal Harm/Suicide: No (12/19/2016 20:30:Shaneka Ochoa RN) NUTRITIONAL/FUNCTIONAL SCREENING Problem with Appetite >5 Days: No (12/19/2016 20:30:Shaneka Ochoa RN) Chew/Swallow Difficulties: No (12/19/2016 20:30:Shaneka Ochoa RN) Inappropriate Wt Gain/Loss: No (12/19/2016 20:30:Shaneka Ochoa RN) Presence Skin Breakdown/Ulcer: No (12/19/2016 20:30:Shaneka Ochoa RN) Special Diet: No (12/19/2016 20:30:Shaneka Ochoa RN) Pt Requests Dough Panner Visit: No (12/19/2016 20:30:Shaneka Ochoa RN) Hx of Any of the Following?: N/A (12/19/2016 20:30:Shaneka Ochoa RN) New Diagnosis of: N/A (12/19/2016 20:30:Shaneka Ochoa RN) Requires Assist w/Ambulation: No (12/19/2016 20:30:Shaneka Ochoa RN) Uses Assist Device to Ambulate: No (12/19/2016 20:30:Shaneka Ochoa RN) Pt Requires Help w/ADL's: No (12/19/2016 20:30:Shaneka Ochoa RN)
[2016-12-22 06:25] LABS: ABSOLUTE BASOPHILS # (AUTO) 0.1 10^3/uL (0.0-0.2); ABSOLUTE EOSINOPHILS # (AUTO) 0.1 10^3/uL (0.0-0.6); ABSOLUTE MONOCYTES (AUTO) 0.8 10^3/uL (0.1-1.4); ABSOLUTE NEUT (AUTO) 6.2 10^3/uL (1.7-8.2); BASOPHILS % (AUTO) 0.6 % (0-2); HEMOGLOBIN 10.5 g/dL (12.0-15.5); HGB HCT DIFFERENCE -3.5; LYMPHOCYTES % (AUTO) 21.6 % (13-45); MEAN CORPUSCULAR HEMOGLOBIN 21.9 pg (27.0-33.4); MEAN CORPUSCULAR VOLUME 73 fl (80-97); MONOCYTES % (AUTO) 8.7 % (3-13); RED CELL DISTRIBUTION WIDTH 16.7 % (11.5-14.0); SEGMENTED NEUTROPHILS % (AUTO) 68.1 % (42-78); WHITE BLOOD COUNT 9.1 10^3/uL (4.0-10.5)
--- NOTE | 2016-12-22 06:25 | L&D General Admission ---
General Admit Datetime Report Generated by CPN: 12/22/2016 06:00 INFORMATION Patient Age: 36 (10/30/2016 09:21:QS system process) EDC: 01/08/2017 00:00 (12/04/2016 15:37:Amelia Morales RN) : 7 (12/04/2016 15:37:Amelia Morales RN) Para: 2 (12/18/2016 20:27:Nolvia Gutierrez RN) Term: 2 (12/04/2016 15:37:Amelia Morales RN) : 0 (12/04/2016 15:37:Amelia Morales RN) Spontaneous Abortions: 1 (12/04/2016 15:37:Amelia Morales RN) Induced Abortions: 3 (12/04/2016 15:37:Amelia Morales RN) Livin (12/04/2016 15:37:Amelia Morales RN) Cesareans: 0 (12/04/2016 15:37:Amelia Morales RN) VBACs: 0 (12/04/2016 15:37:Amelia Morales RN) Ectopic: 0 (12/04/2016 15:37:Amelia Morales RN) Multiple Births: 0 (12/04/2016 15:37:Amelia Morales RN) Baby, Number in Womb: 1 (12/18/2016 20:27:Crystal Matt, RN) CARE 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: [facility] (12/04/2016 15:37:Amelia Morales RN) Month of 1st Visit: 06/16 (12/04/2016 15:37:Amelia Morales RN) Adequate Care: Yes (12/04/2016 15:37:Amelia Morales RN) Prepregnancy Weight (lb): 272 (12/04/2016 15:37:Amelia Morales RN) Prepregnancy Weight (kg): 123.6 (12/04/2016 15:37:QS system process) Height (in): 61 (12/19/2016 20:26:QS system process) ALLERGIES Medication Allergy: No (12/04/2016 15:37:Amelia Morales RN) Medication Allergies: No Known Allergies (12/19/2016) (12/19/2016 20:26:QS system process) Latex Allergy: No Latex Allergies (12/04/2016 15:37:Amelia Morales RN) Food Allergies: N/A (12/04/2016 15:37:Amelia Morales RN) Environmental Allergies: N/A (12/04/2016 15:37:Amelia Morales RN) COMMUNICATION Primary Language: Nigerian (12/04/2016 15:37:Amelia Morales RN) Medical Tx Preferred Language: Nigerian (12/04/2016 15:37:Amelia Morales RN) Communication Barrier(s): None (12/04/2016 15:37:Amelia Morales RN) DEMOGRAPHICS Address: [address] [place] [id number] (10/30/2016 09:21:QS system process) Zipcode: [phone] (10/30/2016 09:21:QS system process) Home (10/30/2016 09:21:QS system process) SSN: [id number] (10/30/2016 09:21:QS system process) Next of Kin Name: NATALI MONTE (12/19/2016 20:04:QS system process) Next of Kin (12/19/2016 20:04:QS system process) Next of Kin Relationship: MO (12/19/2016 20:04:QS system process) Date of : 1980 (10/30/2016 09:21:QS system process) Marital Status: (10/30/2016 09:21:QS system process) Sex: Female (10/30/2016 09:21:QS system process) Race: (10/30/2016 09:21:QS system process) Ethnicity: Non- or (10/30/2016 09:21:QS system process) L[employer]: [employer] (10/30/2016 09:21:QS system process) DRUG AND ALCOHOL USE Alcohol: No (12/04/2016 15:37:Amelia Morales RN) Cigarettes: Never Smoker. [id number] (12/04/2016 15:37:Amelia Morales RN) Marijuana: No (12/04/2016 15:37:Amelia Morales RN) Cocaine: No (12/04/2016 15:37:Amelia Morales RN) Other Illicit Drugs: No (12/04/2016 15:37:Amelia Morales RN) VACCINE HISTORY Influenza Vaccine: Yes (12/04/2016 15:37:Amelia Morales RN) Pneumococcal Vaccine: No (12/04/2016 15:37:Amelia Morales RN) Tetanus Vaccine: Yes (12/04/2016 15:37:Amelia Morales RN) Tdap Vaccine: Yes (12/04/2016 15:37:Amelia Morales RN) Hepatitis B Vaccine: Yes (12/04/2016 15:37:Amelia Morales RN) Glass Tube Bender: [facility] (12/04/2016 15:37:Natali Ochoa RN) Feeding Preference: Breast (12/04/2016 15:37:Natali Ochoa RN) Benefit of Breast Feed Discussed: Yes (12/04/2016 15:37:Amelia Morales RN) Circumcision: Yes (12/04/2016 15:37:Amelia Morales RN) Classes Attended: Yes (12/04/2016 15:37:Amelia Morales RN) Tubal Ligation: Yes (12/04/2016 15:37:Amelia Morales RN) Tubal Authorization Signed: N/A (12/04/2016 15:37:Amelia Morales RN) Consent: N/A (12/04/2016 15:37:Amelia Morales RN) Consent Signed: N/A (12/04/2016 15:37:Amelia Morales RN) Pain Management Plans: Epidural (12/04/2016 15:37:Quirino Matamoros RN) Plans for Labor and Delivery: None (12/04/2016 15:37:Amelia Morales RN) Support Person: Marco Warner II (12/04/2016 15:37:Amelia Morales RN) Support Person Relationship: (12/04/2016 15:37:Amelia Morales RN) Cultural/Spritual Practice: No (12/04/2016 15:37:Amelia Morales RN) Spir/Cult Dietary Needs: No (12/04/2016 15:37:Amelia Morales RN) LIVING SITUATION/DISCHARGE PLAN Living Arrangements: House (12/04/2016 15:37:Amelia Morales RN) Adequate Access to:: Electric; Heat; Refrigeration; Plumbing/Running water; Phone; Transportation (12/04/2016 15:37:Amelia Morales RN) WIC Program: No (12/04/2016 15:37:Amelia Morales RN) 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 Person: (12/04/2016 15:37:Amelia Morales RN) Person to Help after Discharge: (12/04/2016 15:37:Amelia Morales RN) Currently Using Commun Resources: No (12/04/2016 15:37:Amelia Morales RN) Outside Agency/Psychometrician: No (12/04/2016 15:37:Amelia Morales RN) Car Seat for Discharge: Yes (12/04/2016 15:37:Amelia Morales RN) Adoption Requested: No (12/04/2016 15:37:Amelia Morales RN) Pt Contact w/infant Post : N/A (12/04/2016 15:37:Amelia Morales RN) LABS Blood Type: O Positive (12/04/2016 15:37:Quirino Matamoros RN) Antibody Screen: Negative (12/04/2016 15:37:Cecilia Garrison RN) Rho(G) this : Not Applicable (12/04/2016 15:37:Cecilia Garrison RN) Hemoglobin: 10.7 L (12/21/2016 08:56:QS system process) Hematocrit: 35.4 L (12/21/2016 08:56:QS system process) MCV: 73 L (12/21/2016 08:56:QS system process) Group Beta Strep: Positive (12/04/2016 15:37:Quirino Matamoros RN) Gonorrhea: Negative (12/04/2016 15:37:Quirino Matamoros RN) Chlamydia: Negative (12/04/2016 15:37:Quirino Matamoros RN) RPR/VDRL: Nonreactive (12/04/2016 15:37:Quirino Matamoros RN) HIV Exposure Test: Negative (12/04/2016 15:37:Quirino Matamoros RN) Hepatitis B: Negative (12/04/2016 15:37:Quirino Matamoros RN) Rubella: Immune (12/04/2016 15:37:Quirino Matamoros RN) OB/PREVIOUS HISTORY Previous Procedures: Ultrasound; NST (12/04/2016 15:37:Natali Ochoa RN) Current Procedures: Ultrasound; NST (12/04/2016 15:37:Natali Ochoa RN) History of Previous : No (12/04/2016 15:37:Amelia Morales RN) History of Gestational Diabetes: No (12/04/2016 15:37:Amelia Morales RN) History of PIH: No (12/04/2016 15:37:Amelia Morales RN) History of Incompetent Cervix: No (12/04/2016 15:37:Amelia Morales RN) History of Placenta Previa/Abrup: No (12/04/2016 15:37:Amelia Morales RN) History of Macrosomia: No (12/04/2016 15:37:Amelia Morales RN) History of IUGR: No (12/04/2016 15:37:Amelia Morales RN) History of Hemorrhage: No (12/04/2016 15:37:Amelia Morales RN) History of Loss/Stillborn: No (12/04/2016 15:37:Amelia Morales RN) History of : No (12/04/2016 15:37:Amelia Morales RN) History of D (Rh) Sensitization: No (12/04/2016 15:37:Amelia Morales RN) History Recurrent Loss/Stillborn: No (12/04/2016 15:37:Amelia Morales RN) History Depression/PP Depression: No (12/04/2016 15:37:Amelia Morales RN) History of Uterine Anomaly/YAZMIN: No (12/04/2016 15:37:Amelia Morales RN) History of Infertility: No (12/04/2016 15:37:Amelia Morales RN) History of ART Treatment: No (12/04/2016 15:37:Amelia Morales RN) History of YAZMIN: No (12/04/2016 15:37:Amelia Morales RN) Comments Obstetrical History: G1: 2000 EAB G2: 2001 baby boy, 37-39 weeks, 24+ hours labor, 7 lb, IOL oligo G3: 2001 EAB G4: 2003 baby girl, 37-39 weeks G5: 2007 EAB G6: 2013 SAB, 13 weeks G7: Current (12/04/2016 15:37:Amelia Morales RN) MEDICAL HISTORY Med Hx Diabetes: No (12/04/2016 15:37:Amelia Morales RN) Med Hx Hypertension: Yes (12/04/2016 15:37:Amelia Morales RN) Med Hx Heart Disease: No (12/04/2016 15:37:Amelia Morales RN) Med Hx Autoimmune Disorder: No (12/04/2016 15:37:Amelia Morales RN) Med Hx Kidney Disease/UTI: No (12/04/2016 15:37:Amelia Morales RN) Med Hx Neurologic/Epilepsy: No (12/04/2016 15:37:Amelia Morales RN) Med Hx Psychiatric Disorders: No (12/04/2016 15:37:Amelia Morales RN) Med Hx Hepatitis/Liver Disease: No (12/04/2016 15:37:Amelia Morales RN) Med Hx Varicosities/Phlebitis: No (12/04/2016 15:37:Amelia Morales RN) Med Hx Thyroid Dysfunction: No (12/04/2016 15:37:Amelia Morales RN) Med Hx Trauma/Violence: No (12/04/2016 15:37:Amelia Morales RN) Med Hx Blood Transfusion: No (12/04/2016 15:37:Amelia Morales RN) Med Hx Pulmonary (Asthma,TB): Yes (12/04/2016 15:37:Amelia Morales RN) Med Hx Breast: No (12/04/2016 15:37:Amelia Morales RN) Med Hx PHOTO PRINTER Surgery: No (12/04/2016 15:37:Amelia Morales RN) Med Hx Hospitalization/Surgery: Yes (12/04/2016 15:37:Amelia Morales RN) Med Hx Anesthetic Complications: No (12/04/2016 15:37:Amelia Morales RN) Med Hx Abnormal Pap Smear: Yes (12/04/2016 15:37:Amelia Morales RN) Other Medical Diseases: Yes (12/04/2016 15:37:Amelia Morales RN) Med Hx Significant Family Hx: No (12/04/2016 15:37:Amelia Morales RN) Details of Med/Surg Hx: HTN: Chronic HTN, Labetalol 100 mg BID Pulmonary: Bronchitis 11/30/16 Surgery: Colonoscopy 2012, polyps noted Abnormal Pap: Hx ASCUS Pap, negative HPV Other: Morbid obesity (12/04/2016 15:37:Amelia Morales RN) INFECTIOUS HISTORY Inf Hx Gonorrhea: No (12/04/2016 15:37:Amelia Morales RN) Inf Hx Chlamydia: Yes (12/04/2016 15:37:Amelia Morales RN) Inf Hx Syphilis: No (12/04/2016 15:37:Amelia Morales RN) Inf Hx HIV/AIDS: No (12/04/2016 15:37:Amelia Morales RN) Inf Hx Human Papilloma Virus: No (12/04/2016 15:37:Amelia Morales RN) Inf Hx Pt/Partner Genital Herpes: No (12/04/2016 15:37:Amelia Morales RN) Inf Hx Tuberculosis/Exposure: No (12/04/2016 15:37:Amelia Morales RN) Inf Hx Hepatitis B,C: No (12/04/2016 15:37:Amelia Morales RN) Inf Hx Rash or Viral Illness: No (12/04/2016 15:37:Amelia Morales RN) Details of Infectious Hx: Chlamydia (12/04/2016 15:37:Amelia Morales RN) GENETIC HISTORY Gen Hx Age >=35 at XANDER: No (12/04/2016 15:37:Amelia Morales RN) Gen Hx Thalassemia: No (12/04/2016 15:37:Amelia Morales RN) Gen Hx Congenital Heart Defect: No (12/04/2016 15:37:Amelia Morales RN) Gen Hx Neural Tube Defect: No (12/04/2016 15:37:Amelia Morales RN) Gen Hx Down's Syndrome: No (12/04/2016 15:37:Amelia Morales RN) Gen Hx Ken-Sachs: No (12/04/2016 15:37:Amelia Morales RN) Gen Hx Alexia: No (12/04/2016 15:37:Amelia Morales RN) Gen Hx Familial Dysautonomia: No (12/04/2016 15:37:Amelia Morales RN) Gen Hx Sickle Cell Disease/Trait: No (12/04/2016 15:37:Amelia Morales RN) Gen Hx Hemophilia/Blood Disorder: No (12/04/2016 15:37:Amelia Morales RN) Gen Hx Muscular Dystrophy: No (12/04/2016 15:37:Amelia Morales RN) Gen Hx Cystic Fibrosis: No (12/04/2016 15:37:Amelia Morales RN) Gen Hx Huntingtons Chorea: No (12/04/2016 15:37:Amelia Morales RN) Gen Hx Mental Retardation/Autism: No (12/04/2016 15:37:Amelia Morales RN) Gen Hx Tested for Fragile X: No (12/04/2016 15:37:Amelia Morales RN) Gen Hx Other Inher/Chromosomal: No (12/04/2016 15:37:Amelia Morales RN) Gen Hx Maternal Metabolic DO: No (12/04/2016 15:37:Amelia Morales RN) Gen Hx Pt Father or FOB Defect: No (12/04/2016 15:37:Amelia Morales RN) Gen Hx Other Genetic History: No (12/04/2016 15:37:Amelia Morales RN) Gen Hx Drugs/Meds since LMP: Yes (12/04/2016 15:37:Raina Chaney RN) Gen Hx Medications: PNV, iron, labetalol (12/04/2016 15:37:Raina Chaney RN)
[2016-12-22 06:41] LABS: ALANINE AMINOTRANSFERASE 33 U/L (9-52); ALBUMIN 3.1 g/dL (3.5-5.0); ALKALINE PHOSPHATASE 120 U/L (38-126); ANION GAP 7 (5-19); ASPARTATE AMINO TRANSFERASE 26 U/L (14-36); BILIRUBIN,TOTAL 0.4 mg/dL (0.2-1.3); BLOOD UREA NITROGEN 6 mg/dL (7-20); CALCIUM 9.2 mg/dL (8.4-10.2); CARBON DIOXIDE 24 mmol/L (22-30); CHLORIDE 106 mmol/L (98-107); CREATININE RESULT 0.67 mg/dL (0.52-1.25); GLUCOSE 78 mg/dL (75-110); LDH 512 U/L (313-618); SODIUM 137.4 mmol/L (137-145); URIC ACID 5.5 mg/dL (2.5-7.0)
--- NOTE | 2016-12-22 08:01 | L&D Flow Sheet ---
LD Flowsheet Datetime Report Generated by CPN: 12/22/2016 08:00 Datetime: 12/22/2016 07:58 NBP Sys/Karley/Mean (mmHg): 146 (QS system process) : 73 (QS system process) : 103 (QS system process) Pulse: 72 (QS system process) LaborFlag: Antepartum (QS system process) Datetime: 12/22/2016 07:41 NBP Sys/Karley/Mean (mmHg): 155 (QS system process) : 72 (QS system process) : 104 (QS system process) Pulse: 72 (QS system process) LaborFlag: Antepartum (QS system process) Datetime: 12/22/2016 07:38 Monitor Interventions for FHR: Ultrasound Adjusted (Liane Ascencio RN) Datetime: 12/22/2016 07:30 Monitor Mode: External; Palpation (Liane Ascencio, ABDULKADIR) Frequency (min): irregular (Liane Ascencio, ABDULKADIR) Quality: Mild (Liane Ascencio RN) Duration Criteria: Less than Two 120 Second Contractions (Liane Ascencio RN) Pattern: Normal: <= 5 Contractions in 10 Minutes (Liane Ascencio, RN) Resting Tone (Palpate): Relaxed (Liane Ascencio, RN) Monitor Mode: External US (Liane Ascencio RN) FHR Baseline Rate : 130 (Liane Ascencio RN) Variability: Moderate 6-25 bpm (Liane Ascencio, RN) Accelerations: 15X15 (Liane Ascencio, RN) Decelerations: None (Liane Ascencio, RN) Datetime: 12/22/2016 07:27 Respirations: 18 (Liane Ascencio, RN) Temperature (F): 98.4 (Liane Ascencio, RN) Temperature (C): 36.9 (QS system process) LaborFlag: Antepartum (QS system process) Datetime: 12/22/2016 07:18 Level of Consciousness: Fully Conscious (Liane Ascencio, RN) DTR's/Clonus: DTRs 1+; No Clonus (Liane Ascencio, RN) Headache: Denies (Liane Ascencio, RN) Nausea/Vomiting: Denies (Liane Ascencio, RN) RUQ Epigastric Pain: Denies (Liane Ascencio, RN) Datetime: 12/22/2016 07:14 Monitor Interventions for FHR: Ultrasound Adjusted (Liane Ascencio, RN) Datetime: 12/22/2016 07:09 Communication Comments: Report to Laura Ascencio RN. Care relinquished at this time. (Raina Ring, RN) Datetime: 12/22/2016 07:00 Monitor Mode: External; Palpation (Raina Ring, RN) Frequency (min): Occasional (Raina Ring, RN) Quality: Mild (Raina Ring, RN) Duration (sec): 50-70 (Raina Ring, RN) Resting Tone (Palpate): Relaxed (Raina Ring, RN) Monitor Mode: External US (Raina Ring, RN) FHR Baseline Rate : 135 (Raina Ring, RN) Variability: Moderate 6-25 bpm (Raina Ring, RN) Accelerations: 15X15 (Raina Ring, RN) Decelerations: None (Raina Ring, RN) Datetime: 12/22/2016 06:59 NBP Sys/Karley/Mean (mmHg): 133 (QS system process) : 69 (QS system process) : 94 (QS system process) Pulse: 65 (QS system process) LaborFlag: Antepartum (QS system process) Datetime: 12/22/2016 06:48 Communication: Provider Orders Received (Raina Ring, RN) Communication Comments: Dr. Shafer on unit. Orders received that patient may be saline locked. (Raina Ring, RN) Datetime: 12/22/2016 06:30 Monitor Mode: External; Palpation (Raina Ring, RN) Frequency (min): Occasional (Raina Ring, RN) Quality: Mild (Raina Ring, RN) Resting Tone (Palpate): Relaxed (Raina Ring, RN) Monitor Mode: External US (Raina Ring, RN) FHR Baseline Rate : 125 (Raina Ring, RN) Variability: Moderate 6-25 bpm (Raina Ring, RN) Accelerations: None (Raina Ring, RN) Decelerations: None (Raina Ring, RN) Datetime: 12/22/2016 06:29 NBP Sys/Karley/Mean (mmHg): 143 (QS system process) : 74 (QS system process) : 99 (QS system process) Pulse: 81 (QS system process) LaborFlag: Antepartum (QS system process) Datetime: 12/22/2016 06:14 Monitor Interventions for UA: [place] Adjusted (Raina Ring, RN) Monitor Interventions for FHR: Ultrasound Adjusted (Raina Ring, RN) Datetime: 12/22/2016 06:12 Communication: Provider Orders Received (Raina Ring, RN) Communication Comments: Dr. Shafer on unit. Orders received to hold next dose of cytotec scheduled for 0800. Pt may shower and eat breakfast when desired. Call provider coming on in AM for further orders. (Raina Ring, RN) Datetime: 12/22/2016 06:07 Pain Presence: None/Denies (Raina Ring, RN) Pain Type: N/A (Raina Ring, RN) LaborFlag: Antepartum (QS system process) Datetime: 12/22/2016 06:05 Medication Comments: Labetalol 300 mg PO x1 (Raina Ring, RN) Datetime: 12/22/2016 06:00 Monitor Mode: External; Palpation (Raina Ring, RN) Frequency (min): Occasional (Raina Ring, RN) Quality: Mild (Raina Ring, RN) Duration (sec): 70-90 (Raina Ring, RN) Resting Tone (Palpate): Relaxed (Raina Ring, RN) Monitor Mode: External US (Raina Ring, RN) FHR Baseline Rate : 125 (Raina Ring, RN) Variability: Moderate 6-25 bpm (Raina Ring, RN) Accelerations: 15X15 (Raina Ring, RN) Decelerations: None (Raina Ring, RN) Datetime: 12/22/2016 05:58 NBP Sys/Karley/Mean (mmHg): 141 (QS system process) : 66 (QS system process) : 94 (QS system process) Pulse: 75 (QS system process) LaborFlag: Antepartum (QS system process) Datetime: 12/22/2016 05:30 Monitor Mode: External; Palpation (Raina Ring, RN) Frequency (min): Irregular (Raina Ring, RN) Quality: Mild (Raina Ring, RN) Duration (sec): 50-70 (Raina Ring, RN) Resting Tone (Palpate): Relaxed (Raina Ring, RN) Monitor Mode: External US (Raina Ring, RN) FHR Baseline Rate : 125 (Raina Ring, RN) Variability: Moderate 6-25 bpm (Raina Ring, RN) Accelerations: 15X15 (Raina Ring, RN) Decelerations: None (Raina Ring, RN) Datetime: 12/22/2016 05:28 NBP Sys/Karley/Mean (mmHg): 120 (QS system process) : 59 (QS system process) : 85 (QS system process) Pulse: 73 (QS system process) LaborFlag: Antepartum (QS system process) Datetime: 12/22/2016 05:00 Monitor Mode: External; Palpation (Raina Ring, RN) Frequency (min): x2 (Raina Ring, RN) Quality: Mild (Raina Ring, RN) Duration (sec): 70-80 (Raina Ring, RN) Resting Tone (Palpate): Relaxed (Raina Ring, RN) Monitor Mode: External US (Raina Ring, RN) FHR Baseline Rate : 130 (Raina Ring, RN) Variability: Moderate 6-25 bpm (Raina Ring, RN) Accelerations: 15X15 (Raina Ring, RN) Decelerations: None (Raina Ring, RN) Datetime: 12/22/2016 04:58 NBP Sys/Karley/Mean (mmHg): 114 (QS system process) : 56 (QS system process) : 80 (QS system process) Pulse: 72 (QS system process) LaborFlag: Antepartum (QS system process) Datetime: 12/22/2016 04:30 Monitor Mode: External; Palpation (Raina Ring, RN) Frequency (min): x1 (Raina Ring, RN) Quality: Mild (Raina Ring, RN) Duration (sec): 70 (Raina Ring, RN) Resting Tone (Palpate): Relaxed (Raina Ring, RN) Monitor Mode: External US (Raina Ring, RN) FHR Baseline Rate : 125 (Raina Ring, RN) Variability: Moderate 6-25 bpm (Raina Ring, RN) Accelerations: 15X15 (Raina Ring, RN) Decelerations: None (Raina Ring, RN) Datetime: 12/22/2016 04:27 NBP Sys/Karley/Mean (mmHg): 128 (QS system process) : 59 (QS system process) : 86 (QS system process) Pulse: 73 (QS system process) LaborFlag: Antepartum (QS system process) Datetime: 12/22/2016 04:23 NBP Sys/Karlye/Mean (mmHg): 132 (QS system process) : 66 (QS system process) : 92 (QS system process) Pulse: 74 (QS system process) LaborFlag: Antepartum (QS system process) Datetime: 12/22/2016 04:16 Patient Care Comments: Larger BP cuff applied. Will recheck BP for more accurate reading. (Raina Ring, RN) Datetime: 12/22/2016 04:15 NBP Sys/Karley/Mean (mmHg): 171 (QS system process) : 97 (QS system process) : 128 (QS system process) Pulse: 71 (QS system process) LaborFlag: Antepartum (QS system process) Datetime: 12/22/2016 04:13 NBP Sys/Karley/Mean (mmHg): 169 (QS system process) : 94 (QS system process) : 126 (QS system process) Pulse: 71 (QS system process) Respirations: 20 (Raina Ring, RN) Temperature (F): 98.1 (Raina Ring, RN) Temperature (C): 36.7 (QS system process) Temperature Route: Axillary (Raina Ring, RN) LaborFlag: Antepartum (QS system process) Datetime: 12/22/2016 04:00 Monitor Mode: External; Palpation (Raina Ring, RN) Frequency (min): Uterine irritability (Raina Ring, RN) Resting Tone (Palpate): Relaxed (Raina Ring, RN) Monitor Mode: External US (Raina Ring, RN) FHR Baseline Rate : 135 (Raina Ring, RN) Variability: Moderate 6-25 bpm (Raina Ring, RN) Accelerations: 15X15 (Raina Ring, RN) Decelerations: None (Raina Ring, RN) Datetime: 12/22/2016 03:56 Cervical Ripening Agents: Cytotec @ 25 mcg (Raina Ring, RN) Medication Comments: PO (Raina Ring, RN) Datetime: 12/22/2016 03:46 Pain Presence: None/Denies (Raina Ring, RN) Pain Type: N/A (Raina Ring, RN) LaborFlag: Antepartum (QS system process) Datetime: 12/22/2016 03:41 I/O Interventions: Up to BR (Raina Ring, RN) Datetime: 12/22/2016 03:37 Monitor Interventions for FHR: Ultrasound Adjusted (Raina Ring, RN) Datetime: 12/22/2016 03:31 NBP Sys/Karley/Mean (mmHg): 142 (QS system process) : 70 (QS system process) : 100 (QS system process) Pulse: 76 (QS system process) LaborFlag: Antepartum (QS system process) Datetime: 12/22/2016 03:30 Monitor Mode: External; Palpation (Raina Ring, RN) Frequency (min): None (Raina Ring, RN) Resting Tone (Palpate): Relaxed (Raina Ring, RN) Monitor Mode: External US (Raina Ring, RN) FHR Baseline Rate : 135 (Raina Ring, RN) Variability: Moderate 6-25 bpm (Raina Ring, RN) Accelerations: Prolonged (Raina Ring, RN) Decelerations: None (Raina Ring, RN) Datetime: 12/22/2016 03:16 NBP Sys/Karley/Mean (mmHg): 140 (QS system process) : 69 (QS system process) : 98 (QS system process) Pulse: 88 (QS system process) LaborFlag: Antepartum (QS system process) Datetime: 12/22/2016 03:01 NBP Sys/Karley/Mean (mmHg): 143 (QS system process) : 74 (QS system process) : 101 (QS system process) Pulse: 77 (QS system process) LaborFlag: Antepartum (QS system process) Datetime: 12/22/2016 03:00 Monitor Mode: External; Palpation (Raina Ring, RN) Frequency (min): None (Raina Ring, RN) Resting Tone (Palpate): Relaxed (Raina Ring, RN) Monitor Mode: External US (Raina Ring, RN) FHR Baseline Rate : 130 (Raina Ring, RN) Variability: Moderate 6-25 bpm (Raina Ring, RN) Accelerations: 15X15 (Raina Ring, RN) Decelerations: None (Raina Ring, RN) Pain Presence: None/Denies (Raina Ring, RN) LaborFlag: Antepartum (QS system process) Datetime: 12/22/2016 02:45 NBP Sys/Karley/Mean (mmHg): 124 (QS system process) : 73 (QS system process) : 93 (QS system process) Pulse: 80 (QS system process) LaborFlag: Antepartum (QS system process) Datetime: 12/22/2016 02:30 NBP Sys/Karley/Mean (mmHg): 121 (QS system process) : 62 (QS system process) : 86 (QS system process) Pulse: 82 (QS system process) Monitor Mode: External; Palpation (Raina Ring, RN) Frequency (min): None (Raina Ring, RN) Resting Tone (Palpate): Relaxed (Raina Ring, RN) Monitor Mode: External US (Raina Ring, RN) FHR Baseline Rate : 130 (Raina Ring, RN) Variability: Moderate 6-25 bpm (Raina Ring, RN) Accelerations: 10X10 (Raina Ring, RN) Decelerations: None (Raina Ring, RN) LaborFlag: Antepartum (QS system process) Datetime: 12/22/2016 02:15 NBP Sys/Karley/Mean (mmHg): 128 (QS system process) : 66 (QS system process) : 93 (QS system process) Pulse: 78 (QS system process) LaborFlag: Antepartum (QS system process) Datetime: 12/22/2016 02:00 NBP Sys/Karley/Mean (mmHg): 126 (QS system process) : 62 (QS system process) : 89 (QS system process) Pulse: 81 (QS system process) Monitor Mode: External; Palpation (Raina Ring, RN) Frequency (min): x1 (Raina Ring, RN) Quality: Mild (Raina Ring, RN) Duration (sec): 50 (Raina Ring, RN) Resting Tone (Palpate): Relaxed (Raina Ring, RN) Monitor Mode: External US (Raina Ring, RN) FHR Baseline Rate : 130 (Raina Ring, RN) Variability: Moderate 6-25 bpm (Raina Ring, RN) Accelerations: 15X15 (Raina Ring, RN) Decelerations: None (Raina Ring, RN) LaborFlag: Antepartum (QS system process) Datetime: 12/22/2016 01:45 NBP Sys/Karley/Mean (mmHg): 134 (QS system process) : 71 (QS system process) : 97 (QS system process) Pulse: 78 (QS system process) LaborFlag: Antepartum (QS system process) Datetime: 12/22/2016 01:30 NBP Sys/Karley/Mean (mmHg): 134 (QS system process) : 72 (QS system process) : 98 (QS system process) Pulse: 78 (QS system process) Monitor Mode: External; Palpation (Raina Ring, RN) Frequency (min): x1 (Raina Ring, RN) Quality: Mild (Raina Ring, RN) Duration (sec): 50 (Raina Ring, RN) Resting Tone (Palpate): Relaxed (Raina Ring, RN) Monitor Mode: External US (Raina Ring, RN) FHR Baseline Rate : 130 (Raina Ring, RN) Variability: Moderate 6-25 bpm (Raina Ring, RN) Accelerations: None (Raina Ring, RN) Decelerations: None (Raina Ring, RN) LaborFlag: Antepartum (QS system process) Datetime: 12/22/2016 01:16 NBP Sys/Karley/Mean (mmHg): 136 (QS system process) : 75 (QS system process) : 100 (QS system process) Pulse: 80 (QS system process) LaborFlag: Antepartum (QS system process) Datetime: 12/22/2016 01:00 NBP Sys/Karley/Mean (mmHg): 146 (QS system process) : 79 (QS system process) : 106 (QS system process) Pulse: 83 (QS system process) Monitor Mode: External; Palpation (Raina Ring, RN) Frequency (min): Irregular (Raina Ring, RN) Quality: Mild (Raina Ring, RN) Duration (sec): 40-70 (Raina Ring, RN) Resting Tone (Palpate): Relaxed (Raina Ring, RN) Monitor Mode: External US (Raina Ring, RN) FHR Baseline Rate : 130 (Raina Ring, RN) Variability: Moderate 6-25 bpm (Raina Ring, RN) Accelerations: None (Raina Ring, RN) Decelerations: None (Raina Ring, RN) LaborFlag: Antepartum (QS system process) Datetime: 12/22/2016 00:46 NBP Sys/Karley/Mean (mmHg): 147 (QS system process) : 75 (QS system process) : 103 (QS system process) Pulse: 82 (QS system process) LaborFlag: Antepartum (QS system process) Datetime: 12/22/2016 00:39 Monitor Interventions for FHR: Ultrasound Adjusted (Raina Ring, RN) Datetime: 12/22/2016 00:31 NBP Sys/Karley/Mean (mmHg): 144 (QS system process) : 77 (QS system process) : 104 (QS system process) Pulse: 75 (QS system process) LaborFlag: Antepartum (QS system process) Datetime: 12/22/2016 00:30 Monitor Mode: External; Palpation (Raina Ring, RN) Frequency (min): x1 (Raina Ring, RN) Quality: Mild (Raina Ring, RN) Duration (sec): 70 (Raina Ring, RN) Resting Tone (Palpate): Relaxed (Raina Ring, RN) Monitor Mode: External US (Raina Ring, RN) FHR Baseline Rate : 135 (Raina Ring, RN) Variability: Moderate 6-25 bpm (Raina Ring, RN) Accelerations: Prolonged (Raina Ring, RN) Decelerations: None (Raina Ring, RN) Datetime: 12/22/2016 00:25 IV/Blood Work: New IV Bag Hung (Raina Ring, RN) Datetime: 12/22/2016 00:21 Cervical Ripening Agents: Cytotec @ 25 mcg (Raina Ring, RN) Medication Comments: PO (Raina Ring, RN) Datetime: 12/22/2016 00:15 NBP Sys/Karley/Mean (mmHg): 128 (QS system process) : 64 (QS system process) : 90 (QS system process) Pulse: 82 (QS system process) LaborFlag: Antepartum (QS system process) Datetime: 12/22/2016 00:01 Comments: Maternal heartrate recorded. (Raina Ring, RN) Datetime: 12/22/2016 00:00 NBP Sys/Karley/Mean (mmHg): 128 (QS system process) : 63 (QS system process) : 89 (QS system process) Pulse: 79 (QS system process) Monitor Mode: External; Palpation (Raina Ring, RN) Frequency (min): none (Raina Ring, RN) Resting Tone (Palpate): Relaxed (Raina Ring, RN) Monitor Mode: External US (Raina Ring, RN) FHR Baseline Rate : 135 (Raina Ring, RN) Variability: Moderate 6-25 bpm (Raina Ring, RN) Accelerations: None (Raina Ring, RN) Decelerations: None (Raina Ring, RN) LaborFlag: Antepartum (QS system process) Datetime: 12/21/2016 23:45 NBP Sys/Karley/Mean (mmHg): 125 (QS system process) : 64 (QS system process) : 88 (QS system process) Pulse: 77 (QS system process) LaborFlag: Antepartum (QS system process) Datetime: 12/21/2016 23:30 NBP Sys/Karley/Mean (mmHg): 133 (QS system process) : 69 (QS system process) : 95 (QS system process) Pulse: 81 (QS system process) Respirations: 20 (Raina Ring, RN) Temperature (F): 98.4 (Raina Ring, RN) Temperature (C): 36.9 (QS system process) Temperature Route: Oral (Raina Ring, RN) Monitor Mode: External; Palpation (Raina Ring, RN) Frequency (min): None (Raina Ring, RN) Resting Tone (Palpate): Relaxed (Raina Ring, RN) Monitor Mode: External US (Raina Ring, RN) Monitor Interventions for FHR: Ultrasound Adjusted (Raina Ring, RN) FHR Baseline Changes: Unable to Determine (Raina Ring, RN) LaborFlag: Antepartum (QS system process) Datetime: 12/21/2016 23:23 Comments: Maternal heartrate recorded. RN continues to adjust monitors at bedside. (Raina Ring, RN) Datetime: 12/21/2016 23:15 NBP Sys/Karley/Mean (mmHg): 133 (QS system process) : 71 (QS system process) : 96 (QS system process) Pulse: 75 (QS system process) LaborFlag: Antepartum (QS system process) Datetime: 12/21/2016 23:00 NBP Sys/Karley/Mean (mmHg): 142 (QS system process) : 80 (QS system process) : 106 (QS system process) Pulse: 84 (QS system process) Monitor Mode: External; Palpation (Raina Ring, RN) Monitor Interventions for UA: [place] Adjusted (Raina Ring, RN) Frequency (min): Irregular (Raina Ring, RN) Quality: Mild (Raina Ring, RN) Duration (sec): 40-60 (Raina Ring, RN) Resting Tone (Palpate): Relaxed (Raina Ring, RN) Monitor Mode: External US (Raina Ring, RN) Monitor Interventions for FHR: Ultrasound Adjusted (Raina Ring, RN) FHR Baseline Rate : 135 (Raina Ring, RN) Variability: Moderate 6-25 bpm (Raina Ring, RN) Accelerations: 15X15 (Raina Ring, RN) Decelerations: None (Raina Ring, RN) Comments: RN remains continuously at bedside adjusting monitors and assessing for FHR and toco data. (Raina Ring, RN) LaborFlag: Antepartum (QS system process) Datetime: 12/21/2016 22:58 Pain Presence: None/Denies (Raina Ring, RN) Pain Type: N/A (Raina Ring, RN) LaborFlag: Antepartum (QS system process) Datetime: 12/21/2016 22:46 NBP Sys/Karley/Mean (mmHg): 138 (QS system process) : 74 (QS system process) : 101 (QS system process) Pulse: 76 (QS system process) LaborFlag: Antepartum (QS system process) Datetime: 12/21/2016 22:43 Medication Comments: Ambien 5 mg PO now x1. Pt requested only 5 mg instead of 10 mg ordered. (Raina Ring, RN) Datetime: 12/21/2016 22:39 Patient Position/Activity: Right Lateral; Right Tilt (Raina Ring, RN) Datetime: 12/21/2016 22:30 Monitor Mode: External; Palpation (Raina Ring, RN) Resting Tone (Palpate): Relaxed (Raina Ring, RN) Contraction Comments: Unable to accurately monitor due to patient being in bathroom. (Raina Ring, RN) Monitor Mode: External US (Raina Ring, RN) Comments: Unable to accurately assess as patient was up to bathroom (Raina Ring, RN) Datetime: 12/21/2016 22:12 Patient Care Comments: Pt states feeling gassy and will be out of the bathroom soon. (Raina Ring, RN) Datetime: 12/21/2016 22:00 Monitor Mode: External; Palpation (Raina Ring, RN) Frequency (min): None (Raina Ring, RN) Resting Tone (Palpate): Relaxed (Raina Ring, RN) Monitor Mode: External US (Raina Ring, RN) FHR Baseline Rate : 145 (Raina Ring, RN) Variability: Moderate 6-25 bpm (Raina Ring, RN) Accelerations: 15X15 (Raina Ring, RN) Decelerations: None (Raina Ring, RN) Datetime: 12/21/2016 21:59 I/O Interventions: Up to BR (Raina Ring, RN) Datetime: 12/21/2016 21:50 Medication Comments: Labetalol 300 mg PO now x1 as scheduled. (Raina Ring, RN) Datetime: 12/21/2016 21:45 NBP Sys/Karley/Mean (mmHg): 151 (QS system process) : 78 (QS system process) : 108 (QS system process) Pulse: 75 (QS system process) LaborFlag: Antepartum (QS system process) Datetime: 12/21/2016 21:36 Monitor Interventions for FHR: Ultrasound Adjusted (Raina Ring, RN) Datetime: 12/21/2016 21:30 NBP Sys/Karley/Mean (mmHg): 153 (QS system process) : 78 (QS system process) : 109 (QS system process) Pulse: 76 (QS system process) Monitor Mode: External; Palpation (Raina Ring, RN) Frequency (min): none (Raina Ring, RN) Resting Tone (Palpate): Relaxed (Raina Ring, RN) Monitor Mode: External US (Raina Ring, RN) FHR Baseline Rate : 135 (Raina Ring, RN) Variability: Moderate 6-25 bpm (Raina Ring, RN) Accelerations: Prolonged (Raina Ring, RN) Decelerations: None (Raina Ring, RN) Pain Presence: None/Denies (Raina Ring, RN) Pain Type: N/A (Raina Ring, RN) LaborFlag: Antepartum (QS system process) Datetime: 12/21/2016 21:15 NBP Sys/Karley/Mean (mmHg): 149 (QS system process) : 77 (QS system process) : 106 (QS system process) Pulse: 71 (QS system process) LaborFlag: Antepartum (QS system process) Datetime: 12/21/2016 21:11 Monitor Interventions for FHR: Ultrasound Adjusted (Raina Ring, RN) Datetime: 12/21/2016 21:00 NBP Sys/Karley/Mean (mmHg): 148 (QS system process) : 74 (QS system process) : 103 (QS system process) Pulse: 79 (QS system process) Monitor Mode: External; Palpation (Raina Ring, RN) Monitor Interventions for UA: [place] Adjusted (Raina Ring, RN) Frequency (min): Irregular with uterine irritability (Raina Ring, RN) Quality: Mild (Raina Ring, RN) Duration (sec): 40 (Raina Ring, RN) Resting Tone (Palpate): Relaxed (Raina Ring, RN) Monitor Mode: External US (Raina Ring, RN) FHR Baseline Rate : 125 (Raina Ring, RN) Variability: Moderate 6-25 bpm (Raina Ring, RN) Accelerations: Prolonged (Raina Ring, RN) Decelerations: None (Raina Ring, RN) LaborFlag: Antepartum (QS system process) Datetime: 12/21/2016 20:50 NBP Sys/Karley/Mean (mmHg): 156 (QS system process) : 76 (QS system process) : 108 (QS system process) Pulse: 72 (QS system process) LaborFlag: Antepartum (QS system process) Datetime: 12/21/2016 20:39 NBP Sys/Karley/Mean (mmHg): 163 (QS system process) : 72 (QS system process) : 103 (QS system process) Pulse: 72 (QS system process) LaborFlag: Antepartum (QS system process) Datetime: 12/21/2016 20:37 Patient Care Comments: Pt educated about hydralazine and plan of care discussed. Pt refusing hydralazine at this time, would like to recheck BP a few more times before taking it. (Raina Ring, RN) Datetime: 12/21/2016 20:36 Monitor Interventions for UA: [place] Adjusted (Raina Ring, RN) Monitor Interventions for FHR: Ultrasound Adjusted (Raina Ring, RN) Datetime: 12/21/2016 20:30 Monitor Mode: External; Palpation (Raina Ring, RN) Frequency (min): Irregular (Raina Ring, RN) Quality: Mild (Raina Ring, RN) Duration (sec): 40-60 (Raina Ring, RN) Resting Tone (Palpate): Relaxed (Raina Ring, RN) Monitor Mode: External US (Raina Ring, RN) Monitor Interventions for FHR: Ultrasound Adjusted (Raina Ring, RN) FHR Baseline Changes: Unable to Determine (Raina Ring, RN) Comments: Unable to assess due to patient positioning and patient habitus. RN remains continuously at bedside. (Raina Ring, RN) Datetime: 12/21/2016 20:28 Patient Care Comments: Pt states moving while BP was taking. (Raina Ring, RN) Datetime: 12/21/2016 20:27 Patient Position/Activity: Left Lateral; Left Tilt (Raina Ring, RN) Datetime: 12/21/2016 20:25 Communication Comments: Dr. Shafer on unit, aware of BP. New orders received to administer hydralizine 5 mg IV x1 dose NOW (Teri Jovani, RN) Datetime: 12/21/2016 20:23 NBP Sys/Karley/Mean (mmHg): 189 (QS system process) : 100 (QS system process) : 138 (QS system process) Pulse: 80 (QS system process) LaborFlag: Antepartum (QS system process) Datetime: 12/21/2016 20:11 Patient Care Comments: Pt sitting up and eating meal provided. (Raina Ring, RN) Datetime: 12/21/2016 20:04 Patient Position/Activity: High Fowlers (Raina Ring, RN) Datetime: 12/21/2016 20:01 Cervical Ripening Agents: Cytotec @ 25 mcg (Annotations: PO) (Raina Ring, RN) Datetime: 12/21/2016 20:00 Monitor Mode: External; Palpation (Raina Chaney, RN) Frequency (min): Irregular (Raina Chaney RN) Quality: Mild (Raina Chaney RN) Duration (sec): 40-90 (Raina Chaney RN) Resting Tone (Palpate): Relaxed (Raina Chaney RN) Monitor Mode: External US (Raina Chaney, RN) Monitor Interventions for FHR: Ultrasound Adjusted (Raina Chaney RN) FHR Baseline Changes: Unable to Determine (Raina Chaney RN) Comments: Unable to accurately assess due to patient positioning and patient habitus. (Raina Chaney RN)
--- NOTE | 2016-12-22 09:39 | L&D Progress Notes ---
PROGRESS NOTES Datetime Report Generated by BEATRIZ: 12/22/2016 09:39 PROGRESS NOTE Impression Other: failed IOL Plan: Transfer Plan Other: Transfer to floor for rest Informed Consent Obtained: Risks, Benefits and Alternatives Discussed Vital Signs : Reviewed Vital Signs Comments: Mild elevated BPs, no servere range after BP cuff change Comment: 36yo at 37+4ega here for IOL due to CHTN and Superimposed PreE by 24 hr UTP now greater than 400mg currently on Labetolol 200mg TID for CHTN with mild range BPs now. Several severe range BPs in office despite medication. BPs mild range now. Pt denies symptoms. PIH labs have been within normal limits. No e/o HELLP. Pt has rec'd multiple doses of cervidil and cytotec since Sat. REviewed risks with pt and d/w pt failed induction and options. OPtions reviewed: continued IOL with attempt at FB placement and pitocin vs section vs respite from IOL for approx 24 hours and return in am for proceeding with IOL. Pt and given options and they desire respite and restart in am. R/B/A reviewed and pt verbalized understanding. CAT I since admission. SCDs while on floor. VAGINAL EXAM Dilatation: 1 Effacement: 30 Station: -3 Contractions: irregular FETUS A FHR - Baseline: 120 Monitoring: External US Variability: Moderate 6-25bpm Accelerations: 15X15 Decelerations: None FHR Category: Category II FETUS C SIGNATURE: [id number] Signature: with User ID: [email or web address]
--- NOTE | 2016-12-22 12:00 | L&D Flow Sheet ---
LD Flowsheet Datetime Report Generated by CPN: 12/22/2016 12:00 Datetime: 12/22/2016 11:09 NBP Sys/Karley/Mean (mmHg): 130 (QS system process) : 67 (QS system process) : 92 (QS system process) Pulse: 83 (QS system process) LaborFlag: Antepartum (QS system process) Datetime: 12/22/2016 10:52 Communication Comments: Pt requested to go to education dept for [employer] class. Call placed to Dr Cameron to notify of pt request. Dr Cameron okayed as long as pt returns for headache, blurred vision, upper abd pain. Pt agreed and will be taken to education accompanied by mother. Pt educated to return by 1400 for afternoon labetalol. (Liane Ascencio RN) Datetime: 12/22/2016 10:00 Pain Assessment Comments: pt sitting in bed and denies any pain at this time. (Liane Ascencio RN) LaborFlag: Antepartum (QS system process) Datetime: 12/22/2016 09:00 Pain Assessment Comments: pt sitting at bedside talking with family. (Liane Ascencio, ABDULKADIR) LaborFlag: Antepartum (QS system process) Datetime: 12/22/2016 08:12 Patient Care Comments: monitors removed and pt given clean towels for shower and breakfast given. (Liane Ascencio RN) Communication Comments: Pt was given option to have primary c/s or to go out to the floor for the day and begin induction again tomorrow. Pt opted to go to the floor. (Liane Ascencio RN) Datetime: 12/22/2016 08:02 Communication Comments: Dr Cameron/Dr Shafer at bedside to review POC (Liane Ascencio RN) Datetime: 12/22/2016 08:00 Monitor Mode: External; Palpation (Liane Ascencio RN) Frequency (min): irregular (Liane Ascencio RN) Quality: Mild (Liane Ascencio RN) Duration Criteria: Less than Two 120 Second Contractions (Liane Ascencio RN) Pattern: Normal: <= 5 Contractions in 10 Minutes (Liane Ascencio RN) Resting Tone (Palpate): Relaxed (Liane Ascencio RN) Monitor Mode: External US (Liane Ascencio RN) FHR Baseline Rate : 130 (Liane Ascencio RN) Variability: Moderate 6-25 bpm (Liane Ascencio RN) Accelerations: 15X15 (Liane Ascencio RN) Decelerations: None (Liane Ascencio RN)
[2016-12-22 14:52] LABS: HEMATOCRIT 36.7 % (36.0-47.0); HGB HCT DIFFERENCE -3.7; MEAN CORPUSCULAR HEMOGLOBIN 21.9 pg (27.0-33.4); MEAN CORPUSCULAR HGB CONC 30.1 g/dL (32.0-36.0); MEAN CORPUSCULAR VOLUME 73 fl (80-97); RED BLOOD COUNT 5.05 10^6/uL (3.72-5.28); RED CELL DISTRIBUTION WIDTH 16.8 % (11.5-14.0); WHITE BLOOD COUNT 9.5 10^3/uL (4.0-10.5)
[2016-12-22 15:10] LABS: ALANINE AMINOTRANSFERASE 32 U/L (9-52); ALBUMIN 3.6 g/dL (3.5-5.0); ALKALINE PHOSPHATASE 132 U/L (38-126); ANION GAP 11 (5-19); ASPARTATE AMINO TRANSFERASE 29 U/L (14-36); BILIRUBIN,TOTAL 0.3 mg/dL (0.2-1.3); BLOOD UREA NITROGEN 8 mg/dL (7-20); CARBON DIOXIDE 24 mmol/L (22-30); CHLORIDE 105 mmol/L (98-107); CREATININE RESULT 0.75 mg/dL (0.52-1.25); GLUCOSE 77 mg/dL (75-110); LDH 615 U/L (313-618); POTASSIUM 4.7 mmol/L (3.6-5.0); SODIUM 139.9 mmol/L (137-145); TOTAL PROTEIN 6.6 g/dL (6.3-8.2); URIC ACID 5.4 mg/dL (2.5-7.0)
[2016-12-22] MEDS: ZOLPIDEM TARTRATE 5 MG TABLET PO SCH (21:58)
[2016-12-22 22:11] LABS: HEMATOCRIT 33.9 % (36.0-47.0); HEMOGLOBIN 10.6 g/dL (12.0-15.5); HGB HCT DIFFERENCE -2.1; MEAN CORPUSCULAR HEMOGLOBIN 22.2 pg (27.0-33.4); MEAN CORPUSCULAR HGB CONC 31.2 g/dL (32.0-36.0); MEAN CORPUSCULAR VOLUME 71 fl (80-97); RED BLOOD COUNT 4.75 10^6/uL (3.72-5.28); RED CELL DISTRIBUTION WIDTH 16.4 % (11.5-14.0)
[2016-12-22 22:35] LABS: ALANINE AMINOTRANSFERASE 23 U/L (9-52); ALBUMIN 2.9 g/dL (3.5-5.0); ALKALINE PHOSPHATASE 126 U/L (38-126); ANION GAP 9 (5-19); ASPARTATE AMINO TRANSFERASE 30 U/L (14-36); BILIRUBIN,TOTAL 0.3 mg/dL (0.2-1.3); BLOOD UREA NITROGEN 8 mg/dL (7-20); CALCIUM 9.5 mg/dL (8.4-10.2); CARBON DIOXIDE 21 mmol/L (22-30); CHLORIDE 107 mmol/L (98-107); CREATININE RESULT 0.67 mg/dL (0.52-1.25); GLUCOSE 89 mg/dL (75-110); LDH 583 U/L (313-618); POTASSIUM 3.9 mmol/L (3.6-5.0); SODIUM 137.4 mmol/L (137-145); TOTAL PROTEIN 6.1 g/dL (6.3-8.2); URIC ACID 5.6 mg/dL (2.5-7.0)
[2016-12-23] MEDS: LABETALOL HCL 200 MG TABLET PO SCH ×2 (05:24→14:07)
[2016-12-23 07:04] LABS: HEMATOCRIT 34.4 % (36.0-47.0); HEMOGLOBIN 10.5 g/dL (12.0-15.5); HGB HCT DIFFERENCE -2.9; MEAN CORPUSCULAR HGB CONC 30.4 g/dL (32.0-36.0); MEAN CORPUSCULAR VOLUME 72 fl (80-97); RED BLOOD COUNT 4.76 10^6/uL (3.72-5.28); RED CELL DISTRIBUTION WIDTH 16.7 % (11.5-14.0); WHITE BLOOD COUNT 8.2 10^3/uL (4.0-10.5)
[2016-12-23 07:27] LABS: ALANINE AMINOTRANSFERASE 27 U/L (9-52); ALBUMIN 2.9 g/dL (3.5-5.0); ALKALINE PHOSPHATASE 129 U/L (38-126); ANION GAP 11 (5-19); ASPARTATE AMINO TRANSFERASE 28 U/L (14-36); BILIRUBIN,TOTAL 0.4 mg/dL (0.2-1.3); BLOOD UREA NITROGEN 7 mg/dL (7-20); CALCIUM 9.1 mg/dL (8.4-10.2); CARBON DIOXIDE 19 mmol/L (22-30); CHLORIDE 107 mmol/L (98-107); GLUCOSE 78 mg/dL (75-110); LDH 561 U/L (313-618); SODIUM 136.8 mmol/L (137-145); TOTAL PROTEIN 6.1 g/dL (6.3-8.2)
[2016-12-23] MEDS ORDERED: RINGERS SOLUTION,LACTATED 300 ML IV ONE (07:55)
[2016-12-23] MEDS ORDERED: RINGERS SOLUTION,LACTATED 1,000 ML IV PRN (07:55)
[2016-12-23] MEDS ORDERED: OXYTOCIN/NORMAL SALINE 1,000 ML IV PRN (07:55)
[2016-12-23] MEDS ORDERED: PENICILLIN G POTASSIUM 5,000,000 UNIT in DEXTROSE 5%-WATER 100 ML IV ONE (07:57)
[2016-12-23] MEDS ORDERED: PENICILLIN G-K 5 MILLION UNIT VIAL IV ONE (09:00)
[2016-12-23] MEDS ORDERED: PENICILLIN G-K 5 MILLION UNIT VIAL IV SCH (10:00)
[2016-12-23] MEDS ORDERED: PENICILLIN G POTASSIUM 2,500,000 UNIT in DEXTROSE 5%-WATER 50 ML IV SCH (11:57)
--- NOTE | 2016-12-23 16:17 | PDOC DISCHARGE SUMMARY ---
General - Admit/Disc Date/PCP Admission Date/Primary Care Provider: 12/19/16 20:02 RADHA TOUSSAINT MD Discharge Date: 12/23/16 - Discharge Diagnosis (1) Failed induction of labor, antepartum Is this a current diagnosis for this admission?: Yes (2) Chronic hypertension Is this a current diagnosis for this admission?: Yes (3) Morbid obesity Is this a current diagnosis for this admission?: Yes - Additional Information Home Medications: Ferrous Sulfate 1 tab PO DAILY 12/04/16 Vit/Iron Fumarate/FA [ Tablet] 1 tab PO DAILY 12/04/16 Labetalol HCl 1 tab PO BID 12/10/16 History of Present Illness Patient complains of: presented for induction of labor at 37 weeks for cHTN with proteinuria History of Present Illness: VENKATESH GARCIA is a 36 year old female Hospital Course Hospital Course: The patient is who presented at 37 weeks for induction of labor for cHTN and 24h protein increased to 400+. She is asymptomatic (no headache/visual changes/abd pain/edema. Pt is morbidly obese which complicates accuracy of bp measurements and care including monitoring of status. Her laboratory studies have been normal and unchanging. On the first night of admission she received cervidil for cervical ripening. The follow ing day there was no change and she received cytotec during the day and repeat cervidil overnight. Pt then received further cytotec doses before induction stopping for lack of progress. Pt declined to have section. Patient's bp are very labile fluctuating from normal to severe range (systolic only). labetolol was increased from 100 bid to 300q8. blood pressures over the next 24 hours at this dose were all normal. Physical Exam - Physical Exam Vital Signs: Temp Pulse Resp BP Pulse Ox 98.8 F 80 18 143/75 H 100 12/23/16 12:59 12/23/16 14:06 12/23/16 12:59 12/23/16 14:06 12/23/16 12:59 Intake & Output 12/22/16 12/23/16 12/24/16 06:59 06:59 06:59 Intake Total 500 Balance 500 General appearance: PRESENT: no acute distress, cooperative, morbidly obese Respiratory exam: PRESENT: clear to auscultation jordan Cardiovascular exam: PRESENT: RRR GI/Abdominal exam: PRESENT: normal bowel sounds, soft. ABSENT: distended, guarding, mass, organolmegaly, rebound, tenderness Extremities exam: PRESENT: full ROM. ABSENT: calf tenderness, clubbing, pedal edema Neurological exam: PRESENT: alert, awake Result Laboratory Results: 12/23/16 06:43 12/23/16 06:43 12/22/16 12/22/16 12/23/16 21:56 21:56 06:43 WBC 10.0 8.2 RBC 4.75 4.76 Hgb 10.6 L 10.5 L Hct 33.9 L 34.4 L MCV 71 L 72 L MCH 22.2 L 22.0 L MCHC 31.2 L 30.4 L RDW 16.4 H 16.7 H Plt Count 171 162 Sodium 137.4 Potassium 3.9 Chloride 107 Carbon Dioxide 21 L Anion Gap 9 BUN 8 Creatinine 0.67 Est GFR ( Amer) > 60 Est GFR (Non-Af Amer) > 60 Glucose 89 Uric Acid 5.6 Calcium 9.5 Total Bilirubin 0.3 AST 30 ALT 23 Alkaline Phosphatase 126 Total Protein 6.1 L Albumin 2.9 L 12/23/16 06:43 WBC RBC Hgb Hct MCV MCH MCHC RDW Plt Count Sodium 136.8 L Potassium 4.0 Chloride 107 Carbon Dioxide 19 L Anion Gap 11 BUN 7 Creatinine 0.70 Est GFR ( Amer) > 60 Est GFR (Non-Af Amer) > 60 Glucose 78 Uric Acid 6.0 Calcium 9.1 Total Bilirubin 0.4 AST 28 ALT 27 Alkaline Phosphatase 129 H Total Protein 6.1 L Albumin 2.9 L Plan Discharge Plan: home tonight. Precautions reviewed in depth with patient and mother. Risks of worsening status including but not limited to stillbirth, iufd, abruption, seizures, stroke were all reviewed and questions answered. Pt seems to understand all issues. I recommended staying in house for observation until repeating induction in 2 days at 38weeks but they adamantly wish d/c. she will have nst in office tomorrow. cervidil induction scheduled for Monday 12/25 and Continuing 12/26 Time Spent: Greater than 30 Minutes
[2016-12-23 16:30] LABS: HEMATOCRIT 34.3 % (36.0-47.0); HEMOGLOBIN 10.5 g/dL (12.0-15.5); HGB HCT DIFFERENCE -2.8; MEAN CORPUSCULAR HGB CONC 30.8 g/dL (32.0-36.0); MEAN CORPUSCULAR VOLUME 72 fl (80-97); RED BLOOD COUNT 4.78 10^6/uL (3.72-5.28); RED CELL DISTRIBUTION WIDTH 16.7 % (11.5-14.0); WHITE BLOOD COUNT 9.2 10^3/uL (4.0-10.5)
[2016-12-23 16:43] LABS: ALANINE AMINOTRANSFERASE 31 U/L (9-52); ALBUMIN 3.3 g/dL (3.5-5.0); ALKALINE PHOSPHATASE 129 U/L (38-126); ANION GAP 8 (5-19); ASPARTATE AMINO TRANSFERASE 26 U/L (14-36); BILIRUBIN,TOTAL 0.3 mg/dL (0.2-1.3); BLOOD UREA NITROGEN 8 mg/dL (7-20); CALCIUM 9.3 mg/dL (8.4-10.2); CARBON DIOXIDE 23 mmol/L (22-30); CHLORIDE 108 mmol/L (98-107); CREATININE RESULT 0.66 mg/dL (0.52-1.25); GLUCOSE 94 mg/dL (75-110); LDH 522 U/L (313-618); POTASSIUM 3.8 mmol/L (3.6-5.0); SODIUM 138.9 mmol/L (137-145); TOTAL PROTEIN 6.2 g/dL (6.3-8.2); URIC ACID 5.6 mg/dL (2.5-7.0)
[2016-12-23 17:47] VITALS: BP 143/84
--- NOTE | 2016-12-24 04:46 | L&D General Admission ---
General Admit Datetime Report Generated by CPN: 12/24/2016 04:46 Height (in): 61 (12/22/2016 14:42:QS system process) Hemoglobin: 10.5 L (12/23/2016 16:18:QS system process) Hemoglobin: 10.5 L (12/23/2016 06:43:QS system process) Hemoglobin: 10.6 L (12/22/2016 21:56:QS system process) Hemoglobin: 11.0 L (12/22/2016 14:29:QS system process) Hemoglobin: 10.5 L (12/22/2016 06:13:QS system process) Hemoglobin: 10.7 L (12/21/2016 08:56:QS system process) Hemoglobin: 10.9 L (12/20/2016 13:27:QS system process) Hematocrit: 34.3 L (12/23/2016 16:18:QS system process) Hematocrit: 34.4 L (12/23/2016 06:43:QS system process) Hematocrit: 33.9 L (12/22/2016 21:56:QS system process) Hematocrit: 36.7 (12/22/2016 14:29:QS system process) Hematocrit: 35.0 L (12/22/2016 06:13:QS system process) Hematocrit: 35.4 L (12/21/2016 08:56:QS system process) Hematocrit: 36.6 (12/20/2016 13:27:QS system process) MCV: 72 L (12/23/2016 16:18:QS system process) MCV: 72 L (12/23/2016 06:43:QS system process) MCV: 71 L (12/22/2016 21:56:QS system process) MCV: 73 L (12/22/2016 14:29:QS system process) MCV: 73 L (12/22/2016 06:13:QS system process) MCV: 73 L (12/21/2016 08:56:QS system process) MCV: 73 L (12/20/2016 13:27:QS system process)
--- NOTE | 2016-12-24 04:46 | L&D Discharge Summary ---
OB Discharge Summary Datetime Report Generated by CPN: 12/24/2016 04:46 DISCHARGE DIAGNOSIS Diagnosis/Symptoms: Pre-Eclampsia; Chronic Hypertension Diagnoses/Symptoms Other: Received orders to DC pt after reactive NST and have pt return wed evening for scheduled induction. Pt instructed to call before coming in for induction. Instructions and labs explained, pt verbalized understanding. Gestation: 37.5 Number of Babies in Womb: 1 Parity: 2 DIET/ACTIVITY/RESTRICTIONS Diet: Regular Activity: Normal Activity Activity Restrictions: Nothing in Vagina - [place], Tampons, Douche TEACHING/INSTRUCTIONS/REFERRALS Instructions Given To: PT and family Instructions Understood: Patient Verbalized Understanding; Support Person Verbalized Understanding Referrals: None Educational Materials- Other: NST, Pre E, Induction DISCHARGE INFORMATION Discharged AMA: No Discharge Date/Time: 12/18/2016 20:27 Discharged To: Home Discharge Provider Name: Carrasco Accompanied By: Family Discharge Method: Ambulatory Condition: Stable FOLLOW UP INFORMATION Follow Up With: [facility] Follow Up On: Tomorrow Follow Up Phone Number: [facility] -
--- NOTE | 2016-12-24 04:46 | L&D Admission Assessment ---
LD ADM ASMT Datetime Report Generated by CPN: 12/24/2016 04:46 Assessment Type: Ongoing Assessment (12/22/2016 07:18:Liane Ascenico RN) Weight (lb): 286 (12/22/2016 14:42:QS system process) Weight (kg): 130.0 (12/22/2016 14:42:QS system process) Total Wt Gain (lb): 14 (12/22/2016 14:42:QS system process) Wt Gain (kg): 6.4 (12/22/2016 14:42:QS system process) BMI: 54.0 (12/22/2016 14:42:QS system process) Pain Presence: None/Denies (12/22/2016 06:07:Raina Chaney RN) Pain Type: N/A (12/22/2016 06:07:Raina Chaney RN) Pain Comments: pt sitting in bed and denies any pain at this time. (12/22/2016 10:00:iLane Ascencio RN) Pain Comments: pt sitting at bedside talking with family. (12/22/2016 09:00:Liane Ascencio RN) Frequency (min): irregular (12/22/2016 08:00:Liane Ascencio RN) Frequency (min): irregular (12/22/2016 07:30:Liane Ascencio RN) Frequency (min): Occasional (12/22/2016 07:00:Raina Chaney RN) Frequency (min): Occasional (12/22/2016 06:30:Raina Chaney RN) Frequency (min): Occasional (12/22/2016 06:00:Raina Chaney RN) Frequency (min): Irregular (12/22/2016 05:30:Raina Ring, RN) Frequency (min): x2 (12/22/2016 05:00:Raina Ring, RN) Duration (sec): 50-70 (12/22/2016 07:00:Raina Ring, RN) Duration (sec): 70-90 (12/22/2016 06:00:Raina Ring, RN) Duration (sec): 50-70 (12/22/2016 05:30:Raina Ring, RN) Duration (sec): 70-80 (12/22/2016 05:00:Raina Ring, RN) Quality: Mild (12/22/2016 08:00:Liane Ascencio, RN) Quality: Mild (12/22/2016 07:30:Liane Sonu, RN) Quality: Mild (12/22/2016 07:00:Raina Ring, RN) Quality: Mild (12/22/2016 06:30:Raina Ring, RN) Quality: Mild (12/22/2016 06:00:Raina Ring, RN) Quality: Mild (12/22/2016 05:30:Raina Ring, RN) Quality: Mild (12/22/2016 05:00:Raina Ring, RN) Pattern: Normal: <= 5 Contractions in 10 Minutes (12/22/2016 08:00:Liane Baidy, RN) Pattern: Normal: <= 5 Contractions in 10 Minutes (12/22/2016 07:30:Liane Baidy, RN) Resting Tone [place]: Relaxed (12/22/2016 08:00:Liane Ascencio, RN) Resting Tone [place]: Relaxed (12/22/2016 07:30:Liane Baidy, RN) Resting Tone [place]: Relaxed (12/22/2016 07:00:Raina Ring, RN) Resting Tone [place]: Relaxed (12/22/2016 06:30:Raina Ring, RN) Resting Tone [place]: Relaxed (12/22/2016 06:00:Raina Ring, RN) Resting Tone [place]: Relaxed (12/22/2016 05:30:Raina Ring, RN) Resting Tone [place]: Relaxed (12/22/2016 05:00:Raina Ring, RN) Level of Consciousness: Fully Conscious (12/22/2016 07:18:Liane Ascencio RN) DTR's/Clonus: DTRs 1+; No Clonus (12/22/2016 07:18:Liane Ascencio RN) Headache: Denies (12/22/2016 07:18:Liane Ascencio RN) Dizziness: No (12/22/2016 07:18:Liane Ascencio RN) Blurred Vision: No (12/22/2016 07:18:Liane Ascencio RN) Extremity Numbness/Tingling : None (12/22/2016 07:18:Liane Ascencio RN) Extremity Movement: Full Range of Motion (12/22/2016 07:18:Liane Ascencio RN) Heart Rhythm: Regular (12/22/2016 07:18:Liane Ascencio RN) Nailbeds: [place] (12/22/2016 07:18:Liane Ascencio RN) Lower Extremities Edema: Bilateral Lower Extremities (12/22/2016 07:18:Liane Ascencio RN) Lower Extremities Edema Degree: 2+ (12/22/2016 07:18:Liane Ascencio RN) Upper Extremities Edema: None (12/22/2016 07:18:Liane Ascencio RN) Upper Extremities Edema Degree: None (12/22/2016 07:18:Liane Ascencio RN) Facial Edema: None (12/22/2016 07:18:Liane Ascencio RN) Kena's Sign Left Leg: Negative (12/22/2016 07:18:Liane Ascencio RN) Kena's Sign Right Leg: Negative (12/22/2016 07:18:Liane Ascencio RN) DVT Risk Age: Age less than 41 years (12/22/2016 07:18:Liane Ascencio RN) DVT Risk BMI: BMI 41 to 50 (12/22/2016 07:18:Liane Ascencio RN) Nausea/Vomiting: Denies (12/22/2016 07:18:Liane Ascencio RN) Bowel Sounds: Normoactive (12/22/2016 07:18:Liane Ascencio RN) RUQ Epigastric Pain: Denies (12/22/2016 07:18:Liane Ascencio RN) Bowel Patterns: Soft, Formed Stool (12/22/2016 07:18:Liane Ascencio RN) Hemorrhoids: None (12/22/2016 07:18:Liane Ascencio RN) Diet Type: Regular diet (12/22/2016 07:18:Liane Ascencio RN) Vaginal Discharge Amount: None (12/22/2016 07:18:Liane Ascencio RN) Vaginal Discharge Color: N/A (12/22/2016 07:18:Liane Ascencio RN) Skin Color: Normal for Race (12/22/2016 07:18:Liane Ascencio RN) Skin Temperature: Warm (12/22/2016 07:18:Liane Ascencio RN) Skin Moisture: Dry (12/22/2016 07:18:Liane Ascencio RN) Misael Scale Sensory Perception: Slightly Limited- Responds to verbal commands but cannot always communicate discomfort or need to be turned OR has some sensory impairment which limits ability to feel pain or discomfort in 1 or 2 extremities (12/22/2016 07:18:Liane Ascencio RN) Misael Scale Moisture: Rarely Moist- Skin is usually dry. Linen only requires changing at routine intervals (12/22/2016 07:18:Liane Ascencio RN) Misael Scale Activity: Bedfast- Confined to bed. (12/22/2016 07:18:Liane Ascencio RN) Misael Scale Mobility: Slightly Limited- Makes frequent though slight changes in body or extremity position independently (12/22/2016 07:18:Liane Ascencio RN) Misael Scale Nutrition: Excellent- Eats most of every meal. Never refuses a meal. Usually eats a total of 4 or more servings of meat and dairy products. Occasionally eats between meals. Does not require supplementation (12/22/2016 07:18:Liane Ascencio RN) Misael Scale Friction and Shear: Potential Problem- Moves freely or requires minimum assistance. During a move skin probably slides to some extent against sheets, chair restraints or other devices. Maintains relatively good position in chair or bed most of the time but occasionally slides down (12/22/2016 07:18:Liane Ascencio RN) Misael Scale Total: 17 (12/22/2016 07:18:QS system process) Misael Scale Risk: No Risk of Pressure Ulcer Noted at this Time (12/22/2016 07:18:QS system process) Family Support: Family supportive (12/22/2016 07:18:Liane Ascencio RN) Emotional State: Calm/Relaxed (12/22/2016 07:18:Liane Ascencio RN) FHR Baseline Rate (bpm) Baby A: 130 (12/22/2016 08:00:Liane Ascencio RN) FHR Baseline Rate (bpm) Baby A: 130 (12/22/2016 07:30:Liane Ascencio RN) FHR Baseline Rate (bpm) Baby A: 135 (12/22/2016 07:00:Raina Chaney RN) FHR Baseline Rate (bpm) Baby A: 125 (12/22/2016 06:30:Raina Chaney RN) FHR Baseline Rate (bpm) Baby A: 125 (12/22/2016 06:00:Raina Chaney RN) FHR Baseline Rate (bpm) Baby A: 125 (12/22/2016 05:30:Raina Chaney RN) FHR Baseline Rate (bpm) Baby A: 130 (12/22/2016 05:00:Raina Chaney RN) Variability Baby A: Moderate 6-25 bpm (12/22/2016 08:00:Liane Ascencio RN) Variability Baby A: Moderate 6-25 bpm (12/22/2016 07:30:Liane Ascencio RN) Variability Baby A: Moderate 6-25 bpm (12/22/2016 07:00:Raina Chaney RN) Variability Baby A: Moderate 6-25 bpm (12/22/2016 06:30:Raina Chaney RN) Variability Baby A: Moderate 6-25 bpm (12/22/2016 06:00:Raina Chaney RN) Variability Baby A: Moderate 6-25 bpm (12/22/2016 05:30:Raina Chaney RN) Variability Baby A: Moderate 6-25 bpm (12/22/2016 05:00:Raina Chaney RN) Accelerations Baby A: 15X15 (12/22/2016 08:00:Liane Ascencio RN) Accelerations Baby A: 15X15 (12/22/2016 07:30:Liane Ascencio RN) Accelerations Baby A: 15X15 (12/22/2016 07:00:Raina Chaney RN) Accelerations Baby A: None (12/22/2016 06:30:Raina Chaney RN) Accelerations Baby A: 15X15 (12/22/2016 06:00:Raina Chaney RN) Accelerations Baby A: 15X15 (12/22/2016 05:30:Raina Chaney RN) Accelerations Baby A: 15X15 (12/22/2016 05:00:Raina Chaney RN) Decelerations Baby A: None (12/22/2016 08:00:Liane Ascencio RN) Decelerations Baby A: None (12/22/2016 07:30:Liane Ascencio RN) Decelerations Baby A: None (12/22/2016 07:00:Raina Chaney RN) Decelerations Baby A: None (12/22/2016 06:30:Raina Chaney RN) Decelerations Baby A: None (12/22/2016 06:00:Raina Chaney RN) Decelerations Baby A: None (12/22/2016 05:30:Raina Chaney RN) Decelerations Baby A: None (12/22/2016 05:00:Raina Chaney RN)
== END 2016-12-23 18:45 | disposition home or self-care (01) | DRG 781 ==
LOC: LR 20:02 → 2N 12-22 14:41
PROVIDERS: ADMIT Obstetrics & Gynecology; ATTEND Obstetrics & Gynecology
PROC: 3E0P7GC Introduction of Other Therapeutic Substance into Female Reproductive, Via Natural or Artificial Opening (ICD-10-PCS; principal; 2016-12-19)
PROC: 4A1HXCZ Monitoring of Products of Conception, Cardiac Rate, External Approach (ICD-10-PCS; 2016-12-19)
DX: O11.3 Pre-existing hypertension with pre-eclampsia, third trimester (principal); Z68.43 Body mass index [BMI] 50.0-59.9, adult; O61.0 Failed medical induction of labor; O99.213 Obesity complicating pregnancy, third trimester; E66.01 Morbid (severe) obesity due to excess calories; Z3A.37 37 weeks gestation of pregnancy
CPT/HCPCS: 36415; 76815; 80053; 80307; 81005; 83615; 84550; 85025; 85027; 86592; 86850; 86900; 86901; J0360; J3490

== ENCOUNTER 2017-01-03 17:22 | Outpatient (CLI) | payer BC ==
--- NOTE | 2017-01-03 18:01 | L&D Flow Sheet ---
LD Flowsheet Datetime Report Generated by CPN: 01/03/2017 18:00 Datetime: 01/03/2017 17:52 Patient Care IV/Blood Work: Labs Drawn (Quirino Shiloh, RN) Datetime: 01/03/2017 17:50 Vital Signs NBP Sys/Karley/Mean (mmHg): 153 (QS system process) : 82 (QS system process) : 111 (QS system process) Pulse: 71 (QS system process) Communication LaborFlag: Antepartum (QS system process) Datetime: 01/03/2017 17:45 Pain Pain Presence: None/Denies (Quirino Shiloh, RN) Vaginal Exam Vaginal Bleeding: None (Quirino Baugheet, RN) Maternal Assessment Level of Consciousness: Fully Conscious (Quirino Matamoros, RN) DTR's/Clonus: DTRs 1+; No Clonus (Quirino Padillat, RN) Headache: Denies (Quirino Shiloh, RN) Breath Sounds, Left: Clear and Equal (Quirino Matamoros RN) Breath Sounds, Right: Clear and Equal (Quirino Matamoros RN) Nausea/Vomiting: Denies (Quirino Matamoros RN) RUQ Epigastric Pain: Denies (Quirino Matamoros RN) Patient Position/Activity: Left Lateral (Quirino Matamoros RN) Comfort Measures: Breathing/Relaxation; Family Support (Quirino Matamoros RN) I/O Interventions: Clear Liquids Given (Quirino Matamoros RN) Teaching Instructional Method: Demo; Verbal; Patient Instructed; Family/Support Person Instructed; Verbalized Understanding (Quirino Matamoros RN) Plan of Care: Plan of Care Discussed; Gestational Hypertension/Preeclampsia/Eclampsia (Quirino Matamoros RN) Unit Routine: [place] to Room; Call French; Bed; Visiting Policy; Waiting Areas; Phone/Cell Phone Use; Unit Personnel; Handwashing; Flu/Illness Precautions; Monitoring; Diet/Nutrition Services; Bathroom Privileges (Quirino Matamoros RN) Pain Management: Pain Scale/Goals; Comfort Measures (Quirino Matamoros RN) Related: Common Discomforts of ; Maternal Physical Changes; Maternal Emotional Changes; Nutrition; Hydration; Activity and Rest (Quirino Matamoros RN) Communication LaborFlag: Antepartum (QS system process)
[2017-01-03 18:44] LABS: ABSOLUTE BASOPHILS # (AUTO) 0.1 10^3/uL (0.0-0.2); ABSOLUTE EOSINOPHILS # (AUTO) 0.2 10^3/uL (0.0-0.6); ABSOLUTE LYMPHOCYTES (AUTO) 1.8 10^3/uL (0.5-4.7); ABSOLUTE MONOCYTES (AUTO) 0.7 10^3/uL (0.1-1.4); ABSOLUTE NEUT (AUTO) 5.4 10^3/uL (1.7-8.2); BASOPHILS % (AUTO) 0.6 % (0-2); HEMATOCRIT 33.5 % (36.0-47.0); HEMOGLOBIN 10.6 g/dL (12.0-15.5); HGB HCT DIFFERENCE -1.7; LYMPHOCYTES % (AUTO) 22.2 % (13-45); MEAN CORPUSCULAR HEMOGLOBIN 22.5 pg (27.0-33.4); MEAN CORPUSCULAR HGB CONC 31.6 g/dL (32.0-36.0); MEAN CORPUSCULAR VOLUME 71 fl (80-97); RED BLOOD COUNT 4.69 10^6/uL (3.72-5.28); RED CELL DISTRIBUTION WIDTH 16.4 % (11.5-14.0); SEGMENTED NEUTROPHILS % (AUTO) 66.2 % (42-78); WHITE BLOOD COUNT 8.1 10^3/uL (4.0-10.5)
[2017-01-03 18:59] LABS: ALANINE AMINOTRANSFERASE 40 U/L (9-52); ALBUMIN 3.6 g/dL (3.5-5.0); ALKALINE PHOSPHATASE 140 U/L (38-126); ANION GAP 9 (5-19); ASPARTATE AMINO TRANSFERASE 33 U/L (14-36); BILIRUBIN,TOTAL 0.3 mg/dL (0.2-1.3); BLOOD UREA NITROGEN 7 mg/dL (7-20); CALCIUM 9.3 mg/dL (8.4-10.2); CARBON DIOXIDE 24 mmol/L (22-30); CHLORIDE 103 mmol/L (98-107); CREATININE RESULT 0.78 mg/dL (0.52-1.25); GLUCOSE 64 mg/dL (75-110); LDH 633 U/L (313-618); POTASSIUM 4.2 mmol/L (3.6-5.0); SODIUM 135.8 mmol/L (137-145); TOTAL PROTEIN 6.7 g/dL (6.3-8.2); URIC ACID 5.6 mg/dL (2.5-7.0)
[2017-01-03 19:07] LABS: APPEARANCE,URINE CLEAR; BILIRUBIN,URINE NEGATIVE (NEGATIVE); GLUCOSE, URINE NEGATIVE (NEGATIVE); KETONES,URINE NEGATIVE (NEGATIVE); LEUKOCYTE ESTERASE,URINE NEGATIVE (NEGATIVE); NITRITE,URINE NEGATIVE (NEGATIVE); PROTEIN,URINE NEGATIVE (NEGATIVE); URINE SPECIFIC GRAVITY 1.002; UROBILINOGEN,URINE NEGATIVE mg/dL (<2.0)
[2017-01-03 19:25] LABS: URINE BARBITURATES SCREEN NEGATIVE; URINE METHADONE SCREEN NEGATIVE; URINE OPIATES LOW NEGATIVE; URINE PHENCYCLIDINE SCREEN NEGATIVE
== END 2017-01-03 19:24 | disposition home or self-care (01) ==
LOC: LC 17:22
PROVIDERS: ATTEND Obstetrics & Gynecology
PROC: 4A1HXCZ Monitoring of Products of Conception, Cardiac Rate, External Approach (ICD-10-PCS; principal; 2017-01-03)
DX: O47.1 False labor at or after 37 completed weeks of gestation (principal); O09.523 Supervision of elderly multigravida, third trimester; Z3A.39 39 weeks gestation of pregnancy
CPT/HCPCS: 36415; 59025; 80053; 80307; 81001; 83615; 84550; 85025; 86592; 86850; 86900; 86901

== ENCOUNTER 2017-01-10 11:17 | Outpatient (CLI) | payer BC ==
[2017-01-10 11:56] LABS: APPEARANCE,URINE SLIGHTLY-CLOUDY; BILIRUBIN,URINE NEGATIVE (NEGATIVE); GLUCOSE, URINE NEGATIVE (NEGATIVE); KETONES,URINE NEGATIVE (NEGATIVE); LEUKOCYTE ESTERASE,URINE NEGATIVE (NEGATIVE); NITRITE,URINE NEGATIVE (NEGATIVE); PROTEIN,URINE NEGATIVE (NEGATIVE); URINE SPECIFIC GRAVITY 1.006; UROBILINOGEN,URINE NEGATIVE mg/dL (<2.0)
[2017-01-10 11:56] LABS: ABSOLUTE LYMPHOCYTES (AUTO) 1.4 10^3/uL (0.5-4.7); ABSOLUTE MONOCYTES (AUTO) 0.7 10^3/uL (0.1-1.4); ABSOLUTE NEUT (AUTO) 6.6 10^3/uL (1.7-8.2); BASOPHILS % (AUTO) 0.4 % (0-2); EOSINOPHILS % (AUTO) 0.5 % (0-6); HEMATOCRIT 34.2 % (36.0-47.0); HEMOGLOBIN 10.8 g/dL (12.0-15.5); HGB HCT DIFFERENCE -1.8; LYMPHOCYTES % (AUTO) 16.4 % (13-45); MEAN CORPUSCULAR HEMOGLOBIN 22.6 pg (27.0-33.4); MEAN CORPUSCULAR HGB CONC 31.7 g/dL (32.0-36.0); MEAN CORPUSCULAR VOLUME 71 fl (80-97); MONOCYTES % (AUTO) 7.8 % (3-13); RED CELL DISTRIBUTION WIDTH 16.6 % (11.5-14.0); SEGMENTED NEUTROPHILS % (AUTO) 74.9 % (42-78); WHITE BLOOD COUNT 8.8 10^3/uL (4.0-10.5)
--- NOTE | 2017-01-10 12:00 | L&D Flow Sheet ---
LD Flowsheet Datetime Report Generated by CPN: 01/10/2017 12:00 Datetime: 01/10/2017 11:43 Patient Care Comments: Pt to Radiology for JACKY in stable condition via wheelchair with transport (Amelia Vitrano, RN) Datetime: 01/10/2017 11:42 Patient Care Comments: Labs drawn (Amelia Vitrano, RN) Datetime: 01/10/2017 11:41 NBP Sys/Karley/Mean (mmHg): 133 (QS system process) : 78 (QS system process) : 101 (QS system process) Pulse: 70 (QS system process) Respirations: 16 (Amelia Vitrano, RN) Temperature (F): 98.1 (Amelia Vitrano, RN) Temperature (C): 36.7 (QS system process) Temperature Route: Oral (Amelia Vitrano, RN) LaborFlag: Antepartum (QS system process) Datetime: 01/10/2017 11:37 Pain Scale: 0 (Amelia Vitrano, RN) Pain Presence: None/Denies (Amelia Vitrano, RN) Pain Type: N/A (Amelia Vitrano, RN) Membrane Status: Intact (Amelia Vitrano, RN) Vaginal Bleeding: None (Amelia Vitrano, RN) Level of Consciousness: Fully Conscious (Amelia Vitrano, RN) DTR's/Clonus: DTRs 2+; No Clonus (Amelia Vitrano, RN) Headache: Denies (Amelia Vitrano, RN) Breath Sounds, Left: Clear and Equal (Amelia Vitrano, RN) Breath Sounds, Right: Clear and Equal (Amelia Morales RN) Nausea/Vomiting: Denies (Amelia Morales RN) RUQ Epigastric Pain: Denies (Ameila Morales RN) LaborFlag: Antepartum (QS system process) Datetime: 01/10/2017 11:36 Patient Position/Activity: Left Tilt; Semi-Fowlers (Amelia Morales RN) I/O Interventions: Clear Liquids Given (Amelia Morales RN) Instructional Method: Verbal; Patient Instructed; Family/Support Person Instructed; Verbalized Understanding (Amelia Morales, RN) Plan of Care: Plan of Care Discussed (Amelia Morales RN) Unit Routine: [place] to Room; Call French; Bed; Unit Personnel; Monitoring; Safety/Fall Risk Prevention; Bathroom Privileges (Amelia Morales, ABDULKADIR)
[2017-01-10 12:01] LABS: ALANINE AMINOTRANSFERASE 30 U/L (9-52); ALBUMIN 3.4 g/dL (3.5-5.0); ALKALINE PHOSPHATASE 137 U/L (38-126); ANION GAP 9 (5-19); ASPARTATE AMINO TRANSFERASE 27 U/L (14-36); BILIRUBIN,TOTAL 0.4 mg/dL (0.2-1.3); BLOOD UREA NITROGEN 11 mg/dL (7-20); CALCIUM 9.3 mg/dL (8.4-10.2); CARBON DIOXIDE 22 mmol/L (22-30); CHLORIDE 105 mmol/L (98-107); CREATININE RESULT 0.76 mg/dL (0.52-1.25); GLUCOSE 83 mg/dL (75-110); LDH 549 U/L (313-618); POTASSIUM 4.2 mmol/L (3.6-5.0); SODIUM 135.6 mmol/L (137-145); TOTAL PROTEIN 6.5 g/dL (6.3-8.2); URIC ACID 5.7 mg/dL (2.5-7.0)
[2017-01-10 12:13] LABS: URINE BARBITURATES SCREEN NEGATIVE; URINE METHADONE SCREEN NEGATIVE; URINE OPIATES LOW NEGATIVE; URINE PHENCYCLIDINE SCREEN NEGATIVE
--- NOTE | 2017-01-14 20:17 | Non Stress Test Report ---
Non Stress Test Datetime Report Generated by CPN: 01/14/2017 20:17 DEMOGRAPHIC Test Number: 5 Test Number: 1 EGA NST: 40.2 EGA NST: 39.2 EGA NST: 37.0 INDICATION Indication for Study: Ordered by Provider Indication for Study: Ordered by Provider Indication for Study: Ordered by Provider VITAL SIGNS Temperature - NST: 98.2 Pulse - NST: 88 RESP - NST: 18 NBPSYS NST: 130 NBPDIA NST: 74 MONITORING Monitor Explained: Monitor Explained; Test Explained; Patient Verbalized Understanding Monitor Explained: Monitor Explained; Test Explained; Patient Verbalized Understanding Monitor Explained: Monitor Explained; Test Explained; Patient Verbalized Understanding Time on Monitor: 01/10/2017 12:48 Time on Monitor: 01/03/2017 17:46 Time on Monitor: 12/18/2016 19:55 Time off Monitor: 01/10/2017 13:17 Time off Monitor: 12/18/2016 20:16 NST Duration: 29 NST Duration: 21 NST INTERVENTIONS NST Interventions: PO Hydration NST Interventions: PO Hydration; Reposition Patient NST Interventions: PO Hydration; Reposition Patient Physician Notified NST: Ludwin Moreira CNM Physician Notified NST: Dr Shafer Physician Notified NST: Carrasco BABY A: [id number] BABY A Movement : Present Movement : Present Movement : Present Contraction Frequency : Occasional Contraction Frequency : none Contraction Frequency : 0 FHR Baseline : 130 FHR Baseline : 130 FHR Baseline : 130 Accelerations : 15X15 Accelerations : 15X15 Accelerations : 15X15 Decelerations : None Decelerations : None Decelerations : None Variability : Moderate 6-25bpm Variability : Moderate 6-25bpm Variability : Moderate 6-25bpm NST Review: Meets Criteria for Reactive NST NST Review: Meets Criteria for Reactive NST NST Review: Meets Criteria for Reactive NST NST Review and Verified By : Clau Vitale RNC NST Review and Verified By : Jose Boswell RN NST Results: Reactive NST Results: Reactive NST Results: Reactive NST REPORT Report Trigger: Send Report
== END 2017-01-10 13:37 | disposition home or self-care (01) ==
LOC: LC 11:17
PROVIDERS: ATTEND Obstetrics & Gynecology
PROC: 4A1HXCZ Monitoring of Products of Conception, Cardiac Rate, External Approach (ICD-10-PCS; principal; 2017-01-10)
DX: O13.3 Gestational [pregnancy-induced] hypertension without significant proteinuria, third trimester (principal); O09.523 Supervision of elderly multigravida, third trimester; O48.0 Post-term pregnancy; Z3A.40 40 weeks gestation of pregnancy
CPT/HCPCS: 36415; 59025; 76815; 80053; 80307; 81001; 83615; 84550; 85025

== ENCOUNTER 2017-01-14 20:19 | Inpatient (IN) | payer BC ==
[2017-01-14] MEDS ORDERED: RINGERS SOLUTION,LACTATED 300 ML IV ONE (21:08)
[2017-01-14] MEDS ORDERED: OXYTOCIN/NORMAL SALINE 1,000 ML IV PRN ×3 (21:08→23:35)
[2017-01-14 21:39] LABS: APPEARANCE,URINE CLOUDY; BILIRUBIN,URINE NEGATIVE (NEGATIVE); GLUCOSE, URINE NEGATIVE (NEGATIVE); KETONES,URINE NEGATIVE (NEGATIVE); LEUKOCYTE ESTERASE,URINE LARGE (NEGATIVE); NITRITE,URINE NEGATIVE (NEGATIVE); PROTEIN,URINE 100 mg/dL (NEGATIVE); UROBILINOGEN,URINE NEGATIVE mg/dL (<2.0)
[2017-01-14 21:52] LABS: ABSOLUTE EOSINOPHILS # (AUTO) 0.1 10^3/uL (0.0-0.6); ABSOLUTE MONOCYTES (AUTO) 0.9 10^3/uL (0.1-1.4); ABSOLUTE NEUT (AUTO) 5.8 10^3/uL (1.7-8.2); BASOPHILS % (AUTO) 0.5 % (0-2); EOSINOPHILS % (AUTO) 0.9 % (0-6); HEMATOCRIT 33.8 % (36.0-47.0); HEMOGLOBIN 10.6 g/dL (12.0-15.5); LYMPHOCYTES % (AUTO) 22.4 % (13-45); MEAN CORPUSCULAR HEMOGLOBIN 22.5 pg (27.0-33.4); MEAN CORPUSCULAR HGB CONC 31.4 g/dL (32.0-36.0); MEAN CORPUSCULAR VOLUME 72 fl (80-97); MONOCYTES % (AUTO) 9.9 % (3-13); RED BLOOD COUNT 4.71 10^6/uL (3.72-5.28); RED CELL DISTRIBUTION WIDTH 16.5 % (11.5-14.0); SEGMENTED NEUTROPHILS % (AUTO) 66.3 % (42-78); WHITE BLOOD COUNT 8.8 10^3/uL (4.0-10.5)
[2017-01-14 21:53] LABS: URINE BARBITURATES SCREEN NEGATIVE; URINE METHADONE SCREEN NEGATIVE; URINE OPIATES LOW NEGATIVE; URINE PHENCYCLIDINE SCREEN NEGATIVE
--- NOTE | 2017-01-14 22:00 | L&D Flow Sheet ---
LD Flowsheet Datetime Report Generated by CPN: 01/14/2017 22:00 Datetime: 01/14/2017 21:55 Communication Comments: Orders received from Dr. Cameron for Penicillin and Pitocin (Naty Latham RN) Datetime: 01/14/2017 21:45 Dilatation (cm): 1.5 (Naty Latham RN) Effacement (%): 75 (Naty Latham RN) Station: -3 (Naty Latham RN) Exam by: Dr. Cameron (Naty Field, RN) Datetime: 01/14/2017 21:43 Communication Comments: Dr. Cameron at bedside (Naty Field, RN) Datetime: 01/14/2017 21:31 Communication Comments: Dr. Cameron at bedside (Naty Field, RN) Datetime: 01/14/2017 21:30 Procedures: Labs Drawn (Naty Field, RN) Datetime: 01/14/2017 21:23 Procedures: Consents Signed (Naty Latham, RN) Datetime: 01/14/2017 21:14 NBP Sys/Karley/Mean (mmHg): 189 (QS system process) : 100 (QS system process) : 136 (QS system process) Pulse: 74 (QS system process) LaborFlag: Antepartum (QS system process) Datetime: 01/14/2017 20:46 Frequency (min): q5-7 minutes (Naty Latham RN) Pain Scale: 4 (Naty Latham RN) Pain Presence: Intermittent (Naty Latham RN) Pain Type: Cramping (Naty Latham RN) Pain Location: Abdomen (Naty Latham RN) Pain Goal: 0 (Naty Latham RN) Pain Relief Measures: Comfort Measures (Naty Latham RN) Pain Coping: Talking Through Contractions; Breathing Through Contractions (Naty Latham RN) Vaginal Bleeding: Normal Show (Naty Latham RN) Level of Consciousness: Fully Conscious (Naty Latham RN) DTR's/Clonus: DTRs 1+; No Clonus (Naty Latham RN) Headache: Denies (Naty Latham RN) Breath Sounds, Left: Clear and Equal (Naty Latham RN) Breath Sounds, Right: Clear and Equal (Naty Latham RN) Nausea/Vomiting: Denies (Naty Latham RN) RUQ Epigastric Pain: Denies (Naty Latham RN) Instructional Method: Verbal; Patient Instructed; Family/Support Person Instructed; Verbalized Understanding (Naty Latham RN) Plan of Care: Plan of Care Discussed; Vaginal Delivery; Labor; Induction (Naty Latham RN) Unit Routine: [place] to Room; Call French; Bed; Visiting Policy; Waiting Areas; Security; Phone/Cell Phone Use; Photography; Unit Personnel; Handwashing; Flu/Illness Precautions; Monitoring; IV Pumps; Safety/Fall Risk Prevention; Bathroom Privileges (Naty Latham RN) LaborFlag: Antepartum (QS system process) Datetime: 01/14/2017 20:44 NBP Sys/Karley/Mean (mmHg): 171 (QS system process) : 102 (QS system process) : 131 (QS system process) Pulse: 78 (QS system process) LaborFlag: Antepartum (QS system process)
[2017-01-14] MEDS ORDERED: OXYTOCIN/NORMAL SALINE 20 UNIT/1,000 ML RTUINJ ONE (22:01)
[2017-01-14] MEDS ORDERED: PENICILLIN G-K 5 MILLION UNIT VIAL ONE (22:01)
[2017-01-14] MEDS ORDERED: PENICILLIN G-K 5 MILLION UNIT VIAL IV ONE (22:10)
[2017-01-14] MEDS: RINGERS SOLUTION,LACTATED 1,000 ML IV PRN (22:14)
[2017-01-14 22:15] LABS: ALANINE AMINOTRANSFERASE 41 U/L (9-52); ALBUMIN 2.9 g/dL (3.5-5.0); ALKALINE PHOSPHATASE 135 U/L (38-126); ANION GAP 7 (5-19); ASPARTATE AMINO TRANSFERASE 33 U/L (14-36); BILIRUBIN,TOTAL 0.3 mg/dL (0.2-1.3); BLOOD UREA NITROGEN 11 mg/dL (7-20); CALCIUM 9.3 mg/dL (8.4-10.2); CARBON DIOXIDE 23 mmol/L (22-30); CHLORIDE 105 mmol/L (98-107); CREATININE RESULT 0.93 mg/dL (0.52-1.25); GLUCOSE 78 mg/dL (75-110); LDH 647 U/L (313-618); POTASSIUM 4.7 mmol/L (3.6-5.0); SODIUM 135.1 mmol/L (137-145); TOTAL PROTEIN 6.2 g/dL (6.3-8.2); URIC ACID 5.5 mg/dL (2.5-7.0)
[2017-01-14] MEDS ORDERED: LABETALOL HCL 200 MG TABLET ONE (22:29)
[2017-01-14] MEDS ORDERED: EPHEDRINE SULFATE INJ 50 MG/1 ML AMPULE ONE (22:56)
[2017-01-14] MEDS ORDERED: FENTANYL/BUPIVACAINE/NS/PF 200 MCG/100 ML RTUINJ EPI ONE (22:56)
[2017-01-14] MEDS ORDERED: BUPIVACAINE HCL 0.25 % INJ/PF (2.5 MG/1 ML) 30 ML VIAL ONE (22:57)
[2017-01-14] MEDS ORDERED: NALBUPHINE HCL INJ 10 MG/1 ML AMPULE IM ONE (23:07)
[2017-01-14] MEDS ORDERED: NALBUPHINE HCL INJ 10 MG/1 ML AMPULE ONE (23:08)
[2017-01-14] MEDS ORDERED: MAGNESIUM SULFATE 500 ML IV PRN (23:48)
[2017-01-14] MEDS ORDERED: MAGNESIUM SULFATE 100 ML IV ONE (23:48)
[2017-01-14] MEDS ORDERED: HYDRALAZINE HCL INJ/PF 20 MG/1 ML SDV IV PRN (23:49)
[2017-01-14] MEDS ORDERED: MAGNESIUM SULFATE 4 GM/100 ML RTUPB IV ONE (23:51)
[2017-01-14] MEDS ORDERED: HYDRALAZINE HCL INJ/PF 20 MG/1 ML SDV ONE (23:51)
[2017-01-15] MEDS ORDERED: PENICILLIN G-K 5 MILLION UNIT VIAL ONE ×3 (01:52→11:14)
--- NOTE | 2017-01-15 03:35 | L&D Progress Notes ---
PROGRESS NOTES Datetime Report Generated by CPN: 01/15/2017 03:35 PROGRESS NOTE Impression: Normal Progression of Labor; Gest. HTN/PreEclampsia/Eclampsia Procedures: Sterile Vag Exam Plan: Induction; Anesthesia Consult; Anticipate Vaginal Delivery Informed Consent Obtained: Vaginal Delivery; Induction of Labor; Risks, Benefits and Alternatives Discussed Informed Consent Obtained: Vaginal Delivery; Induction of Labor; Risks, Benefits and Alternatives Discussed Vital Signs : Reviewed; Within Normal Limits Comment: 36yo at 41+0ega here for IOL due to CHTN with Superimposed PreE. Pt initiated on pitocin for IOL. cvx 3-4/90/-3. Pt desires Epidural. Consult Anesthesia. Cat I NST. Cont Magnesium for Seizure prophy. GBS pos - PCN. CAT I FHR tracing. Anticipate . EFW per US 6.5# 4wks ago - palpation approx 8# limited by habitus. VAGINAL EXAM Dilatation: 4 Dilatation: 1 Effacement: 90 Effacement: 70 Station: -3 Station: -3 Contractions: q 2-3 min FETUS A FHR - Baseline: 120 Monitoring: External US Accelerations: 15X15 Decelerations: None FHR Category: Category I Presentation: Vertex SIGNATURE SIGNATURE: [id number] SIGNATURE: [id number] Signature: with User ID: [email or web address]
[2017-01-15] MEDS ORDERED: EPHEDRINE SULFATE INJ 50 MG/1 ML AMPULE IV ONE (03:51)
[2017-01-15] MEDS ORDERED: BUPIVACAINE HCL 0.25 % INJ/PF (2.5 MG/1 ML) 30 ML VIAL INFIL ONE (03:51)
[2017-01-15] MEDS ORDERED: FENTANYL/BUPIVACAINE/NS/PF 100 ML EPI PRN (03:51)
[2017-01-15] MEDS ORDERED: EPHEDRINE SULFATE INJ 50 MG/1 ML AMPULE IV PRN (03:51)
[2017-01-15] MEDS ORDERED: DIPHENHYDRAMINE HCL 50 MG/ML VIAL IV PRN (03:51)
[2017-01-15] MEDS ORDERED: BENZOIN/ALOE VERA/STORAX/TOLU TINCTURE 60 ML TP PRN (03:51)
[2017-01-15] MEDS: RINGERS SOLUTION,LACTATED 1,000 ML IV PRN (04:56)
[2017-01-15] MEDS: LABETALOL HCL 200 MG TABLET PO SCH ×3 (06:50→21:12)
[2017-01-15] MEDS ORDERED: LABETALOL HCL 200 MG TABLET ONE (06:50)
[2017-01-15 06:56] LABS: ABSOLUTE BASOPHILS # (AUTO) 0.1 10^3/uL (0.0-0.2); ABSOLUTE LYMPHOCYTES (AUTO) 0.9 10^3/uL (0.5-4.7); ABSOLUTE MONOCYTES (AUTO) 0.7 10^3/uL (0.1-1.4); ABSOLUTE NEUT (AUTO) 10.6 10^3/uL (1.7-8.2); BASOPHILS % (AUTO) 0.4 % (0-2); EOSINOPHILS % (AUTO) 0.1 % (0-6); HEMATOCRIT 35.6 % (36.0-47.0); HEMOGLOBIN 11.3 g/dL (12.0-15.5); HGB HCT DIFFERENCE -1.7; LYMPHOCYTES % (AUTO) 7.6 % (13-45); MEAN CORPUSCULAR HEMOGLOBIN 22.3 pg (27.0-33.4); MEAN CORPUSCULAR HGB CONC 31.7 g/dL (32.0-36.0); MEAN CORPUSCULAR VOLUME 70 fl (80-97); MONOCYTES % (AUTO) 5.8 % (3-13); RED BLOOD COUNT 5.05 10^6/uL (3.72-5.28); RED CELL DISTRIBUTION WIDTH 16.8 % (11.5-14.0); SEGMENTED NEUTROPHILS % (AUTO) 86.1 % (42-78); WHITE BLOOD COUNT 12.3 10^3/uL (4.0-10.5)
[2017-01-15 07:12] LABS: ALANINE AMINOTRANSFERASE 37 U/L (9-52); ALBUMIN 3.6 g/dL (3.5-5.0); ALKALINE PHOSPHATASE 173 U/L (38-126); ANION GAP 10 (5-19); ASPARTATE AMINO TRANSFERASE 31 U/L (14-36); BILIRUBIN,TOTAL 0.5 mg/dL (0.2-1.3); BLOOD UREA NITROGEN 8 mg/dL (7-20); CALCIUM 9.2 mg/dL (8.4-10.2); CARBON DIOXIDE 20 mmol/L (22-30); CHLORIDE 102 mmol/L (98-107); CREATININE RESULT 0.63 mg/dL (0.52-1.25); GLUCOSE 105 mg/dL (75-110); LDH 613 U/L (313-618); POTASSIUM 4.3 mmol/L (3.6-5.0); TOTAL PROTEIN 6.6 g/dL (6.3-8.2); URIC ACID 5.2 mg/dL (2.5-7.0)
[2017-01-15] MEDS ORDERED: ACETAMINOPHEN 325 MG TABLET ONE (07:27)
--- NOTE | 2017-01-15 08:01 | L&D Flow Sheet ---
LD Flowsheet Datetime Report Generated by CPN: 01/15/2017 08:00 Datetime: 01/15/2017 07:45 NBP Sys/Karley/Mean (mmHg): 153 (QS system process) : 78 (QS system process) : 109 (QS system process) Pulse: 69 (QS system process) LaborFlag: Antepartum (QS system process) Datetime: 01/15/2017 07:33 NBP Sys/Karley/Mean (mmHg): 170 (QS system process) : 92 (QS system process) : 125 (QS system process) Pulse: 88 (QS system process) LaborFlag: Antepartum (QS system process) Datetime: 01/15/2017 07:16 Communication: Report Given to @ Erica, RN; care relinquished at this time. (Naty Field, RN) Datetime: 01/15/2017 07:15 NBP Sys/Karley/Mean (mmHg): 171 (QS system process) : 102 (QS system process) : 130 (QS system process) Pulse: 62 (QS system process) LaborFlag: Antepartum (QS system process) Datetime: 01/15/2017 07:01 NBP Sys/Karley/Mean (mmHg): 181 (QS system process) : 97 (QS system process) : 132 (QS system process) Pulse: 71 (QS system process) LaborFlag: Antepartum (QS system process) Datetime: 01/15/2017 07:00 Monitor Mode: External; Palpation (Naty Latham RN) Frequency (min): 2-4.5 (Naty Latham RN) Quality: Moderate (Naty Latham RN) Duration (sec): 60-100 (Naty Latham RN) Resting Tone (Palpate): Relaxed (Naty Latham RN) Monitor Mode: Internal Scalp Electrode (Naty Latham RN) FHR Baseline Rate : 120 (Naty Latham RN) Variability: Moderate 6-25 bpm (Naty Latham RN) Accelerations: Prolonged (Naty Latham RN) Decelerations: Early; Variable (Naty Latham RN) Dilatation (cm): 5.0 (Naty Latham RN) Effacement (%): 90 (Naty Latham RN) Station: -2 (Naty Latham, RN) Exam by: ABDULKADIR Kim (Naty Latham RN) Pitocin (milliunit): Pitocin Remains (milliunits) @ 4 (Naty Latham RN) Datetime: 01/15/2017 06:53 Medication Comments: Labetalol 300 mg PO (Naty Latham RN) Datetime: 01/15/2017 06:48 NBP Sys/Karley/Mean (mmHg): 194 (QS system process) : 91 (QS system process) : 131 (QS system process) Pulse: 71 (QS system process) LaborFlag: Antepartum (QS system process) Datetime: 01/15/2017 06:45 Monitor Mode: External; Palpation (Naty Latham, RN) Frequency (min): 2-7 (Naty Latham RN) Quality: Moderate (Naty Latham RN) Duration (sec): 50-100 (Naty Field, RN) Resting Tone (Palpate): Relaxed (Naty Field, RN) Monitor Mode: Internal Scalp Electrode (Naty Field, RN) FHR Baseline Rate : 120 (Naty Field, RN) Variability: Moderate 6-25 bpm (Naty Field, RN) Accelerations: 15X15 (Naty Field, RN) Decelerations: Variable (Naty Field, RN) Pitocin (milliunit): Pitocin Remains (milliunits) @ 4 (Naty Field, RN) Datetime: 01/15/2017 06:32 NBP Sys/Karley/Mean (mmHg): 181 (QS system process) : 87 (QS system process) : 125 (QS system process) Pulse: 70 (QS system process) LaborFlag: Antepartum (QS system process) Datetime: 01/15/2017 06:30 Monitor Mode: External; Palpation (Naty Field, RN) Frequency (min): 2-5.5 (Naty Field, RN) Quality: Moderate (Naty Field, RN) Duration (sec): 50-90 (Naty Field, RN) Resting Tone (Palpate): Relaxed (Naty , RN) Monitor Mode: Internal Scalp Electrode (Naty Field, RN) FHR Baseline Rate : 125 (Naty Field, RN) Variability: Moderate 6-25 bpm (Naty Field, RN) Accelerations: 15X15 (Naty Field, RN) Decelerations: Variable (Naty Field, RN) Pitocin (milliunit): Pitocin Increased to (milliunits) @ 4 (Naty , RN) Datetime: 01/15/2017 06:15 NBP Sys/Karley/Mean (mmHg): 143 (QS system process) : 73 (QS system process) : 100 (QS system process) Pulse: 72 (QS system process) Monitor Mode: External; Palpation (Naty Latham, RN) Frequency (min): 6 (Naty Latham, RN) Quality: Moderate (Naty Latham, RN) Duration (sec): 60-120 (Naty Latham, RN) Resting Tone (Palpate): Relaxed (Naty Latham, RN) Monitor Mode: Internal Scalp Electrode (Naty Latham, RN) FHR Baseline Rate : 120 (Naty Field, RN) Variability: Moderate 6-25 bpm (Naty Field, RN) Accelerations: 15X15 (Naty Field, RN) Decelerations: Variable (Naty , RN) Pitocin (milliunit): Pitocin Remains (milliunits) @ 2 (Naty Latham, RN) LaborFlag: Antepartum (QS system process) Datetime: 01/15/2017 06:08 Pitocin (milliunit): Pitocin Started (milliunits) @ 2; Pitocin 20 Units in 1000ml NS (Naty Latham RN) Antibiotics: Penicillin IV (Units) @ 2,500,000 (Naty Latham RN) Datetime: 01/15/2017 06:00 NBP Sys/Karley/Mean (mmHg): 152 (QS system process) : 76 (QS system process) : 107 (QS system process) Pulse: 72 (QS system process) Monitor Mode: External; Palpation (Naty Latham, RN) Frequency (min): 8 (Naty Latham, RN) Quality: Moderate (Naty Latham, RN) Duration (sec): 70-80 (Naty Latham RN) Resting Tone (Palpate): Relaxed (Naty Latham RN) Monitor Mode: Internal Scalp Electrode (Naty Latham, RN) FHR Baseline Rate : 120 (Naty Latham, RN) Variability: Moderate 6-25 bpm (Naty Latham, RN) Accelerations: 15X15 (Naty Latham, RN) Decelerations: Variable (Naty Latham RN) LaborFlag: Antepartum (QS system process) Datetime: 01/15/2017 05:45 NBP Sys/Karley/Mean (mmHg): 150 (QS system process) : 79 (QS system process) : 107 (QS system process) Pulse: 75 (QS system process) Monitor Mode: External; Palpation (Naty Latham, RN) Frequency (min): 8 (Naty Latham RN) Quality: Moderate (Naty Latham RN) Duration (sec): 60-70 (Naty Latham, RN) Resting Tone (Palpate): Relaxed (Naty Latham, RN) Monitor Mode: Internal Scalp Electrode (Naty Latham, RN) FHR Baseline Rate : 120 (Naty Latham RN) FHR Baseline Changes: Unable to Determine (Naty Latham, RN) Variability: Moderate 6-25 bpm (Naty Latham, RN) LaborFlag: Antepartum (QS system process) Datetime: 01/15/2017 05:42 Monitor Interventions for FHR: FSE Applied (Naty Latham RN) Membrane Status: Ruptured (Cecilia Lattibeaudeir, ABDULKADIR) Membranes Ruptured Date/Time: 01/15/2017 05:42 (Cecilia Wilsonpaul, RN) Membranes Rupture Method: Artificial (Cecilia Garrison, ABDULKADIR) Amniotic Fluid Color: Clear (Cecilia Wilsonpaul, RN) Amniotic Fluid Amount: None (Cecilia Garrison, RN) Amniotic Fluid Odor: Normal (Cecilia Garrison, ABDULKADIR) Datetime: 01/15/2017 05:40 Communication Comments: Dr. Cameron at bedside ([facility]) Datetime: 01/15/2017 05:31 NBP Sys/Karley/Mean (mmHg): 149 (QS system process) : 82 (QS system process) : 110 (QS system process) Pulse: 77 (QS system process) LaborFlag: Antepartum (QS system process) Datetime: 01/15/2017 05:30 Monitor Mode: External; Palpation (Naty Field, RN) Frequency (min): 6 (Naty Field, RN) Quality: Moderate (Naty Field, RN) Duration (sec): 60-90 (Naty Field, RN) Resting Tone (Palpate): Relaxed (Naty Field, RN) Monitor Mode: External US (Naty Field, RN) FHR Baseline Rate : 115 (Naty Field, RN) Variability: Moderate 6-25 bpm (Naty Field, RN) Accelerations: 15X15 (Naty Field, RN) Decelerations: Late; Variable (Naty Field, RN) Datetime: 01/15/2017 05:26 Communication Comments: Informed Dr. Cameron that BPs went into 120's after epidural and decels noted. Advised that we gave ephedrine and BP readings seem to be stable in 140's systolic at this time. No further orders received at this time. (Cecilia Garrison RN) Datetime: 01/15/2017 05:15 NBP Sys/Karley/Mean (mmHg): 146 (QS system process) : 75 (QS system process) : 104 (QS system process) Pulse: 73 (QS system process) Monitor Mode: External; Palpation (Naty Field, RN) Frequency (min): 8 (Naty Field, RN) Quality: Moderate (Naty Field, RN) Duration (sec): 60 (Naty Field, RN) Resting Tone (Palpate): Relaxed (Naty Field, RN) Monitor Mode: External US (Naty Field, RN) FHR Baseline Rate : 125 (Naty Field, RN) Variability: Moderate 6-25 bpm (Naty Field, RN) Accelerations: 15X15 (Naty Field, RN) Decelerations: Late (Naty Field, RN) LaborFlag: Antepartum (QS system process) Datetime: 01/15/2017 05:10 NBP Sys/Karley/Mean (mmHg): 141 (QS system process) : 74 (QS system process) : 99 (QS system process) Pulse: 78 (QS system process) LaborFlag: Antepartum (QS system process) Datetime: 01/15/2017 05:05 NBP Sys/Karley/Mean (mmHg): 145 (QS system process) : 74 (QS system process) : 103 (QS system process) Pulse: 76 (QS system process) LaborFlag: Antepartum (QS system process) Datetime: 01/15/2017 05:00 NBP Sys/Karley/Mean (mmHg): 142 (QS system process) : 71 (QS system process) : 97 (QS system process) Pulse: 76 (QS system process) Monitor Mode: External; Palpation (Naty Latham RN) Frequency (min): 2-4 (Naty Latham RN) Quality: Moderate (Naty Latham RN) Duration (sec): 60-70 (Naty Latham RN) Resting Tone (Palpate): Relaxed (Naty Latham RN) Monitor Mode: External US (Naty Latham RN) FHR Baseline Rate : 130 (Naty Latham RN) Variability: Moderate 6-25 bpm (Naty Latham RN) Accelerations: 15X15 (Naty Latham RN) Decelerations: Variable (Naty Latham RN) LaborFlag: Antepartum (QS system process) Datetime: 01/15/2017 04:57 NBP Sys/Karley/Mean (mmHg): 141 (QS system process) : 75 (QS system process) : 101 (QS system process) Pulse: 75 (QS system process) LaborFlag: Antepartum (QS system process) Datetime: 01/15/2017 04:55 NBP Sys/Karley/Mean (mmHg): 145 (QS system process) : 74 (QS system process) : 103 (QS system process) Pulse: 83 (QS system process) LaborFlag: Antepartum (QS system process) Datetime: 01/15/2017 04:53 NBP Sys/Karley/Mean (mmHg): 136 (QS system process) : 70 (QS system process) : 96 (QS system process) Pulse: 75 (QS system process) LaborFlag: Antepartum (QS system process) Datetime: 01/15/2017 04:51 NBP Sys/Karley/Mean (mmHg): 143 (QS system process) : 74 (QS system process) : 101 (QS system process) Pulse: 76 (QS system process) LaborFlag: Antepartum (QS system process) Datetime: 01/15/2017 04:50 NBP Sys/Karley/Mean (mmHg): 146 (QS system process) : 75 (QS system process) : 104 (QS system process) Pulse: 77 (QS system process) LaborFlag: Antepartum (QS system process) Datetime: 01/15/2017 04:49 NBP Sys/Karley/Mean (mmHg): 132 (QS system process) : 64 (QS system process) : 90 (QS system process) Pulse: 85 (QS system process) LaborFlag: Antepartum (QS system process) Datetime: 01/15/2017 04:48 NBP Sys/Karley/Mean (mmHg): 127 (QS system process) : 67 (QS system process) : 90 (QS system process) Pulse: 82 (QS system process) LaborFlag: Antepartum (QS system process) Datetime: 01/15/2017 04:47 NBP Sys/Karley/Mean (mmHg): 134 (QS system process) : 69 (QS system process) : 95 (QS system process) Pulse: 78 (QS system process) LaborFlag: Antepartum (QS system process) Datetime: 01/15/2017 04:46 NBP Sys/Karley/Mean (mmHg): 122 (QS system process) : 61 (QS system process) : 83 (QS system process) Pulse: 85 (QS system process) LaborFlag: Antepartum (QS system process) Datetime: 01/15/2017 04:45 NBP Sys/Karley/Mean (mmHg): 128 (QS system process) : 65 (QS system process) : 89 (QS system process) Pulse: 78 (QS system process) Monitor Mode: External; Palpation (Naty Latham RN) Frequency (min): 4.5-5 (Naty Latham RN) Quality: Moderate (Naty Latham RN) Duration (sec): 50-70 (Naty Latham RN) Resting Tone (Palpate): Relaxed (Naty Latham RN) Monitor Mode: External US (Naty Latham RN) FHR Baseline Rate : 120 (Naty Latham RN) Variability: Moderate 6-25 bpm (Naty Latham RN) Accelerations: 15X15 (Naty Latham, RN) Decelerations: Late (Naty Latham, RN) Medication Comments: Ephedrine 5 mg IV (Naty Latham RN) LaborFlag: Antepartum (QS system process) Datetime: 01/15/2017 04:44 NBP Sys/Karley/Mean (mmHg): 129 (QS system process) : 69 (QS system process) : 92 (QS system process) Pulse: 78 (QS system process) LaborFlag: Antepartum (QS system process) Datetime: 01/15/2017 04:43 NBP Sys/Karley/Mean (mmHg): 145 (QS system process) : 76 (QS system process) : 103 (QS system process) Pulse: 77 (QS system process) LaborFlag: Antepartum (QS system process) Datetime: 01/15/2017 04:42 NBP Sys/Karley/Mean (mmHg): 143 (QS system process) : 78 (QS system process) : 103 (QS system process) Pulse: 77 (QS system process) LaborFlag: Antepartum (QS system process) Datetime: 01/15/2017 04:41 NBP Sys/Karley/Mean (mmHg): 148 (QS system process) : 79 (QS system process) : 106 (QS system process) Pulse: 80 (QS system process) LaborFlag: Antepartum (QS system process) Datetime: 01/15/2017 04:40 NBP Sys/Karley/Mean (mmHg): 135 (QS system process) : 73 (QS system process) : 96 (QS system process) Pulse: 71 (QS system process) Medication Comments: Ephedrine 5 mg IV (Naty Field, RN) LaborFlag: Antepartum (QS system process) Datetime: 01/15/2017 04:39 NBP Sys/Karley/Mean (mmHg): 140 (QS system process) : 75 (QS system process) : 101 (QS system process) Pulse: 69 (QS system process) LaborFlag: Antepartum (QS system process) Datetime: 01/15/2017 04:38 NBP Sys/Karley/Mean (mmHg): 144 (QS system process) : 78 (QS system process) : 105 (QS system process) Pulse: 69 (QS system process) LaborFlag: Antepartum (QS system process) Datetime: 01/15/2017 04:37 NBP Sys/Karley/Mean (mmHg): 154 (QS system process) : 81 (QS system process) : 111 (QS system process) Pulse: 75 (QS system process) LaborFlag: Antepartum (QS system process) Datetime: 01/15/2017 04:36 NBP Sys/Karley/Mean (mmHg): 133 (QS system process) : 67 (QS system process) : 93 (QS system process) Pulse: 73 (QS system process) LaborFlag: Antepartum (QS system process) Datetime: 01/15/2017 04:35 NBP Sys/Karley/Mean (mmHg): 131 (QS system process) : 67 (QS system process) : 92 (QS system process) Pulse: 68 (QS system process) Medication Comments: Ephedrine 5 mg IV (Naty Latham RN) LaborFlag: Antepartum (QS system process) Datetime: 01/15/2017 04:34 NBP Sys/Karley/Mean (mmHg): 134 (QS system process) : 68 (QS system process) : 95 (QS system process) Pulse: 69 (QS system process) LaborFlag: Antepartum (QS system process) Datetime: 01/15/2017 04:33 NBP Sys/Karley/Mean (mmHg): 140 (QS system process) : 75 (QS system process) : 102 (QS system process) Pulse: 67 (QS system process) LaborFlag: Antepartum (QS system process) Datetime: 01/15/2017 04:32 NBP Sys/Karley/Mean (mmHg): 147 (QS system process) : 78 (QS system process) : 106 (QS system process) Pulse: 75 (QS system process) LaborFlag: Antepartum (QS system process) Datetime: 01/15/2017 04:31 NBP Sys/Karley/Mean (mmHg): 152 (QS system process) : 79 (QS system process) : 109 (QS system process) Pulse: 67 (QS system process) LaborFlag: Antepartum (QS system process) Datetime: 01/15/2017 04:30 NBP Sys/Karley/Mean (mmHg): 155 (QS system process) : 81 (QS system process) : 111 (QS system process) Pulse: 70 (QS system process) Monitor Mode: External; Palpation (Naty Latham RN) Frequency (min): 2-4 (Naty Latham RN) Quality: Mild/Moderate (Naty Latham RN) Duration (sec): 50-60 (Naty Field, RN) Resting Tone (Palpate): Relaxed (Naty Latham, RN) Monitor Mode: External US (Naty Latham, RN) FHR Baseline Rate : 130 (Naty Latham, RN) Variability: Moderate 6-25 bpm (Naty Field, RN) Accelerations: None (Naty Field, RN) Decelerations: Late; Variable (Naty Latham, RN) LaborFlag: Antepartum (QS system process) Datetime: 01/15/2017 04:28 NBP Sys/Karley/Mean (mmHg): 128 (QS system process) NBP Sys/Karley/Mean (mmHg): 123 (QS system process) : 70 (QS system process) : 65 (QS system process) : 94 (QS system process) : 88 (QS system process) Pulse: 71 (QS system process) Pulse: 75 (QS system process) Medication Comments: Ephedrine 5 mg IV (Naty Latham RN) LaborFlag: Antepartum (QS system process) Datetime: 01/15/2017 04:26 NBP Sys/Karley/Mean (mmHg): 129 (QS system process) : 72 (QS system process) : 93 (QS system process) Pulse: 67 (QS system process) Actions for Decelerations: Oxygen Applied (Naty Latham RN) Pitocin (milliunit): Pitocin Discontinued (Naty Latham RN) Medication Comments: Ephedrine 5 mg IV (Naty Latham RN) IV/Blood Work: IV Bolus Started (Naty Latham RN) LaborFlag: Antepartum (QS system process) Datetime: 01/15/2017 04:24 NBP Sys/Karley/Mean (mmHg): 132 (QS system process) : 74 (QS system process) : 97 (QS system process) Pulse: 69 (QS system process) Medication Comments: Ephedine 5 mg IV (Naty Latham RN) LaborFlag: Antepartum (QS system process) Datetime: 01/15/2017 04:19 NBP Sys/Karley/Mean (mmHg): 125 (QS system process) : 74 (QS system process) : 93 (QS system process) Pulse: 67 (QS system process) LaborFlag: Antepartum (QS system process) Datetime: 01/15/2017 04:18 NBP Sys/Karley/Mean (mmHg): 129 (QS system process) NBP Sys/Karley/Mean (mmHg): 132 (QS system process) : 71 (QS system process) : 73 (QS system process) : 92 (QS system process) : 95 (QS system process) Pulse: 67 (QS system process) Pulse: 68 (QS system process) LaborFlag: Antepartum (QS system process) Datetime: 01/15/2017 04:15 NBP Sys/Karley/Mean (mmHg): 137 (QS system process) : 81 (QS system process) : 102 (QS system process) Pulse: 71 (QS system process) Monitor Mode: External; Palpation (Naty Latham RN) Quality: Mild/Moderate (Naty Latham RN) Resting Tone (Palpate): Relaxed (Naty Latham RN) Contraction Comments: unable to determine due to patient sitting up for epidural (Naty Latham RN) Monitor Mode: External US (Naty Latham RN) FHR Baseline Changes: Unable to Determine (Naty Latham RN) Comments: Patient sitting up for epidural (Naty Latham RN) Pitocin (milliunit): Pitocin Remains (milliunits) @ 8 (Naty Latham RN) LaborFlag: Antepartum (QS system process) Datetime: 01/15/2017 04:14 NBP Sys/Karley/Mean (mmHg): 132 (QS system process) : 81 (QS system process) : 101 (QS system process) Pulse: 88 (QS system process) LaborFlag: Antepartum (QS system process) Datetime: 01/15/2017 04:13 NBP Sys/Karley/Mean (mmHg): 133 (QS system process) : 82 (QS system process) : 101 (QS system process) Pulse: 71 (QS system process) LaborFlag: Antepartum (QS system process) Datetime: 01/15/2017 04:12 NBP Sys/Karley/Mean (mmHg): 133 (QS system process) : 83 (QS system process) : 103 (QS system process) Pulse: 77 (QS system process) LaborFlag: Antepartum (QS system process) Datetime: 01/15/2017 04:10 NBP Sys/Karley/Mean (mmHg): 191 (QS system process) : 110 (QS system process) : 143 (QS system process) Pulse: 86 (QS system process) LaborFlag: Antepartum (QS system process) Datetime: 01/15/2017 04:09 Pulse: 87 (QS system process) SpO2 (%): 96 (QS system process) LaborFlag: Antepartum (QS system process) Datetime: 01/15/2017 04:08 NBP Sys/Karley/Mean (mmHg): 178 (QS system process) : 96 (QS system process) : 128 (QS system process) Pulse: 71 (QS system process) Pulse: 76 (QS system process) SpO2 (%): 93 (QS system process) Epidural Procedure: Loading Dose (Naty , RN) LaborFlag: Antepartum (QS system process) Datetime: 01/15/2017 04:07 Epidural Procedure: Cath Placed (Naty Field, RN) Datetime: 01/15/2017 04:06 Epidural Procedure: Test Dose (Naty Latham RN) Datetime: 01/15/2017 04:03 Pulse: 73 (QS system process) SpO2 (%): 97 (QS system process) LaborFlag: Antepartum (QS system process) Datetime: 01/15/2017 04:00 Monitor Mode: External; Palpation (Naty Latham RN) Frequency (min): 2-2.5 (Naty Latham RN) Quality: Mild/Moderate (Naty Latham RN) Duration (sec): 70-100 (Naty Latham RN) Resting Tone (Palpate): Relaxed (Naty Latham RN) Monitor Mode: External US (Naty Latham RN) FHR Baseline Changes: Unable to Determine (Naty Latham RN) Comments: Patient sitting up for epidural (Naty Latham RN) Pitocin (milliunit): Pitocin Remains (milliunits) @ 8 (Naty Latham RN) Datetime: 01/15/2017 03:59 Pulse: 71 (QS system process) SpO2 (%): 84 (QS system process) LaborFlag: Antepartum (QS system process) Datetime: 01/15/2017 03:58 Pulse: 67 (QS system process) SpO2 (%): 97 (QS system process) LaborFlag: Antepartum (QS system process) Datetime: 01/15/2017 03:57 NBP Sys/Karley/Mean (mmHg): 185 (QS system process) : 95 (QS system process) : 132 (QS system process) Pulse: 89 (QS system process) Procedure Verify: Correct Patient Identity; Correct Side and Site are Marked; Accurate Procedure Consent Form; Agreement on Procedure to be Done; Correct Patient Position; Relevant Images and Results are Properly Labeled and Displayed; Addressed Need to Administer Antibiotics or Fluids for Irrigation; Safety Precautions Based on Patient History or Medication Use (Naty Latham RN) Anesthesia Plans: Epidural (Naty Latham RN) Epidural Positioning: Sitting (Naty Latham RN) Anesthesia Comments: Dr. Oswald at bedside for epidural (Naty Latham RN) LaborFlag: Antepartum (QS system process) Datetime: 01/15/2017 03:53 Pulse: 76 (QS system process) Pulse: 73 (QS system process) SpO2 (%): 100 (QS system process) SpO2 (%): 88 (QS system process) LaborFlag: Antepartum (QS system process) Datetime: 01/15/2017 03:48 Pulse: 67 (QS system process) Pulse: 75 (QS system process) SpO2 (%): 92 (QS system process) LaborFlag: Antepartum (QS system process) Datetime: 01/15/2017 03:45 Monitor Mode: External; Palpation (Naty Field, RN) Frequency (min): 2-3 (Naty Field, RN) Quality: Mild/Moderate (Naty Field, RN) Duration (sec): 50-110 (Naty Field, RN) Resting Tone (Palpate): Relaxed (Naty Field, RN) Monitor Mode: External US (Naty Field, RN) FHR Baseline Rate : 125 (Naty Field, RN) Variability: Moderate 6-25 bpm (Naty Field, RN) Accelerations: None (Naty Field, RN) Decelerations: Variable (Naty Field, RN) Pitocin (milliunit): Pitocin Remains (milliunits) @ 8 (Naty Field, RN) Datetime: 01/15/2017 03:43 NBP Sys/Karley/Mean (mmHg): 189 (QS system process) : 107 (QS system process) : 141 (QS system process) Pulse: 79 (QS system process) Pulse: 83 (QS system process) SpO2 (%): 99 (QS system process) LaborFlag: Antepartum (QS system process) Datetime: 01/15/2017 03:42 Pulse: 79 (QS system process) SpO2 (%): 93 (QS system process) LaborFlag: Antepartum (QS system process) Datetime: 01/15/2017 03:41 Procedure Verify: Correct Patient Identity; Correct Side and Site are Marked; Accurate Procedure Consent Form; Agreement on Procedure to be Done; Correct Patient Position; Relevant Images and Results are Properly Labeled and Displayed; Addressed Need to Administer Antibiotics or Fluids for Irrigation; Safety Precautions Based on Patient History or Medication Use (Naty Latham RN) Anesthesia Plans: Epidural (Naty Latham RN) Epidural Positioning: Sitting (Naty Latham RN) Datetime: 01/15/2017 03:31 Procedure Verify: Correct Patient Identity; Correct Side and Site are Marked; Accurate Procedure Consent Form; Agreement on Procedure to be Done (Naty Latham, RN) Anesthesia Plans: Epidural (Naty Latham, RN) Anesthesia Comments: Dr. Oswald called for epidural (Naty Latham, RN) Datetime: 01/15/2017 03:30 Monitor Mode: External; Palpation (Naty Latham, RN) Frequency (min): 2-4 (Naty Latham, RN) Quality: Mild/Moderate (Naty Latham, RN) Duration (sec): 50-60 (Naty Latham, RN) Resting Tone (Palpate): Relaxed (Naty Field, RN) Monitor Mode: External US (Naty Latham, RN) FHR Baseline Rate : 125 (Naty Field, RN) Variability: Moderate 6-25 bpm (Naty Field, RN) Accelerations: 15X15 (Naty Field, RN) Decelerations: None (Naty Field, RN) Pitocin (milliunit): Pitocin Remains (milliunits) @ 8 (Naty , RN) Datetime: 01/15/2017 03:28 NBP Sys/Karley/Mean (mmHg): 171 (QS system process) : 97 (QS system process) : 128 (QS system process) Pulse: 88 (QS system process) LaborFlag: Antepartum (QS system process) Datetime: 01/15/2017 03:25 Dilatation (cm): 4.0 (Naty Latham RN) Effacement (%): 90 (Naty Latham RN) Station: -3 (Naty Latham RN) Exam by: Dr. Cameron (Naty Latham RN) Communication Comments: Dr. Cameron at bedside (Naty Latham RN) Datetime: 01/15/2017 03:15 Monitor Mode: External; Palpation (Naty Latham RN) Frequency (min): 2-2.5 (Naty Field, RN) Quality: Mild/Moderate (Naty Field, RN) Duration (sec): 50-60 (Naty Field, RN) Resting Tone (Palpate): Relaxed (Naty Field, RN) Monitor Mode: External US (Naty Field, RN) FHR Baseline Rate : 120 (Naty Field, RN) Variability: Moderate 6-25 bpm (Naty Field, RN) Accelerations: 15X15 (Naty Field, RN) Decelerations: None (Naty Field, RN) Pitocin (milliunit): Pitocin Remains (milliunits) @ 8 (Naty Field, RN) Datetime: 01/15/2017 03:12 NBP Sys/Karley/Mean (mmHg): 163 (QS system process) : 96 (QS system process) : 123 (QS system process) Pulse: 73 (QS system process) LaborFlag: Antepartum (QS system process) Datetime: 01/15/2017 03:00 Monitor Mode: External; Palpation (Naty Field, RN) Frequency (min): 2-3 (Naty Latham, RN) Quality: Mild/Moderate (Naty Latham, RN) Duration (sec): 60 (Naty Latham, RN) Resting Tone (Palpate): Relaxed (Naty Latham, RN) Monitor Mode: External US (Naty Latham, RN) FHR Baseline Rate : 125 (Naty Latham, RN) Variability: Moderate 6-25 bpm (Naty Field, RN) Accelerations: 10X10 (Naty Latham, RN) Decelerations: Early; Variable (Naty Latham, RN) Pitocin (milliunit): Pitocin Remains (milliunits) @ 8 (Naty Field, RN) Datetime: 01/15/2017 02:58 NBP Sys/Karley/Mean (mmHg): 168 (QS system process) : 98 (QS system process) : 126 (QS system process) Pulse: 75 (QS system process) LaborFlag: Antepartum (QS system process) Datetime: 01/15/2017 02:47 NBP Sys/Karley/Mean (mmHg): 160 (QS system process) : 83 (QS system process) : 115 (QS system process) Pulse: 64 (QS system process) LaborFlag: Antepartum (QS system process) Datetime: 01/15/2017 02:45 Monitor Mode: External; Palpation (Naty Latham, RN) Frequency (min): 2-3.5 (Naty Latham, RN) Quality: Mild/Moderate (Naty Latham, RN) Duration (sec): 50-70 (Naty Latham, RN) Resting Tone (Palpate): Relaxed (Naty Field, RN) Monitor Mode: External US (Naty Field, RN) FHR Baseline Rate : 125 (Naty Field, RN) Variability: Moderate 6-25 bpm (Naty Field, RN) Accelerations: 10X10 (Naty Field, RN) Decelerations: None (Naty Field, RN) Pitocin (milliunit): Pitocin Remains (milliunits) @ 8 (Naty Latham, RN) Datetime: 01/15/2017 02:43 NBP Sys/Karley/Mean (mmHg): 181 (QS system process) : 100 (QS system process) : 133 (QS system process) Pulse: 74 (QS system process) LaborFlag: Antepartum (QS system process) Datetime: 01/15/2017 02:30 Monitor Mode: External; Palpation (Naty Field, RN) Frequency (min): 2-3 (Naty Field, RN) Quality: Mild/Moderate (Naty Field, RN) Duration (sec): 60-90 (Naty Field, RN) Resting Tone (Palpate): Relaxed (Naty Field, RN) Monitor Mode: External US (Naty Field, RN) FHR Baseline Rate : 120 (Naty Field, RN) Variability: Moderate 6-25 bpm (Naty Field, RN) Accelerations: 15X15 (Naty Field, RN) Decelerations: Variable (Naty Field, RN) Pitocin (milliunit): Pitocin Remains (milliunits) @ 8 (Naty Field, RN) Datetime: 01/15/2017 02:28 NBP Sys/Karley/Mean (mmHg): 186 (QS system process) : 89 (QS system process) : 125 (QS system process) Pulse: 74 (QS system process) LaborFlag: Antepartum (QS system process) Datetime: 01/15/2017 02:20 NBP Sys/Karley/Mean (mmHg): 172 (QS system process) : 89 (QS system process) : 124 (QS system process) Pulse: 76 (QS system process) LaborFlag: Antepartum (QS system process) Datetime: 01/15/2017 02:15 Monitor Mode: External; Palpation (Naty Latham RN) Frequency (min): 1.5-3.5 (Naty Latham RN) Quality: Mild/Moderate (Naty Latham RN) Duration (sec): 50-60 (Naty Latham RN) Resting Tone (Palpate): Relaxed (Naty Latham RN) Monitor Mode: External US (Naty Latham RN) FHR Baseline Rate : 125 (Naty Latham RN) FHR Baseline Changes: Unable to Determine (Naty Latham RN) Variability: Moderate 6-25 bpm (Naty Latham RN) Accelerations: None (Naty Latham RN) Decelerations: Late; Variable (Naty Latham RN) Pitocin (milliunit): Pitocin Remains (milliunits) @ 8 (Naty Latham, RN) Datetime: 01/15/2017 02:13 NBP Sys/Karley/Mean (mmHg): 196 (QS system process) : 100 (QS system process) : 135 (QS system process) Pulse: 73 (QS system process) LaborFlag: Antepartum (QS system process) Datetime: 01/15/2017 02:00 Monitor Mode: External; Palpation (Naty Latham RN) Frequency (min): 1.5-4 (Naty Latham RN) Quality: Mild/Moderate (Naty Latham RN) Duration (sec): 50-60 (Naty Latham RN) Resting Tone (Palpate): Relaxed (Naty Latham RN) Monitor Mode: External US (Naty Latham RN) FHR Baseline Rate : 125 (Naty Field, RN) Variability: Moderate 6-25 bpm (Naty Field, RN) Accelerations: 15X15 (Naty Field, RN) Decelerations: Variable (Naty Field, RN) Pitocin (milliunit): Pitocin Remains (milliunits) @ 8 (Naty Field, RN) Datetime: 01/15/2017 01:58 NBP Sys/Karley/Mean (mmHg): 168 (QS system process) : 99 (QS system process) : 127 (QS system process) Pulse: 80 (QS system process) LaborFlag: Antepartum (QS system process) Datetime: 01/15/2017 01:57 Antibiotics: Penicillin IV (Units) @ 2,500,000 (Naty Field, RN) Datetime: 01/15/2017 01:45 Monitor Mode: External; Palpation (Naty Field, RN) Frequency (min): 2-2.5 (Naty Field, RN) Quality: Mild (Naty Field, RN) Duration (sec): 50-70 (Naty Field, RN) Resting Tone (Palpate): Relaxed (Naty Field, RN) Monitor Mode: External US (Naty Field, RN) FHR Baseline Rate : 125 (Naty Field, RN) FHR Baseline Changes: Unable to Determine (Naty Field, RN) Variability: Moderate 6-25 bpm (Naty Field, RN) Accelerations: None (Naty Field, RN) Decelerations: None (Naty Field, RN) Pitocin (milliunit): Pitocin Increased to (milliunits) @ 8 (Naty Field, RN) Datetime: 01/15/2017 01:42 NBP Sys/Karley/Mean (mmHg): 186 (QS system process) : 87 (QS system process) : 125 (QS system process) Pulse: 68 (QS system process) LaborFlag: Antepartum (QS system process) Datetime: 01/15/2017 01:36 NBP Sys/Karley/Mean (mmHg): 181 (QS system process) : 86 (QS system process) : 123 (QS system process) Pulse: 69 (QS system process) LaborFlag: Antepartum (QS system process) Datetime: 01/15/2017 01:30 Monitor Mode: External; Palpation (Naty Latham, RN) Frequency (min): 2-3 (Naty Latham, RN) Quality: Mild (Naty , RN) Duration (sec): 50-60 (Naty , RN) Resting Tone (Palpate): Relaxed (Naty Latham, RN) Monitor Mode: External US (Naty Latham, RN) FHR Baseline Rate : 130 (Naty Field, RN) Variability: Moderate 6-25 bpm (Naty Field, RN) Accelerations: 10X10 (Naty , RN) Decelerations: Early; Late (Naty Latham, RN) Pitocin (milliunit): Pitocin Remains (milliunits) @ 6 (Naty Field, RN) Datetime: 01/15/2017 01:28 NBP Sys/Karley/Mean (mmHg): 209 (QS system process) : 105 (QS system process) : 146 (QS system process) Pulse: 82 (QS system process) LaborFlag: Antepartum (QS system process) Datetime: 01/15/2017 01:17 Medication Comments: Hydralazine 10 mg IV (Naty Latham RN) Datetime: 01/15/2017 01:15 Monitor Mode: External; Palpation (Naty Latham RN) Frequency (min): 2-3.5 (Naty Latham RN) Quality: Mild (Naty Latham RN) Duration (sec): 60-100 (Naty Field, RN) Resting Tone (Palpate): Relaxed (Naty Latham, RN) Monitor Mode: External US (Naty Latham, RN) FHR Baseline Rate : 130 (Natysteve Latham, RN) Variability: Moderate 6-25 bpm (Naty Field, RN) Accelerations: 10X10 (Naty Field, RN) Decelerations: Late; Variable (Naty Field, RN) Pitocin (milliunit): Pitocin Remains (milliunits) @ 6 (Naty Field, RN) Datetime: 01/15/2017 01:13 NBP Sys/Karley/Mean (mmHg): 185 (QS system process) : 100 (QS system process) : 135 (QS system process) Pulse: 64 (QS system process) LaborFlag: Antepartum (QS system process) Datetime: 01/15/2017 01:00 Monitor Mode: External; Palpation (Naty Latham, RN) Frequency (min): 1.5-3.5 (Naty Latham, RN) Quality: Mild (Naty Latham, RN) Duration (sec): 80-90 (Naty , RN) Resting Tone (Palpate): Relaxed (Naty Latham, RN) Monitor Mode: External US (Naty Latham, RN) FHR Baseline Rate : 130 (Naty Latham, RN) Variability: Moderate 6-25 bpm (Naty Field, RN) Accelerations: 10X10 (Naty Field, RN) Decelerations: Early; Variable (Naty Latham, RN) Pitocin (milliunit): Pitocin Remains (milliunits) @ 6 (Naty Field, RN) Datetime: 01/15/2017 00:57 NBP Sys/Karley/Mean (mmHg): 186 (QS system process) : 103 (QS system process) : 135 (QS system process) Pulse: 75 (QS system process) LaborFlag: Antepartum (QS system process) Datetime: 01/15/2017 00:45 Monitor Mode: External; Palpation (Naty Latham, RN) Frequency (min): 2.5-3.5 (Naty Latham, RN) Quality: Mild (Naty Field, RN) Duration (sec): 90-110 (Naty Field, RN) Resting Tone (Palpate): Relaxed (Naty Field, RN) Monitor Mode: External US (Naty Field, RN) FHR Baseline Rate : 130 (Naty Field, RN) Variability: Moderate 6-25 bpm (Naty Field, RN) Accelerations: 10X10 (Naty Field, RN) Decelerations: Early (Naty Field, RN) Datetime: 01/15/2017 00:42 NBP Sys/Karley/Mean (mmHg): 168 (QS system process) : 90 (QS system process) : 122 (QS system process) Pulse: 72 (QS system process) LaborFlag: Antepartum (QS system process) Datetime: 01/15/2017 00:33 Magnesium/Antihypertensives: Magnesium Sulfate IV (Gm/hr) @ 1 (Naty Field, RN) Datetime: 01/15/2017 00:30 Monitor Mode: External; Palpation (Naty Field, RN) Frequency (min): 1.5-4 (Naty Field, RN) Quality: Mild (Nayt Field, RN) Duration (sec): 70-90 (Naty Field, RN) Resting Tone (Palpate): Relaxed (Naty Field, RN) Monitor Mode: External US (Naty Field, RN) FHR Baseline Rate : 130 (Naty Field, RN) Variability: Moderate 6-25 bpm (Naty Field, RN) Accelerations: 10X10 (Naty Field, RN) Decelerations: Early; Variable (Naty Field, RN) Pitocin (milliunit): Pitocin Remains (milliunits) @ 6 (Naty Field, RN) Datetime: 01/15/2017 00:22 I/O Interventions: Martinez Cath Inserted (Naty Field, RN) Datetime: 01/15/2017 00:15 Monitor Mode: External; Palpation (Naty Field, RN) Frequency (min): 2.5-3.5 (Naty Field, RN) Quality: Mild (Naty Field, RN) Duration (sec): 60-70 (Naty Field, RN) Resting Tone (Palpate): Relaxed (Naty Field, RN) Monitor Mode: External US (Naty Field, RN) FHR Baseline Rate : 135 (Naty Field, RN) FHR Baseline Changes: Unable to Determine (Naty Field, RN) Variability: Moderate 6-25 bpm (Naty Field, RN) Pitocin (milliunit): Pitocin Remains (milliunits) @ 6 (Naty Field, RN) Datetime: 01/15/2017 00:14 NBP Sys/Karley/Mean (mmHg): 170 (QS system process) : 89 (QS system process) : 122 (QS system process) Pulse: 69 (QS system process) LaborFlag: Antepartum (QS system process) Datetime: 01/15/2017 00:11 NBP Sys/Karley/Mean (mmHg): 188 (QS system process) : 107 (QS system process) : 136 (QS system process) Pulse: 78 (QS system process) Magnesium/Antihypertensives: Magnesium Sulfate IV Loading (Gm) @ 4 (Naty Latham RN) LaborFlag: Antepartum (QS system process) Datetime: 01/15/2017 00:03 Medication Comments: Hydralazine 5 mg IV (Naty Latham RN) Datetime: 01/15/2017 00:00 Monitor Mode: External; Palpation (Naty Latham RN) Frequency (min): 1-2.5 (Naty Latham RN) Quality: Mild (Naty Latham RN) Duration (sec): 60-120 (Naty Field, RN) Resting Tone (Palpate): Relaxed (Naty Latham, RN) Monitor Mode: External US (Naty Latham, RN) FHR Baseline Rate : 135 (Naty Field, RN) Variability: Moderate 6-25 bpm (Naty Field, RN) Accelerations: 15X15 (Naty Field, RN) Decelerations: None (Naty Field, RN) Pitocin (milliunit): Pitocin Remains (milliunits) @ 6 (Naty Field, RN) Datetime: 01/14/2017 23:46 NBP Sys/Karley/Mean (mmHg): 191 (QS system process) : 110 (QS system process) : 144 (QS system process) Pulse: 70 (QS system process) LaborFlag: Antepartum (QS system process) Datetime: 01/14/2017 23:30 Monitor Mode: External; Palpation (Naty Field, RN) Frequency (min): 2.5-4.5 (Naty Latham, RN) Quality: Mild (Natybita Latham, RN) Duration (sec): 50-80 (Naty Field, RN) Resting Tone (Palpate): Relaxed (Naty Field, RN) Monitor Mode: External US (Naty Latham, RN) FHR Baseline Rate : 135 (Naty Field, RN) Variability: Moderate 6-25 bpm (Naty Field, RN) Accelerations: None (Naty Field, RN) Decelerations: None (Naty Field, RN) Pitocin (milliunit): Pitocin Remains (milliunits) @ 6 (Naty Field, RN) Datetime: 01/14/2017 23:27 NBP Sys/Karley/Mean (mmHg): 189 (QS system process) : 90 (QS system process) : 129 (QS system process) Pulse: 65 (QS system process) LaborFlag: Antepartum (QS system process) Datetime: 01/14/2017 23:22 NBP Sys/Karley/Mean (mmHg): 209 (QS system process) : 85 (QS system process) : 122 (QS system process) Pulse: 66 (QS system process) LaborFlag: Antepartum (QS system process) Datetime: 01/14/2017 23:16 Analgesics/Sedatives: Nubain (mg) @ 10 (Naty Field, RN) Datetime: 01/14/2017 23:15 Communication Comments: Dr. Cameron at bedside (Naty Field, RN) Datetime: 01/14/2017 23:04 I/O Interventions: Up to BR (Naty Field, RN) Datetime: 01/14/2017 23:02 Pitocin (milliunit): Pitocin Increased to (milliunits) @ 6 (Naty Field, RN) Datetime: 01/14/2017 23:00 Monitor Mode: External; Palpation (Naty Field, RN) Frequency (min): 5.5-6 (Naty Field, RN) Quality: Mild (Naty Field, RN) Duration (sec): 80 (Naty Field, RN) Resting Tone (Palpate): Relaxed (Naty Field, RN) Monitor Mode: External US (Naty Field, RN) FHR Baseline Rate : 135 (Naty Field, RN) Variability: Moderate 6-25 bpm (Naty Field, RN) Accelerations: 15X15 (Naty Field, RN) Decelerations: Variable (Naty Field, RN) Datetime: 01/14/2017 22:49 NBP Sys/Karley/Mean (mmHg): 200 (QS system process) : 93 (QS system process) : 134 (QS system process) Pulse: 74 (QS system process) Patient Care Comments: Patient's BP cuff took about 5 different times and patient was stressing regarding the cuff and contractions (Naty Latham RN) LaborFlag: Antepartum (QS system process) Datetime: 01/14/2017 22:32 Medication Comments: Labetalol 300 mg PO (Naty Latham RN) Datetime: 01/14/2017 22:30 Monitor Mode: External; Palpation (Naty Latham RN) Frequency (min): Irritability (Naty Latham RN) Quality: Mild (Naty Latham RN) Resting Tone (Palpate): Relaxed (Naty Field, RN) Monitor Mode: External US (Naty Latham, RN) FHR Baseline Rate : 130 (Naty Field, RN) Variability: Moderate 6-25 bpm (Naty Field, RN) Accelerations: 15X15 (Naty Field, RN) Decelerations: Variable (Naty Field, RN) Pitocin (milliunit): Pitocin Increased to (milliunits) @ 4 (Naty Field, RN) Datetime: 01/14/2017 22:16 Pitocin (milliunit): Pitocin Started (milliunits) @ 2; Pitocin 20 Units in 1000ml NS (Naty Latham, RN) Antibiotics: Penicillin IV (Units) @ 5,000,000 (Naty Latham, RN) Datetime: 01/14/2017 22:15 NBP Sys/Karley/Mean (mmHg): 175 (QS system process) : 76 (QS system process) : 115 (QS system process) Pulse: 73 (QS system process) LaborFlag: Antepartum (QS system process) Datetime: 01/14/2017 22:10 NBP Sys/Karley/Mean (mmHg): 180 (QS system process) : 85 (QS system process) : 122 (QS system process) Pulse: 72 (QS system process) LaborFlag: Antepartum (QS system process) Datetime: 01/14/2017 22:02 I/O Interventions: Up to BR (Naty Field, RN) Datetime: 01/14/2017 22:00 Monitor Mode: External; Palpation (Naty Field, RN) Frequency (min): 6 (Naty Field, RN) Quality: Mild (Naty Latham RN) Duration (sec): 50-60 (Naty Latham RN) Resting Tone (Palpate): Relaxed (Naty Latham RN) Monitor Mode: External US (Naty Latham RN) FHR Baseline Rate : 130 (Naty Latham RN) Variability: Moderate 6-25 bpm (Naty Latham RN) Accelerations: 15X15 (Naty Latham RN) Decelerations: Early (Naty Latham RN)
--- NOTE | 2017-01-15 10:01 | L&D Flow Sheet ---
LD Flowsheet Datetime Report Generated by CPN: 01/15/2017 10:00 Datetime: 01/15/2017 09:45 NBP Sys/Karley/Mean (mmHg): 165 (QS system process) : 103 (QS system process) : 128 (QS system process) Pulse: 73 (QS system process) LaborFlag: Antepartum (QS system process) Datetime: 01/15/2017 09:30 NBP Sys/Karley/Mean (mmHg): 195 (QS system process) : 106 (QS system process) : 143 (QS system process) Pulse: 83 (QS system process) LaborFlag: Antepartum (QS system process) Datetime: 01/15/2017 09:17 NBP Sys/Karley/Mean (mmHg): 167 (QS system process) : 93 (QS system process) : 124 (QS system process) Pulse: 82 (QS system process) LaborFlag: Antepartum (QS system process) Datetime: 01/15/2017 08:17 NBP Sys/Karley/Mean (mmHg): 187 (QS system process) : 82 (QS system process) : 118 (QS system process) Pulse: 67 (QS system process) LaborFlag: Antepartum (QS system process) Datetime: 01/15/2017 08:01 NBP Sys/Karley/Mean (mmHg): 177 (QS system process) : 84 (QS system process) : 120 (QS system process) Pulse: 81 (QS system process) LaborFlag: Antepartum (QS system process)
--- NOTE | 2017-01-15 10:15 | L&D Progress Notes ---
PROGRESS NOTES Datetime Report Generated by CPN: 01/15/2017 10:15 PROGRESS NOTE Impression: Normal Progression of Labor Procedures: Intrauterine Pressure Catheter; Sterile Vag Exam Plan: Continue Present Management Vital Signs : Reviewed Comment: Has dilated further. Vertex still high. IUPC inserted without difficulty. VAGINAL EXAM Dilatation: 8 Effacement: 90 Station: -2 FETUS C SIGNATURE: [id number] Assignment: Jojo Carrasco MD Signature: with User ID: [email or web address] : with User ID: Marko : I personally evaluated and examined the patient in conjunction with the MLP and agree with the assessment, treatment plan and disposition.
[2017-01-15] MEDS ORDERED: LIDOCAINE 2% INJ-PF (20 MG/ML) 10 ML AMPUL ONE (11:53)
--- NOTE | 2017-01-15 12:00 | L&D Flow Sheet ---
LD Flowsheet Datetime Report Generated by CPN: 01/15/2017 12:00 Datetime: 01/15/2017 11:57 NBP Sys/Karley/Mean (mmHg): 175 (QS system process) : 89 (QS system process) : 124 (QS system process) Pulse: 83 (QS system process) Communication Comments: epidural bolus (Yas Bellavance, RNC) LaborFlag: Antepartum (QS system process) Datetime: 01/15/2017 11:55 NBP Sys/Karley/Mean (mmHg): 174 (QS system process) : 86 (QS system process) : 122 (QS system process) Pulse: 81 (QS system process) LaborFlag: Antepartum (QS system process) Datetime: 01/15/2017 11:00 NBP Sys/Karley/Mean (mmHg): 177 (QS system process) : 89 (QS system process) : 125 (QS system process) Pulse: 76 (QS system process) LaborFlag: Antepartum (QS system process) Datetime: 01/15/2017 10:45 NBP Sys/Karley/Mean (mmHg): 190 (QS system process) : 88 (QS system process) : 127 (QS system process) Pulse: 73 (QS system process) LaborFlag: Antepartum (QS system process) Datetime: 01/15/2017 10:16 NBP Sys/Karley/Mean (mmHg): 158 (QS system process) : 95 (QS system process) : 121 (QS system process) Pulse: 71 (QS system process) Respirations: 18 (Yas Bellavance, RNC) Dilatation (cm): 8.0 (Yas Bellavance, RNC) Effacement (%): 90 (Yas Bellavance, RNC) Station: -2 (Yas Bellavance, RNC) Exam by: Trinh Moreira CNM (Yas Bellavance, RNC) Membrane Status: Ruptured (Yas Bellavance, RNC) LaborFlag: Antepartum (QS system process) Datetime: 01/15/2017 10:01 NBP Sys/Karley/Mean (mmHg): 192 (QS system process) : 95 (QS system process) : 135 (QS system process) Pulse: 81 (QS system process) LaborFlag: Antepartum (QS system process)
[2017-01-15] MEDS ORDERED: MISOPROSTOL 0.2 MG TABLET ONE (13:04)
[2017-01-15] MEDS ORDERED: ZOLPIDEM TARTRATE 5 MG TABLET PO PRN (13:26)
[2017-01-15] MEDS ORDERED: BENZOCAINE/MENTHOL AEROSOL SPRAY 56 ML TOP PRN (13:26)
[2017-01-15] MEDS ORDERED: PROMETHAZINE HCL 25 MG TABLET PO PRN (13:26)
[2017-01-15] MEDS ORDERED: PSEUDOEPHEDRINE HCL 30 MG TABLET PO PRN (13:26)
[2017-01-15] MEDS ORDERED: DIBUCAINE 1% OINTMENT 28 GM TP PRN (13:26)
[2017-01-15] MEDS ORDERED: ACETAMINOPHEN WITH CODEINE #3 TABLET PO PRN ×2 (13:26)
[2017-01-15] MEDS ORDERED: MAGNESIUM HYDROXIDE SUSP 30 ML UDCUP PO PRN (13:26)
[2017-01-15] MEDS ORDERED: MEASLES,MUMPS&RUBELLA VACC/PF 0.5 ML VIAL SUBCUT PRN (13:26)
[2017-01-15] MEDS ORDERED: ACETAMINOPHEN 650 MG SUPP.RECT PR PRN (13:26)
[2017-01-15] MEDS ORDERED: DIPH/PERTUSS(ACELL)/TETANUS VAC/PF 0.5 ML SYR (>=10YO) IM PRN (13:26)
[2017-01-15] MEDS ORDERED: OXYTOCIN/NORMAL SALINE 1,000 ML IV PRN (13:26)
[2017-01-15] MEDS ORDERED: GLYCERIN/WITCH HAZEL LEAF 1 EACH MED..PAD TP PRN (13:26)
[2017-01-15] MEDS ORDERED: NA PHOS,M-B/NA PHOS,DI-BA (ADULT) 133 ML ENEMA PR PRN (13:26)
[2017-01-15] MEDS ORDERED: PROMETHAZINE HCL INJ 25 MG/1 ML VIAL IV PRN (13:26)
[2017-01-15] MEDS ORDERED: PROMETHAZINE HCL 25 MG SUPP.RECT PR PRN (13:26)
[2017-01-15] MEDS ORDERED: DIPHENHYDRAMINE HCL 25 MG CAPSULE PO PRN (13:26)
--- NOTE | 2017-01-15 14:00 | L&D Flow Sheet ---
LD Flowsheet Datetime Report Generated by CPN: 01/15/2017 14:00 Datetime: 01/15/2017 13:45 NBP Sys/Karley/Mean (mmHg): 126 (QS system process) : 83 (QS system process) : 98 (QS system process) Pulse: 85 (QS system process) Datetime: 01/15/2017 13:30 NBP Sys/Karley/Mean (mmHg): 115 (QS system process) : 70 (QS system process) : 87 (QS system process) Pulse: 83 (QS system process) Datetime: 01/15/2017 13:20 NBP Sys/Karley/Mean (mmHg): 134 (QS system process) : 88 (QS system process) : 107 (QS system process) Pulse: 88 (QS system process) Datetime: 01/15/2017 13:00 Stage of : Recovery (Emily Camp, RNC) NBP Sys/Karley/Mean (mmHg): 180 (QS system process) : 75 (QS system process) : 123 (QS system process) Pulse: 100 (QS system process) Datetime: 01/15/2017 12:55 Pulse: 107 (QS system process) SpO2 (%): 94 (QS system process) Stage 2 Comments: delivery liveborn male (Emily Shoshoni, [facility]) LaborFlag: Antepartum (QS system process) Datetime: 01/15/2017 12:51 Pulse: 100 (QS system process) SpO2 (%): 93 (QS system process) LaborFlag: Antepartum (QS system process) Datetime: 01/15/2017 12:50 Pulse: 98 (QS system process) SpO2 (%): 99 (QS system process) LaborFlag: Antepartum (QS system process) Datetime: 01/15/2017 12:47 NBP Sys/Karley/Mean (mmHg): 181 (QS system process) : 102 (QS system process) : 133 (QS system process) Pulse: 88 (QS system process) LaborFlag: Antepartum (QS system process) Datetime: 01/15/2017 12:44 NBP Sys/Karley/Mean (mmHg): 154 (QS system process) : 89 (QS system process) : 113 (QS system process) Pulse: 87 (QS system process) LaborFlag: Antepartum (QS system process) Datetime: 01/15/2017 12:43 Pulse: 105 (QS system process) SpO2 (%): 87 (QS system process) LaborFlag: Antepartum (QS system process) Datetime: 01/15/2017 12:42 Pulse: 101 (QS system process) SpO2 (%): 98 (QS system process) LaborFlag: Antepartum (QS system process) Datetime: 01/15/2017 12:33 NBP Sys/Karley/Mean (mmHg): 201 (QS system process) : 105 (QS system process) : 138 (QS system process) Pulse: 88 (QS system process) LaborFlag: Antepartum (QS system process) Datetime: 01/15/2017 12:17 NBP Sys/Karley/Mean (mmHg): 166 (QS system process) : 89 (QS system process) : 120 (QS system process) Pulse: 84 (QS system process) LaborFlag: Antepartum (QS system process) Datetime: 01/15/2017 12:00 NBP Sys/Karley/Mean (mmHg): 168 (QS system process) : 90 (QS system process) : 122 (QS system process) Pulse: 86 (QS system process) LaborFlag: Antepartum (QS system process)
--- NOTE | 2017-01-15 16:04 | Admission Physical ---
Datetime Report Generated by CPN: 01/15/2017 16:04 CURRENT ADMISSION Chief Complaint: Uterine Contractions; Signs/Symptoms Gestational HTN; Scheduled Induction of Labor Indication for Induction: Post Dates; Chronic Hypertension; Gest. HTN/PreEclampsia/Eclampsia; Indicated by Testing Indication for Induction- Other: ?MARVA: 24 hr prot >400 Admit Plan: Admit to Unit; Initiate Labor Induction Protocol Admit Plan- Other: cervidil for cervical ripening ALLERGIES Medication Allergies: No Medication Allergies: No Known Allergies (01/10/2017) Latex: No Latex Allergies Food Allergies: N/A Environmental Allergies: N/A OBSTETRICAL HISTORY EDC: 01/08/2017 00:00 : 7 Para: 2 Term: 2 : 0 SAB: 1 IAB: 3 Ectopic: 0 Livin Cesareans: 0 VBACs: 0 Multiple Births: 0 Gestational Diabetes: No Rh Sensitization: No Incompetent Cervix: No YAZMIN: No Infertility: No ART Treatment: No Uterine Anomaly: No IUGR: No Hx Previous C/S: No Macrosomia: No Hx Loss/Stillborn: No PIH: No Hx : No Placenta Previa/Abruption: No Depression/PP Depression: No PTL/PROM: No Post Hemorrhage: No Current Procedures: Ultrasound; NST Obstetrical History Comments: G1: 2000 EAB G2: 2001 baby boy, 37-39 weeks, 24+ hours labor, 7 lb, IOL oligo G3: 2001 EAB G4: 2003 baby girl, 37-39 weeks G5: 2007 EAB G6: 2013 SAB, 13 weeks G7: Current SEE RECORDS Alcohol: No Marijuana : No Cocaine: No Other Illicit Drugs: No Cigarettes: Never Smoker. 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 Surgery: No Heart Disease: No Hosp/Surgery: Yes Autoimmune Disorder: No Anesthetic Complications: No Kidney Disease: No Abnormal Pap Smear: Yes Neuro/Epilepsy: No Psychiatric Disorders: No Other Medical Diseases: Yes Hepatitis/Liver Disease: No Significant Family History: No Varicosities/Phlebitis: No Trauma/Violence : No Thyroid Dysfunction: No Medical History Comments: HTN: Chronic HTN, Labetalol Pulmonary: Bronchitis 11/30/16 Surgery: Colonoscopy 2012, polyps noted Abnormal Pap: Hx ASCUS Pap, negative HPV Other: Morbid obesity INFECTIOUS HISTORY Gonorrhea: No Genital Herpes: No Chlamydia: Yes Tuberculosis: No Syphilis: No Hepatitis: No HIV/AIDS Exposure: No Rash or Viral Illness: No HPV: No Infectious History Comments: Chlamydia PHYSICAL EXAM General: Normal HEENT: Normal Neurologic: Normal Thyroid: Normal Heart: Normal Lungs: Normal Breast: Deferred Back: Normal Abdomen: Normal Genitourinary Exam: Normal Extremities: Normal DTRs: Normal Pelvic Type: Adequate Vital Signs: Reviewed Details Vital Signs: still attempting to get approp size cuff VAGINAL EXAM Dilatation: 8 Effacement: 90 Station: -2 Contraction Comments: q 2-3 min MEMBRANES Pooling: Negative Membranes: Intact FETUS A EGA: 40.6 Monitoring: External US FHR- Baseline: 135 Variability: Moderate 6-25bpm Accelerations: 15X15 Decelerations: None FHR Category: Category I FHR Comments: sono confirmed vertex presentation Estimated Weight (gm): 3400 Presentation: Vertex Admit Comment: 36yo (h/o x 2 last in 2003, largest baby 7#7oz) presents for IOL for CHTN with superimposed PreE. She is currently on Labetolol 300mg PO TID with persistent abnormal BPs in the office and intermittent severe range BPs in the office. IOL was recommended at 37wks and attempted then pt was discharged and recommended to return for attempt at IOL again on 12/25 however pt has declined IOL until today. She was scheduled for IOL tomorrow due to above with Post XANDER and was seen in the office with 2.5 min decel and no accels and was sent for admission at approx 1645 today and arrived at 2028. She was evaluated as cervix is more favorable that last and -/blt and recommendation for Pitocin and FB given. pt declines FB at this time. REviewed continued recommendation for FB and pt agreed to pitocin and will re-eval at 0300 and will consider FB at that time. Pt with severe range BPs but inapprop cuff. Approp cuff requested with persistent severe range BPs. Will begin magnesium sulfate and treat severe range BPs with IV meds as needed. EFW 7-8# but difficult to eval since body habitus. Anticipate . Cat I FHR tracing at this time. section for maternal/ indications if needed. GBS pos - PCN for GBS prophy. PLANS FOR LABOR AND DELIVERY Labor and Delivery: None Pain Management: Epidural Feeding Preference: Breast Benefit of Breast Feed Discussed: Yes Circumcision: Yes INFORMED CONSENT Informed Consent Obtained: Vaginal Delivery; Induction of Labor; Risks, Benefits and Alternatives Discussed Signature: with User ID: [email or web address] : I personally evaluated and examined the patient in conjunction with the MLP and agree with the assessment, treatment plan and disposition.
[2017-01-15] MEDS: IBUPROFEN 800 MG TABLET PO SCH ×2 (17:38→21:12)
[2017-01-15 17:52] LABS: HEMATOCRIT 31.5 % (36.0-47.0); HEMOGLOBIN 9.8 g/dL (12.0-15.5); HGB HCT DIFFERENCE -2.1; MEAN CORPUSCULAR HEMOGLOBIN 22.1 pg (27.0-33.4); MEAN CORPUSCULAR HGB CONC 31.1 g/dL (32.0-36.0); MEAN CORPUSCULAR VOLUME 71 fl (80-97); RED BLOOD COUNT 4.44 10^6/uL (3.72-5.28); RED CELL DISTRIBUTION WIDTH 16.3 % (11.5-14.0); WHITE BLOOD COUNT 23.9 10^3/uL (4.0-10.5)
[2017-01-15 18:06] LABS: BASOPHILS % (MANUAL) 0 % (0-2); EOSINOPHILS % (MANUAL) 0 % (0-6); LYMPHOCYTES % (MANUAL) 6 % (13-45); TOTAL CELLS COUNTED 100
[2017-01-15 18:07] LABS: ANISOCYTOSIS 1+; HYPOCHROMASIA SLIGHT; MICROCYTOSIS 1+; TOXIC GRANULATION SLIGHT
[2017-01-15] MEDS: FERROUS SULFATE 325 MG TABLET PO SCH (18:25)
[2017-01-15] MEDS: DOCUSATE SODIUM 100 MG CAPSULE PO SCH (18:25)
--- NOTE | 2017-01-15 19:01 | L&D Flow Sheet ---
LD Flowsheet Datetime Report Generated by CPN: 01/15/2017 19:00 Datetime: 01/15/2017 15:46 NBP Sys/Karley/Mean (mmHg): 123 (QS system process) : 79 (QS system process) : 96 (QS system process) Pulse: 70 (QS system process) Datetime: 01/15/2017 15:00 Stage of : Recovery (Titus Samantha, RN) Datetime: 01/15/2017 14:30 NBP Sys/Karley/Mean (mmHg): 128 (QS system process) : 80 (QS system process) : 99 (QS system process) Pulse: 74 (QS system process) Datetime: 01/15/2017 14:15 Stage of : Recovery (Titus Wongford, RN) NBP Sys/Karley/Mean (mmHg): 124 (QS system process) : 82 (QS system process) : 99 (QS system process) Pulse: 82 (QS system process) Datetime: 01/15/2017 14:00 Stage of : Recovery (Titus WongABDULKADIR mccain) NBP Sys/Karley/Mean (mmHg): 123 (QS system process) : 82 (QS system process) : 97 (QS system process) Pulse: 78 (QS system process) Datetime: 01/15/2017 13:45 Stage of : Recovery (Titus WongABDULKADIR mccain) NBP Sys/Karley/Mean (mmHg): 126 (QS system process) : 83 (QS system process) : 98 (QS system process) Pulse: 85 (QS system process) Datetime: 01/15/2017 13:30 Stage of : Recovery (Titus SinghABDULKADIR) NBP Sys/Karley/Mean (mmHg): 115 (QS system process) : 70 (QS system process) : 87 (QS system process) Pulse: 83 (QS system process) Datetime: 01/15/2017 13:20 NBP Sys/Karley/Mean (mmHg): 134 (QS system process) : 88 (QS system process) : 107 (QS system process) Pulse: 88 (QS system process) Datetime: 01/15/2017 13:15 Stage of : Recovery ([facility], RN) Datetime: 01/15/2017 13:00 Stage of : Recovery (Emily Camp, RNC) NBP Sys/Karley/Mean (mmHg): 180 (QS system process) : 75 (QS system process) : 123 (QS system process) Pulse: 100 (QS system process) Datetime: 01/15/2017 12:56 Stage 2 Comments: live male delivered (Yas Bellavance, RNC) Datetime: 01/15/2017 12:51 Pulse: 100 (QS system process) SpO2 (%): 93 (QS system process) LaborFlag: Antepartum (QS system process) Datetime: 01/15/2017 12:50 Pulse: 98 (QS system process) SpO2 (%): 99 (QS system process) LaborFlag: Antepartum (QS system process) Datetime: 01/15/2017 12:47 NBP Sys/Karley/Mean (mmHg): 181 (QS system process) : 102 (QS system process) : 133 (QS system process) Pulse: 88 (QS system process) LaborFlag: Antepartum (QS system process) Datetime: 01/15/2017 12:44 NBP Sys/Karley/Mean (mmHg): 154 (QS system process) : 89 (QS system process) : 113 (QS system process) Pulse: 87 (QS system process) Respirations: 16 (Yas Bellavance, RNC) Monitor Mode: Internal (Yas Bellavance, RNC) Frequency (min): 2-5 (Yas Bellavance, RNC) Quality: Moderate (Yas Bellavance, RNC) Duration (sec): 50-80 (Yas Bellavance, RNC) Duration Criteria: Less than Two 120 Second Contractions (Yas Bellavance, RNC) Pattern: Normal: <= 5 Contractions in 10 Minutes (Yas Bellavance, RNC) Resting Tone (Palpate): Relaxed (Yas Bellavance, RNC) Resting Tone IUP (mmHg): 20 (Yas Bellavance, RNC) Intensity IUP (mmHg): 100 (Yas Bellavance, RNC) Monitor Mode: Internal Scalp Electrode (Yas Bellavance, RNC) FHR Baseline Rate : 120 (Yas Bellavance, RNC) FHR Baseline Changes: No Baseline Change (Yas Bellavance, RNC) Variability: Moderate 6-25 bpm (Yas Bellavance, RNC) Accelerations: 15X15 (Yas Bellavance, RNC) Decelerations: Early (Yas Bellavance, RNC) Membrane Status: Ruptured (Yas Bellavance, RNC) Level of Consciousness: Fully Conscious (Yas Bellavance, RNC) LaborFlag: Antepartum (QS system process) Datetime: 01/15/2017 12:43 Pulse: 105 (QS system process) SpO2 (%): 87 (QS system process) LaborFlag: Antepartum (QS system process) Datetime: 01/15/2017 12:42 Pulse: 101 (QS system process) SpO2 (%): 98 (QS system process) LaborFlag: Antepartum (QS system process) Datetime: 01/15/2017 12:34 Dilatation (cm): 10.0 (Yas Bellavance, RNC) Effacement (%): 100 (Yas Bellavance, RNC) Station: -1 (Yas Bellavance, RNC) Exam by: Dr Carrasco (Yas Bellavance, RNC) Vaginal Bleeding: Normal Show (Yas Bellavance, RNC) Lie 'A': Longitudinal (Yas Bellavance, RNC) Datetime: 01/15/2017 12:33 NBP Sys/Karley/Mean (mmHg): 201 (QS system process) : 105 (QS system process) : 138 (QS system process) Pulse: 88 (QS system process) Respirations: 16 (Yas Bellavance, RNC) Monitor Mode: Internal (Ays Bellavance, RNC) Frequency (min): 2-5 (Yas Bellavance, RNC) Quality: Moderate (Yas Bellavance, RNC) Duration (sec): 50-80 (Yas Bellavance, RNC) Duration Criteria: Less than Two 120 Second Contractions (Yas Bellavance, RNC) Pattern: Normal: <= 5 Contractions in 10 Minutes (Yas Bellavance, RNC) Resting Tone (Palpate): Relaxed (Yas Bellavance, RNC) Resting Tone IUP (mmHg): 20 (Yas Bellavance, RNC) Intensity IUP (mmHg): 100 (Yas Bellavance, RNC) Monitor Mode: Internal Scalp Electrode (Yas Bellavance, RNC) FHR Baseline Rate : 120 (Yas Bellavance, RNC) FHR Baseline Changes: No Baseline Change (Yas Bellavance, RNC) Variability: Moderate 6-25 bpm (Yas Bellavance, RNC) Accelerations: 15X15 (Yas Bellavance, RNC) Decelerations: Early (Yas Bellavance, RNC) Membrane Status: Ruptured (Yas Bellavance, RNC) Level of Consciousness: Fully Conscious (Yas Bellavance, RNC) LaborFlag: Antepartum (QS system process) Datetime: 01/15/2017 12:17 NBP Sys/Karley/Mean (mmHg): 166 (QS system process) : 89 (QS system process) : 120 (QS system process) Pulse: 84 (QS system process) Respirations: 16 (Yas Bellavance, RNC) Monitor Mode: Internal (Yas Bellavance, RNC) Frequency (min): 2-5 (Yas Bellavance, RNC) Quality: Moderate (Yas Bellavance, RNC) Duration (sec): 50-80 (Yas Bellavance, RNC) Duration Criteria: Less than Two 120 Second Contractions (Yas Bellavance, RNC) Pattern: Normal: <= 5 Contractions in 10 Minutes (Yas Bellavance, RNC) Resting Tone (Palpate): Relaxed (Yas Bellavance, RNC) Resting Tone IUP (mmHg): 20 (Yas Bellavance, RNC) Intensity IUP (mmHg): 100 (Yas Bellavance, RNC) Monitor Mode: Internal Scalp Electrode (Yas Bellavance, RNC) FHR Baseline Rate : 120 (Yas Bellavance, RNC) FHR Baseline Changes: No Baseline Change (Yas Bellavance, RNC) Variability: Moderate 6-25 bpm (Yas Bellavance, RNC) Accelerations: 15X15 (Yas Bellavance, RNC) Decelerations: Early (Yas Bellavance, RNC) Membrane Status: Ruptured (Yas Bellavance, RNC) Level of Consciousness: Fully Conscious (Yas Bellavance, RNC) LaborFlag: Antepartum (QS system process) Datetime: 01/15/2017 12:00 NBP Sys/Karley/Mean (mmHg): 168 (QS system process) : 90 (QS system process) : 122 (QS system process) Pulse: 86 (QS system process) Respirations: 18 (Yas Bellavance, RNC) Monitor Mode: Internal (Yas Bellavance, RNC) Frequency (min): 2-5 (Yas Bellavance, RNC) Quality: Moderate (Yas Bellavance, RNC) Duration (sec): 50-80 (Yas Bellavance, RNC) Duration Criteria: Less than Two 120 Second Contractions (Yas Bellavance, RNC) Pattern: Normal: <= 5 Contractions in 10 Minutes (Yas Bellavance, RNC) Resting Tone (Palpate): Relaxed (Yas Bellavance, RNC) Resting Tone IUP (mmHg): 20 (Yas Bellavance, RNC) Intensity IUP (mmHg): 100 (Yas Bellavance, RNC) Monitor Mode: Internal Scalp Electrode (Yas Bellavance, RNC) FHR Baseline Rate : 120 (Yas Bellavance, RNC) FHR Baseline Changes: No Baseline Change (Yas Bellavance, RNC) Variability: Moderate 6-25 bpm (Yas Bellavance, RNC) Accelerations: 15X15 (Yas Bellavance, RNC) Decelerations: Early (Yas Bellavance, RNC) Membrane Status: Ruptured (Yas Bellavance, RNC) Level of Consciousness: Fully Conscious (Yas Bellavance, RNC) LaborFlag: Antepartum (QS system process) Datetime: 01/15/2017 11:57 NBP Sys/Karley/Mean (mmHg): 175 (QS system process) : 89 (QS system process) : 124 (QS system process) Pulse: 83 (QS system process) Communication Comments: epidural bolus (Yas Bellavance, RNC) LaborFlag: Antepartum (QS system process) Datetime: 01/15/2017 11:55 NBP Sys/Karley/Mean (mmHg): 174 (QS system process) : 86 (QS system process) : 122 (QS system process) Pulse: 81 (QS system process) LaborFlag: Antepartum (QS system process) Datetime: 01/15/2017 11:45 Monitor Mode: Internal (Ays Bellavance, RNC) Frequency (min): 2-5 (Yas Bellavance, RNC) Quality: Moderate (Yas Bellavance, RNC) Duration (sec): 50-80 (Yas Bellavance, RNC) Duration Criteria: Less than Two 120 Second Contractions (Yas Bellavance, RNC) Pattern: Normal: <= 5 Contractions in 10 Minutes (Yas Bellavance, RNC) Resting Tone (Palpate): Relaxed (Yas Bellavance, RNC) Resting Tone IUP (mmHg): 20 (Yas Bellavance, RNC) Intensity IUP (mmHg): 100 (Yas Bellavance, RNC) Monitor Mode: Internal Scalp Electrode (Yas Bellavance, RNC) FHR Baseline Rate : 120 (Yas Bellavance, RNC) FHR Baseline Changes: No Baseline Change (Yas Bellavance, RNC) Variability: Moderate 6-25 bpm (Yas Bellavance, RNC) Accelerations: 15X15 (Yas Bellavance, RNC) Decelerations: Early (Yas Bellavance, RNC) Membrane Status: Ruptured (Yas Bellavance, RNC) Level of Consciousness: Fully Conscious (Yas Bellavance, RNC) Datetime: 01/15/2017 11:30 Monitor Mode: Internal (Yas Bellavance, RNC) Frequency (min): 2-5 (Yas Bellavance, RNC) Quality: Moderate (Yas Bellavance, RNC) Duration (sec): 50-80 (Yas Bellavance, RNC) Duration Criteria: Less than Two 120 Second Contractions (Yas Bellavance, RNC) Pattern: Normal: <= 5 Contractions in 10 Minutes (Yas Bellavance, RNC) Resting Tone (Palpate): Relaxed (Yas Bellavance, RNC) Resting Tone IUP (mmHg): 20 (Yas Bellavance, RNC) Intensity IUP (mmHg): 100 (Yas Bellavance, RNC) Monitor Mode: Internal Scalp Electrode (Yas Bellavance, RNC) FHR Baseline Rate : 120 (Yas Bellavance, RNC) FHR Baseline Changes: No Baseline Change (Yas Bellavance, RNC) Variability: Moderate 6-25 bpm (Yas Bellavance, RNC) Accelerations: 15X15 (Yas Bellavance, RNC) Decelerations: Early (Yas Bellavance, RNC) Membrane Status: Ruptured (Yas Bellavance, RNC) Level of Consciousness: Fully Conscious (Yas Bellavance, RNC) DTR's/Clonus: DTRs 2+ (Yas Bellavance, RNC) Headache: Denies (Yas Bellavance, RNC) Nausea/Vomiting: Denies (Yas Bellavance, RNC) RUQ Epigastric Pain: Denies (Yas Bellavance, RNC) Datetime: 01/15/2017 11:15 Monitor Mode: Internal (Yas Bellavance, RNC) Frequency (min): 2-5 (Yas Bellavance, RNC) Quality: Moderate (Yas Bellavance, RNC) Duration (sec): 50-80 (Yas Bellavance, RNC) Duration Criteria: Less than Two 120 Second Contractions (Yas Bellavance, RNC) Pattern: Normal: <= 5 Contractions in 10 Minutes (Yas Bellavance, RNC) Resting Tone (Palpate): Relaxed (Yas Bellavance, RNC) Resting Tone IUP (mmHg): 20 (Yas Bellavance, RNC) Intensity IUP (mmHg): 100 (Yas Bellavance, RNC) Monitor Mode: Internal Scalp Electrode (Yas Bellavance, RNC) FHR Baseline Rate : 120 (Yas Bellavance, RNC) FHR Baseline Changes: No Baseline Change (Yas Bellavance, RNC) Variability: Moderate 6-25 bpm (Yas Bellavance, RNC) Accelerations: 15X15 (Yas Bellavance, RNC) Decelerations: Early (Yas Bellavance, RNC) Membrane Status: Ruptured (Yas Bellavance, RNC) Level of Consciousness: Fully Conscious (Yas Bellavance, RNC) DTR's/Clonus: DTRs 2+ (Yas Bellavance, RNC) Headache: Denies (Yas Bellavance, RNC) Nausea/Vomiting: Denies (Yas Bellavance, RNC) RUQ Epigastric Pain: Denies (Yas Bellavance, RNC) Datetime: 01/15/2017 11:10 Dilatation (cm): 9.0 (Yas Bellavance, RNC) Effacement (%): 80 (Yas Bellavance, RNC) Station: -3 (Yas Bellavance, RNC) Exam by: Trinh Moreira CNM (Yas Bellavance, RNC) Datetime: 01/15/2017 11:00 NBP Sys/Karley/Mean (mmHg): 177 (QS system process) : 89 (QS system process) : 125 (QS system process) Pulse: 76 (QS system process) Respirations: 18 (Yas Bellavance, RNC) Monitor Mode: Internal (Yas Bellavance, RNC) Frequency (min): 2-5 (Yas Bellavance, RNC) Quality: Moderate (Yas Bellavance, RNC) Duration (sec): 50-80 (Yas Bellavance, RNC) Duration Criteria: Less than Two 120 Second Contractions (Yas Bellavance, RNC) Pattern: Normal: <= 5 Contractions in 10 Minutes (Yas Bellavance, RNC) Resting Tone (Palpate): Relaxed (Yas Bellavance, RNC) Resting Tone IUP (mmHg): 20 (Yas Bellavance, RNC) Intensity IUP (mmHg): 100 (Yas Bellavance, RNC) Monitor Mode: Internal Scalp Electrode (Yas Bellavance, RNC) FHR Baseline Rate : 120 (Yas Bellavance, RNC) FHR Baseline Changes: No Baseline Change (Yas Bellavance, RNC) Variability: Moderate 6-25 bpm (Yas Bellavance, RNC) Accelerations: 15X15 (Yas Bellavance, RNC) Decelerations: Early (Yas Bellavance, RNC) Pain Scale: 3 (Yas Bellavance, RNC) Pain Relief Measures: Comfort Measures (Yas Bellavance, RNC) Membrane Status: Ruptured (Yas Bellavance, RNC) Level of Consciousness: Fully Conscious (Yas Bellavance, RNC) DTR's/Clonus: DTRs 2+ (Yas Bellavance, RNC) Headache: Denies (Yas Bellavance, RNC) Nausea/Vomiting: Denies (Yas Bellavance, RNC) RUQ Epigastric Pain: Denies (Yas Bellavance, RNC) LaborFlag: Antepartum (QS system process) Datetime: 01/15/2017 10:45 NBP Sys/Karley/Mean (mmHg): 190 (QS system process) : 88 (QS system process) : 127 (QS system process) Pulse: 73 (QS system process) Respirations: 16 (Yas Bellavance, RNC) Monitor Mode: Internal (Yas Bellavance, RNC) Frequency (min): 2-5 (Yas Bellavance, RNC) Quality: Moderate (Yas Bellavance, RNC) Duration (sec): 50-80 (Yas Bellavance, RNC) Duration Criteria: Less than Two 120 Second Contractions (Yas Bellavance, RNC) Pattern: Normal: <= 5 Contractions in 10 Minutes (Yas Bellavance, RNC) Resting Tone (Palpate): Relaxed (Yas Bellavance, RNC) Resting Tone IUP (mmHg): 20 (Yas Bellavance, RNC) Intensity IUP (mmHg): 100 (Yas Bellavance, RNC) Monitor Mode: Internal Scalp Electrode (Yas Bellavance, RNC) FHR Baseline Rate : 120 (Yas Bellavance, RNC) FHR Baseline Changes: No Baseline Change (Yas Bellavance, RNC) Variability: Moderate 6-25 bpm (Yas Bellavance, RNC) Accelerations: 15X15 (Yas Bellavance, RNC) Decelerations: Early (Yas Bellavance, RNC) Membrane Status: Ruptured (Yas Bellavance, RNC) LaborFlag: Antepartum (QS system process) Datetime: 01/15/2017 10:30 Monitor Mode: Internal (Yas Bellavance, RNC) Frequency (min): 2-5 (Yas Bellavance, RNC) Quality: Moderate (Yas Bellavance, RNC) Duration (sec): 50-80 (Yas Bellavance, RNC) Duration Criteria: Less than Two 120 Second Contractions (Yas Bellavance, RNC) Pattern: Normal: <= 5 Contractions in 10 Minutes (Yas Bellavance, RNC) Resting Tone (Palpate): Relaxed (Yas Bellavance, RNC) Resting Tone IUP (mmHg): 20 (Yas Bellavance, RNC) Monitor Mode: Internal Scalp Electrode (Yas Bellavance, RNC) FHR Baseline Rate : 120 (Yas Bellavance, RNC) FHR Baseline Changes: No Baseline Change (Yas Bellavance, RNC) Variability: Moderate 6-25 bpm (Yas Bellavance, RNC) Accelerations: 15X15 (Yas Bellavance, RNC) Decelerations: Early (Yas Bellavance, RNC) Actions for Decelerations: Hands and Knees (Yas Bellavance, RNC) Membrane Status: Ruptured (Yas Bellavance, RNC) Datetime: 01/15/2017 10:16 NBP Sys/Karley/Mean (mmHg): 158 (QS system process) : 95 (QS system process) : 121 (QS system process) Pulse: 71 (QS system process) Respirations: 18 (Yas Bellavance, RNC) Monitor Mode: Internal (Yas Bellavance, RNC) Frequency (min): 2-5 (Yas Bellavance, RNC) Quality: Moderate (Yas Bellavance, RNC) Duration (sec): 50-80 (Yas Bellavance, RNC) Duration Criteria: Less than Two 120 Second Contractions (Yas Bellavance, RNC) Pattern: Normal: <= 5 Contractions in 10 Minutes (Yas Bellavance, RNC) Resting Tone (Palpate): Relaxed (Yas Bellavance, RNC) Resting Tone IUP (mmHg): 20 (Yas Bellavance, RNC) Monitor Mode: Internal Scalp Electrode (Yas Bellavance, RNC) FHR Baseline Rate : 120 (Yas Bellavance, RNC) FHR Baseline Changes: No Baseline Change (Yas Bellavance, RNC) Variability: Moderate 6-25 bpm (Yas Bellavance, RNC) Accelerations: 15X15 (Ysa Bellavance, RNC) Decelerations: Early (Yas Bellavance, RNC) Actions for Decelerations: Hands and Knees (Yas Bellavance, RNC) Dilatation (cm): 8.0 (Yas Bellavance, RNC) Effacement (%): 90 (Yas Bellavance, RNC) Station: -2 (Yas Bellavance, RNC) Exam by: Trinh Moreira CNM (Yas Bellavance, RNC) Membrane Status: Ruptured (Yas Bellavance, RNC) LaborFlag: Antepartum (QS system process) Datetime: 01/15/2017 10:09 Monitor Interventions for UA: IUPC Inserted (Yas Bellavance, RNC) Contraction Comments: iupc inserted (Yas Bellavance, RNC) Datetime: 01/15/2017 10:01 NBP Sys/Karley/Mean (mmHg): 192 (QS system process) : 95 (QS system process) : 135 (QS system process) Pulse: 81 (QS system process) Respirations: 16 (Yas Bellavance, RNC) Monitor Mode: External (Yas Bellavance, RNC) Monitor Interventions for UA: Trevose Adjusted (Yas Bellavance, RNC) Frequency (min): 2-4 (Yas Bellavance, RNC) Quality: Mild/Moderate (Yas Bellavance, RNC) Duration (sec): 50-80 (Yas Bellavance, RNC) Duration Criteria: Less than Two 120 Second Contractions (Yas Bellavance, RNC) Pattern: Normal: <= 5 Contractions in 10 Minutes (Yas Bellavance, RNC) Resting Tone (Palpate): Relaxed (Yas Bellavance, RNC) Monitor Mode: Internal Scalp Electrode (Yas Bellavance, RNC) FHR Baseline Rate : 120 (Yas Bellavance, RNC) Variability: Moderate 6-25 bpm (Yas Bellavance, RNC) Accelerations: 15X15 (Yas Bellavance, RNC) LaborFlag: Antepartum (QS system process) Datetime: 01/15/2017 10:00 Antibiotics: Penicillin IV (Units) @ (Annotations: 2.5 million units) (Yas Bellavance, RNC) Datetime: 01/15/2017 09:45 NBP Sys/Karley/Mean (mmHg): 165 (QS system process) : 103 (QS system process) : 128 (QS system process) Pulse: 73 (QS system process) Respirations: 16 (Yas Bellavance, RNC) Monitor Mode: External (Yas Bellavance, RNC) Monitor Interventions for UA: Trevose Adjusted (Yas Bellavance, RNC) Frequency (min): 2-4 (Yas Bellavance, RNC) Quality: Mild/Moderate (Yas Bellavance, RNC) Duration (sec): 50-80 (Yas Bellavance, RNC) Duration Criteria: Less than Two 120 Second Contractions (Yas Bellavance, RNC) Pattern: Normal: <= 5 Contractions in 10 Minutes (Yas Bellavance, RNC) Resting Tone (Palpate): Relaxed (Yas Bellavance, RNC) Monitor Mode: Internal Scalp Electrode (Yas Bellavance, RNC) FHR Baseline Rate : 120 (Yas Bellavance, RNC) Variability: Moderate 6-25 bpm (Yas Bellavance, RNC) Accelerations: 15X15 (Yas Bellavance, RNC) LaborFlag: Antepartum (QS system process) Datetime: 01/15/2017 09:30 NBP Sys/Karley/Mean (mmHg): 195 (QS system process) : 106 (QS system process) : 143 (QS system process) Pulse: 83 (QS system process) Respirations: 16 (Yas Bellavance, RNC) Monitor Mode: External (Yas Bellavance, RNC) Monitor Interventions for UA: Trevose Adjusted (Yas Bellavance, RNC) Frequency (min): 2-4 (Yas Bellavance, RNC) Quality: Mild/Moderate (Yas Bellavance, RNC) Duration (sec): 50-80 (Yas Bellavance, RNC) Duration Criteria: Less than Two 120 Second Contractions (Yas Bellavance, RNC) Pattern: Normal: <= 5 Contractions in 10 Minutes (Yas Bellavance, RNC) Resting Tone (Palpate): Relaxed (Yas Bellavance, RNC) Monitor Mode: Internal Scalp Electrode (Yas Bellavance, RNC) FHR Baseline Rate : 120 (Yas Bellavance, RNC) Variability: Moderate 6-25 bpm (Yas Bellavance, RNC) Accelerations: 15X15 (Yas Bellavance, RNC) LaborFlag: Antepartum (QS system process) Datetime: 01/15/2017 09:17 NBP Sys/Karley/Mean (mmHg): 167 (QS system process) : 93 (QS system process) : 124 (QS system process) Pulse: 82 (QS system process) Respirations: 16 (Yas Bellavance, RNC) Monitor Mode: External (Yas Bellavance, RNC) Monitor Interventions for UA: Trevose Adjusted (Yas Bellavance, RNC) Frequency (min): 2-4 (Yas Bellavance, RNC) Quality: Mild/Moderate (Yas Bellavance, RNC) Duration (sec): 50-80 (Yas Bellavance, RNC) Duration Criteria: Less than Two 120 Second Contractions (Yas Bellavance, RNC) Pattern: Normal: <= 5 Contractions in 10 Minutes (Yas Bellavance, RNC) Resting Tone (Palpate): Relaxed (Yas Bellavance, RNC) Monitor Mode: Internal Scalp Electrode (Yas Bellavance, RNC) FHR Baseline Rate : 120 (Yas Bellavance, RNC) Variability: Moderate 6-25 bpm (Yas Bellavance, RNC) Accelerations: 15X15 (Yas Bellavance, RNC) LaborFlag: Antepartum (QS system process) Datetime: 01/15/2017 09:00 Monitor Mode: External (Yas Bellavance, RNC) Monitor Interventions for UA: Trevose Adjusted (Yas Bellavance, RNC) Frequency (min): 2-4 (Yas Bellavance, RNC) Quality: Mild/Moderate (Yas Bellavance, RNC) Duration (sec): 50-80 (Yas Bellavance, RNC) Duration Criteria: Less than Two 120 Second Contractions (Yas Bellavance, RNC) Pattern: Normal: <= 5 Contractions in 10 Minutes (Yas Bellavance, RNC) Resting Tone (Palpate): Relaxed (Yas Bellavance, RNC) Monitor Mode: Internal Scalp Electrode (Yas Bellavance, RNC) FHR Baseline Rate : 120 (Yas Bellavance, RNC) Variability: Moderate 6-25 bpm (Yas Bellavance, RNC) Accelerations: 15X15 (Yas Bellavance, RNC) Datetime: 01/15/2017 08:45 Monitor Mode: External (Yas Bellavance, RNC) Monitor Interventions for UA: Trevose Adjusted (Yas Bellavance, RNC) Frequency (min): 2-4 (Yas Bellavance, RNC) Quality: Mild/Moderate (Yas Bellavance, RNC) Duration (sec): 50-80 (Yas Bellavance, RNC) Duration Criteria: Less than Two 120 Second Contractions (Yas Bellavance, RNC) Pattern: Normal: <= 5 Contractions in 10 Minutes (Yas Bellavance, RNC) Resting Tone (Palpate): Relaxed (Yas Bellavance, RNC) Monitor Mode: Internal Scalp Electrode (Yas Bellavance, RNC) FHR Baseline Rate : 120 (Yas Bellavance, RNC) Variability: Moderate 6-25 bpm (Yas Bellavance, RNC) Accelerations: 15X15 (Yas Bellavance, RNC) Datetime: 01/15/2017 08:30 Monitor Mode: External (Yas Bellavance, RNC) Monitor Interventions for UA: Trevose Adjusted (Yas Bellavance, RNC) Frequency (min): 2-4 (Yas Bellavance, RNC) Quality: Mild/Moderate (Yas Bellavance, RNC) Duration (sec): 50-80 (Yas Bellavance, RNC) Duration Criteria: Less than Two 120 Second Contractions (Yas Bellavance, RNC) Pattern: Normal: <= 5 Contractions in 10 Minutes (Yas Bellavance, RNC) Resting Tone (Palpate): Relaxed (Yas Bellavance, RNC) Monitor Mode: Internal Scalp Electrode (Yas Bellavance, RNC) FHR Baseline Rate : 120 (Yas Bellavance, RNC) Variability: Moderate 6-25 bpm (Yas Bellavance, RNC) Accelerations: 15X15 (Yas Bellavance, RNC) Datetime: 01/15/2017 08:17 NBP Sys/Karley/Mean (mmHg): 187 (QS system process) : 82 (QS system process) : 118 (QS system process) Pulse: 67 (QS system process) Respirations: 18 (Yas Bellavance, RNC) Monitor Mode: External (Yas Bellavance, RNC) Monitor Interventions for UA: Trevose Adjusted (Yas Bellavance, RNC) Frequency (min): 2-4 (Yas Bellavance, RNC) Quality: Mild/Moderate (Yas Bellavance, RNC) Duration (sec): 50-80 (Yas Bellavance, RNC) Duration Criteria: Less than Two 120 Second Contractions (Yas Bellavance, RNC) Pattern: Normal: <= 5 Contractions in 10 Minutes (Yas Bellavance, RNC) Resting Tone (Palpate): Relaxed (Yas Bellavance, RNC) Monitor Mode: Internal Scalp Electrode (Yas Bellavance, RNC) FHR Baseline Rate : 120 (Yas Bellavance, RNC) Variability: Moderate 6-25 bpm (Yas Bellavance, RNC) Accelerations: 15X15 (Yas Bellavance, RNC) Decelerations: Early (Yas Bellavance, RNC) Dilatation (cm): 6.0 (Yas Bellavance, RNC) Effacement (%): 50 (Yas Bellavance, RNC) Station: -3 (Yas Bellavance, RNC) Exam by: Clau Bellniraj RNC (Yas Bellavance, RNC) LaborFlag: Antepartum (QS system process) Datetime: 01/15/2017 08:01 NBP Sys/Karley/Mean (mmHg): 177 (QS system process) : 84 (QS system process) : 120 (QS system process) Pulse: 81 (QS system process) Monitor Mode: External (Yas Bellavance, RNC) Monitor Interventions for UA: Trevose Adjusted (Yas Bellavance, RNC) Frequency (min): 2-4 (Yas Bellavance, RNC) Quality: Mild/Moderate (Yas Bellavance, RNC) Duration (sec): 50-80 (Yas Bellavance, RNC) Duration Criteria: Less than Two 120 Second Contractions (Yas Bellavance, RNC) Pattern: Normal: <= 5 Contractions in 10 Minutes (Yas Bellavance, RNC) Resting Tone (Palpate): Relaxed (Yas Bellavance, RNC) Monitor Mode: Internal Scalp Electrode (Yas Bellavance, RNC) FHR Baseline Rate : 120 (Yas Bellavance, RNC) Variability: Moderate 6-25 bpm (Yas Bellavance, RNC) Accelerations: 15X15 (Yas Bellavance, RNC) Decelerations: Early (Yas Bellavance, RNC) Pitocin (milliunit): Pitocin Increased to (milliunits) @ (Annotations: 10) (Yas Bellavance, RNC) LaborFlag: Antepartum (QS system process) Datetime: 01/15/2017 07:45 NBP Sys/Karley/Mean (mmHg): 153 (QS system process) : 78 (QS system process) : 109 (QS system process) Pulse: 69 (QS system process) Respirations: 16 (Yas Bellavance, RNC) Monitor Mode: External (Yas Bellavance, RNC) Monitor Interventions for UA: Trevose Adjusted (Yas Bellavance, RNC) Frequency (min): 2-4 (Yas Bellavance, RNC) Quality: Mild/Moderate (Yas Bellavance, RNC) Duration (sec): 50-80 (Yas Bellavance, RNC) Duration Criteria: Less than Two 120 Second Contractions (Yas Bellavance, RNC) Pattern: Normal: <= 5 Contractions in 10 Minutes (Yas Bellavance, RNC) Resting Tone (Palpate): Relaxed (Yas Bellavance, RNC) Monitor Mode: Internal Scalp Electrode (Yas Bellavance, RNC) FHR Baseline Rate : 120 (Yas Bellavance, RNC) Variability: Moderate 6-25 bpm (Yas Bellavance, RNC) Accelerations: 15X15 (Yas Bellavance, RNC) Decelerations: Early (Yas Bellavance, RNC) Level of Consciousness: Fully Conscious (Yas Bellavance, RNC) DTR's/Clonus: DTRs 2+ (Yas Bellavance, RNC) Headache: Generalized (Yas Bellavance, RNC) Breath Sounds, Left: Clear and Equal (Yas Bellavance, RNC) Breath Sounds, Right: Clear and Equal (Yas Bellavance, RNC) Nausea/Vomiting: Denies (Yas Bellavance, RNC) RUQ Epigastric Pain: Denies (Yas Bellavance, RNC) Maternal Comments: medicated with tylenol 975 mg po for headache (Yas Bellavance, RNC) Pitocin (milliunit): Pitocin Increased to (milliunits) @ (Annotations: 8) (Yas Bellavance, RNC) LaborFlag: Antepartum (QS system process) Datetime: 01/15/2017 07:33 NBP Sys/Karley/Mean (mmHg): 170 (QS system process) : 92 (QS system process) : 125 (QS system process) Pulse: 88 (QS system process) Respirations: 18 (Yas Bellavance, RNC) Temperature (F): 98.0 (Yas Bellavance, RNC) Temperature (C): 36.7 (QS system process) Temperature Route: Oral (Yas Bellavance, RNC) Monitor Mode: External; Palpation (Yas Bellavance, RNC) Frequency (min): 2-4.5 (Yas Bellavance, RNC) Quality: Moderate (Yas Bellavance, RNC) Duration (sec): 60-100 (Yas Bellavance, RNC) Resting Tone (Palpate): Relaxed (Yas Bellavance, RNC) Monitor Mode: Internal Scalp Electrode (Yas Bellavance, RNC) FHR Baseline Rate : 120 (Yas Bellavance, RNC) Variability: Moderate 6-25 bpm (Yas Bellavance, RNC) Pain Scale: 3 (Yas Bellavance, RNC) Pain Presence: Intermittent (Yas Bellavance, RNC) Pain Type: Cramping (Yas Bellavance, RNC) Pain Location: Abdomen (Yas Bellavance, RNC) Pain Goal: 1 (Yas Bellavance, RNC) Pain Relief Measures: Comfort Measures (Yas Bellavance, RNC) Pain Coping: Breathing Through Contractions (Yas Bellavance, RNC) LaborFlag: Antepartum (QS system process) Datetime: 01/15/2017 07:16 Communication: Report Given to @ ABDULKADIR Maldonado; care relinquished at this time. (Naty Latham RN) Datetime: 01/15/2017 07:15 NBP Sys/Karley/Mean (mmHg): 171 (QS system process) : 102 (QS system process) : 130 (QS system process) Pulse: 62 (QS system process) Monitor Mode: External; Palpation (Yas Bellavance, RNC) Frequency (min): 2-4.5 (Yas Bellavance, RNC) Quality: Moderate (Yas Bellavance, RNC) Duration (sec): 60-100 (Yas Bellavance, RNC) Resting Tone (Palpate): Relaxed (Yas Bellavance, RNC) Monitor Mode: Internal Scalp Electrode (Yas Bellavance, RNC) FHR Baseline Rate : 120 (Yas Bellavance, RNC) Variability: Moderate 6-25 bpm (Yas Bellavance, RNC) Accelerations: Prolonged (Yas Bellavance, RNC) Decelerations: Early; Variable (Yas Bellavance, RNC) Pitocin (milliunit): Pitocin Increased to (milliunits) @ (Annotations: 6) (Yas Bellavance, RNC) LaborFlag: Antepartum (QS system process) Datetime: 01/15/2017 07:01 NBP Sys/Karley/Mean (mmHg): 181 (QS system process) : 97 (QS system process) : 132 (QS system process) Pulse: 71 (QS system process) Respirations: 18 (Yas Bellavance, RNC) Communication: RN at Bedside (Annotations: care assumed) (Yas Bellavance, RNC) LaborFlag: Antepartum (QS system process) Datetime: 01/15/2017 07:00 Monitor Mode: External; Palpation (Naty Latham RN) Frequency (min): 2-4.5 (Naty Latham RN) Quality: Moderate (Naty Latham RN) Duration (sec): 60-100 (Naty Latham RN) Resting Tone (Palpate): Relaxed (Naty Latham RN) Monitor Mode: Internal Scalp Electrode (Naty Latham RN) FHR Baseline Rate : 120 (Naty Latham RN) Variability: Moderate 6-25 bpm (Naty Latham RN) Accelerations: Prolonged (Naty Latham RN) Decelerations: Early; Variable (Naty Latham RN) Dilatation (cm): 5.0 (Naty Latham RN) Effacement (%): 90 (Naty Latham RN) Station: -2 (Naty Latham RN) Exam by: ABDULKADIR Kim (Naty Latham RN) Pitocin (milliunit): Pitocin Remains (milliunits) @ 4 (Naty Latham RN)
[2017-01-15] MEDS: FAMOTIDINE 20 MG TABLET PO SCH (21:12)
--- NOTE | 2017-01-16 06:00 | L&D General Admission ---
General Admit Datetime Report Generated by CPN: 01/16/2017 06:00 INFORMATION Patient Age: 36 (10/30/2016 09:21:QS system process) EDC: 01/08/2017 00:00 (12/04/2016 15:37:Amelia Morales RN) : 7 (12/04/2016 15:37:Amelia Morales RN) Para: 2 (01/03/2017 19:22:Leah Perez RN) Term: 2 (12/04/2016 15:37:Amelia Morales RN) : 0 (12/04/2016 15:37:Amelia Morales RN) Spontaneous Abortions: 1 (12/04/2016 15:37:Amelia Morales RN) Induced Abortions: 3 (12/04/2016 15:37:Amelia Morales RN) Livin (12/04/2016 15:37:Amelia oMrales RN) Cesareans: 0 (12/04/2016 15:37:Amelia Morales RN) VBACs: 0 (12/04/2016 15:37:Amelia Morales RN) Ectopic: 0 (12/04/2016 15:37:Amelia Morales RN) Multiple Births: 0 (12/04/2016 15:37:Amelia Morales RN) Baby, Number in Womb: 1 (01/03/2017 19:22:Leah Perez RN) CARE Primary Loss Prevention And Safety Manager: [facility] (12/04/2016 15:37:Amelia Morales RN) Month of 1st Visit: 06/16 (12/04/2016 15:37:Amelia Morales RN) Adequate Care: Yes (12/04/2016 15:37:Amelia Morales RN) Prepregnancy Weight (lb): 272 (12/04/2016 15:37:Amelia Morales RN) Prepregnancy Weight (kg): 123.6 (12/04/2016 15:37:QS system process) Height (in): 61 (01/15/2017 16:02:QS system process) ALLERGIES Medication Allergy: No (12/04/2016 15:37:Amelia Morales RN) Medication Allergies: No Known Allergies (01/10/2017) (01/10/2017 11:27:QS system process) Latex Allergy: No Latex Allergies (12/04/2016 15:37:Amelia Morales RN) Food Allergies: N/A (12/04/2016 15:37:Amelia Morales RN) Environmental Allergies: N/A (12/04/2016 15:37:Amelia Morales RN) COMMUNICATION Primary Language: Canadian (12/04/2016 15:37:Amelia Morales RN) Medical Tx Preferred Language: Canadian (12/04/2016 15:37:Amelia Moarles RN) Communication Barrier(s): None (12/04/2016 15:37:Amelia Morales RN) DEMOGRAPHICS Address: [address] [place] [id number] (10/30/2016 09:21:QS system process) Zipcode: [phone] (10/30/2016 09:21:QS system process) Home (10/30/2016 09:21:QS system process) SSN: [id number] (10/30/2016 09:21:QS system process) Next of Kin Name: NATALI MONTE (12/19/2016 20:04:QS system process) Next of Kin (12/19/2016 20:04:QS system process) Next of Kin Relationship: MO (12/19/2016 20:04:QS system process) Date of : 1980 (10/30/2016 09:21:QS system process) Marital Status: (10/30/2016 09:21:QS system process) Sex: Female (10/30/2016 09:21:QS system process) Race: (10/30/2016 09:21:QS system process) Ethnicity: Non- or (10/30/2016 09:21:QS system process) Restoration: Restorationism (10/30/2016 09:21:QS system process) DRUG AND ALCOHOL USE Alcohol: No (12/04/2016 15:37:Amelia Morales RN) Cigarettes: Never Smoker. [id number] (12/04/2016 15:37:Amelia Morales RN) Marijuana: No (12/04/2016 15:37:Amelia Morales RN) Cocaine: No (12/04/2016 15:37:Amelia Morales RN) Other Illicit Drugs: No (12/04/2016 15:37:Amelia Morales RN) VACCINE HISTORY Influenza Vaccine: Yes (12/04/2016 15:37:Amelia Morales RN) Pneumococcal Vaccine: No (12/04/2016 15:37:Amelia Morales RN) Tetanus Vaccine: Yes (12/04/2016 15:37:Amelia Morales RN) Tdap Vaccine: Yes (12/04/2016 15:37:Amelia Morales RN) Hepatitis B Vaccine: Yes (12/04/2016 15:37:Amelia Morales RN) Authorization Nurse: [facility] (12/04/2016 15:37:Natali Ochoa RN) Feeding Preference: Breast (12/04/2016 15:37:Natali Ochoa RN) Benefit of Breast Feed Discussed: Yes (12/04/2016 15:37:Amelia Morales RN) Circumcision: Yes (12/04/2016 15:37:Amelia Morales RN) Classes Attended: Yes (12/04/2016 15:37:Amelia Morales RN) Tubal Ligation: Yes (12/04/2016 15:37:Amelia Morales RN) Tubal Authorization Signed: N/A (12/04/2016 15:37:Amelia Morales RN) Consent: N/A (12/04/2016 15:37:Amelia Morales RN) Consent Signed: N/A (12/04/2016 15:37:Amelia Morales RN) Pain Management Plans: Epidural (12/04/2016 15:37:Quirino Matamoros RN) Plans for Labor and Delivery: None (12/04/2016 15:37:Amelia Morales RN) Support Person: Marco Warner II (12/04/2016 15:37:Amelia Morales RN) Support Person Relationship: (12/04/2016 15:37:Amelia Morales RN) Cultural/Spritual Practice: No (12/04/2016 15:37:Amelia Morales RN) Spir/Cult Dietary Needs: No (12/04/2016 15:37:Amelia Morales RN) LIVING SITUATION/DISCHARGE PLAN Living Arrangements: House (12/04/2016 15:37:Amelia Morales RN) Adequate Access to:: Electric; Heat; Refrigeration; Plumbing/Running water; Phone; Transportation (12/04/2016 15:37:Amelia Morales RN) WIC Program: No (12/04/2016 15:37:Amelia Morales RN) Discharge Manager Inpatient Person: (12/04/2016 15:37:Amelia Morales RN) Person to Help after Discharge: (12/04/2016 15:37:Amelia Morales RN) Currently Using Commun Resources: No (12/04/2016 15:37:Amelia Morales RN) Outside Agency/Rubber Extrusion Machine Operator: No (12/04/2016 15:37:Amelia Morales RN) Car Seat for Discharge: Yes (12/04/2016 15:37:Amelia Morales RN) Adoption Requested: No (12/04/2016 15:37:Amelia Morales RN) Pt Contact w/infant Post : N/A (12/04/2016 15:37:Amelia Morales RN) LABS Blood Type: O Positive (12/04/2016 15:37:Quirino Matamoros RN) Antibody Screen: Negative (12/04/2016 15:37:Cecilia Garrison RN) Rho(G) this : Not Applicable (12/04/2016 15:37:Cecilia Garrison RN) Hemoglobin: 9.8 L (01/15/2017 17:42:QS system process) Hematocrit: 31.5 L (01/15/2017 17:42:QS system process) MCV: 71 L (01/15/2017 17:42:QS system process) Group Beta Strep: Positive (12/04/2016 15:37:Quirino Matamoros RN) Gonorrhea: Negative (12/04/2016 15:37:Quirino Matamoros RN) Chlamydia: Negative (12/04/2016 15:37:Quirino Matamoros RN) RPR/VDRL: Nonreactive (12/04/2016 15:37:Quirino Matamoros RN) HIV Exposure Test: Negative (12/04/2016 15:37:Quirino Matamoros RN) Hepatitis B: Negative (12/04/2016 15:37:Quirino Matamoros RN) Rubella: Immune (12/04/2016 15:37:Quirino Matamoros RN) OB/PREVIOUS HISTORY Previous Procedures: Ultrasound; NST (12/04/2016 15:37:Natali Ochoa RN) Current Procedures: Ultrasound; NST (12/04/2016 15:37:Natali Ochoa RN) History of Previous : No (12/04/2016 15:37:Amelia Morales RN) History of Gestational Diabetes: No (12/04/2016 15:37:Amelia Morales RN) History of PIH: No (12/04/2016 15:37:Amelia Morales RN) History of Incompetent Cervix: No (12/04/2016 15:37:Amelia Morales RN) History of Placenta Previa/Abrup: No (12/04/2016 15:37:Amelia Morales RN) History of Macrosomia: No (12/04/2016 15:37:Amelia Morales RN) History of IUGR: No (12/04/2016 15:37:Amelia Morales RN) History of Hemorrhage: No (12/04/2016 15:37:Amelia Morales RN) History of Loss/Stillborn: No (12/04/2016 15:37:Amelia Morales RN) History of : No (12/04/2016 15:37:Amelia Morales RN) History of D (Rh) Sensitization: No (12/04/2016 15:37:Amelia Morales RN) History Recurrent Loss/Stillborn: No (12/04/2016 15:37:Amelia Morales RN) History Depression/PP Depression: No (12/04/2016 15:37:Amelia Morales RN) History of Uterine Anomaly/YAZMIN: No (12/04/2016 15:37:Amelia Morales RN) History of Infertility: No (12/04/2016 15:37:Amelia Morales RN) History of ART Treatment: No (12/04/2016 15:37:Amelia Morales RN) History of YAZMIN: No (12/04/2016 15:37:Amelia Morales RN) Comments Obstetrical History: G1: 2000 EAB G2: 2001 baby boy, 37-39 weeks, 24+ hours labor, 7 lb, IOL oligo G3: 2001 EAB G4: 2003 baby girl, 37-39 weeks G5: 2007 EAB G6: 2013 SAB, 13 weeks G7: Current (12/04/2016 15:37:Amelia Morales RN) MEDICAL HISTORY Med Hx Diabetes: No (12/04/2016 15:37:Amelia Morales RN) Med Hx Hypertension: Yes (12/04/2016 15:37:Amelia Morales RN) Med Hx Heart Disease: No (12/04/2016 15:37:Amelia Morales RN) Med Hx Autoimmune Disorder: No (12/04/2016 15:37:Amelia Morales RN) Med Hx Kidney Disease/UTI: No (12/04/2016 15:37:Amelia Morales RN) Med Hx Neurologic/Epilepsy: No (12/04/2016 15:37:Amelia Morales RN) Med Hx Psychiatric Disorders: No (12/04/2016 15:37:Amelia Morales RN) Med Hx Hepatitis/Liver Disease: No (12/04/2016 15:37:Amelia Morales RN) Med Hx Varicosities/Phlebitis: No (12/04/2016 15:37:Amelia Morales RN) Med Hx Thyroid Dysfunction: No (12/04/2016 15:37:Amelia Morales RN) Med Hx Trauma/Violence: No (12/04/2016 15:37:Amelia Morales RN) Med Hx Blood Transfusion: No (12/04/2016 15:37:Amelia Morales RN) Med Hx Pulmonary (Asthma,TB): Yes (12/04/2016 15:37:Amelia Morales RN) Med Hx Breast: No (12/04/2016 15:37:Amelia Morales RN) Med Hx COIN WRAPPING MACHINE OPERATOR Surgery: No (12/04/2016 15:37:Amelia Morales RN) Med Hx Hospitalization/Surgery: Yes (12/04/2016 15:37:Amelia Morales RN) Med Hx Anesthetic Complications: No (12/04/2016 15:37:Amelia Morales RN) Med Hx Abnormal Pap Smear: Yes (12/04/2016 15:37:Amelia Morales RN) Other Medical Diseases: Yes (12/04/2016 15:37:Amelia Morales RN) Med Hx Significant Family Hx: No (12/04/2016 15:37:Amelia Morales RN) Details of Med/Surg Hx: HTN: Chronic HTN, Labetalol Pulmonary: Bronchitis 11/30/16 Surgery: Colonoscopy 2012, polyps noted Abnormal Pap: Hx ASCUS Pap, negative HPV Other: Morbid obesity (12/04/2016 15:37:Amelia Morales RN) INFECTIOUS HISTORY Inf Hx Gonorrhea: No (12/04/2016 15:37:Amelia Morales RN) Inf Hx Chlamydia: Yes (12/04/2016 15:37:Amelia Morales RN) Inf Hx Syphilis: No (12/04/2016 15:37:Amelia Morales RN) Inf Hx HIV/AIDS: No (12/04/2016 15:37:Amelia Morales RN) Inf Hx Human Papilloma Virus: No (12/04/2016 15:37:Amelia Morales RN) Inf Hx Pt/Partner Genital Herpes: No (12/04/2016 15:37:Amelia Morales RN) Inf Hx Tuberculosis/Exposure: No (12/04/2016 15:37:Amelia Morales RN) Inf Hx Hepatitis B,C: No (12/04/2016 15:37:Amelia Morales RN) Inf Hx Rash or Viral Illness: No (12/04/2016 15:37:Amelia Morales RN) Details of Infectious Hx: Chlamydia (12/04/2016 15:37:Amelia Morales RN) GENETIC HISTORY Gen Hx Age >=35 at XANDER: No (12/04/2016 15:37:Amelia Morales RN) Gen Hx Thalassemia: No (12/04/2016 15:37:Amelia Morales RN) Gen Hx Congenital Heart Defect: No (12/04/2016 15:37:Amelia Morales RN) Gen Hx Neural Tube Defect: No (12/04/2016 15:37:Amelia Morales RN) Gen Hx Down's Syndrome: No (12/04/2016 15:37:Amelia Morales RN) Gen Hx Ken-Sachs: No (12/04/2016 15:37:Amelia Morales RN) Gen Hx Alexia: No (12/04/2016 15:37:Amelia Morales RN) Gen Hx Familial Dysautonomia: No (12/04/2016 15:37:Amelia Moraels RN) Gen Hx Sickle Cell Disease/Trait: No (12/04/2016 15:37:Amelia Morales RN) Gen Hx Hemophilia/Blood Disorder: No (12/04/2016 15:37:Amelia Morales RN) Gen Hx Muscular Dystrophy: No (12/04/2016 15:37:Amelia Morales RN) Gen Hx Cystic Fibrosis: No (12/04/2016 15:37:Amelia Morales RN) Gen Hx Huntingtons Chorea: No (12/04/2016 15:37:Amelia Morales RN) Gen Hx Mental Retardation/Autism: No (12/04/2016 15:37:Amelia Morales RN) Gen Hx Tested for Fragile X: No (12/04/2016 15:37:Amelia Morales RN) Gen Hx Other Inher/Chromosomal: No (12/04/2016 15:37:Amelia Morales RN) Gen Hx Maternal Metabolic DO: No (12/04/2016 15:37:Amelia Morales RN) Gen Hx Pt Father or FOB Defect: No (12/04/2016 15:37:Amelia Morales RN) Gen Hx Other Genetic History: No (12/04/2016 15:37:Amelia Morales RN) Gen Hx Drugs/Meds since LMP: Yes (12/04/2016 15:37:Raina Chaney RN) Gen Hx Medications: PNV, iron, labetalol (12/04/2016 15:37:Raina Chaney RN)
--- NOTE | 2017-01-16 06:00 | L&D Current Admission ---
Current Admit Datetime Report Generated by CPN: 01/16/2017 06:00 ADMISSION INFORMATION Current Admit Date/Time: 01/14/2017 20:29 (01/15/2017 02:40:Naty Latham RN) Reason for Admission: Induction of Labor (01/15/2017 02:40:Naty Latham RN) Chief Complaint: Scheduled Induction of Labor (01/15/2017 02:40:Naty Latham RN) Medications During : Ferrous Sulfate (Iron); Labetolol; Vitamin (01/15/2017 02:40:Naty Latham RN) EGA per Dates: 40.6 (01/15/2017 02:40:QS system process) Method of Arrival: Ambulatory (01/15/2017 02:40:Naty Latham RN) Admitted From: Home (01/15/2017 02:40:Naty Latham RN) Reason for Induction: Chronic Hypertension; Pre-Eclampsia (01/15/2017 02:40:Naty Latham RN) Records Available: Yes (01/15/2017 02:40:Naty Latham RN) General Admission Information: Reviewed (01/15/2017 02:40:Naty Latham RN) General Admission Reviewed By: ABDULKADIR Kim (01/15/2017 02:40:Naty Latham RN) BELONGINGS/ADVANCED DIRECTIVES Valuables/Personal Effects: Purse/Wallet; Cell Phone; Contact Lenses; Jewelry (01/15/2017 02:40:Naty Latham RN) Other Belongings: See [facility] belongings form (12/19/2016 20:30:Nina Rodriguez RN) Disposition of Belongings: Kept with Patient (01/15/2017 02:40:Naty Latham RN) Advance Direct for Healthcare: No, and Wants No Information (01/15/2017 02:40:Naty Latham RN) Durable Power of Pocket Creaser: No (01/15/2017 02:40:Naty Latham RN) Living Will: No (01/15/2017 02:40:Naty Latham RN) Organ Donor: No (01/15/2017 02:40:Naty Latham RN) Pt Rights Information Given: Yes (01/15/2017 02:40:Naty Latham RN) Pt Understands Pt Rights: Yes (12/19/2016 20:30:Shaneka Ochoa RN) LEARNING ASSESSMENT Knowledge Level: Understands L_D Process; Understands Care Activities; Had Pre-Hospital Education; Understands Diagnosis (01/15/2017 02:40:Naty Latham RN) Barriers to Learning: None (01/15/2017 02:40:Naty Latham RN) Learning Readiness: Motivated (01/15/2017 02:40:Naty Latham RN) Learns Best By: Reading; Videos (01/15/2017 02:40:Naty Latham RN) Learning Needs: Labor and Delivery Process; Pain Management; Symptoms to Report; Treatment Plan; Medication (01/15/2017 02:40:Naty Latham RN) DOMESTIC VIOLANCE SCREENING Dom Viol Threatened/Hurt: No (01/15/2017 02:40:Naty Latham RN) Hx of Abuse/Neglect past 2yrs: No (01/15/2017 02:40:Naty Latham RN) Feel Unsafe Going Home: No (01/15/2017 02:40:Naty Latham RN) Addt'l Observ Indicating Abuse: No (01/15/2017 02:40:Naty Latham RN) Reason Unable to Complete Screen: N/A, Screen Completed (01/15/2017 02:40:Naty Latham RN) Considered Personal Harm/Suicide: No (01/15/2017 02:40:Naty Latham RN) NUTRITIONAL/FUNCTIONAL SCREENING Problem with Appetite >5 Days: No (01/15/2017 02:40:Naty Latham RN) Chew/Swallow Difficulties: No (01/15/2017 02:40:Naty Latham RN) Inappropriate Wt Gain/Loss: No (01/15/2017 02:40:Naty Latham RN) Presence Skin Breakdown/Ulcer: No (01/15/2017 02:40:Naty Latham RN) Special Diet: No (01/15/2017 02:40:Naty Latham RN) Pt Requests Project Engineer Chemicals Visit: No (01/15/2017 02:40:Naty Latham RN) Hx of Any of the Following?: N/A (01/15/2017 02:40:Naty Latham RN) New Diagnosis of: N/A (01/15/2017 02:40:Naty Latham RN) Requires Assist w/Ambulation: No (01/15/2017 02:40:Naty Latham RN) Uses Assist Device to Ambulate: No (01/15/2017 02:40:Naty Latham RN) Pt Requires Help w/ADL's: No (01/15/2017 02:40:Naty Latham RN)
[2017-01-16] MEDS: IBUPROFEN 800 MG TABLET PO SCH ×3 (06:12→22:30)
[2017-01-16] MEDS: LABETALOL HCL 200 MG TABLET PO SCH ×3 (06:18→22:30)
[2017-01-16 07:37] LABS: HEMATOCRIT 27.4 % (36.0-47.0); HEMOGLOBIN 8.5 g/dL (12.0-15.5); HGB HCT DIFFERENCE -1.9; MEAN CORPUSCULAR HGB CONC 31.1 g/dL (32.0-36.0); MEAN CORPUSCULAR VOLUME 71 fl (80-97); RED BLOOD COUNT 3.86 10^6/uL (3.72-5.28); RED CELL DISTRIBUTION WIDTH 16.1 % (11.5-14.0); WHITE BLOOD COUNT 16.9 10^3/uL (4.0-10.5)
[2017-01-16] MEDS: FAMOTIDINE 20 MG TABLET PO SCH ×2 (09:24→21:32)
[2017-01-16] MEDS: DOCUSATE SODIUM 100 MG CAPSULE PO SCH ×2 (09:24→17:34)
[2017-01-16] MEDS: PRENATAL VITAMIN W-O CA NO5/FE FUMARATE/FA CAPSULE PO SCH (09:25)
[2017-01-16] MEDS: SENNOSIDES/DOCUSATE 8.6-50 MG 1 EACH TABLET PO SCH (09:25)
[2017-01-16] MEDS: FERROUS SULFATE 325 MG TABLET PO SCH ×2 (09:27→17:35)
--- NOTE | 2017-01-16 12:09 | PDOC PROGRESS REPORT ---
Subjective-OB Subjective: Post Delivery Day: 36 year old. Denies any needs at this time s/p vaginal delivery ff@u-2 mild lochia pt reports feeling better today denies dizziness/ weakness ambulating well Physical Exam (OB) Vital Signs: Temp Pulse Resp BP Pulse Ox 97.7 F 88 16 136/83 H 100 01/16/17 07:27 01/16/17 07:27 01/16/17 07:27 01/16/17 07:27 01/16/17 07:27 Intake & Output 01/15/17 01/16/17 01/17/17 06:59 06:59 06:59 Weight 129.2 kg - PIH/Pre-Eclampsia DTR's: 1 + Clonus: Negative Headache: Absent Epigastric Pain: No Visual Changes: No - Lochia Lochia Amount: Scant < 10 ml Lochia Color: Rubra/Red - Abdomen Description: Soft, Round Hernia Present: No Fundal Description: Firm, Midline Fundal Height: u/u - u/2 Objective-Diagnostic Laboratory: 01/16/17 07:22 01/15/17 06:31 01/15/17 01/16/17 17:42 07:22 WBC 23.9 H 16.9 H RBC 4.44 3.86 Hgb 9.8 L 8.5 L Hct 31.5 L 27.4 L MCV 71 L 71 L MCH 22.1 L 22.0 L MCHC 31.1 L 31.1 L RDW 16.3 H 16.1 H Plt Count 165 160 Seg Neutrophils % Not Reportable Lymphocytes % Not Reportable Monocytes % Not Reportable Eosinophils % Not Reportable Basophils % Not Reportable Absolute Neutrophils Not Reportable Absolute Lymphocytes Not Reportable Absolute Monocytes Not Reportable Absolute Eosinophils Not Reportable Absolute Basophils Not Reportable
[2017-01-17] MEDS: LABETALOL HCL 200 MG TABLET PO SCH ×2 (05:33→13:14)
[2017-01-17] MEDS: IBUPROFEN 800 MG TABLET PO SCH ×2 (05:35→13:13)
[2017-01-17 08:18] VITALS: BP 145/77
--- NOTE | 2017-01-17 09:21 | PDOC PROGRESS REPORT ---
Subjective-OB Subjective: Post Delivery Day: 36 year old. Denies any needs at this time Sitting up in bed, mother and friend at BS, feeling good, no c/o, not sure if baby is going home today. Baby is doing better, off oxygen Physical Exam (OB) Vital Signs: Temp Pulse Resp BP Pulse Ox 97.9 F 69 18 145/77 H 100 01/17/17 07:27 01/17/17 07:27 01/17/17 07:27 01/17/17 07:27 01/17/17 07:27 Intake & Output 01/16/17 01/17/17 01/18/17 06:59 06:59 06:59 Intake Total 325 Balance 325 - PIH/Pre-Eclampsia DTR's: 1 + Clonus: Negative Headache: Absent Epigastric Pain: No Visual Changes: No - Lochia Lochia Amount: Scant < 10 ml Lochia Color: Rubra/Red - Abdomen Description: Soft, Round Hernia Present: No Fundal Description: Firm, Midline Fundal Height: u/u - u/2 Objective-Diagnostic Laboratory: 01/16/17 07:22 01/15/17 06:31 Assessment and Plan(PN) - Assessment and Plan (1) Vaginal delivery Is this a current diagnosis for this admission?: Yes (2) Anemia Qualifiers: Anemia type: iron deficiency Is this a current diagnosis for this admission?: Yes (3) Chronic hypertension Is this a current diagnosis for this admission?: Yes (4) Morbid obesity Qualifiers: Obesity type: due to excess calories Qualified Code(s): E66.01 - Morbid (severe) obesity due to excess calories Is this a current diagnosis for this admission?: Yes - Time Spent with Patient Time with patient: Less than 15 minutes Medications reviewed and adjusted accordingly: Yes - Disposition Anticipated Discharge: Home Within: Other - tody, discussed importance of taking BP med and F/U in office in 1 week to check BP
--- NOTE | 2017-01-17 09:26 | PDOC DISCHARGE SUMMARY ---
Final Diagnosis Discharge Date: 01/17/17 - Final Diagnosis (1) Vaginal delivery Is this a current diagnosis for this admission?: Yes (2) Anemia Is this a current diagnosis for this admission?: Yes (3) Chronic hypertension Is this a current diagnosis for this admission?: Yes (4) Morbid obesity Is this a current diagnosis for this admission?: Yes Discharge Data - Discharge Medication Home Medications: Ferrous Sulfate 1 tab PO DAILY 12/04/16 Vit/Iron Fumarate/FA [ Tablet] 1 tab PO DAILY 12/04/16 Labetalol HCl [Trandate] 300 mg PO Q8 12/23/16 Gestational Age: 41.6 Reason(s) for Admission: Induction of Labor, Obstetric Complications, PIH, Advanced Maternal Age, Group B Strep Positive Procedures: NST, Ultrasound Intrapartum Procedure(s): Spontaneous Vaginal Delivery - [place] Data Baby 1 Male at 1 minute: 6 at 5 minutes: 6 at 10 minutes: 8 Weight: 3.26 kg Home with Mother: Yes Complications: Yes - In NICU, Meconium thick, respiratory difficulty, nasal flaring - Diagnosis Test Laboratory: Temp Pulse Resp BP Pulse Ox 97.9 F 69 18 145/77 H 100 01/17/17 07:27 01/17/17 07:27 01/17/17 07:27 01/17/17 07:27 01/17/17 07:27 01/14/17 01/14/17 01/15/17 20:34 21:27 06:31 RBC 4.71 5.05 Hgb 10.6 L 11.3 L Hct 33.8 L 35.6 L Urine Opiates Screen NEGATIVE 01/15/17 01/16/17 17:42 07:22 RBC 4.44 3.86 Hgb 9.8 L 8.5 L Hct 31.5 L 27.4 L Urine Opiates Screen - Discharge information/Instructions Discharge Activity: Activity As Tolerated, Balance Activity w/Rest, No Lifting Over 10 Pounds, No Lifting/Push/Pulling, Pelvic Rest, Slowly Increase Activity, No tub bath, Walk Frequently, Weigh Daily Discharge Diet: Regular Disposition: HOME, SELF-CARE Follow up with: [facility] in: Weeks
[2017-01-17] MEDS: FERROUS SULFATE 325 MG TABLET PO SCH (10:10)
[2017-01-17] MEDS: FAMOTIDINE 20 MG TABLET PO SCH (10:10)
[2017-01-17] MEDS: DOCUSATE SODIUM 100 MG CAPSULE PO SCH (10:10)
[2017-01-17] MEDS: SENNOSIDES/DOCUSATE 8.6-50 MG 1 EACH TABLET PO SCH (10:11)
[2017-01-17] MEDS: PRENATAL VITAMIN W-O CA NO5/FE FUMARATE/FA CAPSULE PO SCH (10:11)
--- NOTE | 2017-01-21 14:41 | Delivery Summary ---
Del Sum A-C Datetime Report Generated by BEATRIZ: 01/21/2017 14:41 ADMISSION DATA Chief Complaint: Uterine Contractions; Signs/Symptoms Gestational HTN; Scheduled Induction of Labor Indication for Induction: Post Dates; Chronic Hypertension; Gest. HTN/PreEclampsia/Eclampsia; Indicated by Testing Indication for Induction Comment: ?MARVA: 24 hr prot >400 Admission Impression: Term, Intrauterine ; No Active Labor; Intact Membranes Admit Provider Comments: 36yo (h/o x 2 last in 2003, largest baby 7#7oz) presents for IOL for CHTN with superimposed PreE. She is currently on Labetolol 300mg PO TID with persistent abnormal BPs in the office and intermittent severe range BPs in the office. IOL was recommended at 37wks and attempted then pt was discharged and recommended to return for attempt at IOL again on 12/25 however pt has declined IOL until today. She was scheduled for IOL tomorrow due to above with Post XANDER and was seen in the office with 2.5 min decel and no accels and was sent for admission at approx 1645 today and arrived at 2029. She was evaluated as cervix is more favorable that last and /blt and recommendation for Pitocin and FB given. pt declines FB at this time. REviewed continued recommendation for FB and pt agreed to pitocin and will re-eval at 0300 and will consider FB at that time. Pt with severe range BPs but inapprop cuff. Approp cuff requested with persistent severe range BPs. Will begin magnesium sulfate and treat severe range BPs with IV meds as needed. EFW 7-8# but difficult to eval since body habitus. Anticipate . Cat I FHR tracing at this time. section for maternal/ indications if needed. GBS pos - PCN for GBS prophy. DELIVERY PERSONNEL Delivery Doctor:: Whitley Moreira CNM Nurse Furnace Operator Oil Or Gas Certified:: Whitley Moreira CNM Labor and Delivery Nurse:: KRISTEN Hernandez Labor and Delivery Nurse:: Rosario Craig RN Nursery Nurse:: Radha Botello RN Quality Control Chemist/SPECIAL EDUCATION DIRECTOR: Mai Guo CNA II Additional Personnel: : KRISTEN Salazar MATERNAL INFORMATION Delivery Anesthesia: Epidural Medications After Delivery: Pitocin Bolus-Please Comment Meds After Delivery Comment: Pitocin 20 units in 1000 ml nss open for bolus after delivery placenta Estimated Blood Loss (ml): 275 Maternal Complications: Other Other Maternal Complications: CHTN, obesity Provider Comments: Called to Room 1 for delivery. Head already delivered. Patient in good control. Tight nuchal cord reduced prior to delivery. Shoulders delivered without problem at 1256. Large amount of yellow meconium expelled with baby. Baby limp after delivery with small effort to cry. Cord clamped and cut and baby passed to RN to take to warmer. 3-vessel cord. Apgars 6- . Placenta, membranes, and cord expelled at 1300, Coleman presentation. Perineum intact. Bleeding stabilized with bolus of Pitocin. Patient tolerated procedure well. LABOR SUMMARY EDC: 01/08/2017 00:00 No. Babies in Womb: 1 Attempted: No Labor Anesthesia: Epidural LABOR INFORMATION Reason for Induction: Pre-Eclampsia Onset of Labor: 01/15/2017 07:00 Complete Dilatation: 01/15/2017 12:34 Cervical Ripening Agents: Cytotec @ 25 mcg Oxytocin: Induction Group B Beta Strep: Positive Antibiotics # of Doses: 4 Antibiotics Time of Last Dose: 1000 Name of Antibiotic Given: penicillin Steroids Given: None Reason Steroids Not Administered: Not Applicable MEMBRANES Membranes Rupture Method: Artificial Rupture of Membranes: 01/15/2017 05:42 Length of Rupture (hr): 7.23 Amniotic Fluid Color: Clear Amniotic Fluid Amount: None Amniotic Fluid Odor: Normal STAGES OF LABOR Stage 1 hr: 5 Stage 1 min: 34 Stage 2 hr: 0 Stage 2 min: 22 Stage 3 hr: 0 Stage 3 min: 4 Total Time in Labor hr: 6 Total Time in Labor min: 0 VAGINAL DELIVERY Episiotomy: None Laceration Extension: N/A Laceration Type: None Laceration Repair: Not Applicable Sponge Count Correct: N/A Sharps Count Correct: Yes BABY A INFORMATION Infant Delivery Date/Time: 01/15/2017 12:56 Method of Delivery: Vaginal Born in Route : No : N/A Forceps: N/A Vacuum Extraction: N/A Shoulder Dystocia : No PRESENTATION/POSITION BABY A Presentation: Cephalic Cephalic Presentation: Vertex Vertex Position: Right Occipital Anterior Breech Presentation: N/A PLACENTA INFORMATION BABY A Placenta Delivery Time : 01/15/2017 13:00 Placenta Method of Delivery: Spontaneous Placenta Status: Delivered SCORES BABY A Heart Rate 1 min: >100 bpm Resp Effort 1 min: Slow, Irregular Reflex Irritability 1 min: Grimace Muscle Tone 1 min: Some Flexion of Extremities Color 1 min: Body [place], Extremities Blue Resuscitation Effort 1 min: Tactile Stimulation SCORE 1 MIN: 6 Heart Rate 5 min: >100 bpm Resp Effort 5 min: Slow, Irregular Reflex Irritability 5 min: Grimace Muscle Tone 5 min: Some Flexion of Extremities Color 5 min: Body [place], Extremities Blue Resuscitation Effort 5 min: Tactile Stimulation; PPV/NCPAP SCORE 5 MIN: 6 Heart Rate 10 min: >100 bpm Resp Effort 10 min: Slow, Irregular Reflex Irritability 10 min: Cough or Sneeze or Pulls Away Muscle Tone 10 min: Active Motion Color 10 min: Body [place], Extremities Blue Resuscitation Effort 10 min: Oxygen SCORE 10 MIN: 8 INFORMATION BABY A Gestational Age at Delivery: 41.0 Gestational Status: Late Term- 41- 41.6 Weeks Infant Outcome : Liveborn Condition : Fair Infant Sex: Male IDENTIFICATION BABY A Verification Date/Time: 01/15/2017 13:15 ID Band Number: [id number] Mother's Name Verified: Yes Infant RN Verifying : Emily [place] RNC Additional Verifying Personnel: Joleen Gregory RN WEIGHT/LENGTH BABY A Infant Birthweight (gm): 3270 Infant Weight (lb): 7 Weight (oz): 3 Length (in): 21.00 Infant Length (cm): 53.34 CORD INFORMATION BABY A No. Cord Vessels: 3 Nuchal Cord : Around Neck x1, Tight Cord Blood Taken: Yes-For Eval (Mom's Blood Type - or O+) Infant Suction: Mouth; Nose; Pharynx ASSESSMENT BABY A Complications: Multiple Variable Decels; Meconium Physical Findings at Delivery: Caput Succedaneum; Puncture Wound from Scalp Electrode Physical Findings- Other: To [facility] 13:02 with A Ayan RN for further assessment and evaluation Respirations: Intercostal Retractions; Nasal Flaring Skin to Skin: No Care By: Mary Lou Botello RN Transferred To: [facility] SIGNATURES Assignment: Jojo Carrasco MD Signature: with User ID: [email or web address] : with User ID: Marko : I personally evaluated and examined the patient in conjunction with the MLP and agree with the assessment, treatment plan and disposition.
--- NOTE | 2017-01-22 06:01 | L&D General Admission ---
General Admit Datetime Report Generated by CPN: 01/22/2017 06:00 INFORMATION Patient Age: 36 (10/30/2016 09:21:QS system process) EDC: 01/08/2017 00:00 (12/04/2016 15:37:Amelia Morales RN) : 7 (12/04/2016 15:37:Amelia Morales RN) Para: 2 (01/03/2017 19:22:Leah Perez RN) Term: 2 (12/04/2016 15:37:Amelia Morales RN) : 0 (12/04/2016 15:37:Amelia Morales RN) Spontaneous Abortions: 1 (12/04/2016 15:37:Amelia Morales RN) Induced Abortions: 3 (12/04/2016 15:37:Amelia Morales RN) Livin (12/04/2016 15:37:Amelia Morales RN) Cesareans: 0 (12/04/2016 15:37:Amelia Morales RN) VBACs: 0 (12/04/2016 15:37:Amelia Morales RN) Ectopic: 0 (12/04/2016 15:37:Amelia Morales RN) Multiple Births: 0 (12/04/2016 15:37:Amelia Morales RN) Baby, Number in Womb: 1 (01/03/2017 19:22:Leah Perez RN) CARE Primary Index Editor: [facility] (12/04/2016 15:37:Amelia Morales RN) Month of 1st Visit: 06/16 (12/04/2016 15:37:Amelia Morales RN) Adequate Care: Yes (12/04/2016 15:37:Amelia Morales RN) Prepregnancy Weight (lb): 272 (12/04/2016 15:37:Amelia Morales RN) Prepregnancy Weight (kg): 123.6 (12/04/2016 15:37:QS system process) Height (in): 61 (01/17/2017 11:26:QS system process) ALLERGIES Medication Allergy: No (12/04/2016 15:37:Amelia Morales RN) Medication Allergies: No Known Allergies (01/10/2017) (01/10/2017 11:27:QS system process) Latex Allergy: No Latex Allergies (12/04/2016 15:37:Amelia Morales RN) Food Allergies: N/A (12/04/2016 15:37:Amelia Morales RN) Environmental Allergies: N/A (12/04/2016 15:37:Amelia Mroales RN) COMMUNICATION Primary Language: Martiniquais (12/04/2016 15:37:Amelia Morales RN) Medical Tx Preferred Language: Martiniquais (12/04/2016 15:37:Amelia Morales RN) Communication Barrier(s): None (12/04/2016 15:37:Amelia Morales RN) DEMOGRAPHICS Address: [address] [place] [id number] (10/30/2016 09:21:QS system process) Zipcode: [phone] (10/30/2016 09:21:QS system process) Home (10/30/2016 09:21:QS system process) SSN: [id number] (10/30/2016 09:21:QS system process) Next of Kin Name: NATALI MONTE (12/19/2016 20:04:QS system process) Next of Kin (12/19/2016 20:04:QS system process) Next of Kin Relationship: MO (12/19/2016 20:04:QS system process) Date of : 1980 (10/30/2016 09:21:QS system process) Marital Status: (10/30/2016 09:21:QS system process) Sex: Female (10/30/2016 09:21:QS system process) Race: (10/30/2016 09:21:QS system process) Ethnicity: Non- or (10/30/2016 09:21:QS system process) Adventist: Quaker (10/30/2016 09:21:QS system process) DRUG AND ALCOHOL USE Alcohol: No (12/04/2016 15:37:Amelia Morales RN) Cigarettes: Never Smoker. [id number] (12/04/2016 15:37:Amelia Morales RN) Marijuana: No (12/04/2016 15:37:Amelia Morales RN) Cocaine: No (12/04/2016 15:37:Amelia Morales RN) Other Illicit Drugs: No (12/04/2016 15:37:Amelia Morales RN) VACCINE HISTORY Influenza Vaccine: Yes (12/04/2016 15:37:Amelia Morales RN) Pneumococcal Vaccine: No (12/04/2016 15:37:Amelia Morales RN) Tetanus Vaccine: Yes (12/04/2016 15:37:Amelia Morales RN) Tdap Vaccine: Yes (12/04/2016 15:37:Amelia Morales RN) Hepatitis B Vaccine: Yes (12/04/2016 15:37:Amelia Morales RN) Switch Foreman: [facility] (12/04/2016 15:37:Natali Ochoa RN) Feeding Preference: Breast (12/04/2016 15:37:Natali Ochoa RN) Benefit of Breast Feed Discussed: Yes (12/04/2016 15:37:Amelia Morales RN) Circumcision: Yes (12/04/2016 15:37:Amelia Morales RN) Classes Attended: Yes (12/04/2016 15:37:Amelia Morales RN) Tubal Ligation: Yes (12/04/2016 15:37:Amelia Morales RN) Tubal Authorization Signed: N/A (12/04/2016 15:37:Amelia Morales RN) Consent: N/A (12/04/2016 15:37:Amelia Morales RN) Consent Signed: N/A (12/04/2016 15:37:Amelia Morales RN) Pain Management Plans: Epidural (12/04/2016 15:37:Quirino Matamoros RN) Plans for Labor and Delivery: None (12/04/2016 15:37:Amelia Morales RN) Support Person: Marco Warner II (12/04/2016 15:37:Amelia Morales RN) Support Person Relationship: (12/04/2016 15:37:Amelia Morales RN) Cultural/Spritual Practice: No (12/04/2016 15:37:Amelia Morales RN) Spir/Cult Dietary Needs: No (12/04/2016 15:37:Amelia Morales RN) LIVING SITUATION/DISCHARGE PLAN Living Arrangements: House (12/04/2016 15:37:Amelia Morales RN) Adequate Access to:: Electric; Heat; Refrigeration; Plumbing/Running water; Phone; Transportation (12/04/2016 15:37:Amelia Morales RN) WIC Program: No (12/04/2016 15:37:Amelia Morales RN) Discharge Stock Parts Inspector Person: (12/04/2016 15:37:Amelia Morales RN) Person to Help after Discharge: (12/04/2016 15:37:Amelia Morales RN) Currently Using Commun Resources: No (12/04/2016 15:37:Amelia Morales RN) Outside Agency/Certified Nurse Midwife: No (12/04/2016 15:37:Amelia Morales RN) Car Seat for Discharge: Yes (12/04/2016 15:37:Amelia Morales RN) Adoption Requested: No (12/04/2016 15:37:Amelia Morales RN) Pt Contact w/infant Post : N/A (12/04/2016 15:37:Amelia Morales RN) LABS Blood Type: O Positive (12/04/2016 15:37:Quirino Matamoros RN) Antibody Screen: Negative (12/04/2016 15:37:Cecilia Garrison RN) Rho(G) this : Not Applicable (12/04/2016 15:37:Cecilia Garrison RN) Hemoglobin: 8.5 L (01/16/2017 07:22:QS system process) Hematocrit: 27.4 L (01/16/2017 07:22:QS system process) MCV: 71 L (01/16/2017 07:22:QS system process) Group Beta Strep: Positive (12/04/2016 15:37:Quirino Matamoros RN) Gonorrhea: Negative (12/04/2016 15:37:Quirino Matamoros RN) Chlamydia: Negative (12/04/2016 15:37:Quirino Matamoros RN) RPR/VDRL: Nonreactive (12/04/2016 15:37:Quirino Matamoros RN) HIV Exposure Test: Negative (12/04/2016 15:37:Quirino Matamoros RN) Hepatitis B: Negative (12/04/2016 15:37:Quirino Matamoros RN) Rubella: Immune (12/04/2016 15:37:Quirino Matamoros RN) OB/PREVIOUS HISTORY Previous Procedures: Ultrasound; NST (12/04/2016 15:37:Natali Ochoa RN) Current Procedures: Ultrasound; NST (12/04/2016 15:37:Natali Ochoa RN) History of Previous : No (12/04/2016 15:37:Amelia Morales RN) History of Gestational Diabetes: No (12/04/2016 15:37:Amelia Morales RN) History of PIH: No (12/04/2016 15:37:Amelia Morales RN) History of Incompetent Cervix: No (12/04/2016 15:37:Amelia Morales RN) History of Placenta Previa/Abrup: No (12/04/2016 15:37:Amelia Morales RN) History of Macrosomia: No (12/04/2016 15:37:Amelia Morales RN) History of IUGR: No (12/04/2016 15:37:Amelia Morales RN) History of Hemorrhage: No (12/04/2016 15:37:Amelia Morales RN) History of Loss/Stillborn: No (12/04/2016 15:37:Amelia Morales RN) History of : No (12/04/2016 15:37:Amelia Morales RN) History of D (Rh) Sensitization: No (12/04/2016 15:37:Amelia Morales RN) History Recurrent Loss/Stillborn: No (12/04/2016 15:37:Amelia Morales RN) History Depression/PP Depression: No (12/04/2016 15:37:Amelia Morales RN) History of Uterine Anomaly/YAZMIN: No (12/04/2016 15:37:Amelia Morales RN) History of Infertility: No (12/04/2016 15:37:Amelia Morales RN) History of ART Treatment: No (12/04/2016 15:37:Amelia Morales RN) History of YAZMIN: No (12/04/2016 15:37:Amelia Morales RN) Comments Obstetrical History: G1: 2000 EAB G2: 2001 baby boy, 37-39 weeks, 24+ hours labor, 7 lb, IOL oligo G3: 2001 EAB G4: 2003 baby girl, 37-39 weeks G5: 2007 EAB G6: 2013 SAB, 13 weeks G7: Current (12/04/2016 15:37:Amelia Morales RN) MEDICAL HISTORY Med Hx Diabetes: No (12/04/2016 15:37:Amelia Morales RN) Med Hx Hypertension: Yes (12/04/2016 15:37:Amelia Morales RN) Med Hx Heart Disease: No (12/04/2016 15:37:Amelia Morales RN) Med Hx Autoimmune Disorder: No (12/04/2016 15:37:Amelia Morales RN) Med Hx Kidney Disease/UTI: No (12/04/2016 15:37:Amelia Morales RN) Med Hx Neurologic/Epilepsy: No (12/04/2016 15:37:Amelia Morales RN) Med Hx Psychiatric Disorders: No (12/04/2016 15:37:Amelia Morales RN) Med Hx Hepatitis/Liver Disease: No (12/04/2016 15:37:Amelia Morales RN) Med Hx Varicosities/Phlebitis: No (12/04/2016 15:37:Amelia Morales RN) Med Hx Thyroid Dysfunction: No (12/04/2016 15:37:Amelia Morales RN) Med Hx Trauma/Violence: No (12/04/2016 15:37:Amelia Morales RN) Med Hx Blood Transfusion: No (12/04/2016 15:37:Amelia Morales RN) Med Hx Pulmonary (Asthma,TB): Yes (12/04/2016 15:37:Amelia Morales RN) Med Hx Breast: No (12/04/2016 15:37:Amelia Morales RN) Med Hx CREDIT ADMINISTRATION MANAGER Surgery: No (12/04/2016 15:37:Amelia Morales RN) Med Hx Hospitalization/Surgery: Yes (12/04/2016 15:37:Amelia Morales RN) Med Hx Anesthetic Complications: No (12/04/2016 15:37:Amelia Morales RN) Med Hx Abnormal Pap Smear: Yes (12/04/2016 15:37:Amelia Morales RN) Other Medical Diseases: Yes (12/04/2016 15:37:Amelia Morales RN) Med Hx Significant Family Hx: No (12/04/2016 15:37:Amelia Morales RN) Details of Med/Surg Hx: HTN: Chronic HTN, Labetalol Pulmonary: Bronchitis 11/30/16 Surgery: Colonoscopy 2012, polyps noted Abnormal Pap: Hx ASCUS Pap, negative HPV Other: Morbid obesity (12/04/2016 15:37:Amelia Morales RN) INFECTIOUS HISTORY Inf Hx Gonorrhea: No (12/04/2016 15:37:Amelia Morales RN) Inf Hx Chlamydia: Yes (12/04/2016 15:37:Amelia Morales RN) Inf Hx Syphilis: No (12/04/2016 15:37:Amelia Morales RN) Inf Hx HIV/AIDS: No (12/04/2016 15:37:Amelia Morales RN) Inf Hx Human Papilloma Virus: No (12/04/2016 15:37:Amelia Morales RN) Inf Hx Pt/Partner Genital Herpes: No (12/04/2016 15:37:Amelia Morales RN) Inf Hx Tuberculosis/Exposure: No (12/04/2016 15:37:Amelia Morales RN) Inf Hx Hepatitis B,C: No (12/04/2016 15:37:Amelia Morales RN) Inf Hx Rash or Viral Illness: No (12/04/2016 15:37:Amelia Morales RN) Details of Infectious Hx: Chlamydia (12/04/2016 15:37:Amelia Morales RN) GENETIC HISTORY Gen Hx Age >=35 at XANDER: No (12/04/2016 15:37:Amelia Morales RN) Gen Hx Thalassemia: No (12/04/2016 15:37:Amelia Morales RN) Gen Hx Congenital Heart Defect: No (12/04/2016 15:37:Amelia Morales RN) Gen Hx Neural Tube Defect: No (12/04/2016 15:37:Amelia Morales RN) Gen Hx Down's Syndrome: No (12/04/2016 15:37:Amelia Morales RN) Gen Hx Ken-Sachs: No (12/04/2016 15:37:Amelia Morales RN) Gen Hx Alexia: No (12/04/2016 15:37:Amelia Morales RN) Gen Hx Familial Dysautonomia: No (12/04/2016 15:37:Amelia Morales RN) Gen Hx Sickle Cell Disease/Trait: No (12/04/2016 15:37:Amelia Morales RN) Gen Hx Hemophilia/Blood Disorder: No (12/04/2016 15:37:Amelia Morales RN) Gen Hx Muscular Dystrophy: No (12/04/2016 15:37:Amelia Morales RN) Gen Hx Cystic Fibrosis: No (12/04/2016 15:37:Amelia Morales RN) Gen Hx Huntingtons Chorea: No (12/04/2016 15:37:Amelia Morales RN) Gen Hx Mental Retardation/Autism: No (12/04/2016 15:37:Amelia Morales RN) Gen Hx Tested for Fragile X: No (12/04/2016 15:37:Amelia Morales RN) Gen Hx Other Inher/Chromosomal: No (12/04/2016 15:37:Amelia Morales RN) Gen Hx Maternal Metabolic DO: No (12/04/2016 15:37:Amelia Morales RN) Gen Hx Pt Father or FOB Defect: No (12/04/2016 15:37:Amelia Morales RN) Gen Hx Other Genetic History: No (12/04/2016 15:37:Amelia Morales RN) Gen Hx Drugs/Meds since LMP: Yes (12/04/2016 15:37:Raina Chaney RN) Gen Hx Medications: PNV, iron, labetalol (12/04/2016 15:37:Raina Chaney RN)
--- NOTE | 2017-01-22 06:01 | L&D Current Admission ---
Current Admit Datetime Report Generated by CPN: 01/22/2017 06:00 ADMISSION INFORMATION Current Admit Date/Time: 01/14/2017 20:29 (01/15/2017 02:40:Naty Latham RN) Reason for Admission: Induction of Labor (01/15/2017 02:40:Naty Latham RN) Chief Complaint: Scheduled Induction of Labor (01/15/2017 02:40:Naty Latham RN) Medications During : Ferrous Sulfate (Iron); Labetolol; Vitamin (01/15/2017 02:40:Naty Latham RN) EGA per Dates: 40.6 (01/15/2017 02:40:QS system process) Method of Arrival: Ambulatory (01/15/2017 02:40:Naty Latham RN) Admitted From: Home (01/15/2017 02:40:Naty Latham RN) Reason for Induction: Chronic Hypertension; Pre-Eclampsia (01/15/2017 02:40:Naty Latham RN) Records Available: Yes (01/15/2017 02:40:Naty Latham RN) General Admission Information: Reviewed (01/15/2017 02:40:Naty Latham RN) General Admission Reviewed By: ABDULKADIR Kim (01/15/2017 02:40:Naty Latham RN) BELONGINGS/ADVANCED DIRECTIVES Valuables/Personal Effects: Purse/Wallet; Cell Phone; Contact Lenses; Jewelry (01/15/2017 02:40:Naty Latham RN) Other Belongings: See [facility] belongings form (12/19/2016 20:30:Nina Rodriguez RN) Disposition of Belongings: Kept with Patient (01/15/2017 02:40:Naty Latham RN) Advance Direct for Healthcare: No, and Wants No Information (01/15/2017 02:40:Naty Latham RN) Durable Power of Hand Straightener: No (01/15/2017 02:40:Naty Latham RN) Living Will: No (01/15/2017 02:40:Naty Latham RN) Organ Donor: No (01/15/2017 02:40:Naty Latham RN) Pt Rights Information Given: Yes (01/15/2017 02:40:Naty Latham RN) Pt Understands Pt Rights: Yes (12/19/2016 20:30:Shaneka Ochoa RN) LEARNING ASSESSMENT Knowledge Level: Understands L_D Process; Understands Care Activities; Had Pre-Hospital Education; Understands Diagnosis (01/15/2017 02:40:Naty Latham RN) Barriers to Learning: None (01/15/2017 02:40:Naty Latham RN) Learning Readiness: Motivated (01/15/2017 02:40:Naty Latham RN) Learns Best By: Reading; Videos (01/15/2017 02:40:Naty Latham RN) Learning Needs: Labor and Delivery Process; Pain Management; Symptoms to Report; Treatment Plan; Medication (01/15/2017 02:40:Naty Latham RN) DOMESTIC VIOLANCE SCREENING Dom Viol Threatened/Hurt: No (01/15/2017 02:40:Naty Latham RN) Hx of Abuse/Neglect past 2yrs: No (01/15/2017 02:40:Naty Latham RN) Feel Unsafe Going Home: No (01/15/2017 02:40:Naty Latham RN) Addt'l Observ Indicating Abuse: No (01/15/2017 02:40:Naty Latham RN) Reason Unable to Complete Screen: N/A, Screen Completed (01/15/2017 02:40:Naty Latham RN) Considered Personal Harm/Suicide: No (01/15/2017 02:40:Naty Latham RN) NUTRITIONAL/FUNCTIONAL SCREENING Problem with Appetite >5 Days: No (01/15/2017 02:40:Naty Latham RN) Chew/Swallow Difficulties: No (01/15/2017 02:40:Naty Latham RN) Inappropriate Wt Gain/Loss: No (01/15/2017 02:40:Naty Latham RN) Presence Skin Breakdown/Ulcer: No (01/15/2017 02:40:Naty Latham RN) Special Diet: No (01/15/2017 02:40:Naty Latham RN) Pt Requests High School French Teacher Visit: No (01/15/2017 02:40:Naty Latham RN) Hx of Any of the Following?: N/A (01/15/2017 02:40:Naty Latham RN) New Diagnosis of: N/A (01/15/2017 02:40:Naty Latham RN) Requires Assist w/Ambulation: No (01/15/2017 02:40:Naty Latham RN) Uses Assist Device to Ambulate: No (01/15/2017 02:40:Naty Latham RN) Pt Requires Help w/ADL's: No (01/15/2017 02:40:Naty Latham RN)
== END 2017-01-17 16:25 | disposition home or self-care (01) | DRG 775 ==
LOC: UNDOADMIN 20:23 → LR 20:23 → 2S 01-15 16:02
PROVIDERS: ADMIT Student in an Organized Health Care Education/Training Program; ATTEND Student in an Organized Health Care Education/Training Program
PROC: 10E0XZZ Delivery of Products of Conception, External Approach (ICD-10-PCS; principal; 2017-01-15)
PROC: 3E033VJ Introduction of Other Hormone into Peripheral Vein, Percutaneous Approach (ICD-10-PCS; 2017-01-15)
PROC: 10907ZC Drainage of Amniotic Fluid, Therapeutic from Products of Conception, Via Natural or Artificial Opening (ICD-10-PCS; 2017-01-15)
DX: O11.4 Pre-existing hypertension with pre-eclampsia, complicating childbirth (principal); Z68.43 Body mass index [BMI] 50.0-59.9, adult; O48.0 Post-term pregnancy; O09.523 Supervision of elderly multigravida, third trimester; O99.214 Obesity complicating childbirth; E66.01 Morbid (severe) obesity due to excess calories; O99.824 Streptococcus B carrier state complicating childbirth; O99.02 Anemia complicating childbirth; D50.9 Iron deficiency anemia, unspecified; O69.1XX0 Labor and delivery complicated by cord around neck, with compression, not applicable or unspecified; O77.0 Labor and delivery complicated by meconium in amniotic fluid; O76 Abnormality in fetal heart rate and rhythm complicating labor and delivery; Z37.0 Single live birth; Z3A.41 41 weeks gestation of pregnancy
CPT/HCPCS: 36415; 80053; 80307; 81005; 83615; 84550; 85025; 85027; 86592; 86850; 86900; 86901; 88307; 94760; J0360; J2300; J2540; J2590; J3475; J3490